=== PATIENT | male | born 1945 | race Caucasian/White ===

== ENCOUNTER → 2019-06-25 | Outpatient (CLI) | payer MEDICARE ==
[~2019-06-25] MED LIST: BARIUM for suspension 96% w/w (Vanilla Silq Medium Density) PO ONE; BARIUM for suspension 98% w/w (Vanilla Silq High Density) PO ONE; IRBE1TAB15 PO; PHEN-633 PO; ROSU10TA12 PO
--- NOTE | 2019-06-25 10:54 | Diagnostic Imaging Report ---
INDICATION: Dyspepsia. TECHNIQUE: Patient ingested effervescent crystals as well as thin and thick barium and imaging of the esophagus, stomach and proximal small bowel was performed. FINDINGS: The esophagus has a fairly smooth contour. No mass or stricture is identified. No gastroesophageal reflux or hiatal hernia was demonstrated. Stomach is normal in configuration. There is prompt emptying into the small bowel. Duodenal bulb is without deformity. IMPRESSION: Unremarkable upper gastrointestinal. Dictated by: Dictated on workstation # [id number]
== END ==
LOC: RAD 09:29
PROVIDERS: ATTEND Family Medicine
DX: R10.13 Epigastric pain (principal)
CPT/HCPCS: 74246

== ENCOUNTER → 2020-02-21 | Outpatient (CLI) | payer MEDICARE ==
[~2020-02-21] MED LIST changes: -BARIUM for suspension 96% w/w (Vanilla Silq Medium Density) PO ONE; -BARIUM for suspension 98% w/w (Vanilla Silq High Density) PO ONE
--- NOTE | 2020-02-21 10:20 | Diagnostic Imaging Report ---
INDICATION: Low back pain for one month. TIME OF EXAM: 9:01 AM 3 views lumbar spine were obtained. FINDINGS: Curvature and alignment is normal. Vertebral body heights are maintained. No acute compression fracture is identified. There is generalized degenerative disc disease with variable disc space narrowing and marginal spurring. Abdominal aorta is heavily calcified. IMPRESSION: Lumbar spondylosis. No acute bony abnormality is detected. Dictated by: Dictated on workstation # [id number]
== END ==
LOC: RAD 08:54
PROVIDERS: ATTEND Family Medicine
DX: M47.816 Spondylosis without myelopathy or radiculopathy, lumbar region (principal)
CPT/HCPCS: 72100

== ENCOUNTER 2020-08-06 05:44 | Outpatient (CLI) | payer MEDICARE ==
[~2020-08-06] VITALS: Ht 180.3 cm; Wt 83.1 kg
[2020-08-07] MEDS ORDERED: LOSA100T57 PO (11:09)
[2020-08-07] MEDS ORDERED: PHEN100C4 PO (11:09)
[2020-08-07] MEDS ORDERED: ASPI-999 PO (11:09)
[2020-08-07] MEDS ORDERED: AMLO-250 PO (11:09)
[2020-08-07] MEDS ORDERED: IBUP200C11 PO (11:09)
[2020-08-07] MEDS ORDERED: OMG1KC PO (11:09)
== END 2020-08-07 11:19 | disposition home or self-care (01) ==
LOC: PREOP 05:44 → EDSTATUS 11:00 → PREOP 08-07 11:19
PROVIDERS: ATTEND Radiology Radiation Oncology
DX: Z01.812 Encounter for preprocedural laboratory examination (principal); C61 Malignant neoplasm of prostate

== ENCOUNTER 2020-08-13 11:54 | Day surgery (SDC) | payer MEDICARE ==
[2020-08-13] VITALS (10 sets, daily range): BP systolic 124–194; BP diastolic 80–96
[~2020-08-13] VITALS: Ht 180.3 cm; Wt 83.1 kg
[~2020-08-13 11:54] MED LIST changes: +AMLO-250 PO; +ASPI-999 PO; +IBUP200C11 PO; +LOSA100T57 PO; +OMG1KC PO; +PHEN100C4 PO
[2020-08-13] MEDS ORDERED: LACTATED RINGERS 1,000 ML IV PRN (12:15)
--- NOTE | 2020-08-13 12:46 | Progress Note-Pre Operative ---
Pre-Operative Progress Note H&P Reviewed The H&P was reviewed, patient examined and no changes noted. Date Seen by Provider: Aug 13, 2020 Time Seen by Provider: 12:45 Date H&P Reviewed: Aug 13, 2020 Time H&P Reviewed: 12:45 Pre-Operative Diagnosis: Prostate cancer cT1c, PSA 8.4, [place] 7 (3+4) TRACY WALL MD Aug 13, 2020 12:46
--- NOTE | 2020-08-13 12:48 | Discharge Inst-Simple/Standard ---
Discharge Inst-Standard Reconcile Patient Problems Problems Reviewed?: Yes Discharge Medications New, Converted or Re-Newed RX: Other (Patient has medications) Patient Instructions/Follow Up Plan of Care/Instructions/FU: 1)Treatment planning ct simulation at [facility] cancer center 08/27/20 at 1:00 p.m. Activity as Tolerated: Yes Discharge Diet: No Restrictions TRACY WALL MD Aug 13, 2020 12:48
[2020-08-13] MEDS ORDERED: fentaNYL INJ 100 MCG/2 ML AMP ONE (14:01)
[2020-08-13] MEDS ORDERED: ONDANSETRON 4 MG/2 ML (SDV) Z0FRAN ONE (14:01)
[2020-08-13] MEDS ORDERED: LIDOCAINE PF 2% 5 ML (XYLOCAINE) VIAL ONE (14:01)
[2020-08-13] MEDS ORDERED: proPOfol 200 MG/20 ML (DIPRIVAN) VIAL IV ONE (14:01)
[2020-08-13] MEDS ORDERED: SEVOFLURANE (ULTANE) 15 ML INHAL SOLN ONE (14:18)
--- NOTE | 2020-08-13 15:07 | Progress Note-Post Operative ---
Post-Operative Progess Note Surgeon (s)/Military Equipment Specialist (s) Surgeon Karma GREENWOOD MD Military Equipment Specialist: TRACY WALL MD Pre-Operative Diagnosis Prostate cancer cT1c, PSA 8.4, [place] 7 (3+4) Post-Operative Diagnosis Same as preop Procedure & Operative Findings Date of Procedure 08/13/20 Procedure Performed/Findings (1) Placement of fiducial gold seed markers (2) Injection of biodegradable hydrogel prostate-rectal spacer utilizing [employer] Juliana Anesthesia Type General Estimated Blood Loss Estimated blood loss (mL): None Specimens/Packing Specimens Removed N/A Packing: N/A TRACY WALL MD Aug 13, 2020 15:07
--- NOTE | 2020-08-13 15:08 | Anesthesia-General Post-Op ---
General Patient Condition Mental Status/LOC: Same as Preop Cardiovascular: Satisfactory Nausea/Vomiting: Absent Respiratory: Satisfactory Pain: Controlled Complications: Absent Post Op Complications Complications None Follow Up Care/Instructions Patient Instructions None needed. Anesthesia/Patient Condition Patient Condition Patient is doing well, no complaints, stable vital signs, no apparent adverse anesthesia problems. No complications reported per nursing. D/C home per [place] Criteria: Yes JEFF MCNULTY CRNA Aug 13, 2020 15:08
[2020-08-13] MEDS ORDERED: ONDANSETRON 4 MG/2 ML (SDV) Z0FRAN IVP PRN (15:15)
[2020-08-13] MEDS ORDERED: HYDROmorphone 2 MG/ML VIAL (DILAUDID) IV ONE (15:15)
== END 2020-08-13 17:05 | disposition home or self-care (01) ==
LOC: SDC 11:54
PROVIDERS: ATTEND Radiology Radiation Oncology
DX: C61 Malignant neoplasm of prostate (principal); E78.00 Pure hypercholesterolemia, unspecified; I10 Essential (primary) hypertension; I73.9 Peripheral vascular disease, unspecified; G40.909 Epilepsy, unspecified, not intractable, without status epilepticus; J44.9 Chronic obstructive pulmonary disease, unspecified; F17.210 Nicotine dependence, cigarettes, uncomplicated; Z79.82 Long term (current) use of aspirin; Z79.899 Other long term (current) drug therapy; Z80.42 Family history of malignant neoplasm of prostate
CPT/HCPCS: 55874; 55876; 87081; C1889

== ENCOUNTER → 2020-09-15 | Outpatient (RCR) | payer MEDICARE | END | disposition home or self-care (01) | LOC: ONC 06-17 13:35 | PROVIDERS: ATTEND Radiology Radiation Oncology | DX: C61 Malignant neoplasm of prostate (principal); I10 Essential (primary) hypertension; F17.210 Nicotine dependence, cigarettes, uncomplicated; F10.99 Alcohol use, unspecified with unspecified alcohol-induced disorder | CPT/HCPCS: 77300; 77301; 77334; 77336; 77338; 77385; 99204 ==

== ENCOUNTER 2020-12-04 10:54 | Outpatient (RCR) | payer MEDICARE | END 2020-12-15 | disposition home or self-care (01) | LOC: ONC 10:54 | PROVIDERS: ATTEND Radiology Radiation Oncology | DX: Z51.0 Encounter for antineoplastic radiation therapy (principal); C61 Malignant neoplasm of prostate; I10 Essential (primary) hypertension; E78.00 Pure hypercholesterolemia, unspecified; F17.210 Nicotine dependence, cigarettes, uncomplicated; G40.909 Epilepsy, unspecified, not intractable, without status epilepticus; Z79.899 Other long term (current) drug therapy; Z79.82 Long term (current) use of aspirin | CPT/HCPCS: 77336; 77385; 99213 ==

== ENCOUNTER → 2022-06-22 | Outpatient (CLI) | payer MEDICARE ==
--- NOTE | 2022-06-22 13:34 | Diagnostic Imaging Report ---
INDICATION: Left hip pain. COMPARISON: 06/06/2015. TECHNIQUE: Two radiographs of the left hip dated 06/22/2022. FINDINGS: Moderate degenerative changes noted within the partially visualized lower lumbar spine. The left sacroiliac joint and pubic symphysis appear intact. Significant background vascular calcifications. Postsurgical changes noted near the pubic symphysis. This may relate to prior prostate surgery. Phleboliths within the lower pelvis. No acute fracture or dislocation. No destructive osseous process. Mild joint space narrowing of the left hip with mild osteophyte formation. The left femoral head maintains its normal shape and contour. IMPRESSION: No acute osseous abnormality with mild degenerative changes, greatest within the partially visualized lower lumbar spine. Moderate background vascular calcifications. Dictated by: Dictated on workstation # [id number]
== END ==
LOC: RAD 09:51
PROVIDERS: ATTEND Family Medicine
DX: M16.12 Unilateral primary osteoarthritis, left hip (principal); M47.896 Other spondylosis, lumbar region
CPT/HCPCS: 73502

== ENCOUNTER 2022-09-17 18:32 | Inpatient (IN) | payer MEDICARE ==
[~2022-09-17] VITALS: Ht 182 cm; Wt 66.1 kg
[2022-09-17] MEDS ORDERED: methylPREDNISolone 125 MG (Solu-MEDROL) VIAL IV STA (18:51)
[2022-09-17 18:59] LABS: BASOPHILS % (AUTO) 0 % (0-10); EOSINOPHILS % (AUTO) 0 % (0-10); HEMATOCRIT 35 % (40-54); HEMOGLOBIN 13.4 g/dL (13.3-17.7); LYMPHOCYTES # (AUTO) 1.6 10^3/uL (1.0-4.0); LYMPHOCYTES % (AUTO) 13 % (12-44); MEAN CORPUSCULAR HEMOGLOBIN 34 pg (25-34); MEAN CORPUSCULAR HGB CONC 38 g/dL (32-36); MEAN CORPUSCULAR VOLUME 90 fL (80-99); MEAN PLATELET VOLUME 9.6 fL (9.0-12.2); MONOCYTES # (AUTO) 1.7 10^3/uL (0.0-1.0); MONOCYTES % (AUTO) 13 % (0-12); NEUTROPHILS # (AUTO) 9.3 10^3/uL (1.8-7.8); NEUTROPHILS % (AUTO) 73 % (42-75); PLATELET COUNT 207 10^3/uL (130-400); WHITE BLOOD COUNT 12.8 10^3/uL (4.3-11.0)
[2022-09-17] MEDS ORDERED: RT-ALBUTEROL/IPRATROPIUM 3 ML (DUONEB) VIAL INH ONE (19:00)
--- NOTE | 2022-09-17 19:00 | ED Respiratory ---
General Chief Complaint: Respiratory Problems Stated Complaint: BACK/RIB PAIN SOA/WHEEZING Nursing Triage Note: PT AMB TO RM 6 PT CO OF SOA PT HAS L SIDED PAIN BELOW SHOULDER AFTER FALL ON TUESDAY IN [place]. PT WAS SEEN IN ED IN [place]. PT SAT UPON ARRIVAL ON RM AIR 76%. PT DOES NOT WEAR O2. PT IS A CURRENT EVERY DAY SMOKER. PT CYNOTIC UPON ARRIVAL. RR 28 Source: patient Exam Limitations: no limitations (DARLENE BALTAZAR APRN) History of Present Illness Date Seen by Provider: September 17, 2022 Time Seen by Provider: 18:35 Initial Comments 77-year-old male presents the ER with complaints of left upper back pain and shortness of air. He fell on Tuesday, he was seen in an ER in [place]. He states at that time he was having all over rib cage pain and back pain. He also hit his head during the fall, they obtained a CT of his head which was negative. He reports chronic shortness of air, states he may have COPD, states that s hortness of breath became worse yesterday. Patient was found to be at 76% on room air upon arrival. Patient does not wear oxygen at home. Patient does smoke cigarettes. He also drinks alcohol daily and uses [employer]umm[employer]. He states he last drank alcohol yesterday evening. Reports he has withdrawn from alcohol in the past. Denies any current withdrawal symptoms. He denies fevers, chest pain, nausea, vomiting. Does report some mild lower abdominal pain. States he feels like he needs an [place]. Past medical history includes epilepsy controlled by phenytoin, and hypertension. (DARLENE BALTAZAR APRN) Allergies and Home Medications Allergies Coded Allergies: No Known Allergies (Unverified Allergy, Unknown, 09/18/14) Patient Home Medication List Home Medication List Reviewed: Yes (DARLENE BALTAZAR APRN) Amlodipine Besylate (Amlodipine Besylate) 5 Mg Tablet, 5 MG PO DAILY, (Reported) Entered as Reported by: ADA COOPER on 08/07/20 110 Aspirin (Aspirin) 81 Mg Tab.chew, 81 MG PO DAILY, (Reported) Entered as Reported by: ADA COOPER on 08/07/20 110 Ibuprofen (Advil) 200 Mg Capsule, 200 MG PO TID PRN for PAIN-MILD (1-4), (Reported) Entered as Reported by: ADA COOPER on 08/07/20 110 Losartan Potassium (Losartan Potassium) 100 Mg Tablet, 100 MG PO DAILY, (Reported) Entered as Reported by: ADA COOPER on 08/07/20 110 [place] 3 Polyunsat Fatty Acids (Fish Oil 1,000 mg Capsule) 1,000 Mg Cap, 1,000 MG PO DAILY, (Reported) Entered as Reported by: ADA COOPER on 08/07/20 110 Phenytoin Sodium Extended (Dilantin) 100 Mg Capsule, 100 MG PO BID, (Reported) Entered as Reported by: ADA COOPER on 08/07/201108 Review of Systems Review of Systems Constitutional: see HPI (DARLENE BALTAZAR APRN) Past Nuxdwim-Fdxxkk-Dorujp Hx Patient Social History Tobacco Use?: Yes Tobacco type used: Cigarettes Smoking Status: Current Everyday Smoker Substance use?: Yes Substance type: Marijuana Alcohol Use?: Yes Alcohol type: Beer, Hard Liquor Alcohol Frequency: Daily Pt feels they are or have been: No (DARLENE BALTAZAR APRN) Immunizations Up To Date Influenza Vaccine Up-to-Date: No; Not Current First/Initial COVID19 Vaccinat: 07/24/20 Second COVID19 Vaccination [place]: 07/24/20 Third COVID19 Vaccination Date: 07/24/20 (DARLENE BALTAZAR APRN) Seasonal Allergies Seasonal Allergies: No (DARLENE BALTAZAR APRN) Past Medical History Surgery/Hospitalization HX: COPD, HTN, EPILEPSY, STENTS IN LEG. 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 GRACE) High Cholesterol, Hypertension, Peripheral Vascular Neurological: Yes (REPORTS NO SEIZURES FOR 30 YEARS) Seizure Disorder Genitourinary: No Gastrointestinal: No Musculoskeletal: No Endocrine: No HEENT: No (WEARS READING GLASSES) Cancer: Yes (PROSTATE CANCER (INITIAL DX 2010)) Prostate Psychosocial: No Integumentary: No Blood Disorders: No (DARLENE BALTAZAR APRN) Physical Exam Vital Signs - First Documented 09/17/22 18:35 Pulse 68 Resp 24 B/P (MAP) 208/123 (151) Pulse Ox 96 O2 Delivery Nasal Cannula O2 Flow Rate 5.00 (APRYL HERNÁNDEZ DO) Capillary Refill : Less Than 3 Seconds (DARLENE BALTAZAR APRN) Height: 6'0.00" Weight: 200lbs. oz. 90.645154am; 21.00 BMI Method: General Appearance: WD/WN, no apparent distress Neck: supple, normal inspection Respiratory: no respiratory distress, no accessory muscle use, decreased breath sounds (DEXTER), other (Coarse breath sounds throughout) Cardiovascular: irregularly irregular Extremities: normal range of motion, non-tender, normal inspection, no pedal edema, no calf tenderness Neurologic/Psychiatric: alert, normal mood/affect Skin: normal color, warm/dry (DARLENE BALTAZAR APRN) Progress/Results/Core Measures Suspected Sepsis SIRS Temperature: Pulse: 68 Respiratory Rate: 24 Laboratory Tests 09/17/22 18:46: White Blood Count 12.8H Blood Pressure 208 /123 Mean: 151 Laboratory Tests 09/17/22 18:46: Creatinine 0.61, Platelet Count 207, Total Bilirubin 0.9 (DARLENE BALTAZAR APRN) Results/Orders Lab Results Laboratory Tests Test 09/17/22 18:46 Range/Units White Blood Count 12.8 H 4.3-11.0 10^3/uL Red Blood Count 3.92 L 4.30-5.52 10^6/uL Hemoglobin 13.4 13.3-17.7 g/dL Hematocrit 35 L 40-54 % Mean Corpuscular Volume 90 80-99 fL Mean Corpuscular Hemoglobin 34 25-34 pg Mean Corpuscular Hemoglobin Concent 38 H 32-36 g/dL Red Cell Distribution Width 11.7 10.0-14.5 % Platelet Count 207 130-400 10^3/uL Mean Platelet Volume 9.6 9.0-12.2 fL Immature Granulocyte % (Auto) 1 % Neutrophils (%) (Auto) 73 42-75 % Lymphocytes (%) (Auto) 13 12-44 % Monocytes (%) (Auto) 13 H 0-12 % Eosinophils (%) (Auto) 0 0-10 % Basophils (%) (Auto) 0 0-10 % Neutrophils # (Auto) 9.3 H 1.8-7.8 10^3/uL Lymphocytes # (Auto) 1.6 1.0-4.0 10^3/uL Monocytes # (Auto) 1.7 H 0.0-1.0 10^3/uL Eosinophils # (Auto) 0.0 0.0-0.3 10^3/uL Basophils # (Auto) 0.0 0.0-0.1 10^3/uL Immature Granulocyte # (Auto) 0.1 0.0-0.1 10^3/uL Sodium Level 112 *L 135-145 MMOL/L Potassium Level 3.2 L 3.6-5.0 MMOL/L Chloride Level 75 L 98-107 MMOL/L Carbon Dioxide Level 22 21-32 MMOL/L Anion Gap 15 H 5-14 MMOL/L Blood Urea Nitrogen 10 7-18 MG/DL Creatinine 0.61 0.60-1.30 MG/DL Estimat Glomerular Filtration Rate 100 BUN/Creatinine Ratio 16 Glucose Level 106 H 70-105 MG/DL Calcium Level 9.0 8.5-10.1 MG/DL Corrected Calcium 8.8 8.5-10.1 MG/DL Total Bilirubin 0.9 0.1-1.0 MG/DL Aspartate Amino Transf (AST/SGOT) 43 H 5-34 U/L Alanine Aminotransferase (ALT/SGPT) 38 0-55 U/L Alkaline Phosphatase 86 40-136 U/L Total Protein 7.1 6.4-8.2 GM/DL Albumin 4.2 3.2-4.5 GM/DL Serum Alcohol < 10 <10 MG/DL (EDGAR,APRYL K DO) Vital Signs/I&O 09/17/22 18:35 Pulse 68 Resp 24 B/P (MAP) 208/123 (151) Pulse Ox 96 O2 Delivery Nasal Cannula O2 Flow Rate 5.00 (EDGAR,APRYL K DO) Vital Signs/I&O Capillary Refill : Less Than 3 Seconds (DARLENE BALTAZAR APRN) Blood Pressure Mean: 151 Progress Note : Progress Note Patient seen evaluated, resting comfortably in bed, no acute distress. Upon arrival patient was 76% on room air, oxygen saturation quickly improved after oxygen administration. desk monitor in room appears to show A-fib, patient denies history of atrial fibrillation. Work-up initiated including CBC, CMP, EKG, chest x-ray. DuoNeb and Solu-Medrol ordered. Considered D-dimer but deferred due to patient's Wells score for PE being a low risk at 1.5 due to previous DVT. 1929 Labs reviewed. CMP shows slightly elevated WBCs 12.8. CMP shows critically low sodium 112. Slightly low potassium 3.2. Decreased chloride 75. Slightly elevated anion gap 15. AST slightly elevated 43. Serum alcohol negative. The radiologist called to report that patient has a large left-sided pneumothorax as well as fourth through fifth rib fractures. This is likely due to the recent trauma patient sustained from a fall on Tuesday. I called and spoke with Dr. Dean, surgery, he recommends the hospitalist admit and he will place a chest tube in the morning. He recommends continuing to monitor pulse ox and provide oxygen. And to make sure patient is comfortable. 1934 I called and spoke with Dr. Fernandez, hospitalist, regarding admission. He agrees to admit patient to the ICU for pneumothorax and hyponatremia. He wants me to place bridge orders. He wants 1 mg of Dilaudid every 4 hours as needed for pain, Tylenol 1000 mg every 6 hours as needed for pain and fever, BMP in the morning. And normal saline with 20 mEq of potassium running at 150 ml an hour. Results were discussed with patient. Patient reports history of chronically low sodium level. He states that is has never been as low as 112 though. States his sodium level is usually around 125. (DARLENE BALTAZAR APRN) ECG Initial ECG Impression Date: September 17, 2022 Initial ECG Impression Time: 19:03 Initial ECG Rate: 58 Initial ECG Rhythm: A Fib/Flutter Initial ECG Intervals: ME Initial ECG Comparisson: No Previous ECG Available Comment Irregularly irregular rhythm. No significant Q waves, ST elevation, or T wave inversion. (DARLENE BALTAZAR APRN) Diagnostic Imaging Diagonstic Imaging: Xray Plain Films/CT/US/NM/MRI: chest Comments [facility], [place] NAME: NYA MALONE [facility] REC#: [id number] PT STATUS: REG ER : 1945 PHYSICIAN: DARLENE BALTAZAR APRN ADMIT DATE: 09/17/22/ER Signed Date of Exam:09/17/22 CHEST 1 VIEW, AP/PA ONLY INDICATION: Shortness of breath COMPARISON: 04/04/2013 TECHNIQUE: Single radiograph of the chest dated 09/17/2022. FINDINGS: The cardiac silhouette is at the upper limits of normal in size. No significant pulmonary vascular congestion. Large left-sided pneumothorax is present with partial collapse of the left lung. No significant mediastinal shift. The right lung is clear of focal pulmonary opacity. No significant pleural effusion. No right-sided pneumothorax. Age-indeterminate fracturing of the posterior left 4th, 5th, and 6th ribs, new since 2012. IMPRESSION: Large left-sided pneumothorax without definite tension phenomenon. Age-indeterminate posterior left 4th through 6th rib fractures, new since 2012. Findings discussed with Darlene Newman at 1928 on 09/17/2022. Dictated by: Dictated on workstation # [id number] Dict: 09/17/221925 Trans: 09/17/222015 QIANA [id number] Interpreted by: ABNER MINOR MD Electronically signed by: ABNER MINOR MD 09/17/222015 (DARLENE BALTAZAR APRN) Departure Impression Primary Impression: Pneumothorax Qualified Codes: S27.0XXA - Traumatic pneumothorax, initial encounter Additional Impressions: Hyponatremia Hypokalemia Disposition: ADMITTED INPATIENT Condition: Critical Admissions Decision to Admit Reason: Admit from ER (General) Decision to Admit/Date: September 17, 2022 Time/Decision to Admit Time: 19:29 (DARLENE BALTAZAR APRN) Departure-Patient Inst. Referrals: MARINE MALONEY MD (PCP) Primary Care Physician Karma GREENWOOD MD (Family) Primary Care Physician ATTENDING PHYSICIAN NOTE: I WAS PHYSICALLY PRESENT ER PHYSICIAN, BUT I WAS NOT INVOLVED IN ANY DECISION MAKING OR ANY CARE OF THIS PATIENT, AND I AM NOT COLLABORATING PHYSICIAN. (APRYL HERNÁNDEZ DO) DARLENE BALTAZAR APRN September 17, 2022 18:59 APRYL HERNÁNDEZ DO September 19, 2022 17:50
[2022-09-17 19:04] LABS: ALBUMIN 4.2 GM/DL (3.2-4.5); CHLORIDE 75 MMOL/L (98-107); POTASSIUM 3.2 MMOL/L (3.6-5.0)
[2022-09-17 19:07] LABS: GLUCOSE 106 MG/DL (70-105); TOTAL PROTEIN 7.1 GM/DL (6.4-8.2)
[2022-09-17 19:08] LABS: CARBON DIOXIDE 22 MMOL/L (21-32)
[2022-09-17 19:09] LABS: BILIRUBIN,TOTAL 0.9 MG/DL (0.1-1.0)
[2022-09-17 19:10] LABS: ALKALINE PHOSPHATASE 86 U/L (40-136); CREATININE SERUM 0.61 MG/DL (0.60-1.30); GFR ESTIMATED 100
[2022-09-17 19:12] LABS: BUN/CREATININE RATIO 16
[2022-09-17 19:13] LABS: ALANINE AMINOTRANSFERASE 38 U/L (0-55)
[2022-09-17 19:21] LABS: SODIUM 112 MMOL/L (135-145)
[2022-09-17] MEDS ORDERED: KCL 20 MEQ TAB (K-DUR) PO ONE (19:30)
[2022-09-17] MEDS ORDERED: NS IV 1000 ML 1,000 ML IV SCH (19:30)
--- NOTE | 2022-09-17 19:43 | Diagnostic Imaging Report ---
INDICATION: Shortness of breath COMPARISON: 04/04/2013 TECHNIQUE: Single radiograph of the chest dated 09/17/2022. FINDINGS: The cardiac silhouette is at the upper limits of normal in size. No significant pulmonary vascular congestion. Large left-sided pneumothorax is present with partial collapse of the left lung. No significant mediastinal shift. The right lung is clear of focal pulmonary opacity. No significant pleural effusion. No right-sided pneumothorax. Age-indeterminate fracturing of the posterior left 4th, 5th, and 6th ribs, new since 2012. IMPRESSION: Large left-sided pneumothorax without definite tension phenomenon. Age-indeterminate posterior left 4th through 6th rib fractures, new since 2012. Findings discussed with Darlene Newman at 1928 on 09/17/2022. Dictated by: Dictated on workstation # [id number]
--- NOTE | 2022-09-17 21:16 | Tele-ICU Progress Note ---
Subjective Date Seen by a Provider: September 17, 2022 Subjective/Events-last exam This virtual visit was conducted using real time audio/video. Thank you for asking us to see this patient for respiratory insufficiency due to probable AECOPD. L rib #s with L PTX. Also afib in ER. SH: smoking history: current. PE: No current distress. VSS. O2 sat 96% on 5 LPM HEENT: No obvious masses, adenopathy or JVD. Chest: coarse on auscultation. CV: Irreg. S1 S2 No murmur or added sounds. Abd: Non-tender. Bowel sounds Y. : Unremarkable. [place]/psychiatric: Grossly intact. No obvious focal findings. Extremities: No edema. Capillary refill < 3 seconds. Skin: unremarkable. Results: Elevated WCC 12.8, BG 106. Decreased NA 112, K 3.2. CXR: L rib #s, L PTX.. Available chart/ vitals / labs / images reviewed. Video assessment done using teleICU camera, rest of exam as per RN. A/P: Respiratory insufficiency: Continue present management with O2, duonebs, medrol. Surgeon on case for PTX. Monitor for increasing oxygenation needs and/or need for intubation. If intubated will need emergent chest tube. Critical Care: critically ill patient. Cont. IVF. Replace K. Discussed with RN Neha. Asked RN to reach out to eICU if any questions or concerns later. Time spent with patient/coordination of care with other health professionals (mins): 25 Sepsis Event Evaluation Height, Weight, BMI Height: 6'0.00" Weight: 200lbs. oz. 90.537676vv; 21.00 BMI Method: Exam Exam Patient acknowledged, consented, and participated in this virtual visit which was conducted using real time audio/video Vital Signs Date Time Temp Pulse Resp B/P (MAP) Pulse Ox O2 Delivery O2 Flow Rate FiO2 09/17/22 20:56 61 20 191/98 93 Nasal Cannula 5.00 09/17/22 18:35 68 24 208/123 (151) 96 Nasal Cannula 5.00 Height & Weight Height: 6'0.00" Weight: 200lbs. oz. 90.181291mw; 21.00 BMI Method: General Appearance: Obese Respiratory: Other Capillary Refill: Less Than 3 Seconds Peripheral Pulses: 1+ Dorsalis Pedis (R), 1+ Left Dors-Pedis (L) (See free text) Results Lab Laboratory Tests 09/17/22 18:46 Assessment/Plan Assessment/Plan See free text. Critical Care: Critically Ill Patient OXANA LUIS MD September 17, 2022 21:16
[2022-09-17] MEDS ORDERED: ACETAMINOPHEN 500 MG TAB (TYLENOL) PO PRN (21:30)
[2022-09-17] MEDS ORDERED: ONDANSETRON 4 MG/2 ML (SDV) Z0FRAN IV PRN (21:30)
[2022-09-17] MEDS: NS W/KCL 20 MEQ/L 1,000 ML IV SCH (22:34)
[2022-09-17] MEDS ORDERED: NS IV 500 ML 500 ML IV PRN (23:00)
--- NOTE | 2022-09-17 23:28 | CONSULTATION REPORT ---
DATE OF SERVICE: 09/17/2022 ATTENDING PRIMARY CARE PHYSICIAN: Bernard Dan MD ADMITTING PHYSICIAN: Rocael Fernandez MD HISTORY OF PRESENT ILLNESS: The patient is a 77-year-old female who presented to the emergency department with left upper back pain as well as shortness of breath. She states that approximately 3 days ago, she had fallen and at that time was in the [facility] and was seen in the emergency department and shortly released. She also does have a history of chronic obstructive pulmonary disease and upon arrival, her oxygen saturation was 76%; however, after administration of 5 liters oxygen nasal cannula, her oxygen saturations remained in the low 90s and she was not short of breath. A chest x-ray was performed, which did show a pneumothorax approximately 20% and she also does have age indeterminate fractures of the posterior aspects of ribs 4 through 6 with no displacement. There does not appear to be any fluid within the pleural space. PAST MEDICAL HISTORY: COPD, hypertension, seizure disorder, peripheral vascular disease, history of prostate cancer, hypercholesterolemia, hypertension. PAST SURGICAL HISTORY: Left aortofemoral bypass, left lower extremity angioplasty and stent placement. ALLERGIES: No known drug allergies. MEDICATIONS: Amlodipine 5 mg daily, aspirin 81 mg daily, losartan 100 mg daily, omega 3 fatty acids daily, phenytoin 100 mg b.i.d. SOCIAL HISTORY: Positive smoke 50 pack years. Marijuana use. Does drink daily alcohol. FAMILY HISTORY: Noncontributory. VITAL SIGNS: Temperature 36.4, blood pressure 150/88, pulse 73, respirations 21, pulse ox 92% on 5 liters nasal cannula. REVIEW OF SYSTEMS: The patient is currently in no acute distress, after administration of supplemental oxygen. No cough or sputum production. She does have pain in the left upper back. No chest pain, palpitations, diaphoresis. No nausea, vomiting. No diarrhea or constipation. No fever, chills, no recent inadvertent weight loss. All other review of systems negative. PHYSICAL EXAMINATION: Will be ascertained upon evaluation of the patient in the a.m. Patient's information was accrued through the emergency room staff as well as the patient's electronic medical records. LABORATORY DATA: WBC 12.8, hemoglobin 13.4, hematocrit 35, platelets 207. BUN 10, creatinine 0.61, sodium 112. ASSESSMENT AND PLAN: A 77-year-old male with fall several days ago with indeterminate fractures of the posterior aspect of the ribs 4 through 6 with approximately 20% pneumothorax. There does not appear to be any pleural effusion or hemothorax. We will proceed with placement of a pneumothorax catheter and attached to waterseal to check for any air leak and monitoring and once the lung was fully inflated and there is no leak detectable, we will then remove the chest tube. Job ID: [id number] DocumentID: [id number] Dictated Date: 09/17/2022 23:05:33 Production Proofreader Date: 09/17/2022 23:27:00 Dictated By: OSBALDO ALEX MD [facility]
[2022-09-18] MEDS: RT-ALBUTEROL/IPRATROPIUM 3 ML (DUONEB) VIAL INH SCH ×5 (02:28→22:25)
[2022-09-18] MEDS: NS W/KCL 20 MEQ/L 1,000 ML IV SCH (04:31)
[2022-09-18 05:32] LABS: ALBUMIN 3.4 GM/DL (3.2-4.5); BILIRUBIN,TOTAL 0.6 MG/DL (0.1-1.0); CALCIUM 8.4 MG/DL (8.5-10.1); CREATININE SERUM 0.51 MG/DL (0.60-1.30); MAGNESIUM 1.6 MG/DL (1.6-2.4); PHOSPHORUS 2.7 MG/DL (2.3-4.7); POTASSIUM 3.4 MMOL/L (3.6-5.0); TOTAL PROTEIN 5.8 GM/DL (6.4-8.2)
[2022-09-18] MEDS: POTASSIUM CL 10MEQ/50ML IVPB 50 ML IV SCH ×5 (05:43→12:13)
[2022-09-18] MEDS: MAGNESIUM 1 GM/100 ML IVPB 100 ML IV SCH ×5 (05:44→10:32)
[2022-09-18] MEDS: KCL 20 MEQ TAB (K-DUR) PO SCH (05:44)
[2022-09-18 06:07] LABS: WHITE BLOOD COUNT 11.3 10^3/uL (4.3-11.0)
[2022-09-18 06:08] LABS: BASOPHILS % (AUTO) 0 % (0-10); EOSINOPHILS % (AUTO) 0 % (0-10); HEMATOCRIT 33 % (40-54); HEMOGLOBIN 12.3 g/dL (13.3-17.7); LYMPHOCYTES # (AUTO) 1.2 X 10^3 (1.0-4.0); LYMPHOCYTES % (AUTO) 10 % (12-44); MEAN CORPUSCULAR HEMOGLOBIN 34 pg (25-34); MEAN CORPUSCULAR HGB CONC 37 g/dL (32-36); MEAN CORPUSCULAR VOLUME 92 fL (80-99); MEAN PLATELET VOLUME 10.2 fL (9.0-12.2); MONOCYTES # (AUTO) 1.5 X 10^3 (0.0-1.0); MONOCYTES % (AUTO) 13 % (0-12); NEUTROPHILS # (AUTO) 8.6 X 10^3 (1.8-7.8); NEUTROPHILS % (AUTO) 76 % (42-75); PLATELET COUNT 177 10^3/uL (130-400)
[2022-09-18 07:00] LABS: SMEAR SCAN COMMENT N
[2022-09-18] MEDS ORDERED: SENNA W/DOCUSATE (SENOKOT S) TABLET PO PRN (08:00)
[2022-09-18] MEDS ORDERED: ONDANSETRON 4 MG (ZOFRAN) ORAL DISSOLVE TAB SL PRN (08:00)
[2022-09-18] MEDS ORDERED: LORazepam INJ 2 MG/ML (ATIVAN) VIAL IM/IV PRN (08:00)
[2022-09-18] MEDS ORDERED: LORazepam 1 MG (ATIVAN) TAB PO PRN (08:00)
[2022-09-18] MEDS ORDERED: LORazepam INJ 2 MG/ML (ATIVAN) VIAL IV PRN (08:00)
[2022-09-18] MEDS ORDERED: D5 1/2 NS 1000 ML IV SOLUTION 1,000 ML IV PRN (08:00)
[2022-09-18] MEDS ORDERED: ONDANSETRON 4 MG/2 ML (SDV) Z0FRAN IV PRN (08:00)
[2022-09-18] MEDS ORDERED: 1/2 NS IV SOLUTION 1,000 ML IV PRN (08:00)
[2022-09-18] MEDS: HYDROmorphone 2 MG/ML VIAL (DILAUDID) IV PRN ×4 (08:28→23:49)
--- NOTE | 2022-09-18 09:05 | Tele-ICU Progress Note ---
Subjective Date Seen by a Provider: September 18, 2022 Time Seen by a Provider: 09:04 Subjective/Events-last exam (Tele-ICU Physician , Progress Note ) Service provided via interactive audio and video telecommunications E-CARE system to a patient admitted to ICU bed in [facility]. Patient is seen today due to persistent need of ICU care Available chart/ vitals / labs / Images reviewed Video assessment done using teleICU camera, rest of exam as per RN Discussed with RN Events overnight : Afebrile hemodynamically stable Respiratory - I/O = Drips: Pressors- no Hospital course: (09/17) 77yr M admitted for traumatic large left pneumothorax, hyponatremia (Na+112), hypokalemia (K+3.2). Patient fell on his left side in [place] 4 days ago. 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 sx , NA ? ETON ? LEFT PTX 20 % due to above - chest tube placenement by Sx planned Hypoxia - due to above and COPD - nebs , O2 , IS , follow HypoNatremia -112 on admission 7 pm -09/17 - recevided 150 /h NS ( total 1.5 l total ) with 121 now - stp IVF , repeat BMP - as per patient - baseline 120s -check TSH A fib in ER - presumed new - now in sinus - no AC - follow - check TSH h/o Sxz - denies sz for years - lelel diulantin pending pending COPD - received SM 125 on 09/17 - off steroids s - cont home and PRN prostate CA 2020 PAD - stenting LEFT 2015 , bipas 2001 Lines : , (Central Line Necessity Reviewed) Quevedo: void OG: Nutrition: Analgesia: Anxiety/ delirium VTE Prophylaxis: scd Stress Ulcer Prophylaxis: na Plans in collaboration with bedside consultants and IM MDs. Discussed with RN to reach out if any questions or concerns Case and care daily discussed on multidisciplinary rounds ( RN, PharmD, Trial Manager , Respiratory Therapy, supervisor park workers ) A total of31 minutes of critical care time was devoted to this patient today, required to treat and/or prevent further deterioration of critical care condition ( as above ) . I am remotely monitoring this patient from another state. I am unable to do the bedside exam, and history/physical and pertinent information is taken from other notes in the computer and bedside staff. Sepsis Event Evaluation Height, Weight, BMI Height: 6'0.00" Weight: 200lbs. oz. 90.338750sk; 21.73 BMI Method: Exam Exam Patient acknowledged, consented, and participated in this virtual visit which was conducted using real time audio/video Vital Signs Date Time Temp Pulse Resp B/P (MAP) Pulse Ox O2 Delivery O2 Flow Rate FiO2 09/18/22 08:00 71 57 175/98 (130) 90 Nasal Cannula 5.00 09/18/22 08:00 37.5 09/18/22 07:00 77 09/18/22 07:00 79 14 189/89 (121) 86 Nasal Cannula 5.00 09/18/22 06:00 92 23 196/99 (131) 91 Nasal Cannula 5.00 09/18/22 05:00 80 11 166/85 (112) 91 Nasal Cannula 5.00 09/18/22 04:00 94 Nasal Cannula 5.00 09/18/22 04:00 74 14 153/80 (104) 94 Nasal Cannula 5.00 09/18/22 03:00 76 13 167/93 (117) 89 Nasal Cannula 5.00 09/18/22 02:30 92 Nasal Cannula 5.00 09/18/22 02:00 79 15 155/83 (107) 94 Nasal Cannula 5.00 09/18/22 01:00 73 27 154/93 (113) 96 Nasal Cannula 5.00 09/18/22 01:00 80 09/18/22 00:00 77 14 174/90 (118) 96 Nasal Cannula 5.00 09/17/22 23:59 95 Nasal Cannula 5.00 09/17/22 23:00 74 11 143/87 (105) 92 Nasal Cannula 5.00 09/17/22 22:30 73 21 150/88 (108) 92 Nasal Cannula 5.00 09/17/22 22:00 93 Nasal Cannula 5.00 09/17/22 22:00 80 33 175/102 (126) 87 Nasal Cannula 5.00 09/17/22 21:56 84 09/17/22 21:45 85 25 199/124 (149) 90 Nasal Cannula 5.00 09/17/22 21:30 81 14 182/99 (126) 92 Nasal Cannula 5.00 09/17/22 21:24 93 09/17/22 21:23 93 Nasal Cannula 5.00 09/17/22 21:15 36.4 77 22 204/107 (139) 90 Nasal Cannula 5.00 09/17/22 20:56 61 20 191/98 93 Nasal Cannula 5.00 09/17/22 18:35 68 24 208/123 (151) 96 Nasal Cannula 5.00 I & O 09/18/22 07:00 Intake Total 2050 ml Output Total 1900 ml Balance 150 ml Height & Weight Height: 6'0.00" Weight: 200lbs. oz. 90.547779tf; 21.73 BMI Method: General Appearance: Obese Respiratory: Other Capillary Refill: Less Than 3 Seconds Peripheral Pulses: 1+ Dorsalis Pedis (R), 1+ Left Dors-Pedis (L) (See free text) Results Lab Laboratory Tests 09/17/22 18:46 09/18/22 04:45 Assessment/Plan Assessment/Plan 1 DOMO TERRY MD September 18, 2022 09:05
[2022-09-18] MEDS: amLODIPine 5 MG (NORVASC) TAB PO SCH (09:24)
[2022-09-18] MEDS: LOSARTAN 100 MG (COZAAR) TABLET PO SCH (09:24)
[2022-09-18] MEDS: THIAMINE 100 MG (VITAMIN B-1) TAB PO SCH (09:24)
[2022-09-18] MEDS: FOLIC ACID 1 MG TAB PO SCH (09:24)
[2022-09-18 09:28] LABS: POTASSIUM 3.3 MMOL/L (3.6-5.0)
[2022-09-18 09:29] LABS: CALCIUM 8.2 MG/DL (8.5-10.1)
[2022-09-18 09:33] LABS: CREATININE SERUM 0.5 MG/DL (0.60-1.30)
--- NOTE | 2022-09-18 09:57 | History & Physical-Hospitalist ---
History of Present Illness HPI/Chief Complaint 77-year-old male presents the ER with complaints of left upper back pain and shortness of air. He fell on Tuesday, he was seen in an ER in [place]. He states at that time he was having all over rib cage pain and back pain. He also hit his head during the fall, they obtained a CT of his head which was negative. He reports chronic shortness of air, states he may have COPD, states that shortness of breath became worse yesterday. Patient was found to be at 76% on room air upon arrival. Patient does not wear oxygen at home. Patient does smoke cigarettes. He also drinks alcohol daily and uses Gummies. He states he last drank alcohol yesterday evening. Reports he has withdrawn from alcohol in the past. Denies any current withdrawal symptoms. He denies fevers, chest pain, nausea, vomiting. Does report some mild lower abdominal pain. States he feels like he needs an [place]. Past medical history includes epilepsy controlled by phenytoin, and hypertension. Upon my arrival patient appeared to be in no acute distress he reports minimal discomfort on inspiration over the chest predominantly left side. Denies shortness of breath at rest. He denied feeling anxious or feeling like he was withdrawing from alcohol. He is a regular smoker but reports he is surprised that he is not having any craving for nicotine currently. Date Seen 09/18/22 Time Seen by a Provider: 07:00 Attending Physician Bernard Dan MD PCP Admitting Physician: Eddie Busch MD Attending Physician: Eddie Busch MD Referring Physician Date of Admission September 17, 2022 at 20:49 Home Medications & Allergies Home Medications Reviewed patient Home Medication Reconciliation performed by pharmacy medication reconciliations electronic sales and service technician and/or nursing. Patients Allergies have been reviewed. Allergies Allergies Coded Allergies No Known Allergies (Unverified Allergy, Unknown, 09/18/14) Past Ularpuo-Wlyktb-Djqoax Hx Patient Social History Tobacco Use?: Yes Tobacco type used: Cigarettes Smoking Status: Current Everyday Smoker Substance use?: Yes Substance type: Marijuana Additional substance use comme: EDIBLES Alcohol Use?: Yes Alcohol type: Beer, Hard Liquor Additional alcohol type: 4 BEERS AND 3 MIXED DRINKS (BOURBON) DAILY Alcohol Frequency: Daily Pt feels they are or have been: No Immunizations Up To Date First/Initial COVID19 Vaccinat: 07/24/20 Second COVID19 Vaccination Lino: 07/24/20 Seasonal Allergies Seasonal Allergies: No Current Status Advance Directives: No Communicates: Verbally Primary Language: [place]ican Preferred Spoken Language: [place]ican Is interpretation needed?: No Implanted or Applied Medical D: Stents Past Medical History Surgeries: Vascular Surgery COPD, Emphysema High Cholesterol, Hypertension, Peripheral Vascular Seizure Disorder Prostate Blood Disorders: No Review of Systems Constitutional: see HPI Physical Exam Physical Exam Vital Signs Vital Signs - First Documented 09/17/22 09/17/22 18:35 21:15 Temp 36.4 Pulse 68 Resp 24 B/P (MAP) 208/123 (151) Pulse Ox 96 O2 Delivery Nasal Cannula O2 Flow Rate 5.00 Capillary Refill : Less Than 3 Seconds Height, Weight, BMI Height: 6'0.00" Weight: 200lbs. oz. 90.274907fd; 21.73 BMI Method: General Appearance: No Apparent Distress Respiratory: Other (Coarse breath sounds bilaterally but reduced on the left side compared to the right some scattered rhonchi without wheezing.) Cardiovascular: Regular Rate, Rhythm, No Edema, No Gallop, No JVD, No Murmur, Normal Peripheral Pulses Gastrointestinal: Normal Bowel Sounds, No Organomegaly, No Pulsatile Mass, Non Tender, Soft Extremity: Normal Capillary Refill, Normal Inspection, Normal Range of Motion, Non Tender, No Calf Tenderness, No Pedal Edema Results Results/Procedures Labs Laboratory Tests 09/17/22 18:46 09/18/22 04:45 09/18/22 09:07 Patient resulted labs reviewed. Assessment/Plan Admission Diagnosis 1. Traumatic left rib fracture with left pneumothorax chest tube or pleural event per Dr. Dean no evidence for tension pneumothorax at this time. 2. Presumed COPD continue to monitor oxygen as needed. 3. Probable alcohol use disorder continue to monitor for any evidence for withdrawal on withdrawal protocol. 4. Ongoing tobaccoism patient strongly advised to quit. Admission Status: Inpatient Order (span 2 midnights) Reason for Inpatient Admission: See admission diagnosis EDDIE BUSCH MD September 18, 2022 09:57
[2022-09-18] MEDS ORDERED: LIDOCAINE 1% INJ 20 ML VIAL ONE ×2 (10:51→12:39)
--- NOTE | 2022-09-18 12:25 | Progress Note ---
Standard Progress Note Progress Notes/Assess & Plan Date Seen by a Provider: September 18, 2022 Time Seen by a Provider: 11:00 Progress/Assessment & Plan PE: chest-decreased breath sounds left. distant breath sounds and wheezes bilat. heart-regular, no murmurs, extr-no LE edema, neg homans abd-soft NT/ND skin-warm/dry. OSBALDO ALEX MD September 18, 2022 12:25
--- NOTE | 2022-09-18 12:25 | Diagnostic Imaging Report ---
INDICATION: Pneumothorax. Comparison is made with prior exam of is made with prior exam of 09/17/2022 FINDINGS: There is now almost complete collapse of the left lung. Left chest tube is in place. There is diffuse interstitial infiltrate in the right lung. There is cardiomegaly. IMPRESSION: Large left pneumothorax despite the presence of a left thoracostomy tube. This should likely be readjusted. Cardiomegaly and diffuse interstitial infiltrate in right lung. Report was called to [facility] ICU-4 Lisa, nurse by lazaro at 12:25P.M. Dictated by: Dictated on workstation # [id number]
[2022-09-18] MEDS ORDERED: HYDROmorphone 2 MG/ML VIAL (DILAUDID) IV NR (12:30)
[2022-09-18] MEDS ORDERED: KCL 20 MEQ TAB (K-DUR) PO ONE (15:30)
--- NOTE | 2022-09-18 17:02 | Diagnostic Imaging Report ---
HISTORY: Follow up chest tube placement. COMPARISON: 09/18/2022. TECHNIQUE: Frontal view of the chest. FINDINGS: There is a large bore chest tube along the lateral upper left chest. The left pneumothorax is markedly improved, with small residual at the apex measuring about 1.3 cm. There are extensive airspace opacities throughout the left lung. There are interstitial and airspace opacities throughout the right lung. There may be a small left pleural effusion. The cardiac silhouette is stable in size. IMPRESSION: 1. Marked improvement of the left pneumothorax with small residual at the apex, following left chest tube placement. 2. Bilateral pulmonary opacities, may be due to edema or infection. Dictated by: Dictated on workstation # [id number]
[2022-09-18] MEDS ORDERED: RT-ALBUTEROL/IPRATROPIUM 3 ML (DUONEB) VIAL INH PRN (19:15)
[2022-09-18] MEDS ORDERED: RT-ALBUTEROL/IPRATROPIUM 3 ML (DUONEB) VIAL ONE (19:20)
--- NOTE | 2022-09-18 19:29 | Tele-ICU Progress Note ---
Subjective Date Seen by a Provider: September 18, 2022 Time Seen by a Provider: 19:25 Subjective/Events-last exam called for hypoxemia, Pt with traumatic rib Fx 4,5,6 on left, had large PMNTX, now mostly resolved by chest tube but there is still an occasional leak.CXR shows incrasing bilateral infiltrates. Pt is full code. SpO2 on 40 lpm Vapotherm and FiO2 100% was 83% but has improved to 90%, Pt is not working hard to breathe, Is requiring Dilaudid for rib pain As long as SpO2 stays above 88% would not intubate unless WOB becomes much worse. Will leave on current Vapotherm settings. Spoke with Neha MORALES Sepsis Event Evaluation Height, Weight, BMI Height: 6'0.00" Weight: 200lbs. oz. 90.573766un; 21.73 BMI Method: Exam Exam Patient acknowledged, consented, and participated in this virtual visit which was conducted using real time audio/video Vital Signs Date Time Temp Pulse Resp B/P (MAP) Pulse Ox O2 Delivery O2 Flow Rate FiO2 09/18/22 19:09 Vapotherm 40.00 100.00 09/18/22 18:49 82 Vapotherm 20.00 80 09/18/22 18:00 70 11 163/78 (109) 95 Vapotherm 25.00 85.00 09/18/22 17:00 73 12 170/80 (117) 96 Vapotherm 25.00 85.00 09/18/22 16:32 95 Vapotherm 25.00 85 09/18/22 16:03 96 Vapotherm 25.00 85.00 09/18/22 16:00 71 10 146/71 (102) 97 Vapotherm 25.00 100.00 09/18/22 16:00 36.3 09/18/22 15:31 96 Vapotherm 25.00 100.00 09/18/22 15:00 77 20 161/84 (106) 95 Vapotherm 20.00 85.00 09/18/22 14:39 93 Vapotherm 20.00 85 09/18/22 14:00 74 29 141/75 (111) 92 Vapotherm 20.00 85.00 09/18/22 13:00 71 40 147/69 (96) 94 Vapotherm 20.00 85.00 09/18/22 12:52 94 Vapotherm 20.00 85 09/18/22 12:40 77 09/18/22 12:23 95 Vapotherm 20.00 85 09/18/22 12:16 95 Vapotherm 20.00 85.00 09/18/22 12:12 High Flow N/C 10.00 09/18/22 12:00 36.5 09/18/22 12:00 78 174/97 (122) 90 Nasal Cannula 5.00 09/18/22 11:00 76 18 165/88 (138) 92 Nasal Cannula 5.00 09/18/22 10:26 91 Nasal Cannula 5.00 09/18/22 10:00 77 21 159/102 (106) 90 Nasal Cannula 5.00 09/18/22 09:00 76 8 180/91 (123) 91 Nasal Cannula 5.00 09/18/22 08:00 71 175/98 (130) 90 Nasal Cannula 5.00 09/18/22 08:00 90 Nasal Cannula 5.00 09/18/22 08:00 37.5 09/18/22 07:00 77 09/18/22 07:00 79 14 189/89 (121) 86 Nasal Cannula 5.00 09/18/22 06:00 92 23 196/99 (131) 91 Nasal Cannula 5.00 09/18/22 05:00 80 11 166/85 (112) 91 Nasal Cannula 5.00 09/18/22 04:00 94 Nasal Cannula 5.00 09/18/22 04:00 74 14 153/80 (104) 94 Nasal Cannula 5.00 09/18/22 03:00 76 13 167/93 (117) 89 Nasal Cannula 5.00 09/18/22 02:30 92 Nasal Cannula 5.00 09/18/22 02:00 79 15 155/83 (107) 94 Nasal Cannula 5.00 09/18/22 01:00 73 27 154/93 (113) 96 Nasal Cannula 5.00 09/18/22 01:00 80 09/18/22 00:00 77 14 174/90 (118) 96 Nasal Cannula 5.00 09/17/22 23:59 95 Nasal Cannula 5.00 09/17/22 23:00 74 11 143/87 (105) 92 Nasal Cannula 5.00 09/17/22 22:30 73 21 150/88 (108) 92 Nasal Cannula 5.00 09/17/22 22:00 93 Nasal Cannula 5.00 09/17/22 22:00 80 33 175/102 (126) 87 Nasal Cannula 5.00 09/17/22 21:56 84 09/17/22 21:45 85 25 199/124 (149) 90 Nasal Cannula 5.00 09/17/22 21:30 81 14 182/99 (126) 92 Nasal Cannula 5.00 09/17/22 21:24 93 09/17/22 21:23 93 Nasal Cannula 5.00 09/17/22 21:15 36.4 77 22 204/107 (139) 90 Nasal Cannula 5.00 09/17/22 20:56 61 20 191/98 93 Nasal Cannula 5.00 I & O 09/18/22 07:00 Intake Total 2050 ml Output Total 1900 ml Balance 150 ml Height & Weight Height: 6'0.00" Weight: 200lbs. oz. 90.378594fm; 21.73 BMI Method: General Appearance: No Apparent Distress Respiratory: Other (Coarse breath sounds bilaterally but reduced on the left si de compared to the right some scattered rhonchi without wheezing.) Cardiovascular: Regular Rate, Rhythm, No Edema, No Gallop, No JVD, No Murmur, Normal Peripheral Pulses Capillary Refill: Less Than 3 Seconds Peripheral Pulses: 1+ Dorsalis Pedis (R), 1+ Left Dors-Pedis (L) (See free text) Extremity: Normal Capillary Refill, Normal Inspection, Normal Range of Motion, Non Tender, No Calf Tenderness, No Pedal Edema Results Lab Laboratory Tests 09/17/22 18:46 09/18/22 04:45 09/18/22 09:07 Assessment/Plan Assessment/Plan Traumatic left PMNTX, continue with vapotherm as long as SpO2 > 88% Critical Care: Critically Ill Patient Time spent with patient (mins): 15 JOSE VELAZQUEZ MD September 18, 2022 19:29
--- NOTE | 2022-09-18 20:41 | OPERATIVE REPORT ---
DATE OF SERVICE: 09/18/2022 ATTENDING PRIMARY CARE PHYSICIAN: Dr. Bernard Dan. ADMITTING PHYSICIAN: Dr. Rocael Fernandez. PREOPERATIVE DIAGNOSIS: Left pneumothorax. POSTOPERATIVE DIAGNOSIS: Left pneumothorax. PROCEDURE: Placement of initial small pigtail catheter at approximately the seventh intercostal space, left laterally; however, this occluded and became ineffective. This was replaced by a 28 Upper Sorbian formal chest tube in place to atrium waterseal on suction. SURGEON: Osbaldo Alex MD ANESTHESIA: Local. ESTIMATED BLOOD LOSS: Minimal. FINDINGS: Significant amount of fluid, small air leak. DISPOSITION: The patient tolerated the procedure well. INDICATIONS: The patient is a 77-year-old male who presented to the emergency department with left upper back pain as well as shortness of breath. He states that 3 days ago, he was on a whiskey tour in [place] and had fallen; however, did not have any back pain at that time. He was seen at an emergency room and was shortly released. Upon further questioning, he does report that he has fallen before in the past and he does remember a significant one in 12/2021 where he did have persistent left upper back pain. An x-ray was performed, which did show approximately 20% pneumothorax; however, there was also fractures of the posterior aspect of left ribs 4 through 6 that likely occurred during 12/2021. DESCRIPTION OF PROCEDURE: The patient's chest was prepped and draped in standard surgical fashion. 1% lidocaine was then used to anesthetize the overlying skin at approximately the seventh intercostal space laterally. A small skin incision was made using 11 blade and a dilator and catheter were then introduced withdrawing of air. The catheter was then introduced over the trocar. The catheter was then connected to tubing and Vacutainer and initially there was some air leak as well as bloody drainage; however, this stopped after a short period of time. Followup chest x-ray did show worsening of the pneumothorax, likely indicating that the small holes with a small pigtail catheter had likely occluded. At this time, it was decided to place a larger formal chest tube and a 28 Upper Sorbian trocar chest tube was placed at approximately the seventh intercostal space after local anesthesia. This was connected to the atrium where there was initial air leak and upon positive pressure exploration, there was a small air leak. The chest tube was then sutured to the skin using 2-0 Prolene interrupted sutures. Vaseline gauze was then placed on the entry site followed by 4 x 4 gauze followed by Op-Site. The patient tolerated the procedure well. We will continue with daily chest x-rays as well as continue to monitor for air leaks. Once his lung is fully inflated and he does not have any air leak, we will then discontinue the chest tube. Job ID: [id number] DocumentID: [id number] Dictated Date: 09/18/2022 15:11:52 Railroad Firer Date: 09/18/2022 20:39:00 Dictated By: OSBALDO ALEX MD
--- NOTE | 2022-09-18 21:31 | Progress Note ---
Standard Progress Note Progress Notes/Assess & Plan Date Seen by a Provider: September 18, 2022 Time Seen by a Provider: 21:30 Progress/Assessment & Plan wants nicotine patch, smokes 3/4 PPD, will give the 14 mg strength JOSE VELAZQUEZ MD September 18, 2022 21:31
[2022-09-18] MEDS ORDERED: NICOTINE 14 MG (NICODERM) PATCH TD ONE (21:38)
[2022-09-18] MEDS: NICOTINE 14 MG (NICODERM) PATCH TD SCH (21:39)
[2022-09-19] MEDS: RT-ALBUTEROL/IPRATROPIUM 3 ML (DUONEB) VIAL INH SCH ×4 (02:26→20:05)
[2022-09-19] MEDS: HYDROmorphone 2 MG/ML VIAL (DILAUDID) IV PRN ×3 (04:15→19:59)
[2022-09-19 04:47] LABS: BASOPHILS % (AUTO) 0 % (0-10); EOSINOPHILS % (AUTO) 0 % (0-10); HEMATOCRIT 35 % (40-54); HEMOGLOBIN 12.8 g/dL (13.3-17.7); LYMPHOCYTES # (AUTO) 0.5 10^3/uL (1.0-4.0); LYMPHOCYTES % (AUTO) 4 % (12-44); MEAN CORPUSCULAR HEMOGLOBIN 34 pg (25-34); MEAN CORPUSCULAR HGB CONC 37 g/dL (32-36); MEAN CORPUSCULAR VOLUME 92 fL (80-99); MONOCYTES # (AUTO) 0.8 10^3/uL (0.0-1.0); MONOCYTES % (AUTO) 7 % (0-12); NEUTROPHILS # (AUTO) 10.7 10^3/uL (1.8-7.8); NEUTROPHILS % (AUTO) 88 % (42-75); PLATELET COUNT 160 10^3/uL (130-400); WHITE BLOOD COUNT 12.1 10^3/uL (4.3-11.0)
[2022-09-19 05:04] LABS: ALBUMIN 3.2 GM/DL (3.2-4.5); POTASSIUM 4.1 MMOL/L (3.6-5.0)
[2022-09-19 05:05] LABS: CALCIUM 8.3 MG/DL (8.5-10.1)
[2022-09-19 05:07] LABS: TOTAL PROTEIN 5.6 GM/DL (6.4-8.2)
[2022-09-19 05:08] LABS: BILIRUBIN,TOTAL 0.7 MG/DL (0.1-1.0)
[2022-09-19 05:10] LABS: CREATININE SERUM 0.5 MG/DL (0.60-1.30); PHOSPHORUS 2.3 MG/DL (2.3-4.7)
[2022-09-19 05:13] LABS: MAGNESIUM 1.8 MG/DL (1.6-2.4)
[2022-09-19 05:19] LABS: EOSINOPHILS % (MANUAL) 1 %; LYMPHOCYTES % (MANUAL) 9 %; MONOCYTES % (MANUAL) 4 %; NEUTROPHILS % (MANUAL) 86 %; RBC MORPH NORMAL
[2022-09-19] MEDS: POTASSIUM CL 10MEQ/50ML IVPB 50 ML IV SCH (05:20)
[2022-09-19] MEDS: KCL 20 MEQ TAB (K-DUR) PO SCH (05:21)
--- NOTE | 2022-09-19 05:43 | Progress Note ---
Standard Progress Note Progress Notes/Assess & Plan Date Seen by a Provider: September 19, 2022 Time Seen by a Provider: 05:42 Progress/Assessment & Plan Na low at 117, will start on NS @ 42 ml/h JOSE VELAZQUEZ MD September 19, 2022 05:43
[2022-09-19] MEDS: MAGNESIUM 1 GM/100 ML IVPB 100 ML IV SCH ×3 (06:04→06:41)
[2022-09-19] MEDS: THIAMINE 100 MG (VITAMIN B-1) TAB PO SCH (06:04)
[2022-09-19] MEDS: NS IV 1000 ML 1,000 ML IV SCH ×2 (06:05→17:43)
[2022-09-19] MEDS: ANTACID SUSP 30 ML UDC (MYLANTA) PO PRN (06:41)
--- NOTE | 2022-09-19 07:37 | Diagnostic Imaging Report ---
CHEST 1 VIEW, AP/PA ONLY Indication: Pneumonia Comparison: 09/18/2022 Findings: Worsening of right basilar consolidations. Left mid and lower lung zone consolidations are unchanged. Left-sided chest tube has been repositioned and now has tip terminating in the mid left hemithorax. No appreciable pneumothorax. Stable cardiomegaly. Impression: 1. Repositioned left chest tube without pneumothorax. 2. Worsening of right basilar pneumonia. 3. Left-sided consolidations are unchanged. Dictated by: Dictated on workstation # [id number]
[2022-09-19] MEDS: NICOTINE 14 MG (NICODERM) PATCH TD SCH (08:25)
[2022-09-19] MEDS: FOLIC ACID 1 MG TAB PO SCH (08:25)
[2022-09-19] MEDS: amLODIPine 5 MG (NORVASC) TAB PO SCH (08:25)
[2022-09-19] MEDS: LOSARTAN 100 MG (COZAAR) TABLET PO SCH (08:25)
--- NOTE | 2022-09-19 08:42 | Tele-ICU Progress Note ---
Progress Note video rounds completed 77 y/o maled admitte dwith traumatic pneumothorax Chest tube placed with resolution of pnemothorax. Todays chest xray shows worseniing PNA on right. Will start antibiotics Overall looks comfortable VSS IMP; Traumatic Pneomothorax with contralateral PNA PLAN: ceftriaxone I am remotely monitoring this patient from another state. I am unable to do the bedside exam, and history/physical and pertinent information is taken from other notes in the computer and bedside staff. Time spent in eval, reviewing cxr, orders: 25 minutes Focused Exam Height, Weight, BMI Height: 6'0.00" Weight: 200lbs. oz. 90.210043pf; 21.73 BMI Method: Labs Laboratory Tests 09/18/22 09:07 09/19/22 04:20 Results Results/Procedures Labs Laboratory Tests 09/17/22 18:46 09/18/22 04:45 09/18/22 09:07 09/19/22 04:20 Patient resulted labs reviewed. Results Labs Labs Laboratory Tests 09/18/22 09:07: Sodium Level 120*L, Potassium Level 3.3L, Chloride Level 88L, Carbon Dioxide Level 18L, Anion Gap 14, Blood Urea Nitrogen 7, Creatinine 0.50L, Estimat Glomerular Filtration Rate 106, BUN/Creatinine Ratio 14, Glucose Level 115H, Calcium Level 8.2L, Thyroid Stimulating Hormone (TSH) 1.06 09/19/22 04:20: Sodium Level 117*L, Potassium Level 4.1, Chloride Level 87L, Carbon Dioxide Level 18L, Anion Gap 12, Blood Urea Nitrogen 6L, Creatinine 0.50L, Estimat Glomerular Filtration Rate 106, BUN/Creatinine Ratio 12, Glucose Level 104, Calcium Level 8.3L, White Blood Count 12.1H, Red Blood Count 3.76L, Hemoglobin 12.8L, Hematocrit 35L, Mean Corpuscular Volume 92, Mean Corpuscular Hemoglobin 34, Mean Corpuscular Hemoglobin Concent 37H, Red Cell Distribution Width 11.9, Platelet Count 160, Mean Platelet Volume 10.0, Immature Granulocyte % (Auto) 0, Neutrophils (%) (Auto) 88H, Lymphocytes (%) (Auto) 4L, Monocytes (%) (Auto) 7, Eosinophils (%) (Auto) 0, Basophils (%) (Auto) 0, Neutrophils # (Auto) 10.7H, Lymphocytes # (Auto) 0.5L, Monocytes # (Auto) 0.8, Eosinophils # (Auto) 0.0, Basophils # (Auto) 0.0, Immature Granulocyte # (Auto) 0.0, Neutrophils % (M anual) 86, Lymphocytes % (Manual) 9, Monocytes % (Manual) 4, Eosinophils % (Manual) 1, Blood Morphology Comment NORMAL, Corrected Calcium 8.9, Phosphorus Level 2.3, Magnesium Level 1.8, Total Bilirubin 0.7, Aspartate Amino Transf (AST/SGOT) 28, Alanine Aminotransferase (ALT/SGPT) 29, Alkaline Phosphatase 81, Total Protein 5.6L, Albumin 3.2 Microbiology 09/17/22 MRSA Screen - Final, Complete MRSA not isolated JOSE GAN MD September 19, 2022 08:42
[2022-09-19] MEDS ORDERED: PHENYTOIN 100 MG (DILANTIN) CAP PO NR ×2 (09:00)
[2022-09-19] MEDS ORDERED: PHENYTOIN 100 MG (DILANTIN) CAP PO SCH (09:00)
[2022-09-19] MEDS ORDERED: PIPERACILLIN SODIUM/TAZOBACTAM 4.5 GM in NS (IVPB) 100 ML IV ONE (09:00)
[2022-09-19] MEDS: ENOXAPARIN 40 MG/0.4 ML (LOVENOX) SYR SC SCH (09:04)
--- NOTE | 2022-09-19 09:44 | Progress Note - Hospitalist ---
Subjective HPI/CC On Admission Date Seen by Provider: September 19, 2022 Time Seen by Provider: 07:45 77-year-old male presents the ER with complaints of left upper back pain and shortness of air. He fell on Tuesday, he was seen in an ER in [place]. He states at that time he was having all over rib cage pain and back pain. He also hit his head during the fall, they obtained a CT of his head which was negative. He reports chronic shortness of air, states he may have COPD, states that shortness of breath became worse yesterday. Patient was found to be at 76% on room air upon arrival. Patient does not wear oxygen at home. Patient does smoke cigarettes. He also drinks alcohol daily and uses Gummies. He states he last drank alcohol yesterday evening. Reports he has withdrawn from alcohol in the past. Denies any current withdrawal symptoms. He denies fevers, chest pain, nausea, vomiting. Does report some mild lower abdominal pain. States he feels like he needs an [place]. Past medical history includes epilepsy controlled by phenytoin, and hypertension. Upon my arrival patient appeared to be in no acute distress he reports minimal discomfort on inspiration over the chest predominantly left side. Denies sh ortness of breath at rest. He denied feeling anxious or feeling like he was withdrawing from alcohol. He is a regular smoker but reports he is surprised that he is not having any craving for nicotine currently. Subjective/Events-last exam Patient denies chest pain or shortness of breath. He reports baseline sputum production he is not coughed anything up he reports that he just swallows it. He denies chills or fever but has become more hypoxic requiring Vapotherm to keep saturations greater than 90. He did not appear to be in respiratory distress nor was there any evidence for confusion. Objective Exam Vital Signs Vital Signs Date Time Temp Pulse Resp B/P (MAP) Pulse Ox O2 Delivery O2 Flow Rate FiO2 09/19/22 09:21 Vapotherm 20.00 40.00 09/19/22 09:19 96 40 09/19/22 09:00 80 23 159/84 (90) 09/19/22 08:00 36.7 Capillary Refill : Less Than 3 Seconds General Appearance: No Apparent Distress, Chronically ill Respiratory: Other (Coarse breath sounds throughout there is a left-sided rub with improved breath sounds compared to yesterday bibasilar rales are noted a little worse on the right side) Cardiovascular: Regular Rate, Rhythm, No Edema, No Gallop, No JVD, No Murmur, Normal Peripheral Pulses Gastrointestinal: Normal Bowel Sounds, No Organomegaly, No Pulsatile Mass, Non Tender, Soft Extremity: Normal Inspection, Normal Range of Motion, Non Tender, No Calf Tenderness, No Pedal Edema Results/Procedures Lab Laboratory Tests 09/19/22 04:20 Patient resulted labs reviewed. Assessment/Plan Assessment and Plan Assess & Plan/Chief Complaint 1. Traumatic left rib fracture with left pneumothorax chest tube Placed yesterday with reexpansion of the lung no evidence for pulmonary leak this morning. Patient has become more hypoxic with increasing infiltrates in both bases. White count is slightly higher little over 13,000 suggesting pneumonia will initiate Zosyn. Considering that the patient had been on a long car trip will order CT pulmonary angio to rule out pulmonary embolism and will also obtain a BNP level to make sure that heart failure is not contributing especially in light of the fact that the patient has significant hyponatremia and sodium level is come back down a little today to 117 from 121 after admission level of 112. The fact that he tolerated such a low level suggest that this is been more chronic and also raises the suspicion for paraneoplastic process in someone with a heavy smoking history. Continue ICU monitoring and review CT results when available. 2. Presumed COPD continue to monitor oxygen as needed. 3. Probable alcohol use disorder continue to monitor for any evidence for withdrawal on withdrawal protocol. No evidence of withdrawal thus far. 4. Ongoing tobaccoism patient strongly advised to quit Critical Care Critically Ill Patient EDDIE BUSCH MD September 19, 2022 09:44
--- NOTE | 2022-09-19 09:56 | Progress Note ---
Subjective Date Seen by a Provider: September 19, 2022 Time Seen by a Provider: 09:40 Subjective/Events-last exam Patient seen with Dr. Dean. Patient lying in bed resting. Denies any SOA or difficulty breathing. Chest x-ray this AM showed no PTX. Tolerating diet. Objective Exam Vital Signs Date Time Temp Pulse Resp B/P (MAP) Pulse Ox O2 Delivery O2 Flow Rate FiO2 09/19/22 09:21 Vapotherm 20.00 40.00 09/19/22 09:19 96 Vapotherm 20.00 40 09/19/22 09:14 100 Vapotherm 25.00 45 09/19/22 09:00 80 23 159/84 (90) 100 Vapotherm 25.00 45.00 09/19/22 08:00 36.7 09/19/22 08:00 89 161/102 (119) 97 Vapotherm 25.00 45.00 09/19/22 07:00 81 146/73 (108) 99 Vapotherm 25.00 45.00 09/19/22 07:00 84 09/19/22 06:24 100 Vapotherm 25.00 45.00 09/19/22 06:00 77 150/79 (102) 100 Vapotherm 25.00 55.00 09/19/22 05:00 74 12 140/68 (92) 99 Vapotherm 25.00 55.00 09/19/22 04:57 Vapotherm 25.00 55.00 09/19/22 04:19 Vapotherm 30.00 60.00 09/19/22 04:00 100 Vapotherm 30.00 60 09/19/22 04:00 88 12 147/70 (95) 100 Vapotherm 30.00 70.00 09/19/22 03:00 82 13 155/71 (99) 100 Vapotherm 30.00 70.00 09/19/22 02:28 Vapotherm 30.00 70.00 09/19/22 02:26 100 Vapotherm 30.00 90 09/19/22 02:00 79 13 166/79 (108) 99 Vapotherm 30.00 80.00 09/19/22 01:39 Vapotherm 30.00 80.00 09/19/22 01:14 89 09/19/22 01:00 82 12 158/127 (137) 99 Vapotherm 30.00 90.00 09/19/22 00:00 36.6 09/19/22 00:00 80 19 149/77 (101) 98 Vapotherm 30.00 90.00 09/18/22 23:59 98 Vapotherm 40.00 100 09/18/22 23:00 73 10 204/95 (131) 100 Vapotherm 30.00 90.00 09/18/22 22:28 Vapotherm 30.00 90.00 09/18/22 22:25 100 Vapotherm 40.00 100 09/18/22 22:00 74 20 144/75 (98) 97 Vapotherm 40.00 100.00 09/18/22 21:00 80 20 154/70 (98) 97 Vapotherm 40.00 100.00 09/18/22 20:04 36.5 09/18/22 20:00 91 Vapotherm 40.00 100 09/18/22 20:00 75 14 151/75 (100) 98 Vapotherm 40.00 100.00 09/18/22 19:29 91 Vapotherm 40.00 100 09/18/22 19:09 Vapotherm 40.00 100.00 09/18/22 19:00 74 22 153/73 (99) 87 Vapotherm 40.00 100.00 09/18/22 19:00 74 09/18/22 18:49 82 Vapotherm 20.00 80 09/18/22 18:00 70 11 163/78 (109) 95 Vapotherm 25.00 85.00 09/18/22 17:00 73 12 170/80 (117) 96 Vapotherm 25.00 85.00 09/18/22 16:32 95 Vapotherm 25.00 85 09/18/22 16:03 96 Vapotherm 25.00 85.00 09/18/22 16:00 71 10 146/71 (102) 97 Vapotherm 25.00 100.00 09/18/22 16:00 36.3 09/18/22 15:31 96 Vapotherm 25.00 100.00 09/18/22 15:00 77 20 161/84 (106) 95 Vapotherm 20.00 85.00 09/18/22 14:39 93 Vapotherm 20.00 85 09/18/22 14:00 74 29 141/75 (111) 92 Vapotherm 20.00 85.00 09/18/22 13:00 71 40 147/69 (96) 94 Vapotherm 20.00 85.00 09/18/22 12:52 94 Vapotherm 20.00 85 09/18/22 12:40 77 09/18/22 12:23 95 Vapotherm 20.00 85 09/18/22 12:16 95 Vapotherm 20.00 85.00 09/18/22 12:12 High Flow N/C 10.00 09/18/22 12:00 36.5 09/18/22 12:00 78 174/97 (122) 90 Nasal Cannula 5.00 09/18/22 11:00 76 18 165/88 (138) 92 Nasal Cannula 5.00 09/18/22 10:26 91 Nasal Cannula 5.00 09/18/22 10:00 77 21 159/102 (106) 90 Nasal Cannula 5.00 I & O 09/19/22 07:00 Intake Total 2950 ml Output Total 2600 ml Balance 350 ml Capillary Refill : Less Than 3 Seconds General Appearance: No Apparent Distress, WD/WN Neck: Normal Inspection, Supple Respiratory: No Accessory Muscle Use, No Respiratory Distress Gastrointestinal: normal bowel sounds, non tender, soft Extremity: Normal Inspection, Normal Range of Motion Neurologic/Psychiatric: Alert, Oriented x3 Skin: Normal Color, Warm/Dry Results Lab Laboratory Tests 09/19/22 04:20: White Blood Count 12.1H, Red Blood Count 3.76L, Hemoglobin 12.8L, Hematocrit 35L , Mean Corpuscular Volume 92, Mean Corpuscular Hemoglobin 34, Mean Corpuscular Hemoglobin Concent 37H, Red Cell Distribution Width 11.9, Platelet Count 160, Mean Platelet Volume 10.0, Immature Granulocyte % (Auto) 0, Neutrophils (%) (Auto) 88H, Lymphocytes (%) (Auto) 4L, Monocytes (%) (Auto) 7, Eosinophils (%) (Auto) 0, Basophils (%) (Auto) 0, Neutrophils # (Auto) 10.7H, Lymphocytes # (Auto) 0.5L, Monocytes # (Auto) 0.8, Eosinophils # (Auto) 0.0, Basophils # (Auto) 0.0, Immature Granulocyte # (Auto) 0.0, Neutrophils % (Manual) 86, Lymphocytes % (Manual) 9, Monocytes % (Manual) 4, Eosinophils % (Manual) 1, Blood Morphology Comment NORMAL, Sodium Level 117*L, Potassium Level 4.1, Chloride Level 87L, Carbon Dioxide Level 18L, Anion Gap 12, Blood Urea Nitrogen 6L, Creatinine 0.50L, Estimat Glomerular Filtration Rate 106, BUN/Creatinine Ratio 12, Glucose Level 104, Calcium Level 8.3L, Corrected Calcium 8.9, Phosphorus Level 2.3, Magnesium Level 1.8, Total Bilirubin 0.7, Aspartate Amino Transf (AST/SGOT) 28, Alanine Aminotransferase (ALT/SGPT) 29, Alkaline Phosphatase 81, Total Protein 5.6L, Albumin 3.2 Microbiology 09/17/22 MRSA Screen - Final, Complete MRSA not isolated Assessment/Plan Assessment/Plan Assess & Plan/Chief Complaint A 77-year-old male with fall several days ago with indeterminate fractures of the posterior aspect of the ribs 4 through 6, left pneumothorax WBC 12.1 Chest x-ray this AM showed resolved PTX Continue with medical management for pneumonia ALEXX SLADE ENAMEL FINISHER September 19, 2022 09:56
[2022-09-19] MEDS ORDERED: NS 100 ML (IVPB) BAG IV ONE (10:00)
[2022-09-19] MEDS ORDERED: IOHEXOL 350 MG/ML 100 ML (OMNIPAQUE 350) VIAL IV ONE (10:00)
[2022-09-19] MEDS ORDERED: PATIENT MAY USE OWN MED,SINGLE MED PO SCH (10:45)
--- NOTE | 2022-09-19 10:49 | Diagnostic Imaging Report ---
PROCEDURE: CT angiography Chest TECHNIQUE: After intravenous administration of contrast, thin section axial CT angiography of the chest was performed. 3D MIP reconstructions were made. All CT scans use one or more of the following dose optimizing techniques: automated exposure control, MA and/or KvP adjustment based on a patient size and exam type, or iterative reconstruction. INDICATION: Hypoxia COMPARISON: Chest radiograph from same day FINDINGS: Vasculature: No pulmonary emboli. No CT evidence of pulmonary hypertension or right ventricular strain. Thoracic aorta is normal in caliber. No aortic dissection or pseudoaneurysm. Heart and mediastinum: Visualized thyroid is normal. No supraclavicular, axillary, or intra-thoracic lymphadenopathy. Mild cardiomegaly. No pericardial effusion. Pleura: No pleural effusion. Left-sided chest tube courses in the major fissure with tip terminating in the upper left hemithorax. Trace left apical pneumothorax is noted. Lungs and airway: No endoluminal lesion in the trachea or central bronchi. Near-complete consolidation in the left lower lobe. Severe centrilobular emphysema is present. Mixed groundglass and consolidations involve the bilateral upper lobes and right middle lobe. Upper abdomen: There are a few hypodense cysts within the liver. Low-attenuation nodule in the left adrenal gland was present on CT abdomen and pelvis of 06/06/2015 and is benign. Musculoskeletal: No concerning osseous lesion. IMPRESSION: 1. No pulmonary emboli or acute aortic syndrome. 2. Extensive consolidation in the left lower lobe with multifocal groundglass and consolidations in the remainder of both lungs. This may be due to pneumonia and/or edema. Advise follow-up imaging in 4-6 weeks after appropriate therapy to ensure resolution. 3. Left chest tube courses to the major fissure. There is a small apical pneumothorax on the left. Dictated by: Dictated on workstation # [id number]
[2022-09-19] MEDS ORDERED: FUROSEMIDE 40 MG/4 ML INJ (LASIX) IVP NR (13:00)
[2022-09-19] MEDS: PIPERACILLIN SODIUM/TAZOBACTAM 4.5 GM in NS (IVPB) 100 ML IV SCH ×2 (14:44→23:08)
[2022-09-19] MEDS: PHENYTOIN 100 MG (DILANTIN) CAP PO SCH (20:00)
[2022-09-19] MEDS: ADVAIR IH SCH (20:05)
[2022-09-20] MEDS: NS IV 1000 ML 1,000 ML IV SCH ×2 (00:10→06:52)
[2022-09-20] MEDS: RT-ALBUTEROL/IPRATROPIUM 3 ML (DUONEB) VIAL INH SCH ×4 (03:16→21:39)
[2022-09-20 04:37] LABS: BASOPHILS % (AUTO) 0 % (0-10); EOSINOPHILS # (AUTO) 0.1 10^3/uL (0.0-0.3); EOSINOPHILS % (AUTO) 1 % (0-10); HEMATOCRIT 31 % (40-54); HEMOGLOBIN 11.5 g/dL (13.3-17.7); LYMPHOCYTES # (AUTO) 0.6 10^3/uL (1.0-4.0); LYMPHOCYTES % (AUTO) 6 % (12-44); MEAN CORPUSCULAR HEMOGLOBIN 34 pg (25-34); MEAN CORPUSCULAR HGB CONC 37 g/dL (32-36); MEAN CORPUSCULAR VOLUME 92 fL (80-99); MEAN PLATELET VOLUME 9.8 fL (9.0-12.2); MONOCYTES # (AUTO) 1.1 10^3/uL (0.0-1.0); MONOCYTES % (AUTO) 10 % (0-12); NEUTROPHILS # (AUTO) 9.1 10^3/uL (1.8-7.8); NEUTROPHILS % (AUTO) 83 % (42-75); PLATELET COUNT 172 10^3/uL (130-400)
[2022-09-20 04:53] LABS: ALBUMIN 2.9 GM/DL (3.2-4.5); POTASSIUM 3.1 MMOL/L (3.6-5.0)
[2022-09-20 04:55] LABS: CALCIUM 8.2 MG/DL (8.5-10.1)
[2022-09-20 04:56] LABS: TOTAL PROTEIN 5.2 GM/DL (6.4-8.2)
[2022-09-20 04:58] LABS: BILIRUBIN,TOTAL 0.5 MG/DL (0.1-1.0)
[2022-09-20 04:59] LABS: PHOSPHORUS 2.2 MG/DL (2.3-4.7)
[2022-09-20 05:00] LABS: CREATININE SERUM 0.45 MG/DL (0.60-1.30)
[2022-09-20] MEDS: POTASSIUM CL 10MEQ/50ML IVPB 50 ML IV SCH (05:17)
[2022-09-20] MEDS: MAGNESIUM 1 GM/100 ML IVPB 100 ML IV SCH (05:17)
[2022-09-20] MEDS: KCL 20 MEQ TAB (K-DUR) PO SCH (05:17)
[2022-09-20] MEDS: PIPERACILLIN SODIUM/TAZOBACTAM 4.5 GM in NS (IVPB) 100 ML IV SCH ×3 (06:09→22:23)
[2022-09-20] MEDS: THIAMINE 100 MG (VITAMIN B-1) TAB PO SCH (06:10)
[2022-09-20] MEDS: ANTACID SUSP 30 ML UDC (MYLANTA) PO PRN (06:21)
[2022-09-20] MEDS ORDERED: KCL 20 MEQ TAB (K-DUR) PO ONE ×4 (07:00→11:45)
[2022-09-20] MEDS: ADVAIR IH SCH ×2 (07:36→21:44)
--- NOTE | 2022-09-20 07:36 | Progress Note ---
Subjective Date Seen by a Provider: September 20, 2022 Time Seen by a Provider: 06:40 Subjective/Events-last exam patient is slowly feeling better. he has no significant dyspnea. He is currently in ICU with chest tube in place. Objective Exam Vital Signs Date Time Temp Pulse Resp B/P (MAP) Pulse Ox O2 Delivery O2 Flow Rate FiO2 09/20/22 07:21 85 09/20/22 06:00 83 178/88 (122) 96 High Flow N/C 5.00 09/20/22 06:00 High Flow N/C 5.00 09/20/22 05:00 91 140/98 (117) 96 OxyMask 5.00 09/20/22 04:00 87 136/78 (115) 98 OxyMask 5.00 09/20/22 04:00 100 OxyMask 5.00 09/20/22 03:16 95 OxyMask 5.00 09/20/22 03:05 89 97 OxyMask 5.00 09/20/22 03:00 86 17 176/95 (112) 100 High Flow N/C 5.00 09/20/22 02:45 High Flow N/C 5.00 09/20/22 02:00 86 183/87 (110) 91 High Flow N/C 4.00 09/20/22 01:00 79 9 158/78 (122) 96 High Flow N/C 4.00 09/20/22 01:00 79 09/20/22 00:00 80 10 144/82 (93) 98 High Flow N/C 4.00 09/20/22 00:00 36.2 09/19/22 23:59 100 High Flow N/C 4.00 09/19/22 23:00 67 10 146/74 (100) 97 High Flow N/C 4.00 09/19/22 22:00 71 13 127/75 (96) 99 High Flow N/C 4.00 09/19/22 21:00 77 16 142/74 (81) 100 High Flow N/C 4.00 09/19/22 20:05 100 High Flow N/C 3.00 09/19/22 20:00 100 High Flow N/C 4.00 09/19/22 20:00 36.6 High Flow N/C 4.00 09/19/22 20:00 80 12 155/85 (100) 100 High Flow N/C 4.00 09/19/22 19:00 79 09/19/22 19:00 79 10 147/73 (103) 92 High Flow N/C 4.00 09/19/22 18:00 84 71 160/89 (121) 95 High Flow N/C 4.00 09/19/22 17:00 74 12 141/72 (101) 100 High Flow N/C 4.00 09/19/22 16:20 36.5 09/19/22 16:00 74 13 136/84 (115) 100 High Flow N/C 4.00 09/19/22 15:58 High Flow N/C 4.00 09/19/22 15:58 100 High Flow N/C 4.00 09/19/22 15:18 High Flow N/C 5.00 09/19/22 15:13 100 High Flow N/C 7.00 09/19/22 15:00 77 16 159/82 (103) 100 High Flow N/C 7.00 09/19/22 14:43 High Flow N/C 7.00 09/19/22 14:37 High Flow N/C 10.00 09/19/22 14:30 High Flow N/C 10.00 09/19/22 14:00 81 14 152/82 (111) 95 Vapotherm 10.00 25.00 09/19/22 13:48 Vapotherm 10.00 25.00 09/19/22 13:00 67 14 143/71 (96) 99 Vapotherm 15.00 35.00 09/19/22 12:45 89 09/19/22 12:05 36.5 09/19/22 12:00 98 Vapotherm 15.00 35 09/19/22 12:00 81 9 146/79 (100) 96 Vapotherm 15.00 35.00 09/19/22 11:50 Vapotherm 15.00 35.00 09/19/22 11:50 Vapotherm 15.00 35.00 09/19/22 11:00 80 10 118/69 (87) 99 Vapotherm 20.00 40.00 09/19/22 09:21 Vapotherm 20.00 40.00 09/19/22 09:19 96 Vapotherm 20.00 40 09/19/22 09:14 100 Vapotherm 25.00 45 09/19/22 09:00 80 23 159/84 (90) 100 Vapotherm 25.00 45.00 09/19/22 08:00 36.7 09/19/22 08:00 89 161/102 (119) 97 Vapotherm 25.00 45.00 09/19/22 08:00 100 Vapotherm 25.00 40 I & O 09/20/22 06:59 Intake Total 3670 ml Output Total 5300 ml Balance -1630 ml Capillary Refill : Less Than 3 Seconds General Appearance: No Apparent Distress Neck: Supple Respiratory: Lungs Clear Cardiovascular: Regular Rate, Rhythm Results Lab Laboratory Tests 09/20/22 04:13: White Blood Count 11.0, Red Blood Count 3.40L, Hemoglobin 11.5L, Hematocrit 31L, Mean Corpuscular Volume 92, Mean Corpuscular Hemoglobin 34, Mean Corpuscular Hemoglobin Concent 37H, Red Cell Distribution Width 11.8, Platelet Count 172, Mean Platelet Volume 9.8, Immature Granulocyte % (Auto) 1, Neutrophils (%) (Auto) 83H, Lymphocytes (%) (Auto) 6L, Monocytes (%) (Auto) 10, Eosinophils (%) (Auto) 1, Basophils (%) (Auto) 0, Neutrophils # (Auto) 9.1H, Lymphocytes # (Auto) 0.6L, Monocytes # (Auto) 1.1H, Eosinophils # (Auto) 0.1, Basophils # (Auto) 0.0, Immature Granulocyte # (Auto) 0.1, Sodium Level 123*L, Potassium Level 3.1L, Chloride Level 92L, Carbon Dioxide Level 20L, Anion Gap 11, Blood Urea Nitrogen 4L, Creatinine 0.45L, Estimat Glomerular Filtration Rate 110, BUN/Creatinine Ratio 9, Glucose Level 95, Calcium Level 8.2L, Corrected Calcium 9.1, Phosphorus Level 2.2L, Magnesium Level 2.0, Total Bilirubin 0.5, Aspartate Amino Transf (AST/SGOT) 28, Alanine Aminotransferase (ALT/SGPT) 27, Alkaline Phosphatase 64, Total Protein 5.2L, Albumin 2.9L Microbiology 09/17/22 MRSA Screen - Final, Complete MRSA not isolated Assessment/Plan Assessment/Plan Assess & Plan/Chief Complaint 1. Traumatic left rib fracture with left pneumothorax chest tube -currently on Zosyn to cover in case of pneumonia as evident by CT -White count is noted to be 11,000 today -Appreciate Dr. Dean's help as he is managing the chest tube 2. COPD 3. Probable alcohol use disorder continue to monitor for any evidence for withdrawal on withdrawal protocol. No evidence of withdrawal thus far. 4. Ongoing tobaccoism MARINE MALONEY MD September 20, 2022 07:36
[2022-09-20] MEDS ORDERED: PHENYTOIN 100 MG (DILANTIN) CAP PO SCH ×2 (09:00)
--- NOTE | 2022-09-20 10:06 | Tele-ICU Progress Note ---
Subjective Date Seen by a Provider: September 20, 2022 Time Seen by a Provider: 10:06 Subjective/Events-last exam (Tele-ICU Physician , Progress Note ) Service provided via interactive audio and video telecommunications E-CARE system to a patient admitted to ICU bed in [facility]. Patient is seen today due to persistent need of ICU care Available chart/ vitals / labs / Images reviewed Video assessment done using teleICU camera, rest of exam as per RN Discussed with RN Events overnight : Afebrile hemodynamically stable Respiratory - 4l I/O = neg Drips: NS 150 Pressors- no Hospital course: (09/17) 77yr M admitted for traumatic large left pneumothorax, hyponatremia (Na+112), hypokalemia (K+3.2). Patient fell on his left side in [place] 4 days ago. 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 sx , NA ? ETON ? LEFT PTX 20 % due to above - chest tube09/18- on sucction , no leak - 09/19- CT A- no PE , LLL infiltrate , chest tube LEFT in fissure , small PTX LLL PNA - zosyn 09/19 Hypoxia - due to above and COPD PNA - nebs , O2 , IS , follow HypoNatremia -112 on admission - stp IVF ,stat Na Po pills - as per patient - baseline 120s -TSH wnl A fib in ER - presumed new - now in sinus - no AC - follow h/o Sxz - denies sz for years - diulantin resumed COPD - received SM 125 on 09/17 - off steroids s - cont home and PRN prostate CA 2020 PAD - stenting LEFT 2015 , bipas 2001 Lines : , (Central Line Necessity Reviewed) [place]: void OG: Nutrition: po Analgesia: Anxiety/ delirium VTE Prophylaxis: [place] 40 Stress Ulcer Prophylaxis: na Plans in collaboration with bedside consultants and IM MDs. Discussed with RN to reach out if any questions or concerns Case and care daily discussed on multidisciplinary rounds ( RN, PharmD, Nut Feeder , Respiratory Therapy, dock worker ) A total of 25 minutes of critical care time was devoted to this patient today, required to treat and/or prevent further deterioration of critical care condition ( as above ) . I am remotely monitoring this patient from another state. I am unable to do the bedside exam, and history/physical and pertinent information is taken from other notes in the computer and bedside staff. Sepsis Event Evaluation Height, Weight, BMI Height: 6'0.00" Weight: 200lbs. oz. [id number]; 21.73 BMI Method: Exam Exam Patient acknowledged, consented, and participated in this virtual visit which was conducted using real time audio/video Vital Signs Date Time Temp Pulse Resp B/P (MAP) Pulse Ox O2 Delivery O2 Flow Rate FiO2 09/20/22 09:00 83 11 155/83 (107) 97 High Flow N/C 4.00 09/20/22 08:10 36.9 Nasal Cannula 4.00 09/20/22 08:00 93 156/76 (102) 94 High Flow N/C 5.00 09/20/22 07:37 100 High Flow N/C 5.00 09/20/22 07:21 85 09/20/22 07:00 83 157/84 (108) 92 High Flow N/C 5.00 09/20/22 06:00 83 178/88 (122) 96 High Flow N/C 5.00 09/20/22 06:00 High Flow N/C 5.00 09/20/22 05:00 91 140/98 (117) 96 OxyMask 5.00 09/20/22 04:00 87 136/78 (115) 98 OxyMask 5.00 09/20/22 04:00 100 OxyMask 5.00 09/20/22 03:16 95 OxyMask 5.00 09/20/22 03:05 89 97 OxyMask 5.00 09/20/22 03:00 86 17 176/95 (112) 100 High Flow N/C 5.00 09/20/22 02:45 High Flow N/C 5.00 09/20/22 02:00 86 183/87 (110) 91 High Flow N/C 4.00 09/20/22 01:00 79 9 158/78 (122) 96 High Flow N/C 4.00 09/20/22 01:00 79 09/20/22 00:00 80 10 144/82 (93) 98 High Flow N/C 4.00 09/20/22 00:00 36.2 09/19/22 23:59 100 High Flow N/C 4.00 09/19/22 23:00 67 10 146/74 (100) 97 High Flow N/C 4.00 09/19/22 22:00 71 13 127/75 (96) 99 High Flow N/C 4.00 09/19/22 21:00 77 16 142/74 (81) 100 High Flow N/C 4.00 09/19/22 20:05 100 High Flow N/C 3.00 09/19/22 20:00 100 High Flow N/C 4.00 09/19/22 20:00 36.6 High Flow N/C 4.00 09/19/22 20:00 80 12 155/85 (100) 100 High Flow N/C 4.00 09/19/22 19:00 79 09/19/22 19:00 79 10 147/73 (103) 92 High Flow N/C 4.00 09/19/22 18:00 84 71 160/89 (121) 95 High Flow N/C 4.00 09/19/22 17:00 74 12 141/72 (101) 100 High Flow N/C 4.00 09/19/22 16:20 36.5 09/19/22 16:00 74 13 136/84 (115) 100 High Flow N/C 4.00 09/19/22 15:58 High Flow N/C 4.00 09/19/22 15:58 100 High Flow N/C 4.00 09/19/22 15:18 High Flow N/C 5.00 09/19/22 15:13 100 High Flow N/C 7.00 09/19/22 15:00 77 16 159/82 (103) 100 High Flow N/C 7.00 09/19/22 14:43 High Flow N/C 7.00 09/19/22 14:37 High Flow N/C 10.00 09/19/22 14:30 High Flow N/C 10.00 09/19/22 14:00 81 14 152/82 (111) 95 Vapotherm 10.00 25.00 09/19/22 13:48 Vapotherm 10.00 25.00 09/19/22 13:00 67 14 143/71 (96) 99 Vapotherm 15.00 35.00 09/19/22 12:45 89 09/19/22 12:05 36.5 09/19/22 12:00 98 Vapotherm 15.00 35 09/19/22 12:00 81 9 146/79 (100) 96 Vapotherm 15.00 35.00 09/19/22 11:50 Vapotherm 15.00 35.00 09/19/22 11:50 Vapotherm 15.00 35.00 09/19/22 11:00 80 10 118/69 (87) 99 Vapotherm 20.00 40.00 I & O 09/20/22 07:00 Intake Total 3670 ml Output Total 5300 ml Balance -1630 ml Height & Weight Height: 6'0.00" Weight: 200lbs. oz. [id number]; 21.73 BMI Method: General Appearance: No Apparent Distress Neck: Supple Respiratory: Lungs Clear Cardiovascular: Regular Rate, Rhythm Capillary Refill: Less Than 3 Seconds Peripheral Pulses: 1+ Dorsalis Pedis (R), 1+ Left Dors-Pedis (L) (See free text) Gastrointestinal: normal bowel sounds, non tender, soft Extremity: Normal Inspection, Normal Range of Motion Neurologic/Psychiatric: Alert, Oriented x3 Skin: Normal Color, Warm/Dry Results Lab Laboratory Tests 09/19/22 04:20 09/20/22 04:13 Assessment/Plan Assessment/Plan 1 DOMO TERRY MD September 20, 2022 10:06
[2022-09-20] MEDS: LOSARTAN 100 MG (COZAAR) TABLET PO SCH (10:18)
[2022-09-20] MEDS: FOLIC ACID 1 MG TAB PO SCH (10:18)
[2022-09-20] MEDS: amLODIPine 5 MG (NORVASC) TAB PO SCH (10:19)
[2022-09-20] MEDS: ENOXAPARIN 40 MG/0.4 ML (LOVENOX) SYR SC SCH (10:19)
[2022-09-20] MEDS: NICOTINE 14 MG (NICODERM) PATCH TD SCH (10:19)
[2022-09-20] MEDS ORDERED: FLUT1DIS26 INH (10:20)
[2022-09-20] MEDS ORDERED: ALBU18HF2 INH (10:20)
[2022-09-20] MEDS ORDERED: AMLO-251 PO (10:20)
[2022-09-20] MEDS ORDERED: PHEN100C11 PO ×2 (10:20)
[2022-09-20] MEDS ORDERED: OMEG12002 PO (10:20)
[2022-09-20] MEDS: SODIUM CHLORIDE 1 GM TABLET PO SCH ×2 (10:26→21:10)
[2022-09-20] MEDS: HYDROmorphone 2 MG/ML VIAL (DILAUDID) IV PRN ×2 (10:28→19:02)
--- NOTE | 2022-09-20 12:26 | Consultation-Cardiology ---
HPI-Cardiology Cardiology Consultation Date of Consultation 09/20/22 Date of Admission Time Seen by Provider: 10:06 Indication: afib HPI Patient is a 77 yo male with history of HTN, HLP, ETOH use, tobaccoism. Admitted for traumatic pneumothorax after sustaining a fall while on a [employer] tour in [place]. EKG and telemetry showing questionable atrial fibrillation vs SR with frequent APCs. Denies any chest pian or increased dyspnea. Home Medications & Allergies Allergies: Coded Allergies: No Known Allergies (Unverified Allergy, Unknown, 09/18/14) Home Medication List Reviewed: Yes PFH-[id number]-Utwzmn Hx Patient Social History Smoking Status: Current Everyday Smoker Type Used: Cigarettes 2nd Hand Smoke Exposure: No Recent Hopitalizations: No Have you traveled recently?: No Alcohol Use?: Yes Substance type: Marijuana Review of Systems-General Review of Systems Constitutional: see HPI EENTM: see HPI, no symptoms reported Respiratory: see HPI, cough, short of breath Cardiovascular: see HPI; No chest pain, No Hx of Intervention, No palpitations Reviewed Test Results Reviewed Test Results Lab Laboratory Tests 09/20/22 04:13: White Blood Count 11.0, Red Blood Count 3.40L, Hemoglobin 11.5L, Hematocrit 31L, Mean Corpuscular Volume 92, Mean Corpuscular Hemoglobin 34, Mean Corpuscular Hemoglobin Concent 37H, Red Cell Distribution Width 11.8, Platelet Count 172, Mean Platelet Volume 9.8, Immature Granulocyte % (Auto) 1, Neutrophils (%) (Auto) 83H, Lymphocytes (%) (Auto) 6L, Monocytes (%) (Auto) 10, Eosinophils (%) (Auto) 1, Basophils (%) (Auto) 0, Neutrophils # (Auto) 9.1H, Lymphocytes # (Auto) 0.6L, Monocytes # (Auto) 1.1H, Eosinophils # (Auto) 0.1, Basophils # (Auto) 0.0, Immature Granulocyte # (Auto) 0.1, Sodium Level 123*L, Potassium Level 3.1L, Chloride Level 92L, Carbon Dioxide Level 20L, Anion Gap 11, Blood Urea Nitrogen 4L, Creatinine 0.45L, Estimat Glomerular Filtration Rate 110, BUN/Creatinine Ratio 9, Glucose Level 95, Calcium Level 8.2L, Corrected Calcium 9.1, Phosphorus Level 2.2L, Magnesium Level 2.0, Total Bilirubin 0.5, Aspartate Amino Transf (AST/SGOT) 28, Alanine Aminotransferase (ALT/SGPT) 27, Alkaline Phosphatase 64, Total Protein 5.2L, Albumin 2.9L Microbiology 09/17/22 MRSA Screen - Final, Complete MRSA not isolated Physical Exam Physical Exam Vital Signs Vital Signs - First Documented 09/17/22 09/17/22 09/18/22 18:35 21:15 12:23 Temp 36.4 Pulse 68 Resp 24 B/P (MAP) 208/123 (151) Pulse Ox 96 O2 Delivery Nasal Cannula O2 Flow Rate 5.00 FiO2 85 Capillary Refill : Less Than 3 Seconds Height, Weight, BMI Height: 6'0.00" Weight: 200lbs. oz. 90.341907yg; 21.73 BMI Method: General Appearance: No Apparent Distress Neck: Supple Respiratory: Rhonci Cardiovascular: Regular Rate, Rhythm Gastrointestinal: Normal Bowel Sounds, No Organomegaly, No Pulsatile Mass, Non Tender, Soft Extremity: Normal Inspection, Normal Range of Motion Neurologic/Psychiatric: Alert, Oriented x3 Skin: Normal Color, Warm/Dry A/P-Cardiology Admission Diagnosis Atrial fibrillation Traumatic pneumothorax HTN HLP Assessment/Plan Atrial tachycardia, multiple atrial premature contractions EKG and telemetry showed sinus rhythm with frequent PVCs. Patient does not recall any history of atrial fibrillation We will start low-dose beta-andrade with Lopressor 25 mg twice daily and monitor telemetry Evaluate 2D echo Peripheral arterial disease, had history of stenting on the right lower extremity and bypass to the left leg done by Dr. GRACE Has been following with him. Currently asymptomatic. Traumatic left rib fracture with left pneumothorax, s/p chest tube, management per Dr. Dean Questionable pneumonia, currently on Zosyn to cover in case of pneumonia as evident by CT COPD ETOH use continue to monitor for any evidence for withdrawal on withdrawal protocol. No evidence of withdrawal thus far. Ongoing tobaccoism Thank you for allowing us to participate in the management of Mr. Varghese. This is Olga Alejo PA-C, as a scribe for Dr. Miller. Patient was seen and evaluated with Olga, I interviewed and examined the patient He is sitting in a chair, comfortable. 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 I feel that I am not contributing much to his care. I will sign off at this point. OLGA SALGUERO September 20, 2022 12:25 MARINA MILLER MD September 20, 2022 14:18
[2022-09-20] MEDS: meTOprolol TARTRATE 25 MG (LOPRESSOR) TABLET PO SCH ×2 (13:29→21:09)
[2022-09-20] MEDS: POT PHOS/NA PHOS (K-PHOS NEUTRAL) PO SCH (21:09)
[2022-09-20] MEDS: PHENYTOIN 100 MG (DILANTIN) CAP PO SCH (21:09)
[2022-09-20] MEDS: ENOXAPARIN 80 MG/0.8 ML (LOVENOX) SYR SC SCH (21:10)
--- NOTE | 2022-09-20 21:33 | Progress Note ---
Subjective Date Seen by a Provider: September 20, 2022 Time Seen by a Provider: 21:30 Subjective/Events-last exam doing well. no SOB. no air leak. tolerating diet. Objective Exam Vital Signs Date Time Temp Pulse Resp B/P (MAP) Pulse Ox O2 Delivery O2 Flow Rate FiO2 09/20/22 20:10 36.4 09/20/22 20:00 High Flow N/C 5.00 09/20/22 18:30 High Flow N/C 5.00 09/20/22 18:00 81 20 167/95 (119) 91 High Flow N/C 6.00 09/20/22 17:00 85 14 174/116 (135) 93 High Flow N/C 6.00 09/20/22 16:17 36.3 09/20/22 16:00 High Flow N/C 6.00 09/20/22 16:00 79 15 155/90 (111) 98 High Flow N/C 6.00 09/20/22 15:35 97 High Flow N/C 5.00 09/20/22 15:00 79 15 131/70 (90) 92 High Flow N/C 6.00 09/20/22 14:00 80 19 154/72 (99) 90 High Flow N/C 6.00 09/20/22 13:00 87 17 171/81 (111) 90 High Flow N/C 6.00 09/20/22 12:18 82 09/20/22 12:00 87 17 143/77 (99) 91 High Flow N/C 6.00 09/20/22 12:00 37.2 09/20/22 12:00 High Flow N/C 6.00 09/20/22 11:00 81 20 165/106 (125) 93 High Flow N/C 6.00 09/20/22 10:39 88 High Flow N/C 6.00 09/20/22 10:00 92 17 171/96 (121) 97 High Flow N/C 4.00 09/20/22 09:00 83 11 155/83 (107) 97 High Flow N/C 4.00 09/20/22 08:10 36.9 Nasal Cannula 4.00 09/20/22 08:00 93 156/76 (102) 94 High Flow N/C 5.00 09/20/22 08:00 100 High Flow N/C 5.00 09/20/22 07:37 100 High Flow N/C 5.00 09/20/22 07:21 85 09/20/22 07:00 83 157/84 (108) 92 High Flow N/C 5.00 09/20/22 06:00 83 178/88 (122) 96 High Flow N/C 5.00 09/20/22 06:00 High Flow N/C 5.00 09/20/22 05:00 91 140/98 (117) 96 OxyMask 5.00 09/20/22 04:00 87 136/78 (115) 98 OxyMask 5.00 09/20/22 04:00 100 OxyMask 5.00 09/20/22 03:16 95 OxyMask 5.00 09/20/22 03:05 89 97 OxyMask 5.00 09/20/22 03:00 86 17 176/95 (112) 100 High Flow N/C 5.00 09/20/22 02:45 High Flow N/C 5.00 09/20/22 02:00 86 183/87 (110) 91 High Flow N/C 4.00 09/20/22 01:00 79 9 158/78 (122) 96 High Flow N/C 4.00 09/20/22 01:00 79 09/20/22 00:00 80 10 144/82 (93) 98 High Flow N/C 4.00 09/20/22 00:00 36.2 09/19/22 23:59 100 High Flow N/C 4.00 09/19/22 23:00 67 10 146/74 (100) 97 High Flow N/C 4.00 09/19/22 22:00 71 13 127/75 (96) 99 High Flow N/C 4.00 I & O 09/20/22 07:00 Intake Total 3670 ml Output Total 5300 ml Balance -1630 ml Capillary Refill : Less Than 3 Seconds General Appearance: No Apparent Distress HEENT: PERRL/EOMI Neck: Full Range of Motion Respiratory: Chest Non Tender, Rhonci, Wheezing Cardiovascular: Regular Rate, Rhythm Gastrointestinal: normal bowel sounds, non tender, soft Extremity: Normal Capillary Refill Neurologic/Psychiatric: Alert, Oriented x3 Skin: Normal Color Lymphatic: No Adenopathy Results Lab Laboratory Tests 09/20/22 04:13: White Blood Count 11.0, Red Blood Count 3.40L, Hemoglobin 11.5L, Hematocrit 31L, Mean Corpuscular Volume 92, Mean Corpuscular Hemoglobin 34, Mean Corpuscular Hemoglobin Concent 37H, Red Cell Distribution Width 11.8, Platelet Count 172, Mean Platelet Volume 9.8, Immature Granulocyte % (Auto) 1, Neutrophils (%) (Auto) 83H, Lymphocytes (%) (Auto) 6L, Monocytes (%) (Auto) 10, Eosinophils (%) (Auto) 1, Basophils (%) (Auto) 0, Neutrophils # (Auto) 9.1H, Lymphocytes # (Auto) 0.6L, Monocytes # (Auto) 1.1H, Eosinophils # (Auto) 0.1, Basophils # (Auto) 0.0, Immature Granulocyte # (Auto) 0.1, Sodium Level 123*L, Potassium Level 3.1L, Chloride Level 92L, Carbon Dioxide Level 20L, Anion Gap 11, Blood U radha Nitrogen 4L, Creatinine 0.45L, Estimat Glomerular Filtration Rate 110, BUN/Creatinine Ratio 9, Glucose Level 95, Calcium Level 8.2L, Corrected Calcium 9.1, Phosphorus Level 2.2L, Magnesium Level 2.0, Total Bilirubin 0.5, Aspartate Amino Transf (AST/SGOT) 28, Alanine Aminotransferase (ALT/SGPT) 27, Alkaline Phosphatase 64, Total Protein 5.2L, Albumin 2.9L Microbiology 09/17/22 MRSA Screen - Final, Complete MRSA not isolated Assessment/Plan Assessment/Plan Assess & Plan/Chief Complaint left ptx s/p CT placement. repeat p-cxr tomorrow and if clinically doing well, lung inflated, no ptx and no air leak then will remove CT. OSBALDO ALEX MD September 20, 2022 21:33
[2022-09-21] MEDS: RT-ALBUTEROL/IPRATROPIUM 3 ML (DUONEB) VIAL INH SCH ×3 (03:23→14:24)
[2022-09-21 03:27] LABS: BASOPHILS % (AUTO) 0 % (0-10); EOSINOPHILS # (AUTO) 0.2 10^3/uL (0.0-0.3); EOSINOPHILS % (AUTO) 2 % (0-10); HEMATOCRIT 30 % (40-54); HEMOGLOBIN 10.9 g/dL (13.3-17.7); LYMPHOCYTES # (AUTO) 0.8 10^3/uL (1.0-4.0); LYMPHOCYTES % (AUTO) 8 % (12-44); MEAN CORPUSCULAR HEMOGLOBIN 34 pg (25-34); MEAN CORPUSCULAR HGB CONC 37 g/dL (32-36); MEAN CORPUSCULAR VOLUME 92 fL (80-99); MEAN PLATELET VOLUME 9.3 fL (9.0-12.2); MONOCYTES # (AUTO) 1.2 10^3/uL (0.0-1.0); MONOCYTES % (AUTO) 11 % (0-12); NEUTROPHILS # (AUTO) 8.4 10^3/uL (1.8-7.8); NEUTROPHILS % (AUTO) 78 % (42-75); PLATELET COUNT 193 10^3/uL (130-400); WHITE BLOOD COUNT 10.7 10^3/uL (4.3-11.0)
[2022-09-21 03:56] LABS: ALBUMIN 2.9 GM/DL (3.2-4.5); BILIRUBIN,TOTAL 0.5 MG/DL (0.1-1.0); CALCIUM 8.3 MG/DL (8.5-10.1); CREATININE SERUM 0.49 MG/DL (0.60-1.30); MAGNESIUM 1.7 MG/DL (1.6-2.4); PHOSPHORUS 2.3 MG/DL (2.3-4.7); POTASSIUM 3.6 MMOL/L (3.6-5.0); TOTAL PROTEIN 5.4 GM/DL (6.4-8.2)
[2022-09-21] MEDS: POTASSIUM CL 10MEQ/50ML IVPB 50 ML IV SCH (05:33)
[2022-09-21] MEDS: MAGNESIUM 1 GM/100 ML IVPB 100 ML IV SCH ×3 (05:33→08:20)
[2022-09-21] MEDS: KCL 20 MEQ TAB (K-DUR) PO SCH (05:34)
[2022-09-21] MEDS ORDERED: MAGNESIUM 1 GM/100 ML IVPB 200 ML IV ONE (05:39)
[2022-09-21] MEDS: THIAMINE 100 MG (VITAMIN B-1) TAB PO SCH (06:26)
[2022-09-21] MEDS: PIPERACILLIN SODIUM/TAZOBACTAM 4.5 GM in NS (IVPB) 100 ML IV SCH ×3 (06:26→22:49)
--- NOTE | 2022-09-21 07:42 | Progress Note ---
Subjective Date Seen by a Provider: September 21, 2022 Time Seen by a Provider: 06:55 Subjective/Events-last exam patient remains in ICU as chest tube is in place. He does not voice any new concerns today. X-ray of the chest is pending. Possible chest tube removal pending results from the x-ray. Objective Exam Vital Signs Date Time Temp Pulse Resp B/P (MAP) Pulse Ox O2 Delivery O2 Flow Rate FiO2 09/21/22 07:33 96 High Flow N/C 11.00 09/21/22 07:21 84 09/21/22 06:00 77 15 149/81 (116) 94 High Flow N/C 10.00 09/21/22 05:00 71 15 161/78 (122) 89 High Flow N/C 10.00 09/21/22 04:00 37.0 09/21/22 04:00 High Flow N/C 10.00 09/21/22 04:00 73 14 146/86 (111) 96 High Flow N/C 10.00 09/21/22 03:23 95 High Flow N/C 6.00 09/21/22 03:00 70 13 161/73 (96) 98 High Flow N/C 10.00 09/21/22 02:00 77 164/82 (114) 91 High Flow N/C 10.00 09/21/22 01:13 72 34 161/80 (124) 91 High Flow N/C 10.00 09/21/22 01:00 78 09/21/22 00:00 86 174/81 (121) 88 High Flow N/C 10.00 09/20/22 23:59 High Flow N/C 10.00 09/20/22 23:00 High Flow N/C 10.00 09/20/22 23:00 73 9 147/75 (99) 91 High Flow N/C 10.00 09/20/22 22:30 High Flow N/C 15.00 09/20/22 22:00 74 15 141/80 (116) 94 High Flow N/C 5.00 09/20/22 21:39 95 High Flow N/C 6.00 09/20/22 21:00 90 17 145/68 (93) 92 High Flow N/C 5.00 09/20/22 20:10 36.4 09/20/22 20:00 High Flow N/C 5.00 09/20/22 20:00 77 17 179/90 (123) 89 High Flow N/C 5.00 09/20/22 19:00 60 09/20/22 19:00 60 18 138/89 (94) 91 High Flow N/C 5.00 09/20/22 18:30 High Flow N/C 5.00 09/20/22 18:00 81 20 167/95 (119) 91 High Flow N/C 6.00 09/20/22 17:00 85 14 174/116 (135) 93 High Flow N/C 6.00 09/20/22 16:17 36.3 09/20/22 16:00 High Flow N/C 6.00 09/20/22 16:00 79 15 155/90 (111) 98 High Flow N/C 6.00 09/20/22 15:35 97 High Flow N/C 5.00 09/20/22 15:00 79 15 131/70 (90) 92 High Flow N/C 6.00 09/20/22 14:00 80 19 154/72 (99) 90 High Flow N/C 6.00 09/20/22 13:00 87 17 171/81 (111) 90 High Flow N/C 6.00 09/20/22 12:18 82 09/20/22 12:00 87 17 143/77 (99) 91 High Flow N/C 6.00 09/20/22 12:00 37.2 09/20/22 12:00 High Flow N/C 6.00 09/20/22 11:00 81 20 165/106 (125) 93 High Flow N/C 6.00 09/20/22 10:39 88 High Flow N/C 6.00 09/20/22 10:00 92 17 171/96 (121) 97 High Flow N/C 4.00 09/20/22 09:00 83 11 155/83 (107) 97 High Flow N/C 4.00 09/20/22 08:10 36.9 Nasal Cannula 4.00 09/20/22 08:00 93 156/76 (102) 94 High Flow N/C 5.00 09/20/22 08:00 100 High Flow N/C 5.00 I & O 09/21/22 07:00 Intake Total 3345 ml Output Total 2725 ml Balance 620 ml Capillary Refill : Less Than 3 Seconds General Appearance: No Apparent Distress Respiratory: Lungs Clear Cardiovascular: Other (Rate controlled, A. fib by monitor) Gastrointestinal: soft Results Lab Laboratory Tests 09/21/22 03:19: White Blood Count 10.7, Red Blood Count 3.24L, Hemoglobin 10.9L, Hematocrit 30L, Mean Corpuscular Volume 92, Mean Corpuscular Hemoglobin 34, Mean Corpuscular Hemoglobin Concent 37H, Red Cell Distribution Width 11.9, Platelet Count 193, Mean Platelet Volume 9.3, Immature Granulocyte % (Auto) 1, Neutrophils (%) (Auto) 78H, Lymphocytes (%) (Auto) 8L, Monocytes (%) (Auto) 11, Eosinophils (%) (Auto) 2, Basophils (%) (Auto) 0, Neutrophils # (Auto) 8.4H, Lymphocytes # (Auto) 0.8L, Monocytes # (Auto) 1.2H, Eosinophils # (Auto) 0.2, Basophils # (Auto) 0.0, Immature Granulocyte # (Auto) 0.1, Sodium Level 125*L, Potassium Level 3.6, Chloride Level 96L, Carbon Dioxide Level 21, Anion Gap 8, Blood Urea Nitrogen 5L, Creatinine 0.49L, Estimat Glomerular Filtration Rate 107, BUN/Creatinine Ratio 10, Glucose Level 104, Calcium Level 8.3L, Corrected Calcium 9.2, Phosphorus Level 2.3, Magnesium Level 1.7, Total Bilirubin 0.5, Aspartate Amino Transf (AST/SGOT) 90H, Alanine Aminotransferase (ALT/SGPT) 69H, Alkaline Phosphatase 64, Total Protein 5.4L, Albumin 2.9L Microbiology 09/17/22 MRSA Screen - Final, Complete MRSA not isolated Assessment/Plan Assessment/Plan Assess & Plan/Chief Complaint 1. Traumatic left rib fracture with left pneumothorax chest tube -currently on Zosyn to cover in case of pneumonia as evident by CT -White count is noted to be 11,000 today -Appreciate Dr. Dean's help as he is managing the chest tube 09/21 -awaiting x-ray results 2. COPD -patient currently on nasal cannula oxygen. At home he is not on oxygen. Will evaluate once chest tube is out 3. Probable alcohol use disorder continue to monitor for any evidence for withdrawal on withdrawal protocol. No evidence of withdrawal thus far. 09/21 -continuing to monitor for any withdrawal 4. Ongoing tobaccoism 5. Atrial fibrillation with rate controlled -Metoprolol 25 mg twice daily added on yesterday by cardiology 6. Hyponatremiapersistent -He was noted to have hyponatremia prior to hospitalization. I suspect this is related to problem #3 or alcohol usage MARINE MALONEY MD September 21, 2022 07:41
[2022-09-21] MEDS: ADVAIR IH SCH ×2 (07:44→20:31)
[2022-09-21] MEDS: NICOTINE 14 MG (NICODERM) PATCH TD SCH (08:20)
[2022-09-21] MEDS: POT PHOS/NA PHOS (K-PHOS NEUTRAL) PO SCH ×2 (08:20→19:51)
[2022-09-21] MEDS: meTOprolol TARTRATE 25 MG (LOPRESSOR) TABLET PO SCH ×2 (08:20→19:51)
[2022-09-21] MEDS: LOSARTAN 100 MG (COZAAR) TABLET PO SCH (08:21)
[2022-09-21] MEDS: amLODIPine 5 MG (NORVASC) TAB PO SCH (08:21)
[2022-09-21] MEDS: FOLIC ACID 1 MG TAB PO SCH (08:21)
[2022-09-21] MEDS: SODIUM CHLORIDE 1 GM TABLET PO SCH ×2 (08:22→19:52)
[2022-09-21] MEDS: PHENYTOIN 100 MG (DILANTIN) CAP PO SCH ×2 (08:58→19:51)
[2022-09-21] MEDS: ENOXAPARIN 80 MG/0.8 ML (LOVENOX) SYR SC SCH ×2 (08:58→22:49)
[2022-09-21] MEDS ORDERED: KCL 20 MEQ TAB (K-DUR) PO ONE (09:00)
[2022-09-21] MEDS ORDERED: PHENYTOIN 100 MG (DILANTIN) CAP PO SCH ×2 (09:00)
--- NOTE | 2022-09-21 09:11 | Diagnostic Imaging Report ---
INDICATION: Respiratory distress. Frontal chest obtained at 07:48 a.m. compared with 09/19/2022. FINDINGS: There is mild cardiomegaly. There are extensive bilateral infiltrates which are similar to the prior study with mixed alveolar and interstitial pattern. There is no pneumothorax with left chest tube in place. There is no significant pleural fluid. Left-sided 4th and 5th rib fractures of indeterminate age are noted. IMPRESSION: Stable diffuse bilateral infiltrates with no pneumothorax or pleural fluid. Unchanged left-sided chest tube. Dictated by: Dictated on workstation # [id number]
--- NOTE | 2022-09-21 09:43 | Tele-ICU Progress Note ---
Subjective Date Seen by a Provider: September 21, 2022 Time Seen by a Provider: 09:38 Subjective/Events-last exam (Tele-ICU Physician , Progress Note ) Service provided via interactive audio and video telecommunications E-CARE system to a patient admitted to ICU bed in [facility]. Patient is seen today due to persistent need of ICU care Available chart/ vitals / labs / Images reviewed Video assessment done using teleICU camera, rest of exam as per RN Discussed with RN Events overnight : Afebrile hemodynamically stable Respiratory - 4l I/O = neg Drips: NS 150 Pressors- no Hospital course: (09/17) 77yr M admitted for traumatic large left pneumothorax, hyponatremia (Na+112), hypokalemia (K+3.2). Patient fell on his left side in [place] 4 days ago. 09/19- CT A- no PE , LLL infiltrate , chest tube LEFT in fissure , small PTX 09/21. today he is feeling fair. cxr reviewed. chest tube unchanged. no ptx seen. A/P Fractures of the posterior aspect of the ribs 4 through 6 - pain control fair S/p fall 4 d [employer] ( as per report [facility] 4 d ago - no bleed - ? sx , NA ? ETON ? LEFT PTX 20 % due to above - chest tube09/18- on sucction , no leak - 09/19- CT A- no PE , LLL infiltrate , chest tube LEFT in fissure , small PTX - 09/21. CXR no PTX. silverio. infiltrates present. ? removal of chest tube today. LLL PNA - zosyn 09/19 Hypoxia - due to above and COPD PNA and Atelectasis - nebs , O2 , IS , follow HypoNatremia -112 on admission ,today 125 - stp IVF ,stat Na Po pills - as per patient - baseline 120s -TSH wnl A fib in ER - presumed new - now in sinus - no AC - follow, per cardiology. h/o Sxz - denies sz for years - diulantin resumed COPD - received SM 125 on 09/17 - off steroids s - cont home and PRN prostate CA 2020 PAD - stenting LEFT 2015 , bipas 2001 Lines : , (Central Line Necessity Reviewed) Quevedo: void OG: Nutrition: po Analgesia: Anxiety/ delirium VTE Prophylaxis: florence 70 mg s/q bid Stress Ulcer Prophylaxis: na Plans in collaboration with bedside consultants and IM MDs. Discussed with RN to reach out if any questions or concerns Case and care daily discussed on multidisciplinary rounds ( RN, PharmD, Nutr itionist , Respiratory Therapy, hydroponics worker ) A total of 25 minutes of critical care time was devoted to this patient today, required to treat and/or prevent further deterioration of critical care condition ( as above ) . Sepsis Event Evaluation Height, Weight, BMI Height: 6'0.00" Weight: 200lbs. oz. 90.526532qm; 21.73 BMI Method: Exam Exam Patient acknowledged, consented, and participated in this virtual visit which was conducted using real time audio/video Vital Signs Date Time Temp Pulse Resp B/P (MAP) Pulse Ox O2 Delivery O2 Flow Rate FiO2 09/21/22 08:00 92 16 181/85 (117) 90 High Flow N/C 10.00 09/21/22 08:00 High Flow N/C 6.00 09/21/22 07:33 96 High Flow N/C 11.00 09/21/22 07:21 84 09/21/22 07:00 78 16 165/80 (108) 95 High Flow N/C 10.00 09/21/22 06:00 77 15 149/81 (116) 94 High Flow N/C 10.00 09/21/22 05:00 71 15 161/78 (122) 89 High Flow N/C 10.00 09/21/22 04:00 37.0 09/21/22 04:00 High Flow N/C 10.00 09/21/22 04:00 73 14 146/86 (111) 96 High Flow N/C 10.00 09/21/22 03:23 95 High Flow N/C 6.00 09/21/22 03:00 70 13 161/73 (96) 98 High Flow N/C 10.00 09/21/22 02:00 77 164/82 (114) 91 High Flow N/C 10.00 09/21/22 01:13 72 34 161/80 (124) 91 High Flow N/C 10.00 09/21/22 01:00 78 09/21/22 00:00 86 174/81 (121) 88 High Flow N/C 10.00 09/20/22 23:59 High Flow N/C 10.00 09/20/22 23:00 High Flow N/C 10.00 09/20/22 23:00 73 9 147/75 (99) 91 High Flow N/C 10.00 09/20/22 22:30 High Flow N/C 15.00 09/20/22 22:00 74 15 141/80 (116) 94 High Flow N/C 5.00 09/20/22 21:39 95 High Flow N/C 6.00 09/20/22 21:00 90 17 145/68 (93) 92 High Flow N/C 5.00 09/20/22 20:10 36.4 09/20/22 20:00 High Flow N/C 5.00 09/20/22 20:00 77 17 179/90 (123) 89 High Flow N/C 5.00 09/20/22 19:00 60 09/20/22 19:00 60 18 138/89 (94) 91 High Flow N/C 5.00 09/20/22 18:30 High Flow N/C 5.00 09/20/22 18:00 81 20 167/95 (119) 91 High Flow N/C 6.00 09/20/22 17:00 85 14 174/116 (135) 93 High Flow N/C 6.00 09/20/22 16:17 36.3 09/20/22 16:00 High Flow N/C 6.00 09/20/22 16:00 79 15 155/90 (111) 98 High Flow N/C 6.00 09/20/22 15:35 97 High Flow N/C 5.00 09/20/22 15:00 79 15 131/70 (90) 92 High Flow N/C 6.00 09/20/22 14:00 80 19 154/72 (99) 90 High Flow N/C 6.00 09/20/22 13:00 87 17 171/81 (111) 90 High Flow N/C 6.00 09/20/22 12:18 82 09/20/22 12:00 87 17 143/77 (99) 91 High Flow N/C 6.00 09/20/22 12:00 37.2 09/20/22 12:00 High Flow N/C 6.00 09/20/22 11:00 81 20 165/106 (125) 93 High Flow N/C 6.00 09/20/22 10:39 88 High Flow N/C 6.00 09/20/22 10:00 92 17 171/96 (121) 97 High Flow N/C 4.00 I & O 09/21/22 07:00 Intake Total 3345 ml Output Total 2725 ml Balance 620 ml Height & Weight Height: 6'0.00" Weight: 200lbs. oz. 90.797153bg; 21.73 BMI Method: General Appearance: No Apparent Distress HEENT: PERRL/EOMI Neck: Supple Respiratory: Lungs Clear Cardiovascular: Other (Rate controlled, A. fib by monitor) Capillary Refill: Less Than 3 Seconds Peripheral Pulses: 1+ Dorsalis Pedis (R), 1+ Left Dors-Pedis (L) (See free text) Gastrointestinal: soft Extremity: Normal Capillary Refill Neurologic/Psychiatric: Alert, Oriented x3 Skin: Normal Color Lymphatic: No Adenopathy Results Lab Laboratory Tests 09/20/22 04:13 09/21/22 03:19 Assessment/Plan Assessment/Plan as above Critical Care: Critically Ill Patient Time spent with patient (mins): 25 MICH DYER MD September 21, 2022 09:43
--- NOTE | 2022-09-21 15:07 | Diagnostic Imaging Report ---
INDICATION: Chest tube removal. TIME OF EXAM: 02:41 p.m. COMPARISON: Comparison is made with prior chest earlier the same day. FINDINGS: Heart size is normal. Left-sided chest tube has been removed. No residual pneumothorax is seen. The mixed interstitial and airspace pulmonary infiltrates persist. There is no effusion. IMPRESSION: Left chest tube removal. No residual pneumothorax is detected. Dictated by: Dictated on workstation # [id number]
[2022-09-21 15:46] VITALS: BP 171/90
--- NOTE | 2022-09-21 17:18 | Progress Note ---
Subjective Date Seen by a Provider: September 21, 2022 Time Seen by a Provider: 12:00 Subjective/Events-last exam doing better. still has exertional SOB upon standing and taking steps. no PTX nor air leak on CT. Objective Exam Vital Signs Date Time Temp Pulse Resp B/P (MAP) Pulse Ox O2 Delivery O2 Flow Rate FiO2 09/21/22 15:47 90 High Flow N/C 6.00 09/21/22 15:46 36.6 73 18 171/90 (117) 90 High Flow N/C 6.00 09/21/22 15:00 75 22 150/87 (108) 95 High Flow N/C 10.00 09/21/22 14:24 92 High Flow N/C 8.00 09/21/22 14:00 76 24 157/88 (111) 94 High Flow N/C 10.00 09/21/22 13:18 93 09/21/22 13:00 94 15 152/70 (97) 94 High Flow N/C 10.00 09/21/22 12:00 80 21 173/95 (121) 94 High Flow N/C 10.00 09/21/22 11:44 High Flow N/C 6.00 09/21/22 11:00 74 16 167/82 (110) 95 High Flow N/C 10.00 09/21/22 10:00 73 16 153/75 (101) 96 High Flow N/C 10.00 09/21/22 09:00 74 28 174/88 (116) 96 High Flow N/C 10.00 09/21/22 08:00 92 16 181/85 (117) 90 High Flow N/C 10.00 09/21/22 08:00 High Flow N/C 6.00 09/21/22 07:33 96 High Flow N/C 11.00 09/21/22 07:21 84 09/21/22 07:00 78 16 165/80 (108) 95 High Flow N/C 10.00 09/21/22 06:00 77 15 149/81 (116) 94 High Flow N/C 10.00 09/21/22 05:00 71 15 161/78 (122) 89 High Flow N/C 10.00 09/21/22 04:00 37.0 09/21/22 04:00 High Flow N/C 10.00 09/21/22 04:00 73 14 146/86 (111) 96 High Flow N/C 10.00 09/21/22 03:23 95 High Flow N/C 6.00 09/21/22 03:00 70 13 161/73 (96) 98 High Flow N/C 10.00 09/21/22 02:00 77 164/82 (114) 91 High Flow N/C 10.00 09/21/22 01:13 72 34 161/80 (124) 91 High Flow N/C 10.00 09/21/22 01:00 78 09/21/22 00:00 86 174/81 (121) 88 High Flow N/C 10.00 09/20/22 23:59 High Flow N/C 10.00 09/20/22 23:00 High Flow N/C 10.00 09/20/22 23:00 73 9 147/75 (99) 91 High Flow N/C 10.00 09/20/22 22:30 High Flow N/C 15.00 09/20/22 22:00 74 15 141/80 (116) 94 High Flow N/C 5.00 09/20/22 21:39 95 High Flow N/C 6.00 09/20/22 21:00 90 17 145/68 (93) 92 High Flow N/C 5.00 09/20/22 20:10 36.4 09/20/22 20:00 High Flow N/C 5.00 09/20/22 20:00 77 17 179/90 (123) 89 High Flow N/C 5.00 09/20/22 19:00 60 09/20/22 19:00 60 18 138/89 (94) 91 High Flow N/C 5.00 09/20/22 18:30 High Flow N/C 5.00 09/20/22 18:00 81 20 167/95 (119) 91 High Flow N/C 6.00 I & O 09/21/22 07:00 Intake Total 3345 ml Output Total 2725 ml Balance 620 ml Capillary Refill : Less Than 3 Seconds General Appearance: No Apparent Distress Neck: Full Range of Motion Respiratory: Chest Non Tender, Decreased Breath Sounds, Rhonci, Wheezing Cardiovascular: Regular Rate, Rhythm Gastrointestinal: normal bowel sounds, non tender, soft Extremity: Normal Capillary Refill Neurologic/Psychiatric: Alert, Oriented x3 Skin: Normal Color Lymphatic: No Adenopathy Results Lab Laboratory Tests 09/21/22 03:19: White Blood Count 10.7, Red Blood Count 3.24L, Hemoglobin 10.9L, Hematocrit 30L, Mean Corpuscular Volume 92, Mean Corpuscular Hemoglobin 34, Mean Corpuscular Hemoglobin Concent 37H, Red Cell Distribution Width 11.9, Platelet Count 193, Mean Platelet Volume 9.3, Immature Granulocyte % (Auto) 1, Neutrophils (%) (Auto) 78H, Lymphocytes (%) (Auto) 8L, Monocytes (%) (Auto) 11, Eosinophils (%) (Auto) 2, Basophils (%) (Auto) 0, Neutrophils # (Auto) 8.4H, Lymphocytes # (Auto) 0.8L, Monocytes # (Auto) 1.2H, Eosinophils # (Auto) 0.2, Basophils # (Auto) 0.0, Immature Granulocyte # (Auto) 0.1, Sodium Level 125*L, Potassium Level 3.6, Chloride Level 96L, Carbon Dioxide Level 21, Anion Gap 8, Blood Urea Nitrogen 5L, Creatinine 0.49L, Estimat Glomerular Filtration Rate 107, BUN/Creatinine Ratio 10, Glucose Level 104, Calcium Level 8.3L, Corrected Calcium 9.2, Phosphorus Level 2.3, Magnesium Level 1.7, Total Bilirubin 0.5, Aspartate Amino Transf (AST/SGOT) 90H, Alanine Aminotransferase (ALT/SGPT) 69H, Alkaline Phosphatase 64, Total Protein 5.4L, Albumin 2.9L Microbiology 09/17/22 MRSA Screen - Final, Complete MRSA not isolated Assessment/Plan Assessment/Plan Assess & Plan/Chief Complaint left ptx s/p CT placement. repeat p-cxr today looks good with fully inflated lung and no air leak. will remove CT today. will likely need OP oxygen as well as possible OP pulmonary rehab however he may not agree to such things. ok for transfer to regular floor and home when ok with PMD. OSBALDO ALEX MD September 21, 2022 17:18
[2022-09-21 19:37] VITALS: BP 182/85
[2022-09-21] MEDS: ANTACID SUSP 30 ML UDC (MYLANTA) PO PRN (20:45)
[2022-09-21 23:01] VITALS: BP 134/80
[2022-09-22 03:00] VITALS: BP 158/82
[2022-09-22 05:28] LABS: BASOPHILS % (AUTO) 0 % (0-10); EOSINOPHILS # (AUTO) 0.2 10^3/uL (0.0-0.3); EOSINOPHILS % (AUTO) 2 % (0-10); HEMATOCRIT 32 % (40-54); HEMOGLOBIN 11.6 g/dL (13.3-17.7); LYMPHOCYTES # (AUTO) 1.4 10^3/uL (1.0-4.0); LYMPHOCYTES % (AUTO) 15 % (12-44); MEAN CORPUSCULAR HEMOGLOBIN 34 pg (25-34); MEAN CORPUSCULAR HGB CONC 37 g/dL (32-36); MEAN CORPUSCULAR VOLUME 92 fL (80-99); MEAN PLATELET VOLUME 9.6 fL (9.0-12.2); MONOCYTES # (AUTO) 1.2 10^3/uL (0.0-1.0); MONOCYTES % (AUTO) 13 % (0-12); NEUTROPHILS # (AUTO) 6.5 10^3/uL (1.8-7.8); NEUTROPHILS % (AUTO) 69 % (42-75); PLATELET COUNT 230 10^3/uL (130-400); WHITE BLOOD COUNT 9.4 10^3/uL (4.3-11.0)
[2022-09-22 05:49] LABS: ALBUMIN 2.9 GM/DL (3.2-4.5)
[2022-09-22 05:50] LABS: POTASSIUM 3.4 MMOL/L (3.6-5.0)
[2022-09-22 05:51] LABS: CALCIUM 8.3 MG/DL (8.5-10.1)
[2022-09-22 05:52] LABS: TOTAL PROTEIN 5.5 GM/DL (6.4-8.2)
[2022-09-22 05:54] LABS: BILIRUBIN,TOTAL 0.5 MG/DL (0.1-1.0)
[2022-09-22 05:56] LABS: CREATININE SERUM 0.49 MG/DL (0.60-1.30)
[2022-09-22] MEDS: THIAMINE 100 MG (VITAMIN B-1) TAB PO SCH (06:16)
[2022-09-22] MEDS: PIPERACILLIN SODIUM/TAZOBACTAM 4.5 GM in NS (IVPB) 100 ML IV SCH ×3 (06:17→22:13)
[2022-09-22] MEDS: ADVAIR IH SCH ×2 (07:29→19:35)
--- NOTE | 2022-09-22 07:59 | Progress Note ---
Subjective Date Seen by a Provider: September 22, 2022 Time Seen by a Provider: 07:00 Subjective/Events-last exam today I spoke with patient and his daughter who was at bedside today. Leonard is now on fourth medical having his chest tube removed yesterday. The Quevedo catheter is out as well. He has been up to the bathroom but no exercise and he appears to be weak. Also he is on 8 L high flow nasal cannula oxygen. Objective Exam Vital Signs Date Time Temp Pulse Resp B/P (MAP) Pulse Ox O2 Delivery O2 Flow Rate FiO2 09/22/22 07:29 96 High Flow N/C 8.00 09/22/22 03:00 36.6 64 20 158/82 (107) 91 High Flow N/C 8.00 09/21/22 23:01 36.8 74 20 134/80 (98) 94 High Flow N/C 8.00 09/21/22 20:35 90 High Flow N/C 8.00 09/21/22 20:18 83 High Flow N/C 8.00 09/21/22 19:37 36.9 83 20 182/85 (117) 93 High Flow N/C 8.00 09/21/22 15:47 90 High Flow N/C 6.00 09/21/22 15:46 36.6 73 18 171/90 (117) 90 High Flow N/C 6.00 09/21/22 15:00 75 22 150/87 (108) 95 High Flow N/C 10.00 09/21/22 14:24 92 High Flow N/C 8.00 09/21/22 14:00 76 24 157/88 (111) 94 High Flow N/C 10.00 09/21/22 13:18 93 09/21/22 13:00 94 15 152/70 (97) 94 High Flow N/C 10.00 09/21/22 12:00 80 21 173/95 (121) 94 High Flow N/C 10.00 09/21/22 11:44 High Flow N/C 6.00 09/21/22 11:00 74 16 167/82 (110) 95 High Flow N/C 10.00 09/21/22 10:00 73 16 153/75 (101) 96 High Flow N/C 10.00 09/21/22 09:00 74 28 174/88 (116) 96 High Flow N/C 10.00 09/21/22 08:00 92 16 181/85 (117) 90 High Flow N/C 10.00 09/21/22 08:00 High Flow N/C 6.00 I & O 09/22/22 07:00 Intake Total 1600 ml Output Total 2825 ml Balance -1225 ml Capillary Refill : Less Than 3 Seconds General Appearance: Anxious (Mildly) Respiratory: Crackles Cardiovascular: Other (Slightly irregular but rate controlled) Gastrointestinal: soft Extremity: Normal Capillary Refill Neurologic/Psychiatric: Alert, Oriented x3 Results Lab Laboratory Tests 09/22/22 05:16: White Blood Count 9.4, Red Blood Count 3.42L, Hemoglobin 11.6L, Hematocrit 32L, Mean Corpuscular Volume 92, Mean Corpuscular Hemoglobin 34, Mean Corpuscular Hemoglobin Concent 37H, Red Cell Distribution Width 11.9, Platelet Count 230, Mean Platelet Volume 9.6, Immature Granulocyte % (Auto) 1, Neutrophils (%) (Auto) 69, Lymphocytes (%) (Auto) 15, Monocytes (%) (Auto) 13H, Eosinophils (%) (Auto) 2, Basophils (%) (Auto) 0, Neutrophils # (Auto) 6.5, Lymphocytes # (Auto) 1.4, Monocytes # (Auto) 1.2H, Eosinophils # (Auto) 0.2, Basophils # (Auto) 0.0, Immature Granulocyte # (Auto) 0.1, Sodium Level 126L, Potassium Level 3.4L, Chloride Level 94L, Carbon Dioxide Level 22, Anion Gap 10, Blood Urea Nitrogen 5L, Creatinine 0.49L, Estimat Glomerular Filtration Rate 107, BUN/Creatinine R atio 10, Glucose Level 101, Calcium Level 8.3L, Corrected Calcium 9.2, Total Bilirubin 0.5, Aspartate Amino Transf (AST/SGOT) 169H, Alanine Aminotransferase (ALT/SGPT) 155H, Alkaline Phosphatase 81, Total Protein 5.5L, Albumin 2.9L Microbiology 09/17/22 MRSA Screen - Final, Complete MRSA not isolated Assessment/Plan Assessment/Plan Assess & Plan/Chief Complaint 1. Traumatic left rib fracture with left pneumothorax chest tube -currently on Zosyn to cover in case of pneumonia as evident by CT -White count is noted to be 11,000 today -Appreciate Dr. Kido's help as he is managing the chest tube 09/21 -awaiting x-ray results 09/22 -chest tube now out. -Working on incentive spirometry 2. COPD -patient currently on nasal cannula oxygen. At home he is not on oxygen. Will evaluate once chest tube is out 09/22 -utilizing Advair -Most likely he will need oxygen at home and will have RT test him for this probably within the next 1-2 days 3. Probable alcohol use disorder continue to monitor for any evidence for withdrawal on withdrawal protocol. No evidence of withdrawal thus far. 09/21 -continuing to monitor for any withdrawal 4. Ongoing tobaccoism 09/22 -I stressed to him the importance of staying off of cigarettes. We discussed continued nicotine patches at home 5. Atrial fibrillation with rate controlled -Metoprolol 25 mg twice daily added on yesterday by cardiology 6. Hyponatremiapersistent -He was noted to have hyponatremia prior to hospitalization. I suspect this is related to problem #3 or alcohol usage MARINE MALONEY MD September 22, 2022 07:59
[2022-09-22 08:09] VITALS: BP 138/88
[2022-09-22] MEDS: meTOprolol TARTRATE 25 MG (LOPRESSOR) TABLET PO SCH ×2 (08:44→20:08)
[2022-09-22] MEDS: LOSARTAN 100 MG (COZAAR) TABLET PO SCH (08:44)
[2022-09-22] MEDS: NICOTINE 14 MG (NICODERM) PATCH TD SCH (08:44)
[2022-09-22] MEDS: FOLIC ACID 1 MG TAB PO SCH (08:44)
[2022-09-22] MEDS: SODIUM CHLORIDE 1 GM TABLET PO SCH ×2 (08:44→20:09)
[2022-09-22] MEDS: amLODIPine 5 MG (NORVASC) TAB PO SCH (08:44)
[2022-09-22] MEDS: PHENYTOIN 100 MG (DILANTIN) CAP PO SCH ×2 (08:51→20:09)
[2022-09-22] MEDS: ENOXAPARIN 80 MG/0.8 ML (LOVENOX) SYR SC SCH ×2 (08:56→20:09)
[2022-09-22 11:33] VITALS: BP 149/82
--- NOTE | 2022-09-22 14:16 | Physical Therapy Evaluation ---
PT Evaluation-General Medical Diagnosis Admission Date September 17, 2022 at 20:49 Medical Diagnosis: Upper back pain s/p fall, shortness of breath Onset Date: September 16, 2022 Therapy Diagnosis Therapy Diagnosis: Gait deficit, strength deficit Height/Weight Height (Feet): 6 Height (Inches): 0.00 Weight (Pounds): 200 Precautions Precautions/Isolations: Fall Prevention, Standard Precautions Weight Bear Status Right Lower Extremity: Right Full Weight Bearing Left Lower Extremity: Left Full Weight Bearing Referral Physician: Dr. Craft Reason for Referral: Evaluation/Treatment Medical History Reviewed History: Yes Social History Home: Single Level Current Living Status: Alone Entry Into Home: Level Entry PT Steps Into Home: 3 Prior Prior Level of Function SCALE: Activities may be completed with or without assistive devices. 0-Gocbsvrcda-pvwajip completes the activity by him/herself with no assistance from a helper. 5-Set-up or Clean-up Assistance-helper sets up or cleans up; patient completes activity. [place] assists only prior to or following the activity. 4-Supervision or Touching Assistance-helper provides verbal cues and/or touching/steadying and/or contact guard assistance as patient completes activity. Assistance may be provided throughout the activity or intermittently. 3-Partial/Moderate Assistance-helper does LESS THAN HALF the effort. [place] lifts, holds or supports trunk or limbs, but provides less than half the effort. 2-Substantial/Maximal Assistance-helper does MORE THAN HALF the effort. [place] lifts or holds trunk or limbs and provides more than half the effort. 6-Trwdyjtiz-hevruc does ALL the effort. Patient does none of the effort to complete the activity. Or, the assistance of 2 or more helpers is required for the patient to complete the activity. If activity was not attempted, code reason: 7-Patient Refused. 9-Not Applicable-not attempted and the patient did not perform the activity before the current illness, exacerbation or injury. 10-Not Attempted due to Environmental Limitations-(lack of equipment, weather restraints, etc.). 88-Not Attempted due to Medical Conditions or Safety Concerns. Bed Mobility: 6 Transfers (B,C,W/C): 6 Gait: 6 Stairs: 6 Indoor Mobility (Ambulation): Independent Stairs: Independent Uses a cane prn PT Evaluation-Current Subjective Patient lying supine in bed upon PT arrival, agreeable to treatment. rates pain at 0/10 currently. Objective Patient Orientation: Person, Place, Time, Situation Attachments: Oxygen, IV ROM/Strength ROM Lower Extremities WFLs BLEs all planes Strength Lower Extremities 4/5 BLEs all planes Sensory Vision: Functional Hearing: Functional Sensation Right Lower Extremit: Intact Sensation Left Lower Extremity: Intact Transfers Roll Left to Right (QC): 4 Sit to Lying (QC): 4 Lying to Sitting/Side of Bed(Q: 4 Sit to Stand (QC): 4 Chair/Kvd-sp-Vrfpc Xfer(QC): 4 Gait Does the Patient Walk?: Yes Mode of Locomotion: Walk Anticipated Mode of Locomotion: Walk Walk 10 feet (QC): 4 Walk 50 ft with 2 Turns(QC): 4 Distance: 100' Gait Assistive Device: FWW Balance Sitting Static: Good Sitting Dynamic: Good Standing Static: Fair Standing Dynamic: Fair Assessment/Needs Patient tolerated evaluation well. He performs all bed mobility and transfers with SBA. He ambulates 100 feet with FWW, with SBA and verbal cues for safety, progression, posture and conservation of energy. Patient in chair post treatment with all needs met, nursing notified, call light in hand, and daughter in the room. 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 PT Residential Goals Time Frame: Oct 09, 2022 Roll Left & Right (QC): 6 Sit to Lying (QC): 6 Lying-Sitting on Side/Bed(QC): 6 Sit to Stand (QC): 6 Chair/Gnz-tk-Tcyke Xfer(QC): 6 Toilet Transfer (QC): 6 Car Transfer (QC): 6 Does the Patient Walk: Yes Walk 10 feet (QC): 6 Walk 50ft with 2 Turns (QC): 6 Walk 150 ft (QC): 6 1 Step (curb) (QC): 4 4 Steps (QC): 4 PT Plan Problem List Problem List: Activity Tolerance, Functional Strength, Safety, Balance, Gait, Transfer, Bed Mobility, ROM Treatment/Plan Treatment Plan: Continue Plan of Care Treatment Plan: Bed Mobility, Education, Functional Activity [place], Functional Strength, Group Therapy, Gait, Safety, Therapeutic Exercise, Transfers Treatment Duration: Oct 29, 2022 Frequency: 6 times per week Estimated Hrs Per Day: .25 hour per day Patient and/or Family Agrees t: Yes Safety Risks/Education Patient Education: Gait Training, Transfer Techniques Teaching Recipient: Patient Teaching Methods: Demonstration, Discussion Response to Teaching: Verbalize Understanding, Return Demonstration Time Time In: 1126 Time Out: 1140 DATE: September 22, 2022 Total Billed Treatment Time: 14 Total Billed Treatment Visit, CA COTE PT September 22, 2022 14:15
[2022-09-22 15:39] VITALS: BP 168/80
--- NOTE | 2022-09-22 16:40 | Progress Note ---
Subjective Date Seen by a Provider: September 22, 2022 Time Seen by a Provider: 16:00 Subjective/Events-last exam doing much better. no SOB nor new cough. tolerating diet. on oxygen NC at 8 liters and pt is progressing with pulmonary rehab to goal O2 at 3L. Objective Exam Vital Signs Date Time Temp Pulse Resp B/P (MAP) Pulse Ox O2 Delivery O2 Flow Rate FiO2 09/22/22 15:39 36.9 63 18 168/80 (109) 95 High Flow N/C 8.00 8.00 09/22/22 11:33 36.9 63 20 149/82 (104) 95 High Flow N/C 8.00 09/22/22 08:09 36.4 67 20 138/88 (105) 97 High Flow N/C 8.00 09/22/22 08:00 High Flow N/C 8.00 09/22/22 07:29 96 High Flow N/C 8.00 09/22/22 03:00 36.6 64 20 158/82 (107) 91 High Flow N/C 8.00 09/21/22 23:01 36.8 74 20 134/80 (98) 94 High Flow N/C 8.00 09/21/22 20:35 90 High Flow N/C 8.00 09/21/22 20:18 83 High Flow N/C 8.00 09/21/22 19:37 36.9 83 20 182/85 (117) 93 High Flow N/C 8.00 I & O 09/22/22 07:00 Intake Total 1600 ml Output Total 2825 ml Balance -1225 ml Capillary Refill : Less Than 3 Seconds General Appearance: No Apparent Distress HEENT: PERRL/EOMI Neck: Full Range of Motion Respiratory: Chest Non Tender, Decreased Breath Sounds, Rhonci, Wheezing Cardiovascular: Regular Rate, Rhythm Gastrointestinal: normal bowel sounds, non tender, soft Extremity: Normal Capillary Refill Neurologic/Psychiatric: Alert, Oriented x3 Skin: Normal Color Lymphatic: No Adenopathy Results Lab Laboratory Tests 09/22/22 05:16: White Blood Count 9.4, Red Blood Count 3.42L, Hemoglobin 11.6L, Hematocrit 32L, Mean Corpuscular Volume 92, Mean Corpuscular Hemoglobin 34, Mean Corpuscular Hemoglobin Concent 37H, Red Cell Distribution Width 11.9, Platelet Count 230, Mean Platelet Volume 9.6, Immature Granulocyte % (Auto) 1, Neutrophils (%) (Auto) 69, Lymphocytes (%) (Auto) 15, Monocytes (%) (Auto) 13H, Eosinophils (%) (Auto) 2, Basophils (%) (Auto) 0, Neutrophils # (Auto) 6.5, Lymphocytes # (Auto) 1.4, Monocytes # (Auto) 1.2H, Eosinophils # (Auto) 0.2, Basophils # (Auto) 0.0, Immature Granulocyte # (Auto) 0.1, Sodium Level 126L, Potassium Level 3.4L, Chloride Level 94L, Carbon Dioxide Level 22, Anion Gap 10, Blood Urea Nitrogen 5L, Creatinine 0.49L, Estimat Glomerular Filtration Rate 107, BUN/Creatinine Ratio 10, Glucose Level 101, Calcium Level 8.3L, Corrected Calcium 9.2, Total Bilirubin 0.5, Aspartate Amino Transf (AST/SGOT) 169H, Alanine Aminotransferase (ALT/SGPT) 155H, Alkaline Phosphatase 81, Total Protein 5.5L, Albumin 2.9L Microbiology 09/17/22 MRSA Screen - Final, Complete MRSA not isolated Assessment/Plan Assessment/Plan Assess & Plan/Chief Complaint left ptx s/p CT placement. repeat p-cxr today looks good with fully inflated lung and no air leak. will remove CT today. will likely need OP oxygen as well as possible OP pulmonary rehab however he may not agree to such things. ok for transfer to regular floor and home when ok with PMD. pulmonary therapy to ween O2 to goal of 3 L/min then d/c home with supplemental O2 at home. OSBALDO ALEX MD September 22, 2022 16:40
--- NOTE | 2022-09-22 18:24 | Physician Query Clarification ---
Physician Query-General Query to Physician: The medical record reflects the following clinical evidence: Clinical Indicators: RR 24 on admission has been as high as 40, O2 sat 76 percent on room air in ER, and on day of admission has been in the low 90s on 5L also dipped down to 87% on oxygen 5 L (P/F=133), Remains on 02 for >4 days and will likely need to discharge with 02 Risk Factor(s): Traumatic rib fracture with pneumothorax, Smoker, COPD, No home 02 Treatment: Supplemental 02 up to 11L, Breathing RX, Close respiratory monitoring Acute respiratory failure, with hypoxia, present on admission Other explanation of clinical findings Unable to determine (no explanation for clinical findings) Please clarify and document your clinical opinion in the progress notes and discharge summary including the definitive and/or presumptive diagnosis, (suspected or probable), related to the above clinical findings. Please include clinical findings supporting your diagnosis. Karissa Chiang, MSN, RN Clinical Vector Control Assistant [phone] [email or web address] PHYSICIAN RESPONSE: Based on the clinical findings in the record, please respond to the query above on this document as an addendum. Physician Response: If you have questions please contact: Machine Hose Cutter: Ext: Thank you for your time and cooperation. Clinical Vector Control Assistant/Machine Hose Cutter This is a permanent part of the medical record KARISSA CHIANG September 22, 2022 18:24
[2022-09-22 19:24] VITALS: BP 162/88
[2022-09-22] MEDS: ANTACID SUSP 30 ML UDC (MYLANTA) PO PRN (20:09)
[2022-09-23 06:57] LABS: BASOPHILS % (AUTO) 0 % (0-10); EOSINOPHILS # (AUTO) 0.2 10^3/uL (0.0-0.3); EOSINOPHILS % (AUTO) 2 % (0-10); HEMATOCRIT 33 % (40-54); LYMPHOCYTES # (AUTO) 1.4 10^3/uL (1.0-4.0); LYMPHOCYTES % (AUTO) 15 % (12-44); MEAN CORPUSCULAR HEMOGLOBIN 34 pg (25-34); MEAN CORPUSCULAR HGB CONC 37 g/dL (32-36); MEAN CORPUSCULAR VOLUME 93 fL (80-99); MEAN PLATELET VOLUME 9.7 fL (9.0-12.2); MONOCYTES # (AUTO) 1.4 10^3/uL (0.0-1.0); MONOCYTES % (AUTO) 15 % (0-12); NEUTROPHILS # (AUTO) 5.9 10^3/uL (1.8-7.8); NEUTROPHILS % (AUTO) 66 % (42-75); PLATELET COUNT 258 10^3/uL (130-400); WHITE BLOOD COUNT 8.9 10^3/uL (4.3-11.0)
[2022-09-23] MEDS: PIPERACILLIN SODIUM/TAZOBACTAM 4.5 GM in NS (IVPB) 100 ML IV SCH (07:00)
[2022-09-23] MEDS: THIAMINE 100 MG (VITAMIN B-1) TAB PO SCH (07:00)
[2022-09-23 07:12] LABS: BILIRUBIN,TOTAL 0.5 MG/DL (0.1-1.0); CALCIUM 8.3 MG/DL (8.5-10.1); CREATININE SERUM 0.51 MG/DL (0.60-1.30); POTASSIUM 3.4 MMOL/L (3.6-5.0); TOTAL PROTEIN 5.7 GM/DL (6.4-8.2)
[2022-09-23] MEDS: ADVAIR IH SCH (07:26)
[2022-09-23 08:13] VITALS: BP 150/78
[2022-09-23] MEDS: SODIUM CHLORIDE 1 GM TABLET PO SCH (09:35)
[2022-09-23] MEDS: ENOXAPARIN 80 MG/0.8 ML (LOVENOX) SYR SC SCH (09:36)
[2022-09-23] MEDS: FOLIC ACID 1 MG TAB PO SCH (09:36)
[2022-09-23] MEDS: LOSARTAN 100 MG (COZAAR) TABLET PO SCH (09:36)
[2022-09-23] MEDS: meTOprolol TARTRATE 25 MG (LOPRESSOR) TABLET PO SCH (09:36)
[2022-09-23] MEDS: amLODIPine 5 MG (NORVASC) TAB PO SCH (09:36)
[2022-09-23] MEDS: NICOTINE 14 MG (NICODERM) PATCH TD SCH (09:36)
[2022-09-23] MEDS: PHENYTOIN 100 MG (DILANTIN) CAP PO SCH (09:37)
--- NOTE | 2022-09-23 10:17 | Physical Therapy Daily Note ---
PT Daily Note-Current Subjective Patient agrees to PT. Family present Pain Numeric Pain Scale: 0-No Pain Section J - Health Conditions 1. Rarely or not at all 2. Occasionally 3. Frequently 4. Almost constantly 8. Unable to answer Pain Effect on Sleep: 1 Pain Interference with Therapy: 1 Pain Interference w/Day-to-Day: 1 Mental Status Patient Orientation: Normal For Age Attachments: Oxygen, IV Transfers SCALE: Activities may be completed with or without assistive devices. 6-Yojflkgqzs-axqzvhz completes the activity by him/herself with no assistance from a helper. 5-Set-up or Clean-up Assistance-helper sets up or cleans up; patient completes activity. [place] assists only prior to or following the activity. 4-Supervision or Touching Assistance-helper provides verbal cues and/or touching/steadying and/or contact guard assistance as patient completes activity. Assistance may be provided throughout the activity or intermittently. 3-Partial/Moderate Assistance-helper does LESS THAN HALF the effort. [place] lifts, holds or supports trunk or limbs, but provides less than half the effort. 2-Substantial/Maximal Assistance-helper does MORE THAN HALF the effort. [place] lifts or holds trunk or limbs and provides more than half the effort. 5-Zgfpotecf-fwxdpe does ALL the effort. Patient does none of the effort to complete the activity. Or, the assistance of 2 or more helpers is required for the patient to complete the activity. If activity was not attempted, code reason: 7-Patient Refused. 9-Not Applicable-not attempted and the patient did not perform the activity before the current illness, exacerbation or injury. 10-Not Attempted due to Environmental Limitations-(lack of equipment, weather restraints, etc.). 88-Not Attempted due to Medical Conditions or Safety Concerns. Lying to Sitting/Side of Bed(Q: 6 Sit to Stand (QC): 4 Chair/Rfh-oa-Fjajv Xfer(QC): 4 Weight Bearing Right Lower Extremity: Right Full Weight Bearing Left Lower Extremity: Left Full Weight Bearing Gait Training Distance: 400' Walk 10 feet (QC): 4 Walk 50 ft with 2 Turns(QC): 4 Walk 150 ft (QC): 4 Gait Assistive Device: FWW much improved with functional endurance on this date/safe and functional with no deviation Assessment Patient tolerated treatment well. SAO2 remains >90% with activity on 4L NC. PT to continue to increase activity as tolerated by patient. PT Residential Goals Branch Or Department Chief Librarian Goals PT Branch Or Department Chief Librarian Goals Time Frame: Oct 09, 2022 Roll Left & Right (QC): 6 Sit to Lying (QC): 6 Lying-Sitting on Side/Bed(QC): 6 Sit to Stand (QC): 6 Chair/Gnv-fh-Xukvc Xfer(QC): 6 Toilet Transfer (QC): 6 Car Transfer (QC): 6 Does the Patient Walk: Yes Walk 10 feet (QC): 6 Walk 50ft with 2 Turns (QC): 6 Walk 150 ft (QC): 6 1 Step (curb) (QC): 4 4 Steps (QC): 4 PT Plan Treatment/Plan Treatment Plan: Continue Plan of Care Treatment Plan: Bed Mobility, Education, Functional Activity [place], Functional Strength, Group Therapy, Gait, Safety, Therapeutic Exercise, Transfers Treatment Duration: Oct 29, 2022 Frequency: 6 times per week Estimated Hrs Per Day: .25 hour per day Patient and/or Family Agrees t: Yes Time Time In: 857 Time Out: 907 DATE: September 23, 2022 Total Billed Treatment Time: 10 Total Billed Treatment 1 visit FA 10 min KRISTEN RODRIGUEZ PT September 23, 2022 10:17
--- NOTE | 2022-09-23 10:54 | Diagnostic Imaging Report ---
INDICATION: History of left pneumothorax, followup. TECHNIQUE/COMPARISON: A frontal chest was obtained at 9:39 AM and compared to 09/21/2022. FINDINGS: There is cardiomegaly. There is central vascular congestion. There are patchy bilateral midlung and perihilar infiltrates. There is no pneumothorax. There is a small amount of pleural fluid on the left side. There are unchanged left-sided rib fractures. IMPRESSION: Cardiomegaly and diffuse infiltrates as above with a small left pleural effusion. No pneumothorax. Left-sided rib fractures are again noted. Dictated by: Dictated on workstation # [id number]
[2022-09-23 12:12] VITALS: BP 157/71
[2022-09-23] MEDS ORDERED: METO-333 PO (13:21)
[2022-09-23] MEDS ORDERED: RIVA20TA2 PO (13:21)
[2022-09-23] MEDS ORDERED: NICO1PAT38 TD (13:21)
--- NOTE | 2022-09-23 13:24 | Discharge Inst-Simple/Standard ---
Discharge Inst-Standard Reconcile Patient Problems Problems Reviewed?: Yes Discharge Medications New, Converted or Re-Newed RX: Transmitted to Pharmacy ([facility]) Patient Instructions/Follow Up Plan of Care/Instructions/FU: Dr. Maloney within 1 week Activity as Tolerated: Yes Discharge Diet: Cardiac Diet Return to The Hospital For: Worsening shortness of breath or significant fever MARINE MALONEY MD September 23, 2022 13:24
[2022-09-23] MEDS ORDERED: RIVAROXABAN 20 MG TABLET (XARELTO) PO SCH (17:00)
== END 2022-09-23 15:48 | disposition home or self-care (01) | DRG 199 ==
LOC: EDUNIT# 18:32 → ER 18:35 → ICU 20:49 → 4TH 09-21 15:14
PROVIDERS: ADMIT Internal Medicine; ATTEND Family Medicine
PROC: 0W9B30Z Drainage of Left Pleural Cavity with Drainage Device, Percutaneous Approach (ICD-10-PCS; principal; 2022-09-18)
PROC: 5A0945A Assistance with Respiratory Ventilation, 24-96 Consecutive Hours, High Flow/Velocity Cannula (ICD-10-PCS; 2022-09-19)
DX: S27.0XXA Traumatic pneumothorax, initial encounter (principal); J18.9 Pneumonia, unspecified organism; E87.1 Hypo-osmolality and hyponatremia; S22.42XA Multiple fractures of ribs, left side, initial encounter for closed fracture; Z79.82 Long term (current) use of aspirin; Z79.899 Other long term (current) drug therapy; F17.210 Nicotine dependence, cigarettes, uncomplicated; F12.90 Cannabis use, unspecified, uncomplicated; I10 Essential (primary) hypertension; G40.909 Epilepsy, unspecified, not intractable, without status epilepticus; J43.9 Emphysema, unspecified; E78.00 Pure hypercholesterolemia, unspecified; E87.6 Hypokalemia; I48.91 Unspecified atrial fibrillation; I73.9 Peripheral vascular disease, unspecified; C61 Malignant neoplasm of prostate; W18.30XA Fall on same level, unspecified, initial encounter; R09.02 Hypoxemia; Z95.820 Peripheral vascular angioplasty status with implants and grafts
CPT/HCPCS: 36415; 71045; 71275; 80048; 80053; 80185; 80320; 83735; 83880; 84100; 84443; 85007; 85025; 85027; 87081; 93005; 93041; 93306; 94640; 94664; 94760; 94761; 96374

== ENCOUNTER → 2022-11-12 | Outpatient (CLI) | payer MEDICARE ==
[~2022-11-12] MED LIST changes: +ALBU18HF2 INH; +AMLO-251 PO; +BACL10TA PO; +FLUT1DIS26 INH; +HYDR-3817 PO; +HYDR12.56 PO; -LOSA100T57 PO; +LOSA100T58 PO; +METO-333 PO; +NICO1PAT38 TD; +OMEG12002 PO; +PHEN100C11 PO; +RIVA20TA2 PO
== END ==
LOC: CARD 13:04
PROVIDERS: ATTEND Family Medicine
DX: R42 Dizziness and giddiness (principal); R00.1 Bradycardia, unspecified
CPT/HCPCS: 93225; 93226

== ENCOUNTER 2022-11-16 08:02 | Inpatient (IN) | payer MEDICARE ==
[~2022-11-16] VITALS: Ht 182.9 cm; Wt 71.5 kg
[~2022-11-16 08:02] MED LIST changes: -BACL10TA PO; -HYDR-3817 PO; -HYDR12.56 PO
[2022-11-16] MEDS ORDERED: NS IV 1000 ML 1,000 ML IV STA (08:31)
--- NOTE | 2022-11-16 08:36 | ED GI ---
General Chief Complaint: Abdominal/GI Problems Stated Complaint: CONSTIPATION Nursing Triage Note: PATIENT REPORTS TO ED POV FOR CONSTIPATION. PER PATIENT LAST BM WAS 11/09/22. PER PATIENT THIS IS CAUSING HIM TO HAVE A HARD TIME PEEING. PATIENT HAS URINATED ON HIMSELF WHILE WAITING. DAUGHTER AT BEDSIDE. History of Present Illness Date Seen by Provider: Nov 16, 2022 Time Seen by Provider: 08:33 Initial Comments 77-year-old male presents with some abdominal pain and some mild constipation. Patient reports that he has not had a bowel movement since about a week ago. Patient also reports that it is causing him to have some incontinence of urine. He denies any nausea or vomiting. He reports that about 2 weeks ago he was started on hydrocodone for back pain. Denies any numbness or tingling. He reports he tried couple Dulcolax the last day and a half with no relief. Allergies and Home Medications Allergies Coded Allergies: No Known Allergies (Unverified Allergy, Unknown, 09/18/14) metoprolol (Verified Allergy, Unknown, LOW HR , 11/16/22) ALL BETA BLOCKERS Patient Home Medication List Home Medication List Reviewed: Yes Albuterol Sulfate (Ventolin Hfa) 90 Mcg Hfa.aer.ad, 2 PUFF INH Q4H PRN for SHORTNESS OF BREATH, (Reported) Entered as Reported by: TILA VINSON on 09/20/22 1020 Amlodipine Besylate (Amlodipine Besylate) 10 Mg Tablet, 10 MG PO DAILY, (Reported) Entered as Reported by: TILA VINSON on 09/20/22 1020 Fluticasone/Salmeterol (Advair 250-50 Diskus) 250 Mcg-50 Mcg/Dose Blst.w.dev, 1 PUFF INH BID, (Reported) Entered as Reported by: TILA VINSON on 09/20/22 1020 Losartan Potassium (Losartan Potassium) 100 Mg Tablet, 100 MG PO DAILY, (Reported) Entered as Reported by: ADA COOPER on 08/07/20 1109 Metoprolol Tartrate (Metoprolol Tartrate) 25 Mg Tablet, 25 MG PO BID Prescribed by: MARINE MALONEY on 09/23/22 1321 Nicotine (Nicoderm Cq) 14 Mg/24 Hour Patch.td24, 14 MG TD DAILY@0900 Prescribed by: MARINE MALONEY on 09/23/22 1321 Varney-3/Dha/Epa/Fish Oil (Fish Oil 1,200 mg Softgel) 1,200 Mg (144 Mg-216 Mg) Capsule, 1,200 MG PO DAILY, (Reported) Entered as Reported by: TILA VINSON on 09/20/22 1020 Phenytoin Sodium Extended (Dilantin) 100 Mg Capsule, 300 MG PO MO,FR @AM, (Reported) Entered as Reported by: ADA COOPER on 08/07/20 1109 Phenytoin Sodium Extended (Phenytoin Sodium Extended) 100 Mg Capsule, 200 MG PO HS, (Reported) Entered as Reported by: TILA VINSON on 09/20/22 1020 Phenytoin Sodium Extended (Phenytoin Sodium Extended) 100 Mg Capsule, 200 MG PO BRIGGS,TU,WE,TH,SA @AM, (Reported) Entered as Reported by: TILA VINSON on 09/20/22 1020 Rivaroxaban (Xarelto Tablet) 20 Mg Tablet, 20 MG PO DAILY@1700 Prescribed by: MARINE MALONEY on 09/23/22 1321 Review of Systems Review of Systems Constitutional: No chills, No fever EENTM: No Symptoms Reported Cardiovascular: No Symptoms Reported Gastrointestinal: Abdominal Pain, Constipated; Denies Vomiting Genitourinary: Incontinence Musculoskeletal: see HPI Skin: no symptoms reported Psychiatric/Neurological: No Symptoms Reported Past Evubpuc-Wuslkp-Fvxxmj Hx Patient Social History Tobacco Use?: Yes Tobacco type used: Cigarettes Smoking Status: Current Everyday Smoker Use of E-Cig and/or Vaping dev: No Substance use?: Yes Substance type: Marijuana Additional substance use comme: MARIJUANA GUMMIE Substance frequency: Daily Alcohol Use?: Yes Alcohol type: Beer Alcohol Frequency: Daily Pt feels they are or have been: No Immunizations Up To Date First/Initial COVID19 Vaccinat: 07/24/20 Second COVID19 Vaccination Lino: 07/24/20 Third COVID19 Vaccination Date: 07/24/20 Seasonal Allergies Seasonal Allergies: No Past Medical History Surgery/Hospitalization HX: COPD, HTN, EPILEPSY, STENTS IN LEG. 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 GRACE) High Cholesterol, Hypertension, Peripheral Vascular Neurological: Yes (REPORTS NO SEIZURES FOR 30 YEARS) Seizure Disorder Genitourinary: No Gastrointestinal: No Musculoskeletal: No Endocrine: No HEENT: No (WEARS READING GLASSES) Cancer: Yes (PROSTATE CANCER (INITIAL DX 2010)) Prostate Psychosocial: No Integumentary: No Blood Disorders: No Physical Exam Vital Signs Vital Signs - First Documented 11/16/22 08:20 Temp 36.4 Pulse 43 Resp 16 B/P (MAP) 183/81 (115) Pulse Ox 97 O2 Delivery Nasal Cannula O2 Flow Rate 2.00 Capillary Refill : Less Than 3 Seconds Height/Weight/BMI Height: 6'0.00" Weight: 200lbs. oz. [id number]; 21.00 BMI Method: General Appearance: WD/WN, no apparent distress, other (Soiled clothing from recent urination) Respiratory: lungs clear, normal breath sounds Cardiovascular: normal peripheral pulses, regular rate, rhythm Gastrointestinal: soft, tenderness (Mild diffuse) Neurologic/Psychiatric: alert, normal mood/affect Skin: normal color, warm/dry Progress/Results/Core Measures Results/Orders Lab Results Laboratory Tests Test 11/16/22 08:35 11/16/22 11:50 Range/Units White Blood Count 9.6 4.3-11.0 10^3/uL Red Blood Count 3.81 L 4.30-5.52 10^6/uL Hemoglobin 13.2 L 13.3-17.7 g/dL Hematocrit 36 L 40-54 % Mean Corpuscular Volume 94 80-99 fL Mean Corpuscular Hemoglobin 35 H 25-34 pg Mean Corpuscular Hemoglobin Concent 37 H 32-36 g/dL Red Cell Distribution Width 12.3 10.0-14.5 % Platelet Count 211 130-400 10^3/uL Mean Platelet Volume 9.2 9.0-12.2 fL Immature Granulocyte % (Auto) 0 % Neutrophils (%) (Auto) 82 H 42-75 % Lymphocytes (%) (Auto) 8 L 12-44 % Monocytes (%) (Auto) 9 0-12 % Eosinophils (%) (Auto) 0 0-10 % Basophils (%) (Auto) 0 0-10 % Neutrophils # (Auto) 7.9 H 1.8-7.8 10^3/uL Lymphocytes # (Auto) 0.8 L 1.0-4.0 10^3/uL Monocytes # (Auto) 0.8 0.0-1.0 10^3/uL Eosinophils # (Auto) 0.0 0.0-0.3 10^3/uL Basophils # (Auto) 0.0 0.0-0.1 10^3/uL Immature Granulocyte # (Auto) 0.0 0.0-0.1 10^3/uL Sodium Level 117 *L 135-145 MMOL/L Potassium Level 2.8 L 3.6-5.0 MMOL/L Chloride Level 80 L 98-107 MMOL/L Carbon Dioxide Level 24 21-32 MMOL/L Anion Gap 13 5-14 MMOL/L Blood Urea Nitrogen 4 L 7-18 MG/DL Creatinine 0.55 L 0.60-1.30 MG/DL Estimat Glomerular Filtration Rate 103 BUN/Creatinine Ratio 7 Glucose Level 115 H 70-105 MG/DL Calcium Level 8.8 8.5-10.1 MG/DL Corrected Calcium 8.8 8.5-10.1 MG/DL Magnesium Level 1.8 1.6-2.4 MG/DL Total Bilirubin 0.7 0.1-1.0 MG/DL Aspartate Amino Transf (AST/SGOT) 23 5-34 U/L Alanine Aminotransferase (ALT/SGPT) 33 0-55 U/L Alkaline Phosphatase 106 40-136 U/L Total Protein 6.4 6.4-8.2 GM/DL Albumin 4.0 3.2-4.5 GM/DL Urine Color YELLOW Urine Clarity CLEAR Urine pH 7.0 5-9 Urine Specific [place] 1.010 L 1.016-1.022 Urine Protein NEGATIVE NEGATIVE Urine Glucose (UA) NEGATIVE NEGATIVE Urine Ketones 2+ H NEGATIVE Urine Nitrite NEGATIVE NEGATIVE Urine Bilirubin 1+ H NEGATIVE Urine Urobilinogen 2.0 < = 1.0 MG/DL Urine Leukocyte Esterase NEGATIVE NEGATIVE Urine RBC (Auto) NEGATIVE NEGATIVE Urine RBC RARE /HPF Urine WBC RARE /HPF Urine Squamous Epithelial Cells RARE /HPF Urine Crystals NONE /LPF Urine Bacteria TRACE /HPF Urine Casts NONE /LPF Urine Mucus NEGATIVE /LPF Urine Culture Indicated NO My Orders Orders - GARCIA,YAMILETH L DO Abdomen, Flat & Upright/Decub (11/16/22 08:31) Cbc With Automated Diff (11/16/22 08:31) Comprehensive Metabolic Panel (11/16/22 08:31) Magnesium (11/16/22 08:31) Ua Culture If Indicated (11/16/22 08:31) Ns Iv 1000 Ml (Sodium Chloride 0.9%) (11/16/22 08:31) Potassium Cl 10meq/50ml Ivpb (Kcl 10 Meq (11/16/22 09:15) Quevedo Cath (11/16/22 09:53) Nicotine Patch (Nicoderm Patch) (11/16/22 10:45) Ed Admission (Communication) (11/16/22 11:45) Medications Given in ED Current Medications Medications Dose Ordered Sig/Jose Route Start Time Stop Time Status Last Admin Dose Admin Nicotine 14 mg ONCE ONCE TD 11/16/22 10:45 11/16/22 10:46 DC 11/16/22 11:04 14 MG Vital Signs/I&O 11/16/22 08:20 Temp 36.4 Pulse 43 Resp 16 B/P (MAP) 183/81 (115) Pulse Ox 97 O2 Delivery Nasal Cannula O2 Flow Rate 2.00 Blood Pressure Mean: 115 Progress Progress Note : Progress Note Patient's diagnostic studies were ordered reviewed and interpreted by me. Patient sodium is 117 with low potassium. Likely due to some dehydration and poor p.o. intake. Patient's x-ray shows moderate to severe constipation. Patient had a Quevedo placed due to urinary retention and had over 2000 and out. Patient is being provided gentle rehydration and potassium supplement. I did discuss patient with Dr. Dixon. We will admit him for gentle IV fluids rehydration and they may treat about for constipation on the floor. Patient may need further work-up including MRI if after his electrolytes are corrected he still continues to have constipation and urinary retention problems due to him having recent low back pain and that he was started on narcotics. Patient was stable throughout his stay in the ER. He is admitted to the floor in stable condition. He is at increased risk for morbidity and mortality based on his social determinants of health. Departure Impression Primary Impression: Hypokalemia Additional Impressions: Hyponatremia Constipation Qualified Codes: K59.00 - Constipation, unspecified Disposition: ADMITTED INPATIENT Condition: Stable Admissions Decision to Admit/Date: Nov 16, 2022 Time/Decision to Admit Time: 11:45 Departure-Patient Inst. Referrals: MARINE MALONEY MD (PCP/Family) Primary Care Physician YAMILETH GARCIA DO Nov 16, 2022 08:36
[2022-11-16 08:42] LABS: BASOPHILS % (AUTO) 0 % (0-10); EOSINOPHILS % (AUTO) 0 % (0-10); HEMATOCRIT 36 % (40-54); HEMOGLOBIN 13.2 g/dL (13.3-17.7); LYMPHOCYTES # (AUTO) 0.8 10^3/uL (1.0-4.0); LYMPHOCYTES % (AUTO) 8 % (12-44); MEAN CORPUSCULAR HEMOGLOBIN 35 pg (25-34); MEAN CORPUSCULAR HGB CONC 37 g/dL (32-36); MEAN CORPUSCULAR VOLUME 94 fL (80-99); MEAN PLATELET VOLUME 9.2 fL (9.0-12.2); MONOCYTES # (AUTO) 0.8 10^3/uL (0.0-1.0); MONOCYTES % (AUTO) 9 % (0-12); NEUTROPHILS # (AUTO) 7.9 10^3/uL (1.8-7.8); NEUTROPHILS % (AUTO) 82 % (42-75); PLATELET COUNT 211 10^3/uL (130-400); WHITE BLOOD COUNT 9.6 10^3/uL (4.3-11.0)
[2022-11-16 08:54] LABS: POTASSIUM 2.8 MMOL/L (3.6-5.0)
[2022-11-16 08:55] LABS: CALCIUM 8.8 MG/DL (8.5-10.1)
[2022-11-16 08:57] LABS: TOTAL PROTEIN 6.4 GM/DL (6.4-8.2)
[2022-11-16 08:58] LABS: BILIRUBIN,TOTAL 0.7 MG/DL (0.1-1.0)
[2022-11-16 09:00] LABS: CREATININE SERUM 0.55 MG/DL (0.60-1.30)
[2022-11-16 09:03] LABS: MAGNESIUM 1.8 MG/DL (1.6-2.4)
[2022-11-16] MEDS: POTASSIUM CL 10MEQ/50ML IVPB 50 ML IV SCH ×2 (09:20→11:47)
--- NOTE | 2022-11-16 09:29 | Diagnostic Imaging Report ---
HISTORY: Abdominal pain. COMPARISON: None. TECHNIQUE: Upright and supine frontal views of the abdomen. FINDINGS: No distended loops of bowel are seen. There is no large collection of free air. There is moderate to marked stool in the descending colon and rectum. There are degenerative changes in the spine. There are calcifications about the kidneys which appear to be vascular. There are phleboliths in the pelvis. IMPRESSION: Moderate to marked stool in the distal colon and rectum, consistent with the history of constipation. Dictated by: Dictated on workstation # [id number]
[2022-11-16] MEDS ORDERED: NICOTINE 14 MG (NICODERM) PATCH TD ONE (10:45)
[2022-11-16 11:55] LABS: CLARITY,URINE CLEAR; COLOR,URINE YELLOW; GLUCOSE, URINE (UA) NEGATIVE (NEGATIVE); KETONES,URINE 2+ (NEGATIVE); LEUKOCYTE ESTERASE ,URINE NEGATIVE (NEGATIVE); NITRITE,URINE NEGATIVE (NEGATIVE); PROTEIN,URINE NEGATIVE (NEGATIVE)
[2022-11-16 12:07] LABS: BACTERIA,URINE TRACE /HPF; BILIRUBIN,URINE 1+ (NEGATIVE); RBC,URINE RARE /HPF; SQUAMOUS EPITHELIAL CELL,UR RARE /HPF; WBC,URINE RARE /HPF
[2022-11-16] MEDS ORDERED: NS IV 1000 ML 1,000 ML IV SCH (12:45)
[2022-11-16] MEDS ORDERED: CATHETER FLUSH 10 ML SYR IVP PRN (12:45)
[2022-11-16 12:52] VITALS: BP 150/68
[2022-11-16] MEDS ORDERED: HYDR-3817 PO (15:40)
[2022-11-16] MEDS ORDERED: BACL10TA PO (15:40)
[2022-11-16] MEDS ORDERED: HYDR12.56 PO (15:40)
[2022-11-16] MEDS ORDERED: RIVA20TA2 PO (15:40)
[2022-11-16 16:08] VITALS: BP 187/85
[2022-11-16] MEDS ORDERED: LOSARTAN 100 MG (COZAAR) TABLET PO NR (18:00)
[2022-11-16] MEDS ORDERED: amLODIPine 10 MG (NORVASC) TAB PO NR (18:00)
[2022-11-16] MEDS ORDERED: KCL 20 MEQ TAB (K-DUR) PO NR (18:00)
[2022-11-16] MEDS ORDERED: RT-ALBUTEROL SULF 2.5 MG/3 ML PRE-MIX VIAL INH PRN (18:00)
[2022-11-16] MEDS ORDERED: HYDROcodone/APAP 7.5 MG/325 MG (LORTAB, LORCET PLUS) TABLET PO PRN (18:00)
[2022-11-16 18:20] LABS: POTASSIUM 2.8 MMOL/L (3.6-5.0)
[2022-11-16 18:21] LABS: CALCIUM 8.9 MG/DL (8.5-10.1)
[2022-11-16 18:26] LABS: CREATININE SERUM 0.54 MG/DL (0.60-1.30)
--- NOTE | 2022-11-16 18:55 | History & Physical ---
HPI History of Present Illness: Came to ER due to constipation starting Tuesday got to the point of not being able to urinate. Took 2 dulcolax didn't help, next day took 3 and that didn't help. Denies nausea, vomiting. Denies history of blood in stools. Denies fever, chest pain, shortness of breath, cough. Has had chronic issue with mucous build up since he went on oxygen. Has been on continuous oxygen since August. Lives alone, states he usually ambulates without assistance. He states he has been eating pretty well until a couple of days ago. He commonly eats hamburger steak and sliced tomatoes. Drinks 4 beers per day, last drink was yesterday evening. Denies history of withdrawal in the past. Fell two weeks ago, has a lot of bruising and skin tears on arms. Reports he fell over backwards off a barstool September 14 and beat up the back of his head. He does admit a couple of falls since then. Most recent, he lost his balance and fell down on the living room floor and landed on his side and back instantly hurt, about 3 days before coming here. Back still hurts at times, primarily lower back now, was in the center. Notes lower back problems for years. Source: patient Date seen by provider: Nov 16, 2022 Time Seen by Provider: 18:48 Attending Physician Bernard Dan MD PCP Admitting Physician: Madeleine Dixon MD Attending Physician: Madeleine Dixon MD Consult Date of Admission Nov 16, 2022 at 12:22 Home Medications Home Medications Reviewed patient Home Medication Reconciliation performed by pharmacy medication reconciliations blending technician and/or nursing. Patients Allergies have been reviewed. Allergies Coded Allergies: No Known Allergies (Unverified Allergy, Unknown, 09/18/14) metoprolol (Verified Allergy, Unknown, LOW HR , 11/16/22) ALL BETA BLOCKERS HAM-Annpeh-Dclxez Hx Patient Social History Smoking Status: Former Smoker Former smoker/When Quit: September 16, 2022 2nd Hand Smoke Exposure: No Recent Hopitalizations: No Alcohol Use?: Yes (4 beers per day) Substance type: Marijuana Tobacco type used: Cigarettes Immunizations Up To Date Influenza Vaccine Up-to-Date: No; Not Current First/Initial COVID19 Vaccinat: 07/24/20 Second COVID19 Vaccination Lino: 07/24/20 Third COVID19 Vaccination Date: 07/24/20 Past Medical History PMHx: (pt reports he cannot recall all, they should be in his chart) Epilepsy COPD Atrial fibrillation Review of Systems ([facility]) Constitutional: No fever Respiratory: cough Cardiovascular: No chest pain Gastrointestinal: see HPI, constipation Genitourinary: decreased output Musculoskeletal: back pain Skin: no symptoms reported Reviewed Test Results Reviewed Test Results Lab Laboratory Tests Test 11/16/22 08:35 11/16/22 11:50 11/16/22 17:55 Range/Units White Blood Count 9.6 4.3-11.0 10^3/uL Red Blood Count 3.81 L 4.30-5.52 10^6/uL Hemoglobin 13.2 L 13.3-17.7 g/dL Hematocrit 36 L 40-54 % Mean Corpuscular Volume 94 80-99 fL Mean Corpuscular Hemoglobin 35 H 25-34 pg Mean Corpuscular Hemoglobin Concent 37 H 32-36 g/dL Red Cell Distribution Width 12.3 10.0-14.5 % Platelet Count 211 130-400 10^3/uL Mean Platelet Volume 9.2 9.0-12.2 fL Immature Granulocyte % (Auto) 0 % Neutrophils (%) (Auto) 82 H 42-75 % Lymphocytes (%) (Auto) 8 L 12-44 % Monocytes (%) (Auto) 9 0-12 % Eosinophils (%) (Auto) 0 0-10 % Basophils (%) (Auto) 0 0-10 % Neutrophils # (Auto) 7.9 H 1.8-7.8 10^3/uL Lymphocytes # (Auto) 0.8 L 1.0-4.0 10^3/uL Monocytes # (Auto) 0.8 0.0-1.0 10^3/uL Eosinophils # (Auto) 0.0 0.0-0.3 10^3/uL Basophils # (Auto) 0.0 0.0-0.1 10^3/uL Immature Granulocyte # (Auto) 0.0 0.0-0.1 10^3/uL Sodium Level 117 *L 119 *L 135-145 MMOL/L Potassium Level 2.8 L 2.8 L 3.6-5.0 MMOL/L Chloride Level 80 L 84 L 98-107 MMOL/L Carbon Dioxide Level 24 22 21-32 MMOL/L Anion Gap 13 13 5-14 MMOL/L Blood Urea Nitrogen 4 L 4 L 7-18 MG/DL Creatinine 0.55 L 0.54 L 0.60-1.30 MG/DL Estimat Glomerular Filtration Rate 103 104 BUN/Creatinine Ratio 7 7 Glucose Level 115 H 125 H 70-105 MG/DL Calcium Level 8.8 8.9 8.5-10.1 MG/DL Corrected Calcium 8.8 8.5-10.1 MG/DL Magnesium Level 1.8 1.6-2.4 MG/DL Total Bilirubin 0.7 0.1-1.0 MG/DL Aspartate Amino Transf (AST/SGOT) 23 5-34 U/L Alanine Aminotransferase (ALT/SGPT) 33 0-55 U/L Alkaline Phosphatase 106 40-136 U/L Total Protein 6.4 6.4-8.2 GM/DL Albumin 4.0 3.2-4.5 GM/DL Urine Color YELLOW Urine Clarity CLEAR Urine pH 7.0 5-9 Urine Specific [place] 1.010 L 1.016-1.022 Urine Protein NEGATIVE NEGATIVE Urine Glucose (UA) NEGATIVE NEGATIVE Urine Ketones 2+ H NEGATIVE Urine Nitrite NEGATIVE NEGATIVE Urine Bilirubin 1+ H NEGATIVE Urine Urobilinogen 2.0 < = 1.0 MG/DL Urine Leukocyte Esterase NEGATIVE NEGATIVE Urine RBC (Auto) NEGATIVE NEGATIVE Urine RBC RARE /HPF Urine WBC RARE /HPF Urine Squamous Epithelial Cells RARE /HPF Urine Crystals NONE /LPF Urine Bacteria TRACE /HPF Urine Casts NONE /LPF Urine Mucus NEGATIVE /LPF Urine Culture Indicated NO Radiology Abdominal Xray 11/16: IMPRESSION: Moderate to marked stool in the distal colon and rectum, consistent with the history of constipation. Physical Exam-(CHC) Physical Exam Vital Signs VS - Last 72 Hours, by Label 11/16/22 11/16/22 11/16/22 11/16/22 08:20 12:24 12:52 14:30 Temp 36.4 35.9 Pulse 43 46 64 Resp 16 14 18 B/P (MAP) 183/81 (115) 144/69 150/68 (95) Pulse Ox 97 96 99 O2 Delivery Nasal Cannula Nasal Cannula Nasal Cannula Nasal Cannula O2 Flow Rate 2.00 2.00 2.00 2.00 11/16/22 11/16/22 11/16/22 16:08 19:51 20:00 Temp 36.5 36.7 Pulse 55 58 Resp 18 20 B/P (MAP) 187/85 (119) 181/81 (114) Pulse Ox 98 98 O2 Delivery Nasal Cannula Nasal Cannula Nasal Cannula O2 Flow Rate 2.00 2.00 2.00 Capillary Refill : Less Than 3 Seconds General Appearance: no apparent distress HEENT: PERRL/EOMI Respiratory: lungs clear, normal breath sounds Cardiovascular: no murmur, bradycardia Gastrointestinal: normal bowel sounds, non tender, soft Neurologic/Psychiatric: 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 Possibly related to alcohol use versus hypovolemia secondary to poor intake from constipation vs SIADH. Check urine sodium and osmolality for further eval. Hypertonic saline and follow Na level closely. (2) Alcohol use Status: Chronic Assessment & Plan: Persistent regular alcohol use of 4 drinks at least per night. Monitor for signs of withdrawal. (3) COPD (chronic obstructive pulmonary disease) Status: Chronic Assessment & Plan: Continue home albuterol, ICS/LABA and supplemental oxygen. (4) Epilepsy Status: Chronic Assessment & Plan: Resume home meds. (5) Atrial fibrillation Status: Chronic Assessment & Plan: Resume home meds. (6) Frequent falls Status: Acute Assessment & Plan: PT (7) Constipation Status: Acute Assessment & Plan: Miralax Qualifiers: Qualified Codes: K59.00 - Constipation, unspecified (8) Hypokalemia Assessment & Plan: Replace and follow (9) Hypertension Status: Chronic Assessment & Plan: Resume home amlodipine and losartan, hold HCTZ due to hyponatremia. (10) DVT prophylaxis Status: Acute Assessment & Plan: Home anticoagulation MADELEINE DIXON MD Nov 16, 2022 18:55
[2022-11-16] MEDS ORDERED: SODIUM CHLORIDE 3% 500 ML IV SCH (19:15)
[2022-11-16 19:51] VITALS: BP 181/81
[2022-11-16] MEDS: PHENYTOIN 100 MG (DILANTIN) CAP PO SCH (20:02)
[2022-11-16] MEDS: polyethylene glycoL POWDER 17 GM (MIRALAX) PACK PO SCH (20:02)
[2022-11-16] MEDS: BACLOFEN 10 MG (LIORESAL) TAB PO SCH (20:02)
[2022-11-16] MEDS ORDERED: NON-FORMULARY MEDICATION 1 EA EA (Fluticasone/Salmeterol (Advair 250-50 Diskus) 1 PUFF) INH SCH (21:00)
[2022-11-16 23:24] VITALS: BP 154/89
[2022-11-17 03:18] VITALS: BP 166/79
[2022-11-17 05:48] LABS: HEMATOCRIT 35 % (40-54); HEMOGLOBIN 12.7 g/dL (13.3-17.7); MEAN CORPUSCULAR HEMOGLOBIN 34 pg (25-34); MEAN CORPUSCULAR HGB CONC 36 g/dL (32-36); MEAN CORPUSCULAR VOLUME 94 fL (80-99); MEAN PLATELET VOLUME 10.1 fL (9.0-12.2); PLATELET COUNT 209 10^3/uL (130-400); WHITE BLOOD COUNT 7.5 10^3/uL (4.3-11.0)
[2022-11-17 05:58] LABS: ALBUMIN 3.5 GM/DL (3.2-4.5); POTASSIUM 3.9 MMOL/L (3.6-5.0)
[2022-11-17 05:59] LABS: CALCIUM 8.5 MG/DL (8.5-10.1)
[2022-11-17 06:00] LABS: TOTAL PROTEIN 6.2 GM/DL (6.4-8.2)
[2022-11-17 06:02] LABS: BILIRUBIN,TOTAL 0.5 MG/DL (0.1-1.0)
[2022-11-17 06:04] LABS: CREATININE SERUM 0.54 MG/DL (0.60-1.30)
[2022-11-17 07:33] VITALS: BP 166/79
[2022-11-17] MEDS: FLUTICASONE/VILANTEROL 100 MCG 14'S (BREO) IH SCH (07:58)
[2022-11-17] MEDS: polyethylene glycoL POWDER 17 GM (MIRALAX) PACK PO SCH ×3 (08:58→19:44)
[2022-11-17] MEDS: PHENYTOIN 100 MG (DILANTIN) CAP PO SCH ×2 (08:59→19:44)
[2022-11-17] MEDS: BACLOFEN 10 MG (LIORESAL) TAB PO SCH ×2 (08:59→19:44)
[2022-11-17] MEDS: amLODIPine 10 MG (NORVASC) TAB PO SCH (08:59)
[2022-11-17] MEDS: RIVAROXABAN 20 MG TABLET (XARELTO) PO SCH (08:59)
[2022-11-17] MEDS: OMEGA 3 (FISH OIL) 1000 MG CAP PO SCH (08:59)
[2022-11-17] MEDS ORDERED: NON-FORMULARY MEDICATION 1 EA EA (Omega-3/Dha/Epa/Fish Oil (Fish Oil 1,200 mg Softgel) 1,2 PO SCH (09:00)
[2022-11-17] MEDS: LOSARTAN 100 MG (COZAAR) TABLET PO SCH (09:00)
--- NOTE | 2022-11-17 11:14 | Physical Therapy Evaluation ---
PT Evaluation-General Medical Diagnosis Admission Date Nov 16, 2022 at 12:22 Medical Diagnosis: Constipation Onset Date: Nov 14, 2022 Therapy Diagnosis Therapy Diagnosis: Gait deficit, strength deficit Height/Weight Height (Feet): 6 Height (Inches): 0.00 Weight (Pounds): 200 Precautions Precautions/Isolations: Seizure, Standard Precautions Weight Bear Status Right Lower Extremity: Right Full Weight Bearing Left Lower Extremity: Left Full Weight Bearing Referral Physician: Dr. Dixon Reason for Referral: Evaluation/Treatment Medical History Reviewed History: Yes Social History Home: Single Level Current Living Status: Alone Entry Into Home: Stairs With Railing PT Steps Into Home: 2 Prior Prior Level of Function SCALE: Activities may be completed with or without assistive devices. 7-Rgvuvlqykw-eitcbah completes the activity by him/herself with no assistance from a helper. 5-Set-up or Clean-up Assistance-helper sets up or cleans up; patient completes activity. Mcclellan assists only prior to or following the activity. 4-Supervision or Touching Assistance-helper provides verbal cues and/or touching/steadying and/or contact guard assistance as patient completes activity. Assistance may be provided throughout the activity or intermittently. 3-Partial/Moderate Assistance-helper does LESS THAN HALF the effort. Mcclellan lifts, holds or supports trunk or limbs, but provides less than half the effort. 2-Substantial/Maximal Assistance-helper does MORE THAN HALF the effort. Mcclellan lifts or holds trunk or limbs and provides more than half the effort. 6-Jocfejvbr-yvebyp does ALL the effort. Patient does none of the effort to compl ete the activity. Or, the assistance of 2 or more helpers is required for the patient to complete the activity. If activity was not attempted, code reason: 7-Patient Refused. 9-Not Applicable-not attempted and the patient did not perform the activity before the current illness, exacerbation or injury. 10-Not Attempted due to Environmental Limitations-(lack of equipment, weather restraints, etc.). 88-Not Attempted due to Medical Conditions or Safety Concerns. Bed Mobility: 6 Transfers (B,C,W/C): 6 Gait: 6 Stairs: 6 Indoor Mobility (Ambulation): Independent Stairs: Independent Prior Devices Use: None Has FWW and cane at home. PT Evaluation-Current Subjective Patient lying supine in bed upon PT arrival, agreeable to treatment. Patient rates pain at 0/10 currently Objective Patient Orientation: Person, Place, Time ROM/Strength ROM Lower Extremities WFLs BLEs all planes Strength Lower Extremities 4-/5 BLEs all planes Sensory Vision: Functional Hearing: Impaired Sensation Right Lower Extremit: Intact Sensation Left Lower Extremity: Intact Transfers Roll Left to Right (QC): 4 Sit to Lying (QC): 4 Lying to Sitting/Side of Bed(Q: 4 Sit to Stand (QC): 4 Chair/Xes-de-Btuhn Xfer(QC): 4 Gait Does the Patient Walk?: Yes Mode of Locomotion: Walk Anticipated Mode of Locomotion: Walk Walk 10 feet (QC): 4 Walk 50 ft with 2 Turns(QC): 4 Walk 150 ft (QC): 4 Distance: 220' Gait Assistive Device: FWW Balance Sitting Static: Fair Sitting Dynamic: Fair Standing Static: Fair Standing Dynamic: Fair Assessment/Needs Patient tolerated treatment well. Requires SBA/CGA for all observed bed mobility and transfers. Patient ambulates 220' with FWW, with CGA and verbal cues for safety, progression, posture and conservation of energy. Patient in chair post treatment with all needs met, nursing notified, call light in reach. Rehab Potential: Good PT Chcf Goals Aircraft Fueler Goals PT Aircraft Fueler Goals Time Frame: Dec 25, 2022 Roll Left & Right (QC): 6 Sit to Lying (QC): 6 Lying-Sitting on Side/Bed(QC): 6 Sit to Stand (QC): 6 Chair/Ujv-qq-Pnavw Xfer(QC): 6 Toilet Transfer (QC): 6 Does the Patient Walk: Yes Walk 10 feet (QC): 6 Walk 50ft with 2 Turns (QC): 6 Walk 150 ft (QC): 6 1 Step (curb) (QC): 4 4 Steps (QC): 4 PT Plan Problem List Problem List: Activity Tolerance, Functional Strength, Safety, Balance, Gait, Transfer, Bed Mobility, ROM Treatment/Plan Treatment Plan: Continue Plan of Care Treatment Plan: Bed Mobility, Education, Functional Activity Loraine, Functional Strength, Gait, Safety, Therapeutic Exercise, Transfers Treatment Duration: Dec 30, 2022 Frequency: 6 times per week Estimated Hrs Per Day: .25 hour per day Patient and/or Family Agrees t: Yes Safety Risks/Education Patient Education: Gait Training, Transfer Techniques Teaching Recipient: Patient Teaching Methods: Demonstration, Discussion Response to Teaching: Verbalize Understanding, Return Demonstration Time Time In: 947 Time Out: 1016 DATE: Nov 17, 2022 Total Billed Treatment Time: 29 Total Billed Treatment Visit, SEGUNDO SHIN JOHN A PT Nov 17, 2022 11:14
[2022-11-17 11:26] VITALS: BP 158/67
[2022-11-17 13:17] LABS: POTASSIUM 3.6 MMOL/L (3.6-5.0)
[2022-11-17 13:18] LABS: CALCIUM 8.8 MG/DL (8.5-10.1)
[2022-11-17 13:22] LABS: CREATININE SERUM 0.53 MG/DL (0.60-1.30)
[2022-11-17] MEDS ORDERED: NICOTINE 14 MG (NICODERM) PATCH TD ONE (14:00)
[2022-11-17] MEDS ORDERED: SODIUM CHLORIDE 3% 500 ML IV SCH (15:45)
[2022-11-17 16:04] VITALS: BP 177/84
--- NOTE | 2022-11-17 17:09 | Progress Note ---
Subjective Subjective/Events-last exam Patient states he is feeling pretty well, hopeful to go home soon. Objective Exam Last Set of Vital Signs Vital Signs Date Time Temp Pulse Resp B/P (MAP) Pulse Ox O2 Delivery O2 Flow Rate FiO2 11/17/22 16:04 36.2 51 18 177/84 (115) 98 Nasal Cannula 2.00 Capillary Refill : Less Than 3 Seconds I&O Intake and Output 11/17/22 00:00 Intake Total 1080 ml Output Total 2050 ml Balance -970 ml Intake Oral 1080 ml Output Urine Total 2050 ml # Bowel Movements 1 Daily Weight Change No General: Alert, No Acute Distress Lungs: Clear to Auscultation, Normal Air Movement Heart: Regular Rate, No Murmurs Abdomen: Normal Bowel Sounds, Soft Neuro: Normal Speech Psych/Mental Status: Mood NL Results/Procedures Lab Laboratory Tests 11/16/22 17:55: Sodium Level 119*L, Potassium Level 2.8L, Chloride Level 84L, Carbon Dioxide Level 22, Anion Gap 13, Blood Urea Nitrogen 4L, Creatinine 0.54L, Estimat Glomerular Filtration Rate 104, BUN/Creatinine Ratio 7, Glucose Level 125H, Calcium Level 8.9 11/16/22 22:50: Sodium Level 121*L 11/17/22 05:17: Sodium Level 124*L, Potassium Level 3.9, Chloride Level 92L, Carbon Dioxide Level 20L, Anion Gap 12, Blood Urea Nitrogen 3L, Creatinine 0.54L, Estimat Glomerular Filtration Rate 104, BUN/Creatinine Ratio 6, Glucose Level 88, Calcium Level 8.5, White Blood Count 7.5, Red Blood Count 3.72L, Hemoglobin 12.7L, Hematocrit 35L, Mean Corpuscular Volume 94, Mean Corpuscular Hemoglobin 34, Mean Corpuscular Hemoglobin Concent 36, Red Cell Distribution Width 12.2, Platelet Count 209, Mean Platelet Volume 10.1, Corrected Calcium 8.9, Total Bilirubin 0.5, Aspartate Amino Transf (AST/SGOT) 33, Alanine Aminotransferase (ALT/SGPT) 32, Alkaline Phosphatase 95, Total Protein 6.2L, Albumin 3.5 11/17/22 12:59: Sodium Level 123*L, Potassium Level 3.6, Chloride Level 91L, Carbon Dioxide Level 18L, Anion Gap 14, Blood Urea Nitrogen 3L, Creatinine 0.53L, Estimat Glomerular Filtration Rate 105, BUN/Creatinine Ratio 6, Glucose Level 107H, Calcium Level 8.8 Radiology Abdominal Xray 11/16: IMPRESSION: Moderate to marked stool in the distal colon and rectum, consistent with the history of constipation. Assessment/Plan Assessment/Plan (1) Hyponatremia Status: Chronic Assessment & Plan: Has had hyponatremia on previous admit, but is worse than prior. Possibly related to alcohol use versus hypovolemia secondary to poor intake from constipation vs SIADH. Check urine sodium and osmolality for further eval. Hypertonic saline and follow Na level closely. 11/16 corrected by 7 in 24 hours, held hypertonic saline this am, on recheck later today down to 123, will resume hypertonic saline now that past 24 hours. Urine labs pending. (2) Alcohol use Status: Chronic Assessment & Plan: Persistent regular alcohol use of 4 drinks at least per night. Monitor for signs of withdrawal. (3) COPD (chronic obstructive pulmonary disease) Status: Chronic Assessment & Plan: Continue home albuterol, ICS/LABA and supplemental oxygen. (4) Epilepsy Status: Chronic Assessment & Plan: Resume home meds. (5) Atrial fibrillation Status: Chronic Assessment & Plan: Resume home meds. (6) Frequent falls Status: Acute Assessment & Plan: PT (7) Constipation Status: Acute Assessment & Plan: Miralax Qualifiers: Qualified Codes: K59.00 - Constipation, unspecified (8) Hypokalemia Assessment & Plan: Replace and follow (9) Hypertension Status: Chronic Assessment & Plan: Resume home amlodipine and losartan, hold HCTZ due to hyponatremia. (10) DVT prophylaxis Status: Acute Assessment & Plan: Home anticoagulation MADELEINE ARMIJO MD Nov 17, 2022 17:09
[2022-11-17] MEDS ORDERED: diphenhydrAMINE 25 MG TAB (BENADRYL) PO PRN (18:15)
[2022-11-17 19:34] VITALS: BP 156/66
[2022-11-17 22:13] LABS: POTASSIUM 3.2 MMOL/L (3.6-5.0)
[2022-11-17 22:15] LABS: CALCIUM 8.6 MG/DL (8.5-10.1)
[2022-11-17 22:19] LABS: CREATININE SERUM 0.58 MG/DL (0.60-1.30)
[2022-11-18] VITALS: BP 181/49
[2022-11-18 04:00] VITALS: BP 149/64
[2022-11-18 05:11] LABS: HEMATOCRIT 34 % (40-54); HEMOGLOBIN 12.1 g/dL (13.3-17.7); MEAN CORPUSCULAR HEMOGLOBIN 34 pg (25-34); MEAN CORPUSCULAR HGB CONC 36 g/dL (32-36); MEAN CORPUSCULAR VOLUME 94 fL (80-99); MEAN PLATELET VOLUME 9.2 fL (9.0-12.2); PLATELET COUNT 211 10^3/uL (130-400); WHITE BLOOD COUNT 6.4 10^3/uL (4.3-11.0)
[2022-11-18 05:18] LABS: POTASSIUM 3.1 MMOL/L (3.6-5.0)
[2022-11-18 05:19] LABS: CALCIUM 8.6 MG/DL (8.5-10.1)
[2022-11-18 05:23] LABS: CREATININE SERUM 0.5 MG/DL (0.60-1.30)
[2022-11-18] MEDS: FLUTICASONE/VILANTEROL 100 MCG 14'S (BREO) IH SCH (06:48)
[2022-11-18] MEDS ORDERED: KCL 20 MEQ TAB (K-DUR) PO NR (07:30)
[2022-11-18 08:23] VITALS: BP 183/89
[2022-11-18] MEDS: amLODIPine 10 MG (NORVASC) TAB PO SCH (08:37)
[2022-11-18] MEDS: polyethylene glycoL POWDER 17 GM (MIRALAX) PACK PO SCH ×3 (08:37→08:46)
[2022-11-18] MEDS: RIVAROXABAN 20 MG TABLET (XARELTO) PO SCH (08:37)
[2022-11-18] MEDS: LOSARTAN 100 MG (COZAAR) TABLET PO SCH (08:37)
[2022-11-18] MEDS: OMEGA 3 (FISH OIL) 1000 MG CAP PO SCH (08:37)
[2022-11-18] MEDS: BACLOFEN 10 MG (LIORESAL) TAB PO SCH (08:37)
[2022-11-18] MEDS: PHENYTOIN 100 MG (DILANTIN) CAP PO SCH (08:42)
[2022-11-18] MEDS ORDERED: NICOTINE PATCH REMOVAL TP SCH (08:59)
[2022-11-18] MEDS ORDERED: NICOTINE 14 MG (NICODERM) PATCH TD SCH (09:00)
--- NOTE | 2022-11-18 09:44 | Discharge Summary ---
Discharge Summary Hospital Course Problems/Diagnosis: (1) Hyponatremia Status: Chronic Assessment & Plan: Has had hyponatremia on previous admit, but is worse than p rior. Possibly related to alcohol use versus hypovolemia secondary to poor intake from constipation vs SIADH. Check urine sodium and osmolality for further eval. Hypertonic saline and follow Na level closely. 11/16 corrected by 7 in 24 hours, held hypertonic saline this am, on recheck later today down to 123, will resume hypertonic saline now that past 24 hours. Urine labs pending. 11/18 Na up to 128, patient requesting discharge. Recommend fluid restriction. (2) Alcohol use Status: Chronic Assessment & Plan: Persistent regular alcohol use of 4 drinks at least per night. Monitor for signs of withdrawal. (3) COPD (chronic obstructive pulmonary disease) Status: Chronic Assessment & Plan: Continue home albuterol, ICS/LABA and supplemental oxygen. (4) Epilepsy Status: Chronic Assessment & Plan: Resume home meds. (5) Atrial fibrillation Status: Chronic Assessment & Plan: Resume home meds. (6) Frequent falls Status: Acute Assessment & Plan: PT (7) Constipation Status: Acute Assessment & Plan: Miralax Qualifiers: Qualified Codes: K59.00 - Constipation, unspecified (8) Hypokalemia Assessment & Plan: Replace and follow (9) Hypertension Status: Chronic Assessment & Plan: Resume home amlodipine and losartan, hold HCTZ due to hyponatremia. Hospital Course Date of Admission: Nov 16, 2022 at 12:22 Admission Diagnosis : Family Physician/Provider: Bernard Dan MD Date of Discharge: 11/18/22 Discharge Diagnosis: See problem list Hospital Course: See problem list Labs and Pending Lab Test: Laboratory Tests 11/17/22 12:59: Sodium Level 123*L, Potassium Level 3.6, Chloride Level 91L, Carbon Dioxide L evel 18L, Anion Gap 14, Blood Urea Nitrogen 3L, Creatinine 0.53L, Estimat Gl omerular Filtration Rate 105, BUN/Creatinine Ratio 6, Glucose Level 107H, Calcium Level 8.8 11/17/22 18:36: Sodium Level 124*L 11/17/22 22:00: Sodium Level 124*L, Potassium Level 3.2L, Chloride Level 92L, Carbon Dioxide Level 21, Anion Gap 11, Blood Urea Nitrogen 6L, Creatinine 0.58L, Estimat Glomerular Filtration Rate 102, BUN/Creatinine Ratio 10, Glucose Level 99, Calcium Level 8.6 11/18/22 04:50: Sodium Level 128L, Potassium Level 3.1L, Chloride Level 96L, Carbon Dioxide Level 21, Anion Gap 11, Blood Urea Nitrogen 5L, Creatinine 0.50L, Estimat Glomerular Filtration Rate 106, BUN/Creatinine Ratio 10, Glucose Level 84, Calcium Level 8.6, White Blood Count 6.4, Red Blood Count 3.57L, Hemoglobin 12.1L, Hematocrit 34L, Mean Corpuscular Volume 94, Mean Corpuscular Hemoglobin 34, Mean Corpuscular Hemoglobin Concent 36, Red Cell Distribution Width 12.5, Platelet Count 211, Mean Platelet Volume 9.2 11/18/22 09:35: Urine Osmolality [Pending], Urine Random Sodium [Pending] Home Meds Active Reported Hydrochlorothiazide 12.5 Mg Tablet 12.5 Mg PO DAILY Xarelto Tablet (Rivaroxaban) 20 Mg Tablet 20 Mg PO DAILY Hydrocodone-Acetamin 7.5-325 (Hydrocodone/Acetaminophen) 7.5 Mg-325 Mg Tablet 1 Ea PO BID PRN Baclofen 10 Mg Tablet 10 Mg PO BID Fish Oil 1,200 mg Softgel ([place]-3/Dha/Epa/Fish Oil) 1,200 Mg (144 Mg-216 Mg) Capsule 1,200 Mg PO DAILY Ventolin Hfa (Albuterol Sulfate) 90 Mcg Hfa.aer.ad 2 Puff INH Q4H PRN Amlodipine Besylate 10 Mg Tablet 10 Mg PO DAILY Advair 250-50 Diskus (Fluticasone/Salmeterol) 250 Mcg-50 Mcg/Dose Blst.w.dev 1 Puff INH BID Phenytoin Sodium Extended 100 Mg Capsule 200 Mg PO BRIGGS,TU,WE,TH,SA @AM TAKES 2 (100MG) CAPS Phenytoin Sodium Extended 100 Mg Capsule 200 Mg PO HS TAKES 2 (100MG) CAPS Losartan Potassium 100 Mg Tablet 100 Mg PO DAILY Dilantin (Phenytoin Sodium Extended) 100 Mg Capsule 300 Mg PO MO,FR @AM TAKES 3 (100MG) CAPS Assessment/Pt DC Instructions Follow up with Dr. Dan within a week or discharge. Discharge Diet: Other Diet (liberal salt, restrict fluid to 2 liters) Activity as Tolerated: Yes Discharge Physical Examination Allergies: Coded Allergies: No Known Allergies (Unverified Allergy, Unknown, 09/18/14) metoprolol (Verified Allergy, Unknown, LOW HR , 11/16/22) ALL BETA BLOCKERS General Appearance: No Apparent Distress Respiratory: Lungs Clear, Normal Breath Sounds Cardiovascular: Regular Rate, Rhythm Extremity: No Pedal Edema Skin: Warm/Dry Neurologic/Psychiatric: Alert MADELEINE ARMIJO MD Nov 18, 2022 09:44
[2022-11-18 10:46] LABS: CALCIUM 8.8 MG/DL (8.5-10.1); CREATININE SERUM 0.53 MG/DL (0.60-1.30); POTASSIUM 3.4 MMOL/L (3.6-5.0)
--- NOTE | 2022-11-18 16:18 | D/C HH Face to Face Order ---
D/C Face to Face Orders Instructions for Patient Via [facility], Patient Instructions/FollowUp: Follow up with Dr. Dan within a week of discharge. Physician to follow Patient: Ni Discharge Diet for Home: other diet (liberal salt, try to limit fluid to 2000 ml daily) Patient Data-Allergies,Ht & Wt Patient Allergies: Coded Allergies: No Known Allergies (Unverified Allergy, Unknown, 09/18/14) metoprolol (Verified Allergy, Unknown, LOW HR , 11/16/22) ALL BETA BLOCKERS Height (Feet): 6 Height (Inches): 0.00 Weight (Pounds): 200 Home Health Need/Face to Face Date of Face to Face: Nov 18, 2022 Clinical Findings: Generalized weakness and fatigue I have seen Pt [id number]: Yes Discharged To: Home Diagnosis/Conditions: Hyponatremia Weakness Patient is Homebound due to: [place] fall risk due to instabilty Homebound Status Due to the above stated illness, injury or surgical procedure (medical condition or diagnosis) and associated clinical findings, the patient is homebo und because of his/her inability to leave home except with aid of a supportive device and/or person AND leaving the home requires a considerable and taxing effort or is medically contraindicated. Pt req the following assistanc: Aid of another person Home Health Nursing Orders Home Health Services Order: Nursing Services, Physical Therapy-Evaluate & Treat Certify Stmt I certify that this patient is under my care and that I, a nurse practitioner or a physician; a branch assistant working with me, had a face to face encounter that - meets the physician face to face encounter requirements with this patient as dated. MADELEINE ARMIJO MD Nov 18, 2022 16:18
[2022-11-19] MEDS ORDERED: PHENYTOIN 100 MG (DILANTIN) CAP PO SCH (09:00)
== END 2022-11-18 10:40 | disposition home health service (06) | DRG 641 ==
LOC: EDUNIT# 08:02 → ER 08:03 → 4TH 12:22
PROVIDERS: ADMIT Family Medicine; ATTEND Family Medicine
DX: E87.1 Hypo-osmolality and hyponatremia (principal); I48.20 Chronic atrial fibrillation, unspecified; E86.0 Dehydration; E87.6 Hypokalemia; K59.00 Constipation, unspecified; R32 Unspecified urinary incontinence; R33.9 Retention of urine, unspecified; J43.9 Emphysema, unspecified; I10 Essential (primary) hypertension; G40.909 Epilepsy, unspecified, not intractable, without status epilepticus; E78.00 Pure hypercholesterolemia, unspecified; F10.90 Alcohol use, unspecified, uncomplicated; Z91.81 History of falling; Z85.46 Personal history of malignant neoplasm of prostate; Z95.820 Peripheral vascular angioplasty status with implants and grafts; Z87.891 Personal history of nicotine dependence
CPT/HCPCS: 36415; 51702; 74019; 80048; 80053; 81000; 83735; 83935; 84295; 84300; 85025; 85027; 94640; 94760

== ENCOUNTER 2022-12-09 13:20 | Emergency (ER) | payer MEDICARE ==
[~2022-12-09] VITALS: Ht 180 cm; Wt 71.5 kg
[~2022-12-09 13:20] MED LIST changes: +BACL10TA PO; +HYDR-3817 PO; +HYDR12.56 PO
--- NOTE | 2022-12-09 13:41 | ED Fall/Injury ---
General Chief Complaint: Trauma-Non Activation Stated Complaint: FALL | RIB PAIN Nursing Triage Note: FALL ON TUESDAY AND INJURED HIS LEFT BACK JUST UNDER HIS SHOULDER BLADE AND LEFT ANTERIOR RIBS. Source: patient Exam Limitations: no limitations History of Present Illness Date Seen by Provider: Dec 09, 2022 Time Seen by Provider: 13:30 Initial Comments 77-year-old male presents to the ER with complaint of left sided rib and left mid back pain. He states that he had a mechanical fall on 12/07/22, and landed on concrete. States that he actually landed on his right side, but he is complaining of pain on his left side. Denies hitting his head. Denies any dizziness prior to the fall, denies loss of consciousness. Denies any shortness of air or abdominal pain. He does take Xarelto daily. Allergies and Home Medications Allergies Coded Allergies: metoprolol (Verified Allergy, Unknown, LOW HR , 11/16/22) ALL BETA BLOCKERS Patient Home Medication List Home Medication List Reviewed: Yes Albuterol Sulfate (Ventolin Hfa) 90 Mcg Hfa.aer.ad, 2 PUFF INH Q4H PRN for SHORTNESS OF BREATH, (Reported) Entered as Reported by: TILA VINSON on 09/20/22 1020 Amlodipine Besylate (Amlodipine Besylate) 10 Mg Tablet, 10 MG PO DAILY, (Reported) Entered as Reported by: TILA VINSON on 09/20/22 1020 Baclofen (Baclofen) 10 Mg Tablet, 10 MG PO BID, (Reported) Entered as Reported by: TILA VINSON on 11/16/22 1540 Fluticasone/Salmeterol (Advair 250-50 Diskus) 250 Mcg-50 Mcg/Dose Blst.w.dev, 1 PUFF INH BID, (Reported) Entered as Reported by: TILA VINSON on 09/20/22 1020 Hydrocodone/Acetaminophen (Hydrocodone-Acetamin 7.5-325) 7.5 Mg-325 Mg Tablet, 1 EA PO BID PRN for PAIN-MODERATE (5-7), (Reported) Entered as Reported by: TILA VINSON on 11/16/22 1540 Hydrocodone/Acetaminophen (Hydrocodone-Acetamin 7.5-325) 7.5 Mg-325 Mg Tablet, 1 EACH PO Q4H PRN for PAIN-BREAKTHROUGH Prescribed by: Darlene Brandt on 12/09/22 1459 Losartan Potassium (Losartan Potassium) 100 Mg Tablet, 100 MG PO DAILY, (Reported) Entered as Reported by: ADA COOPER on 08/07/20 1109 [place]-3/Dha/Epa/Fish Oil (Fish Oil 1,200 mg Softgel) 1,200 Mg (144 Mg-216 Mg) Capsule, 1,200 MG PO DAILY, (Reported) Entered as Reported by: TILA VINSON on 09/20/22 1020 Phenytoin Sodium Extended (Dilantin) 100 Mg Capsule, 300 MG PO MO,FR @AM, (Reported) Entered as Reported by: ADA COOPER on 08/07/20 1109 Phenytoin Sodium Extended (Phenytoin Sodium Extended) 100 Mg Capsule, 200 MG PO HS, (Reported) Entered as Reported by: TILA VINSON on 09/20/22 1020 Phenytoin Sodium Extended (Phenytoin Sodium Extended) 100 Mg Capsule, 200 MG PO BRIGGS,TU,WE,TH,SA @AM, (Reported) Entered as Reported by: TILA VINSON on 09/20/22 1020 Rivaroxaban (Xarelto Tablet) 20 Mg Tablet, 20 MG PO DAILY, (Reported) Entered as Reported by: TILA VINSON on 11/16/22 1540 Review of Systems Review of Systems Constitutional: see HPI Past Feidooo-Lfhhbj-Lrexrs Hx Patient Social History Tobacco Use?: No Use of E-Cig and/or Vaping dev: No Substance use?: No Alcohol Use?: No Pt feels they are or have been: No Immunizations Up To Date First/Initial COVID19 Vaccinat: 07/24/20 Second COVID19 Vaccination Lino: 07/24/20 Third COVID19 Vaccination Date: 07/24/20 Seasonal Allergies Seasonal Allergies: No Past Medical History Surgery/Hospitalization HX: COPD, HTN, EPILEPSY, STENTS IN LEG. 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 GRACE) High Cholesterol, Hypertension, Peripheral Vascular Neurological: Yes (REPORTS NO SEIZURES FOR 30 YEARS) Seizure Disorder Genitourinary: No Gastrointestinal: No Musculoskeletal: No Endocrine: No HEENT: No (WEARS READING GLASSES) Cancer: Yes (PROSTATE CANCER (INITIAL DX 2011)) Prostate Psychosocial: No Integumentary: No Blood Disorders: No Physical Exam Vital Signs Vital Signs - First Documented Capillary Refill : Less Than 3 Seconds Height, Weight, BMI Height: 6'0.00" Weight: 200lbs. oz. [id number]; 22.00 BMI Method: General Appearance: WD/WN, no apparent distress Neck: supple, normal inspection Cardiovascular: regular rate, rhythm Respiratory: lungs clear, normal breath sounds, no respiratory distress, no accessory muscle use, other (Left lower ribs tender to palpation) Gastrointestinal: non tender, soft Back: normal inspection, other (Tenderness over left ribs near mid back) Extremities: normal range of motion, normal inspection Neurologic/Psychiatric: alert, normal mood/affect Skin: normal color, warm/dry Progress/Results/Core Measures Results/Orders My Orders Orders - DARLENE KRISHNA APRN Ribs/Bilat With Chest (12/09/22 13:36) Vital Signs/I&O 12/09/22 12/09/22 12/09/22 12/09/22 13:30 13:30 14:39 15:10 Temp 36.2 36.2 36.2 Pulse 63 63 50 Resp 18 18 18 B/P (MAP) 164/77 (106) 164/77 (106) 152/89 Pulse Ox 96 96 97 O2 Delivery Nasal Cannula Nasal Cannula Nasal Cannula Room Air O2 Flow Rate 2.00 2.00 2.00 2.00 Blood Pressure Mean: 106 Progress Progress Note : Progress Note Patient seen and evaluated, resting comfortably in bed, no acute distress. Based on exam and symptoms, x-ray of the lower ribs and chest ordered. 1452 images reviewed. X-ray shows displaced rib fractures on the lef of third, fourth, fifth, and sixth rib. Eighth, ninth, and 10th ribs are fractured but nondisplaced. Results discussed with patient. I informed patient that I would like him to stay in the hospital for pain management and pneumonia prevention. Patient refused to stay in the hospital. He will sign out AMA. I will prescribe pain medication and supply him with an incentive spirometer. Strict return precautions provided. Diagnostic Imaging Diagonstic Imaging: Xray Plain Films/CT/US/NM/MRI: chest Comments [facility], [place] NAME: NYA MALONE [facility] REC#: [id number] PT STATUS: DEP ER : 1945 PHYSICIAN: DARLENE KRISHNA APRN ADMIT DATE: 12/09/22/ER Signed Date of Exam:12/09/22 RIBS/BILAT WITH CHEST RIBS/BILAT WITH CHEST INDICATION: Bilateral rib pain. COMPARISON: None available. TECHNIQUE: PA chest with two views of the bilateral ribs. FINDINGS: No pleural effusion or pneumothorax on either side. Chronic reticular and linear opacities are present in the lung bases. Heart is normal in size. There are multiple acute displaced fractures of the left ribs. This includes displaced fractures of the posterior aspect of the left 3rd, 4th, 5th and 6th ribs. The 8th through 10th lower left ribs also have nondisplaced fractures. No right-sided rib fracture. IMPRESSION: 1. Multiple left-sided rib fractures involve the left 3rd through 10th ribs. Some of the fractures are moderately displaced, although there is no appreciable pneumothorax. Dictated by: Dictated on workstation # [id number] Dict: 12/09/22 1402 Trans: 12/09/221700 AS6 [id number] Interpreted by: PERFECTO FUNG MD Electronically signed by: PERFECTO FUNG MD 12/09/221700 Departure Impression Primary Impression: Ribs, multiple fractures Disposition: 07 AGAINST MEDICAL ADVICE Condition: Stable Departure-Patient Inst. Decision time for Depature: 14:52 Referrals: MARINE MALONEY MD (PCP/Family) Primary Care Physician Patient Instructions: Rib fractures in adults Add. Discharge Instructions: I have offered admission for pain management and pneumonia prevention, you have declined. You are at risk of developing pneumonia, and another risk is . Take [place] as needed for pain. Obtain Colace iick-try-uovaewt and take twice a day while taking [place]. Use the incentive spirometer several times a day. Follow-up with your primary care provider. Return for shortness of breath, severe pain, or any other new, concerning, or worsening symptoms. All discharge instructions reviewed with patient and/or family. Voiced understanding. Scripts Hydrocodone/Acetaminophen (Hydrocodone-Acetamin 7.5-325) 7.5 Mg-325 Mg Tablet 1 EACH PO Q4H PRN for PAIN-BREAKTHROUGH, #20 TAB 0 Refills Prov: DARLENE KRISHNA APRN 12/09/22 DARLENE KRISHNA APRN Dec 09, 2022 13:41
--- NOTE | 2022-12-09 14:11 | Diagnostic Imaging Report ---
RIBS/BILAT WITH CHEST INDICATION: Bilateral rib pain. COMPARISON: None available. TECHNIQUE: PA chest with two views of the bilateral ribs. FINDINGS: No pleural effusion or pneumothorax on either side. Chronic reticular and linear opacities are present in the lung bases. Heart is normal in size. There are multiple acute displaced fractures of the left ribs. This includes displaced fractures of the posterior aspect of the left 3rd, 4th, 5th and 6th ribs. The 8th through 10th lower left ribs also have nondisplaced fractures. No right-sided rib fracture. IMPRESSION: 1. Multiple left-sided rib fractures involve the left 3rd through 10th ribs. Some of the fractures are moderately displaced, although there is no appreciable pneumothorax. Dictated by: Dictated on workstation # [id number]
[2022-12-09] MEDS ORDERED: HYDR-3817 PO (14:58)
[2022-12-09 15:10] VITALS: BP 152/89
== END 2022-12-09 15:10 | disposition left against medical advice (07) ==
LOC: EDUNIT# 13:20 → ER 13:22
DX: S22.42XA Multiple fractures of ribs, left side, initial encounter for closed fracture (principal); Z79.01 Long term (current) use of anticoagulants; W18.30XA Fall on same level, unspecified, initial encounter
CPT/HCPCS: 71111; 94640

== ENCOUNTER 2022-12-15 20:30 | Inpatient (IN) | payer MEDICARE ==
[~2022-12-15] VITALS: Ht 182.9 cm; Wt 66.3 kg
[2022-12-15] MEDS ORDERED: IOHEXOL 350 MG/ML 100 ML (OMNIPAQUE 350) VIAL IV ONE (21:00)
[2022-12-15] MEDS ORDERED: NS 100 ML (IVPB) BAG IV ONE (21:00)
[2022-12-15] MEDS ORDERED: LIDOCAINE 1% INJ 20 ML VIAL IJ ONE (21:00)
[2022-12-15] MEDS ORDERED: HOLD METFORMIN - RECEIVED CONTRAST 20 ML VIAL IV SCH (21:00)
[2022-12-15] MEDS ORDERED: Tetanus/Diphtheria/Pertussis (Acell) ADULT Vaccine 0.5 ML IM ONE (21:00)
--- NOTE | 2022-12-15 21:12 | ED Fall/Injury ---
General Chief Complaint: Trauma-Non Activation Stated Complaint: FALL Source: patient (VERY HARD OF HEARING ), old records History of Present Illness Date Seen by Provider: Dec 15, 2022 Time Seen by Provider: 20:43 Initial Comments PT ARRIVES VIA EMS FROM HOME, CERVICAL COLLAR IN PLACE PT HAD JUST GOTTEN HOME--HAD BEEN TO GET DINNER AND BRING IT HOME-- AND WAS GETTING OUT OF HIS TRUCK AND FELL HE WAS GETTING OUT HE STATES HE LANDED ON [place] IN HIS GARAGE. HE HAS LACERATION TO THE BACK OF HIS HEAD DENIES LOSS OF CONSCIOUSNESS DENIES NECK OR BACK PAIN HE HAS MULTIPLE SKIN TEARS ON BOTH ELBOWS, RIGHT HAND, LEFT FOREARM HE HAS ABRASIONS TO BOTH KNEES THIS WAS NOT WITNESSED PT PUSHED HIS LIFE ALERT [place] AND EMS RESPONDED PT IS ON XARELTO PT WAS ADMITTED HERE 12/09/22 AFTER FALLING ON 12/07/22 AND BREAKING MULTIPLE RIBS ( 7 RIB FRACTURES) ON THE LEFT--HE REFUSED ADMIT AND SIGNED OUT AMA HE DENIES ANY CHEST PAIN OR SHORTNESS OF BREATH ADDITIONALLY, HE ALSO FELL IN AUGUST OF THIS YEAR AND BROKE LEFT RIB AND SUSTAINED PNEUMOTHORAX AND REQUIRED A CHEST TUBE. DENIES HEADACHE DENIES DIZZINESS DENIES VISION CHANGES DENIES PARESTHESIAS OR MOTOR DEFICITS NO NAUSEA/VOMITING DENIES PAIN IN ARMS OR LEGS. LAST TETANUS IS UNKNOWN PT DOES SMOKE AND ALSO USES ALCOHOL ON DAILY BASIS-DRINKS AT LEAST A 6 PACK/DAY PT LIVES ALONE,BUT DAUGHTER LIVES IN THE AREA. PCP: [facility]ER Allergies and Home Medications Allergies Coded Allergies: metoprolol (Verified Allergy, Unknown, LOW HR , 11/16/22) ALL BETA BLOCKERS Patient Home Medication List Home Medication List Reviewed: Yes Albuterol Sulfate (Ventolin Hfa) 90 Mcg Hfa.aer.ad, 2 PUFF INH Q4H PRN for SHORTNESS OF BREATH, (Reported) Entered as Reported by: TILA VINSON on 09/20/22 1020 Amlodipine Besylate (Amlodipine Besylate) 10 Mg Tablet, 10 MG PO DAILY, (Reported) Entered as Reported by: TILA VINSON on 09/20/22 1020 Baclofen (Baclofen) 10 Mg Tablet, 10 MG PO BID, (Reported) Entered as Reported by: TILA VINSON on 11/16/22 1540 Last Action: Last Taken Edited Fluticasone/Salmeterol (Advair 250-50 Diskus) 250 Mcg-50 Mcg/Dose Blst.w.dev, 1 PUFF INH BID, (Reported) Entered as Reported by: TILA VINSON on 09/20/22 1020 Hydrocodone/Acetaminophen (Hydrocodone-Acetamin 7.5-325) 7.5 Mg-325 Mg Tablet, 1 EA PO BID PRN for PAIN-MODERATE (5-7), (Reported) Entered as Reported by: TILA VINSON on 11/16/22 1540 Last Action: Last Taken Edited Hydrocodone/Acetaminophen (Hydrocodone-Acetamin 7.5-325) 7.5 Mg-325 Mg Tablet, 1 EACH PO Q4H PRN for PAIN-BREAKTHROUGH Prescribed by: Darlene Brandt on 12/09/22 1459 Last Action: Last Taken Edited Losartan Potassium (Losartan Potassium) 100 Mg Tablet, 100 MG PO DAILY, (Reported) Entered as Reported by: ADA COOPER on 08/07/20 1109 Kennedy-3/Dha/Epa/Fish Oil (Fish Oil 1,200 mg Softgel) 1,200 Mg (144 Mg-216 Mg) Capsule, 1,200 MG PO DAILY, (Reported) Entered as Reported by: TILA VINSON on 09/20/22 1020 Phenytoin Sodium Extended (Dilantin) 100 Mg Capsule, 300 MG PO MO,FR @AM, (Reported) Entered as Reported by: ADA COOPER on 08/07/20 1109 Phenytoin Sodium Extended (Phenytoin Sodium Extended) 100 Mg Capsule, 200 MG PO HS, (Reported) Entered as Reported by: TILA VINSON on 09/20/22 1020 Phenytoin Sodium Extended (Phenytoin Sodium Extended) 100 Mg Capsule, 200 MG PO BRIGGS,TU,WE,TH,SA @AM, (Reported) Entered as Reported by: TILA VINSON on 09/20/22 1020 Rivaroxaban (Xarelto Tablet) 20 Mg Tablet, 20 MG PO DAILY, (Reported) Entered as Reported by: TILA VINSON on 11/16/22 1540 Review of Systems Review of Systems Constitutional: no symptoms reported Eyes: No Symptoms Reported Ears, Nose, Mouth, Throat: no symptoms reported Respiratory: no symptoms reported Cardiovascular: no symptoms reported Gastrointestinal: no symptoms reported Genitourinary: no symptoms reported Musculoskeletal: see HPI Skin: see HPI Psychiatric/Neurological: No Symptoms Reported Past Iokgubc-Nrqvhb-Qjxinj Hx Patient Social History Tobacco Use?: Yes Tobacco type used: Cigarettes Smoking Status: Current Everyday Smoker Substance use?: No Alcohol Use?: Yes Alcohol type: Beer Alcohol Frequency: Daily Immunizations Up To Date First/Initial COVID19 Vaccinat: 07/24/20 Second COVID19 Vaccination Lino: 07/24/20 Third COVID19 Vaccination Date: 07/24/20 Seasonal Allergies Seasonal Allergies: No Past Medical History Surgery/Hospitalization HX: COPD, HTN, EPILEPSY, STENTS IN LEG. 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 GRACE) High Cholesterol, Hypertension, Peripheral Vascular Neurological: Yes (REPORTS NO SEIZURES FOR 30 YEARS) Seizure Disorder Genitourinary: No Gastrointestinal: No Musculoskeletal: No Endocrine: No (CHRONIC HYPONATREMIA) HEENT: No (WEARS READING GLASSES) Cancer: Yes (PROSTATE CANCER (INITIAL DX 2010)) Prostate Psychosocial: No Integumentary: No Blood Disorders: No Family Medical History SOCIAL HISTORY: -SMOKES 1 PPD -ETOH--DRINKS AT LEAST A 6 PACK/DAY -DRUGS--DENIES Physical Exam Vital Signs Vital Signs - First Documented Capillary Refill : Height, Weight, BMI Height: 6'0.00" Weight: 200lbs. oz. 90.818058cq; 22.00 BMI Method: General Appearance: WD/WN, no apparent distress, other (PT IS COVERED IN DIRT AND GRASS AND DEBRIS, BOTH FRONT AND BACK OF CLOTHING. NOSE IS HEAVILY COATED WITH DIRT. + ODOR OF ETOH AND CIGARETTES ) HEENT: PERRL/EOMI, TMs normal, pharynx normal, other (PT WITH 7-8 CM LACERATION TO LEFT POSTERIOR SCALP WITH PROFUSE BLEEDING AND VERY LARGE HEMATOMA. NO FACIAL TENDERNESS. ) Neck: other (PT IN CERVICAL COLLAR ON ARRIVAL) Cardiovascular: regular rate, rhythm Respiratory: chest non-tender, normal breath sounds, no respiratory distress, no accessory muscle use Gastrointestinal: normal bowel sounds, non tender, soft Back: normal inspection, no CVA tenderness, no vertebral tenderness Extremities: normal range of motion, non-tender, no pedal edema, no calf tenderness, normal capillary refill, other (BOTH ARMS AND BOTH HANDS WITH EXTENSIVE BRUISING OF VARIOUS AGES. THERE ARE SKIN TEARS TO BOTH ELBOWS, DORSUM OF RIGHT HAND AND LEFT FOREARM. NO ACTIVE BLEEDING FROM THESE AREAS. THERE ARE ABRASIONS AND EARLY BRUISING TO BOTH KNEES) Procedures/Interventions Wound Location: Scalp Other Wound Location RIGHT POSTERIOR SCALP Wound's Depth, Shape: linear, sub Q Wound Explored: clean Betadine Prep?: No (BETASEPT) Anesthesia: 1% Lidocaine Staple Repair: Stapler 35W (# 14 RAVIN) Sterile Dressing Applied?: Yes Progress STERILE DRESSING, ABD BANDAGE AND COBAN APPLIED ICE PACK ALSO APPLIED TO THE AREA Progress/Results/Core Measures Results/Orders Lab Results Laboratory Tests Test 12/15/22 20:45 12/15/22 22:40 12/15/22 23:25 Range/Units White Blood Count 8.3 4.3-11.0 10^3/uL Red Blood Count 3.90 L 4.30-5.52 10^6/uL Hemoglobin 12.9 L 13.3-17.7 g/dL Hematocrit 34 L 40-54 % Mean Corpuscular Volume 88 80-99 fL Mean Corpuscular Hemoglobin 33 25-34 pg Mean Corpuscular Hemoglobin Concent 38 H 32-36 g/dL Red Cell Distribution Width 11.6 10.0-14.5 % Platelet Count 184 130-400 10^3/uL Mean Platelet Volume 9.9 9.0-12.2 fL Immature Granulocyte % (Auto) 1 % Neutrophils (%) (Auto) 77 H 42-75 % Lymphocytes (%) (Auto) 13 12-44 % Monocytes (%) (Auto) 8 0-12 % Eosinophils (%) (Auto) 0 0-10 % Basophils (%) (Auto) 0 0-10 % Neutrophils # (Auto) 6.4 1.8-7.8 10^3/uL Lymphocytes # (Auto) 1.1 1.0-4.0 10^3/uL Monocytes # (Auto) 0.7 0.0-1.0 10^3/uL Eosinophils # (Auto) 0.0 0.0-0.3 10^3/uL Basophils # (Auto) 0.0 0.0-0.1 10^3/uL Immature Granulocyte # (Auto) 0.1 0.0-0.1 10^3/uL Sodium Level 105 *L 135-145 MMOL/L Potassium Level 2.9 L 3.6-5.0 MMOL/L Chloride Level 72 L 98-107 MMOL/L Carbon Dioxide Level 18 L 21-32 MMOL/L Anion Gap 15 H 5-14 MMOL/L Blood Urea Nitrogen 5 L 7-18 MG/DL Creatinine 0.55 L 0.60-1.30 MG/DL Estimat Glomerular Filtration Rate 103 BUN/Creatinine Ratio 9 Glucose Level 96 70-105 MG/DL Calcium Level 8.6 8.5-10.1 MG/DL Corrected Calcium 8.5 8.5-10.1 MG/DL Magnesium Level 1.7 1.6-2.4 MG/DL Total Bilirubin 0.7 0.1-1.0 MG/DL Aspartate Amino Transf (AST/SGOT) 38 H 5-34 U/L Alanine Aminotransferase (ALT/SGPT) 43 0-55 U/L Alkaline Phosphatase 112 40-136 U/L Total Protein 6.4 6.4-8.2 GM/DL Albumin 4.1 3.2-4.5 GM/DL Serum Alcohol 46 H <10 MG/DL Prothrombin Time 15.3 H 12.2-14.7 SEC INR Comment 1.2 0.8-1.4 Activated Partial Thromboplast Time 29 24-35 SEC Urine Color YELLOW Urine Clarity CLEAR Urine pH 7.5 5-9 Urine Specific Bicknell 1.015 L 1.016-1.022 Urine Protein NEGATIVE NEGATIVE Urine Glucose (UA) NEGATIVE NEGATIVE Urine Ketones NEGATIVE NEGATIVE Urine Nitrite NEGATIVE NEGATIVE Urine Bilirubin NEGATIVE NEGATIVE Urine Urobilinogen 0.2 < = 1.0 MG/DL Urine Leukocyte Esterase NEGATIVE NEGATIVE Urine RBC (Auto) 1+ H NEGATIVE Urine RBC RARE /HPF Urine WBC NONE /HPF Urine Squamous Epithelial Cells RARE /HPF Urine Crystals NONE /LPF Urine Bacteria NEGATIVE /HPF Urine Casts NONE /LPF Urine Mucus NEGATIVE /LPF Urine Culture Indicated NO My Orders Orders - APRYL HERNÁNDEZ DO Ed Iv/Invasive Line Start (12/15/22 20:48) Monitor-Rhythm Ecg Trace Only (12/15/22 20:48) Ct Head/Face/Cervical Wo (12/15/22 20:48) Ct Thoracic/Lumbar Spine Wo (12/15/22 20:48) Chest 1 View, Ap/Pa Only (12/15/22 20:48) Pelvis 1 To 2 Views (12/15/22 20:48) Hand, 3 Views, Bilateral (12/15/22 20:48) Forearm, 2 Views, Bilateral (12/15/22 20:48) Humerus,Bilateral 2 Views Or > (12/15/22 20:48) Alcohol (12/15/22 20:48) Cbc With Automated Diff (12/15/22 20:48) Comprehensive Metabolic Panel (12/15/22 20:48) Magnesium (12/15/22 20:48) Protime With Inr (12/15/22 20:48) Partial Thromboplastin Time (12/15/22 20:48) Ua Culture If Indicated (12/15/22 20:48) Dipht/Pertuss(Acell)/Tet Adult (Dipht/Pe (12/15/22 21:00) Ct Chest/Abdomen/Pelvis W (12/15/22 20:48) Lidocaine 1% Inj 20 Ml (Xylocaine 1% Inj (12/15/22 21:00) Iohexol Injection (Omnipaque 350 Mg/Ml 1 (12/15/22 21:00) Received Contrast (Hold Metformin- Contr (12/15/22 21:00) Ns (Ivpb) 100 Ml (Sodium Chloride 0.9% 1 (12/15/22 21:00) Ed Iv/Invasive Line Start (12/15/22 21:37) Ns Iv 1000 Ml (Sodium Chloride 0.9%) (12/15/22 21:45) Knee, 2 Views, Bilateral (12/15/22 20:51) Medications Given in ED Current Medications Medications Dose Ordered Sig/Jose Route Start Time Stop Time Status Last Admin Dose Admin Diphtheria/ Tetanus/Acell Pertussis 0.5 ml ONCE ONCE IM 12/15/22 21:00 12/15/22 21:01 DC 12/15/22 20:59 0.5 ML Iohexol 100 ml ONCE ONCE IV 12/15/22 21:00 12/15/22 21:01 DC 12/15/22 21:53 80 ML Lidocaine HCl 20 ml ONCE ONCE IJ 12/15/22 21:00 12/15/22 21:01 DC 12/15/22 22:47 20 ML Sodium Chloride 100 ml ONCE ONCE IV 12/15/22 21:00 12/15/22 21:01 DC 12/15/22 21:53 80 ML Vital Signs/I&O 12/15/22 12/15/22 12/15/22 12/15/22 20:32 20:32 20:32 20:40 Temp 36.7 36.4 36.4 Pulse 50 50 50 Resp 14 14 14 B/P (MAP) 151/82 (105) 174/79 174/79 (110) Pulse Ox 96 96 98 O2 Delivery Nasal Cannula Nasal Cannula Nasal Cannula Nasal Cannula O2 Flow Rate 2.00 2.00 2.00 12/16/22 00:00 Intake Total 1000 ml Output Total 650 ml Balance 350 ml Progress Progress Note : Progress Note VITALS ON ARRIVAL: TEMP 36.7, HR 50, RR 14, BP 151/82, O2 SAT 96% ON ROOM AIR GIVEN: -IV FLUIDS -DPT VACCINE LABS: -CBC UNREMARKABLE WITH STABLE HGB OF 12.9 -CMP WITH NA 105, K 2.9, CO2 18, ANION GAP 15, BUN 5, CR 0.5, GLU 129. OTHER CHEMISTRIES UNREMARKABLE -PT/PTT/INR 15.3/29/1.2 -UA UNREMARKABLE -ETOH 46 CT SCANS DO NOT SHOW ANY ACUTE INTERNAL ORGAN OR BONY TRAUMATIC INJURY PT VOICED NO COMPLAINTS OF PAIN DURING ER STAY VITALS STABLE DISCUSSED TEST RESULTS, NEED FOR ADMIT AND PT IS AGREEABLE TO PLAN PT STATES HIS SODIUM IS ALWAYS LOW--RUNS AROUND 127 NORMALLY. DISCUSSED THE POSSIBILITY THAT PT MAY NOT BE ABLE TO LIVE ALONE AT THIS POINT, DUE TO HIS FREQUENT FALLS, AND HIS ALCOHOL ABUSE INCLUDING DRIVING WHILE HE IS DRINKING NO DETERIORATION IN PT'S CONDITION DURING ER STAY REVIEWED PRIOR RECORDS INCLUDING ER VISITS, ADMITS/H&P'S/CONSULTS/DISCHARGE SUMM KAMRYN, TESTS/PROCEDURES Diagnostic Imaging Comments CT SCANS--ALL PER RADIOLOGIST REPORTS AT 2247 CT HEAD/MAXILLOFACIALS/CERVICAL SPINE-- COMPARISON: None. FINDINGS: CT HEAD: Advanced generalized parenchymal volume loss. No intracranial hemorrhage, mass effect, hydrocephalus or extra-axial fluid collection. No CT evidence of territorial infarction. Scalp contusion overlying the left parietal convexity. Calvarium is intact. Right mastoid effusion. Skull base is intact. CT MAXILLOFACIAL: No maxillofacial fracture. The mandible is intact. Normal alignment of the temporomandibular joints. Paranasal sinuses are clear. The orbits are unremarkable. CT CERVICAL SPINE: Normal alignment. Vertebral body heights preserved. No fracture. Moderate to advanced spondylotic changes, greatest at C5-C7. No CT evidence of high-grade spinal canal stenosis. Advanced atherosclerotic calcifications in the carotid bifurcations. Emphysematous changes in the lung apices. IMPRESSION: 1. Scalp contusion overlying the left parietal convexity. No fracture. 2. No acute intracranial or cervical spine CT finding. 3. No maxillofacial fracture. 4. Nonspecific right mastoid effusion. CT THORACIC/LUMBAR SPINE--COMPARISON: CTA chest 09/19/2022. FINDINGS: Normal alignment of the thoracic and lumbar spine. Subtle height loss of T4 and T6 of approximately 10% is chronic and similar to the comparison. Compression fracture of T11 resulting in approximately 20% height loss is new since 09/19/2022. Vertebral body heights in the lumbar spine are preserved. Mild scattered degenerative endplate change has become more severe at L4-S1. No CT evidence of high-grade spinal canal stenosis. Subacute to chronic posterior left 3rd through 6th rib fractures and left transverse process fractures at T4 and T5 are similar to 09/19/2022. The visualized pelvis is intact. Partially visualized airspace opacity in the deep dependent right lower lobe. Paraseptal emphysematous changes in the lungs. IMPRESSION: 1. Superior endplate compression fracture of T11 resulting in approximately 20% height loss is age indeterminate but new since 09/19/2022. This could be further investigated with MRI. 2. Spondylotic changes are greatest at L4-S1 where they are severe. No CT finding of high-grade spinal canal stenosis. 3. Subacute to chronic posterior left 3rd through 6th rib fractures and left transverse process fractures at T4 and T5 are similar to 09/19/2022. 4. Dependent atelectasis in the visualized lungs. COMPARISON: CT thoracic and lumbar spine also performed today. CTA aorta 06/06/2015. CTA chest 09/19/2022. FINDINGS: CT CHEST: Dependent atelectasis in the lungs, bilaterally. Paraseptal emphysema. No pleural effusion or pneumothorax. Cardiomegaly. Advanced atherosclerotic calcifications including the coronary arteries. No pericardial effusion. No lymphadenopathy. Subacute to chronic posterior left 3rd through 6th rib fractures and transverse process fractures of T4 and T5. No acute appearing osseous finding. CT ABDOMEN/PELVIS: Simple appearing cysts in the liver. The gallbladder, pancreas, spleen, right adrenal gland, kidneys and collecting systems demonstrate no acute finding. Markedly distended urinary bladder. Indeterminate mass in the left adrenal gland measuring up to 2.8 x 2.2 cm. This is stable compared to 06/06/2015. Surgical clips or seeds in the prostate. No lymphadenopathy. No free intraperitoneal air or fluid. No evidence of bowel obstruction. Age-indeterminate compression fracture of T11 with approximately 20% height loss. It is new since 09/19/2022. IMPRESSION: 1. Cardiomegaly. 2. Paraseptal emphysema and dependent consolidation in the lungs. 3. Subacute to chronic posterior left 3rd through 6th rib fractures and left transverse process fractures at T4 and T5 are similar to 09/19/2022. 4. Indeterminate mass in the left adrenal gland measuring up to 2.8 cm has not grown since a 2016 comparison and should be benign. 5. Age-indeterminate compression fracture of T11 with approximately 20% height loss is new since 09/19/2022. This could be further evaluated with MRI. CT CHEST/ABDOMEN/PELVIS-- XRAYS--ALL PENDING RADIOLOGIST REVIEW CXR--NO ACUTE PROCESS PELVIS--NO ACUTE PROCESS BILATERAL HUMERUS--NO ACUTE PROCESS BILATERAL FOREARMS--NO ACUTE PROCESS BILATERAL KNEES--NO ACUTE PROCESS Reviewed: Reviewed by Md Departure Communication (Admissions) 2309--SPOKE WITH DR. MALONEY, ACCEPTS PT FOR ADMIT 2323--SPOKE WITH DR. ALEX FOR TRAUMA SURGICAL CONSULT 2328--REPORT TO E-ICU PHYSICIAN. RECOMMENDATIONS NOTED Impression Primary Impression: Unwitnessed fall Additional Impressions: FALL FROM TRUCK Closed head injury without loss of consciousness ANTICOAGULATION Alcoholism SEVERE HYPONATREMIA Occipital scalp laceration MULTIPLE CONTUSIONS AND ABRASIONS AND SKIN TEARS Ngjkudecyf-drphsgwhy-abpuhhp (DPT) vaccination administered at current visit Disposition: ADMITTED INPATIENT Condition: Stable Admissions Decision to Admit Reason: Admit from ER (Trauma) Decision to Admit/Date: Dec 15, 2022 Time/Decision to Admit Time: 23:10 Departure-Patient Inst. Referrals: MARINE MALONEY MD (PCP/Family) Primary Care Physician APRYL HERNÁNDEZ DO Dec 15, 2022 21:12
[2022-12-15 21:27] LABS: ALBUMIN 4.1 GM/DL (3.2-4.5); BILIRUBIN,TOTAL 0.7 MG/DL (0.1-1.0); CALCIUM 8.6 MG/DL (8.5-10.1); CREATININE SERUM 0.55 MG/DL (0.60-1.30); MAGNESIUM 1.7 MG/DL (1.6-2.4); POTASSIUM 2.9 MMOL/L (3.6-5.0); TOTAL PROTEIN 6.4 GM/DL (6.4-8.2)
[2022-12-15 21:38] LABS: BASOPHILS % (AUTO) 0 % (0-10); EOSINOPHILS % (AUTO) 0 % (0-10); HEMATOCRIT 34 % (40-54); HEMOGLOBIN 12.9 g/dL (13.3-17.7); LYMPHOCYTES # (AUTO) 1.1 10^3/uL (1.0-4.0); LYMPHOCYTES % (AUTO) 13 % (12-44); MEAN CORPUSCULAR HEMOGLOBIN 33 pg (25-34); MEAN CORPUSCULAR HGB CONC 38 g/dL (32-36); MEAN CORPUSCULAR VOLUME 88 fL (80-99); MEAN PLATELET VOLUME 9.9 fL (9.0-12.2); MONOCYTES # (AUTO) 0.7 10^3/uL (0.0-1.0); MONOCYTES % (AUTO) 8 % (0-12); NEUTROPHILS # (AUTO) 6.4 10^3/uL (1.8-7.8); NEUTROPHILS % (AUTO) 77 % (42-75); PLATELET COUNT 184 10^3/uL (130-400); WHITE BLOOD COUNT 8.3 10^3/uL (4.3-11.0)
[2022-12-15] MEDS ORDERED: NS IV 1000 ML 1,000 ML IV SCH (21:45)
--- NOTE | 2022-12-15 22:13 | Diagnostic Imaging Report ---
PROCEDURE: CT head, face, and cervical spine without contrast. TECHNIQUE: Multiple contiguous axial images were obtained through the head, neck, and facial bones without the use of intravenous contrast. Sagittal and coronal reformations through the cervical spine and facial bones were also performed. Auto Exposure Controls were utilized during the CT exam to meet ALARA standards for radiation dose reduction. INDICATION: Trauma. Head injury. Fall. COMPARISON: None. FINDINGS: CT HEAD: Advanced generalized parenchymal volume loss. No intracranial hemorrhage, mass effect, hydrocephalus or extra-axial fluid collection. No CT evidence of territorial infarction. Scalp contusion overlying the left parietal convexity. Calvarium is intact. Right mastoid effusion. Skull base is intact. CT MAXILLOFACIAL: No maxillofacial fracture. The mandible is intact. Normal alignment of the temporomandibular joints. Paranasal sinuses are clear. The orbits are unremarkable. CT CERVICAL SPINE: Normal alignment. Vertebral body heights preserved. No fracture. Moderate to advanced spondylotic changes, greatest at C5-C7. No CT evidence of high-grade spinal canal stenosis. Advanced atherosclerotic calcifications in the carotid bifurcations. Emphysematous changes in the lung apices. IMPRESSION: 1. Scalp contusion overlying the left parietal convexity. No fracture. 2. No acute intracranial or cervical spine CT finding. 3. No maxillofacial fracture. 4. Nonspecific right mastoid effusion. Dictated by: Dictated on workstation # [id number]
--- NOTE | 2022-12-15 22:18 | Diagnostic Imaging Report ---
PROCEDURE: CT thoracic and lumbar spine without contrast. TECHNIQUE: Multiple contiguous axial images were obtained through the thoracic and lumbar spine without the use of intravenous contrast. Sagittal and coronal reformations were then performed. All CT scans use one or more of the following dose optimizing techniques: automated exposure control, MA and/or KvP adjustment based on patient size and exam type or iterative reconstruction. INDICATION: Trauma. Back pain. COMPARISON: CTA chest 09/19/2022. FINDINGS: Normal alignment of the thoracic and lumbar spine. Subtle height loss of T4 and T6 of approximately 10% is chronic and similar to the comparison. Compression fracture of T11 resulting in approximately 20% height loss is new since 09/19/2022. Vertebral body heights in the lumbar spine are preserved. Mild scattered degenerative endplate change has become more severe at L4-S1. No CT evidence of high-grade spinal canal stenosis. Subacute to chronic posterior left 3rd through 6th rib fractures and left transverse process fractures at T4 and T5 are similar to 09/19/2022. The visualized pelvis is intact. Partially visualized airspace opacity in the deep dependent right lower lobe. Paraseptal emphysematous changes in the lungs. IMPRESSION: 1. Superior endplate compression fracture of T11 resulting in approximately 20% height loss is age indeterminate but new since 09/19/2022. This could be further investigated with MRI. 2. Spondylotic changes are greatest at L4-S1 where they are severe. No CT finding of high-grade spinal canal stenosis. 3. Subacute to chronic posterior left 3rd through 6th rib fractures and left transverse process fractures at T4 and T5 are similar to 09/19/2022. 4. Dependent atelectasis in the visualized lungs. Dictated by: Dictated on workstation # [id number]
--- NOTE | 2022-12-15 22:37 | Diagnostic Imaging Report ---
PROCEDURE: CT chest, abdomen, and pelvis with contrast. TECHNIQUE: Multiple contiguous axial images were obtained through the chest, abdomen, and pelvis after the administration of intravenous contrast. Auto Exposure Controls were utilized during the CT exam to meet ALARA standards for radiation dose reduction. INDICATION: Trauma. COMPARISON: CT thoracic and lumbar spine also performed today. CTA aorta 06/06/2015. CTA chest 09/19/2022. FINDINGS: CT CHEST: Dependent atelectasis in the lungs, bilaterally. Paraseptal emphysema. No pleural effusion or pneumothorax. Cardiomegaly. Advanced atherosclerotic calcifications including the coronary arteries. No pericardial effusion. No lymphadenopathy. Subacute to chronic posterior left 3rd through 6th rib fractures and transverse process fractures of T4 and T5. No acute appearing osseous finding. CT ABDOMEN/PELVIS: Simple appearing cysts in the liver. The gallbladder, pancreas, spleen, right adrenal gland, kidneys and collecting systems demonstrate no acute finding. Markedly distended urinary bladder. Indeterminate mass in the left adrenal gland measuring up to 2.8 x 2.2 cm. This is stable compared to 06/06/2015. Surgical clips or seeds in the prostate. No lymphadenopathy. No free intraperitoneal air or fluid. No evidence of bowel obstruction. Age-indeterminate compression fracture of T11 with approximately 20% height loss. It is new since 09/19/2022. IMPRESSION: 1. Cardiomegaly. 2. Paraseptal emphysema and dependent consolidation in the lungs. 3. Subacute to chronic posterior left 3rd through 6th rib fractures and left transverse process fractures at T4 and T5 are similar to 09/19/2022. 4. Indeterminate mass in the left adrenal gland measuring up to 2.8 cm has not grown since a 2016 comparison and should be benign. 5. Age-indeterminate compression fracture of T11 with approximately 20% height loss is new since 09/19/2022. This could be further evaluated with MRI. Dictated by: Dictated on workstation # [id number]
[2022-12-15 22:59] LABS: INR 1.2 (0.8-1.4); PROTHROMBIN TIME PATIENT 15.3 SEC (12.2-14.7)
[2022-12-15 23:44] LABS: CLARITY,URINE CLEAR; COLOR,URINE YELLOW; PH,URINE 7.5 (5-9); PROTEIN,URINE NEGATIVE (NEGATIVE)
[2022-12-15 23:45] LABS: BACTERIA,URINE NEGATIVE /HPF; BILIRUBIN,URINE NEGATIVE (NEGATIVE); GLUCOSE, URINE (UA) NEGATIVE (NEGATIVE); KETONES,URINE NEGATIVE (NEGATIVE); LEUKOCYTE ESTERASE ,URINE NEGATIVE (NEGATIVE); NITRITE,URINE NEGATIVE (NEGATIVE); RBC,URINE RARE /HPF; SQUAMOUS EPITHELIAL CELL,UR RARE /HPF
[2022-12-16] MEDS ORDERED: LORazepam 1 MG TABLET PO PRN (00:15)
[2022-12-16] MEDS ORDERED: D5 1/2 NS 1,000 ML IV 1,000 ML IV PRN (00:15)
[2022-12-16] MEDS ORDERED: 1/2 NS IV SOLUTION 1000 ML 1,000 ML IV PRN (00:15)
[2022-12-16] MEDS ORDERED: ANTACID SUSPENSION 30 ML UDC PO PRN (00:15)
[2022-12-16] MEDS ORDERED: fentaNYL INJECTION 100 MCG/2 ML VIAL IV PRN (00:15)
[2022-12-16] MEDS ORDERED: ACETAMINOPHEN 500 MG TABLET PO PRN (00:15)
[2022-12-16] MEDS ORDERED: ONDANSETRON INJECTION 4 MG/2 ML (SDV) IV PRN ×2 (00:15)
[2022-12-16] MEDS ORDERED: SENNA W/DOCUSATE TABLET PO PRN (00:15)
[2022-12-16] MEDS ORDERED: ONDANSETRON 4 MG ORAL DISSOLVE TABLET SL PRN (00:15)
[2022-12-16] MEDS ORDERED: hydrALAZINE INJECTION 20 MG/ML VIAL IV PRN (00:30)
--- NOTE | 2022-12-16 00:41 | Tele-ICU Progress Note ---
Progress Note 77M with EtOH dependence, multiple recent falls including traumatic hemothorax presents after falling while getting out of his truck. He has a large posterior scalp hematoma and scalp lac which was staple and bandaged in ED. Patient denies LOC, neck or back pain. The fall was not witnessed. CT head negative for bleed. However had incidental finding of Na 105 prompting admit to ICU. On arrival to ICU, SBP 170s with HR 50 - hyponatremia: NS ongoing at 75 cc/hr. Will check Na q3 hours and adjust. Goal correction 6-8 meq/dL over the first 24 hours, or 111-113 12/16 at 20:45. Repeat Na pending, will adjust NS accordingly. - EtOH: CIWA, thiamine, folic acid - HTN: with underlying bradycardia. PRN hydralazine ordered. Patient assessed via real time audiovisual communication system. CCT12 min Focused Exam Height, Weight, BMI Height: 6'0.00" Weight: 200lbs. oz. 90.855239tx; 26.00 BMI Method: LEXI MEYER MD Dec 16, 2022 00:41
[2022-12-16] MEDS: NS IV 1000 ML 1,000 ML IV SCH ×2 (00:52→13:35)
[2022-12-16 01:32] LABS: HEMOGLOBIN 11.7 g/dL (13.3-17.7)
[2022-12-16 01:42] LABS: POTASSIUM 2.7 MMOL/L (3.6-5.0)
[2022-12-16 01:43] LABS: CALCIUM 8.1 MG/DL (8.5-10.1)
[2022-12-16 01:47] LABS: CREATININE SERUM 0.44 MG/DL (0.60-1.30)
[2022-12-16] MEDS: POTASSIUM CL 10MEQ/50ML IVPB 50 ML IV SCH ×6 (02:21→08:42)
[2022-12-16 04:21] LABS: BASOPHILS % (AUTO) 0 % (0-10); EOSINOPHILS % (AUTO) 0 % (0-10); HEMATOCRIT 30 % (40-54); HEMOGLOBIN 11.6 g/dL (13.3-17.7); LYMPHOCYTES # (AUTO) 1.1 10^3/uL (1.0-4.0); LYMPHOCYTES % (AUTO) 10 % (12-44); MEAN CORPUSCULAR HEMOGLOBIN 34 pg (25-34); MEAN CORPUSCULAR HGB CONC 39 g/dL (32-36); MEAN CORPUSCULAR VOLUME 87 fL (80-99); MEAN PLATELET VOLUME 9.6 fL (9.0-12.2); MONOCYTES # (AUTO) 1.2 10^3/uL (0.0-1.0); MONOCYTES % (AUTO) 11 % (0-12); NEUTROPHILS # (AUTO) 8.1 10^3/uL (1.8-7.8); NEUTROPHILS % (AUTO) 78 % (42-75); PLATELET COUNT 173 10^3/uL (130-400); WHITE BLOOD COUNT 10.4 10^3/uL (4.3-11.0)
[2022-12-16 04:42] LABS: ALBUMIN 3.4 GM/DL (3.2-4.5); BILIRUBIN,TOTAL 0.7 MG/DL (0.1-1.0); CALCIUM 7.8 MG/DL (8.5-10.1); CREATININE SERUM 0.46 MG/DL (0.60-1.30); MAGNESIUM 1.5 MG/DL (1.6-2.4); PHOSPHORUS 2.3 MG/DL (2.3-4.7); POTASSIUM 2.7 MMOL/L (3.6-5.0); TOTAL PROTEIN 5.1 GM/DL (6.4-8.2)
[2022-12-16] MEDS ORDERED: NS IV 500 ML 500 ML IV PRN (05:00)
[2022-12-16] MEDS: MAGNESIUM 1 GM/100 ML IVPB 100 ML IV SCH ×6 (05:13→08:43)
[2022-12-16] MEDS: POTASSIUM CHLORIDE 20 MEQ TABLET PO SCH (05:51)
[2022-12-16 06:17] LABS: HEMOGLOBIN 11.7 g/dL (13.3-17.7)
[2022-12-16 06:21] LABS: POTASSIUM 3.4 MMOL/L (3.6-5.0)
[2022-12-16 06:26] LABS: CREATININE SERUM 0.45 MG/DL (0.60-1.30)
--- NOTE | 2022-12-16 07:46 | History & Physicial ---
History of Present Illness History of Present Illness Reason for visit/HPI 77-year-old male was brought to emergency department during the evening of August 15, 2022 after sustaining a fall. Apparently patient had just stepped out of his truck and he reports to me losing his feet and falling. He was able to press life alert and have EMS arrived. He was brought to the emergency department. He sustained a laceration on the back of his head. He denies that there was any loss of consciousness. He is currently on anticoagulation for atrial fibrillation which has rate under control. He also has multiple skin tears and bruising of extremities. He was noted to have alcohol level of 46 in the emergency department Date of Admission Dec 16, 2022 at 00:06 Date Seen by a Provider: Dec 16, 2022 Time Seen by a Provider: 07:00 I consulted on this patient on 12/16/22 07:40 Attending Physician Bernard Maloney MD Admitting Physician Admitting Physician: Bernard Maloney MD Attending Physician: Bernard Maloney MD Consult Allergies and Home Medications Allergies Coded Allergies: metoprolol (Verified Allergy, Unknown, LOW HR , 11/16/22) ALL BETA BLOCKERS Patient Home Medication List Home Medication List Reviewed: Yes Albuterol Sulfate (Ventolin Hfa) 90 Mcg Hfa.aer.ad, 2 PUFF INH Q4H PRN for SHORTNESS OF BREATH, (Reported) Entered as Reported by: TILA VINSON on 09/20/22 1020 Amlodipine Besylate (Amlodipine Besylate) 10 Mg Tablet, 10 MG PO DAILY, (Reported) Entered as Reported by: TILA VINSON on 09/20/22 1020 Baclofen (Baclofen) 10 Mg Tablet, 10 MG PO BID, (Reported) Entered as Reported by: TILA VINSON on 11/16/22 1540 Last Action: Last Taken Edited Fluticasone/Salmeterol (Advair 250-50 Diskus) 250 Mcg-50 Mcg/Dose Blst.w.dev, 1 PUFF INH BID, (Reported) Entered as Reported by: TILA VINSON on 09/20/22 1020 Hydrocodone/Acetaminophen (Hydrocodone-Acetamin 7.5-325) 7.5 Mg-325 Mg Tablet, 1 EA PO BID PRN for PAIN-MODERATE (5-7), (Reported) Entered as Reported by: TILA VINSON on 11/16/22 1540 Last Action: Last Taken Edited Hydrocodone/Acetaminophen (Hydrocodone-Acetamin 7.5-325) 7.5 Mg-325 Mg Tablet, 1 EACH PO Q4H PRN for PAIN-BREAKTHROUGH Prescribed by: Darlene Brandt on 12/09/22 1459 Last Action: Last Taken Edited Losartan Potassium (Losartan Potassium) 100 Mg Tablet, 100 MG PO DAILY, (Reported) Entered as Reported by: ADA COOPER on 08/07/20 1109 [place]-3/Dha/Epa/Fish Oil (Fish Oil 1,200 mg Softgel) 1,200 Mg (144 Mg-216 Mg) Capsule, 1,200 MG PO DAILY, (Reported) Entered as Reported by: TILA VINSON on 09/20/22 1020 Phenytoin Sodium Extended (Dilantin) 100 Mg Capsule, 300 MG PO MO,FR @AM, (Reported) Entered as Reported by: ADA COOPER on 08/07/20 1109 Phenytoin Sodium Extended (Phenytoin Sodium Extended) 100 Mg Capsule, 200 MG PO HS, (Reported) Entered as Reported by: TILA VINSON on 09/20/22 1020 Phenytoin Sodium Extended (Phenytoin Sodium Extended) 100 Mg Capsule, 200 MG PO BRIGGS,,,TH,SA @AM, (Reported) Entered as Reported by: TILA VINSON on 09/20/22 1020 Rivaroxaban (Xarelto Tablet) 20 Mg Tablet, 20 MG PO DAILY, (Reported) Entered as Reported by: TILA VINSON on 11/16/22 1540 Past Yvhlfqe-Mdnmtw-Iqbiqc Hx Patient Social History Marrital Status: Smoking Status: Current Everyday Smoker 2nd Hand Smoke Exposure: No Recent Hopitalizations: No Alcohol Use?: Yes Substance type: Nicotine Pt feels they are or have been: No Tobacco type used: Cigarettes Seasonal Allergies Seasonal Allergies: No Surgeries Yes Vascular Surgery Respiratory Yes Cardiovascular Yes (LEFT AORTOFEMORAL BYPASS 2001, STENTING RIGHT LEG 07/15 DR. GRACE) High Cholesterol, Hypertension, Peripheral Vascular Neurological Yes (REPORTS NO SEIZURES FOR 30 YEARS) Seizure Disorder Genitourinary No Gastrointestinal No Musculoskeletal No Endocrine History of Endocrine Disorders: No (CHRONIC HYPONATREMIA) HEENT History of HEENT Disorders: No (WEARS READING GLASSES) Cancer Yes (PROSTATE CANCER (INITIAL DX 2011)) Prostate Psychosocial History of Psychiatric Problem: No Integumentary History of Skin or Integumenta: No Blood Transfusions History of Blood Disorders: No Family Medical History Other Significan Family Hx: SOCIAL HISTORY: -SMOKES 1 PPD -ETOH--DRINKS AT LEAST A 6 PACK/DAY -DRUGS--DENIES Review of Systems Constitutional: see HPI Physical Exam Vital Signs Vital Signs - First Documented Capillary Refill : Less Than 3 Seconds Height, Weight, BMI Height: 6'0.00" Weight: 200lbs. oz. 90.453582ja; 20.44 BMI Method: General Appearance: No Apparent Distress (In the morning at 07 100 on December 16), Anxious Eyes: Bilateral Eye Normal Inspection HEENT: Moist Mucous Membranes, Other (He is currently with a complete wrap around his scalp) Neck: Supple Respiratory: Lungs Clear Cardiovascular: Bradycardia (With a rate of 54), Irregularly Irregular Gastrointestinal: Soft Rectal: Deferred Extremity: Normal Capillary Refill, Other (Multiple areas of bruising of upper extremity) Neurologic/Psychiatric: Alert, Oriented x3 Skin: Ecchymosis Comments [facility], [place] NAME: NYA MALONE [facility] REC#: [id number] PT STATUS: REG ER : 1945 PHYSICIAN: APRYL HERNÁNDEZ DO ADMIT DATE: 12/15/22/ER Signed Date of Exam:12/15/22 CT HEAD/FACE/CERVICAL WO PROCEDURE: CT head, face, and cervical spine without contrast. TECHNIQUE: Multiple contiguous axial images were obtained through the head, neck, and facial bones without the use of intravenous contrast. Sagittal and coronal reformations through the cervical spine and facial bones were also performed. Auto Exposure Controls were utilized during the CT exam to meet ALARA standards for radiation dose reduction. INDICATION: Trauma. Head injury. Fall. COMPARISON: None. FINDINGS: CT HEAD: Advanced generalized parenchymal volume loss. No intracranial hemorrhage, mass effect, hydrocephalus or extra-axial fluid collection. No CT evidence of territorial infarction. Scalp contusion overlying the left parietal convexity. Calvarium is intact. Right mastoid effusion. Skull base is intact. CT MAXILLOFACIAL: No maxillofacial fracture. The mandible is intact. Normal alignment of the temporomandibular joints. Paranasal sinuses are clear. The orbits are unremarkable. CT CERVICAL SPINE: Normal alignment. Vertebral body heights preserved. No fracture. Moderate to advanced spondylotic changes, greatest at C5-C7. No CT evidence of high-grade spinal canal stenosis. Advanced atherosclerotic calcifications in the carotid bifurcations. Emphysematous changes in the lung apices. IMPRESSION: 1. Scalp contusion overlying the left parietal convexity. No fracture. 2. No acute intracranial or cervical spine CT finding. 3. No maxillofacial fracture. 4. Nonspecific right mastoid effusion. Dictated by: Dictated on workstation # [id number] Dict: 12/15/222205 Trans: 12/15/222239 [facility] [id number] Interpreted by: GERHARD SMALL MD Electronically signed by: GERHARD SMALL MD 12/15/222239 Assessment/Plan Assessment and Plan 1. Head trauma without loss of consciousness -he is in ICU with frequent neuro checks 2. Hyponatremia severe. This is chronic in nature -Normal saline replacement started in the emergency room on admission -He is monitored closely with multiple chemistries 3. Scalp lacerationcurrently with devika -Surgery has been consulted due to the trauma 4. Atrial fibrillation history of with rate control and on anticoagulation -He will stay on anticoagulation due to the atrial fibrillation and bradycardia 5. Electrolyte disturbance with low potassium and low magnesium on admission -Frequent monitoring of electrolytes and replacement 6. Alcoholism -family services specialist consultation Admission Diagnosis 1. Head trauma without loss of consciousness 2. Hyponatremia severe. This is chronic in nature 3. Scalp lacerationcurrently with devika 4. Atrial fibrillation history of with rate control and on anticoagulation 5. Electrolyte disturbance with low potassium and low magnesium on admission 6. Alcoholism Admission Status: Inpatient Order (span 2 midnights) Reason for Inpatient Admission: Neuro monitoring after head trauma. He is also having replacement of electrolytes and monitoring of electrolytes. BERNARD MALONEY MD Dec 16, 2022 07:46
--- NOTE | 2022-12-16 08:09 | Diagnostic Imaging Report ---
HAND, 3 VIEWS, BILATERAL INDICATION: Bilateral hand pain COMPARISON: None available. TECHNIQUE: 3 views of each hand FINDINGS: No fracture or malalignment either side. No radiopaque foreign body. Scattered degenerative changes within the MCP and IP joints. IMPRESSION: No acute osseous abnormality in either hand. Dictated by: Dictated on workstation # [id number]
--- NOTE | 2022-12-16 08:10 | Diagnostic Imaging Report ---
HUMERUS,BILATERAL 2 VIEWS OR > INDICATION: Bilateral upper arm pain COMPARISON: None available. TECHNIQUE: 2 views of each humerus for total of 4 views FINDINGS: No fracture within the humerus on either side. No unintended radiopaque foreign body. No soft tissue gas. IMPRESSION: No fracture within either humerus. Dictated by: Dictated on workstation # [id number]
--- NOTE | 2022-12-16 08:11 | Diagnostic Imaging Report ---
KNEE, 2 VIEWS, BILATERAL INDICATION: Bilateral knee pain COMPARISON: None available. TECHNIQUE: 2 views of each knee for total 4 views FINDINGS: No knee joint effusion either side. There is no acute fracture. Atherosclerotic calcifications are noted. Additionally, there is a stent graft within the right superficial femoral artery. IMPRESSION: No acute fracture about either knee. Dictated by: Dictated on workstation # [id number]
--- NOTE | 2022-12-16 08:13 | Diagnostic Imaging Report ---
EXAMINATION: Pelvis 1 or 2 views HISTORY: pelvic pain COMPARISON: None available. FINDINGS: There is a stent in the right thigh. There is mild right hip osteoarthritis. No fracture seen. Alignment is normal. IMPRESSION: 1. No fracture in the pelvis. Dictated by: Dictated on workstation # [id number]
--- NOTE | 2022-12-16 08:15 | Diagnostic Imaging Report ---
EXAMINATION: Bilateral forearm 2 views. HISTORY: Arm injury. COMPARISON: None available. FINDINGS: There are vascular calcifications in both forearms. No fracture is seen. Alignment is normal. There is intravenous catheter in the right antecubital fossa. IMPRESSION: 1. No fracture in either forearm. Dictated by: Dictated on workstation # [id number]
--- NOTE | 2022-12-16 08:17 | Diagnostic Imaging Report ---
CHEST 1 VIEW, AP/PA ONLY Indication: Trauma Comparison: CT chest from earlier same day Findings: No pleural effusion or pneumothorax. Old healed fractures in the posterior aspect of the left 3rd through 5th ribs. There are are likely acute fractures in the lateral aspect of the 4th, 5th and 6th ribs. Heart is enlarged. No displaced fracture of the clavicles. Impression: 1. There are likely acute fractures of the lateral aspect the left 4th through 6th ribs. Lateral aspect of the 9th rib is also likely fractured. 2. No pneumothorax. Dictated by: Dictated on workstation # [id number]
[2022-12-16] MEDS ORDERED: THIAMINE INJECTION 100 MG, FOLIC ACID INJECTION 1 MG, MAGNESIUM SULFATE 2 GM, MULTIVITA... IV SCH ×5 (09:00)
[2022-12-16 10:36] LABS: POTASSIUM 3.7 MMOL/L (3.6-5.0)
[2022-12-16 10:41] LABS: CREATININE SERUM 0.49 MG/DL (0.60-1.30)
--- NOTE | 2022-12-16 11:18 | Tele-ICU Progress Note ---
Subjective Date Seen by a Provider: Dec 16, 2022 Time Seen by a Provider: 11:17 Subjective/Events-last exam (Tele-ICU Physician , consultation as per request of PCP Service provided via interactive audio and video telecommunications E-CARE system to a patient admitted to ICU bed in [facility]. SEEN BY DR MEYER LAST NIGHT - 12 min Available chart/ vitals / labs / Images reviewed H&P is from ER notes Patient's information available about PMH, Shx, Fhx allergy reviewed inEMR. ROS as per chart and RN report Now in ICU, hemodynamically stable Video assessment done using teleICU camera, rest of exam as per RN Discussed with RN. Hospital course: 12/16- 77M with EtOH dependence, multiple recent falls including traumatic hemothorax presents after falling while getting out of his truck. He has a large posterior scalp hematoma and scalp lac which was staple and bandaged in ED. Patient denies LOC, neck or back pain. The fall was not witnessed. CT head negative for bleed. However had incidental finding of Na 105 prompting admit to ICU. A/P hyponatremia on admission 105 ( CHRONIC - NA in august-september 2022 in 117-124 range ) - NS ongoing at 75 cc/hr, rising NA - check Na q3 hours and adjust. Goal correction 6-8 meq/dL over the first 24 hours, or 111-113 12/16 at 20:45 S/p fall 12/15 with Head trauma without loss of consciousness ( on AC - xarelto - CTH - no bleed, no abnorm - cont neurochecks -Scalp lacerationcurrently with devika -CTspine - no acute abn PAF- ( dx A fib 2022 - rate controlled , leelee - on xarelto [employer] - on hold now , to resume soon EtOH -CIWA, thiamine, folic acid HTN: - PRN hydralazine ordered. COPD - cont home and PRN nebs an - home O2 2 L h/o Sxz - denies sz for years - dilantin to be resumed ? as per PCP compression fracture of T11 prostate CA 2020 PAD - stenting LEFT 2015 , bipass - Recent LEFT PTX -with rib FR 3-->6th, chest tube09/18- also Tx for PNA h/o L eft transverse process fractures at T4 and T5 08/2022 Left adrenal gland mass - stable 2.8 cm since a 2016 Lines : PICC 12/16 , (Central Line Necessity Reviewed) Quevedo: external cath OG: Nutrition: Analgesia: Anxiety/ delirium VTE Prophylaxis: xarelto to resume latter Stress Ulcer Prophylaxis: na Plans in collaboration with bedside consultants and IM MDs. Discussed with RN to reach out if any questions or concerns A total of 31 minutes of critical care time was devoted to this patient today, required to treat and/or prevent further deterioration of critical care condition ( as above ) - including DR MEYER's TIME I am remotely monitoring this patient from another state. I am unable to do the bedside exam, and history/physical and pertinent information is taken from other notes in the computer and bedside staff. . Sepsis Event Evaluation Height, Weight, BMI Height: 6'0.00" Weight: 200lbs. oz. 90.963723my; 20.44 BMI Method: Exam Exam Patient acknowledged, consented, and participated in this virtual visit which was conducted using real time audio/video Vital Signs Date Time Temp Pulse Resp B/P (MAP) Pulse Ox O2 Delivery O2 Flow Rate FiO2 12/16/22 10:00 47 17 174/76 (108) 100 Room Air 12/16/22 09:00 45 18 163/90 (114) 97 Room Air 12/16/22 08:21 36.1 12/16/22 08:00 49 15 155/84 (107) 93 Room Air 12/16/22 08:00 95 Nasal Cannula 2.00 12/16/22 07:14 52 12/16/22 07:00 54 15 155/72 (99) 95 Room Air 12/16/22 06:00 56 14 144/68 (93) 96 Room Air 12/16/22 05:00 49 11 172/86 (114) 97 Room Air 12/16/22 04:15 46 12 148/70 (96) 94 Room Air 12/16/22 04:00 94 Nasal Cannula 2.00 12/16/22 03:00 45 11 140/74 (96) 96 Room Air 12/16/22 02:00 50 11 128/66 (86) 97 Room Air 12/16/22 01:45 57 24 185/80 (113) 96 Room Air 12/16/22 01:30 49 14 143/67 (98) 90 Room Air 12/16/22 01:15 45 15 158/74 (93) 95 Room Air 12/16/22 01:00 35.7 44 10 95 Room Air 12/16/22 01:00 44 12/16/22 00:43 45 23 139/66 (89) 91 Room Air 12/16/22 00:25 Nasal Cannula 2.00 12/16/22 00:14 51 19 171/82 (114) 95 Room Air 12/15/22 20:40 Nasal Cannula 2.00 12/15/22 20:32 36.4 50 14 174/79 (110) 98 Nasal Cannula 12/15/22 20:32 36.4 50 14 174/79 96 Nasal Cannula 2.00 12/15/22 20:32 36.7 50 14 151/82 (105) 96 Nasal Cannula 2.00 I & O 12/16/22 07:00 Intake Total 1620 ml Output Total 1500 ml Balance 120 ml Height & Weight Height: 6'0.00" Weight: 200lbs. oz. 90.632823mk; 20.44 BMI Method: General Appearance: No Apparent Distress (In the morning at 07 100 on December 16), Anxious HEENT: Moist Mucous Membranes, Other (He is currently with a complete wrap around his scalp) Neck: Supple Respiratory: Lungs Clear Cardiovascular: Bradycardia (With a rate of 54), Irregularly Irregular Capillary Refill: Less Than 3 Seconds Gastrointestinal: normal bowel sounds, non tender, soft Extremity: Normal Capillary Refill, Other (Multiple areas of bruising of upper extremity) Neurologic/Psychiatric: Alert, Oriented x3 Skin: Ecchymosis Results Lab Laboratory Tests 12/15/22 20:45 12/16/22 01:24 12/16/22 03:49 12/16/22 06:01 12/16/22 10:18 Assessment/Plan Assessment/Plan 1 DOMO TERRY MD Dec 16, 2022 11:17
--- NOTE | 2022-12-16 11:30 | Diagnostic Imaging Report ---
CHEST 1 VIEW, AP/PA ONLY Indication: PICC placement Comparison: 12/15/2022 Findings: Left PICC has tip terminating in the mid SVC. No pleural effusion or pneumothorax. No pulmonary consolidations. Left-sided rib fractures are similar. Impression: 1. Well-positioned left PICC. 2. No change in left-sided rib fractures. No pneumothorax. Dictated by: Dictated on workstation # [id number]
[2022-12-16] MEDS ORDERED: HYDR12.56 PO (11:57)
[2022-12-16] MEDS ORDERED: TRM50T PO (11:57)
[2022-12-16] MEDS ORDERED: POTA10CA84 PO (12:19)
[2022-12-16] MEDS ORDERED: IBUP-2473 PO (12:19)
[2022-12-16] MEDS ORDERED: PHENYTOIN EXT RELEASE 100 MG CAPSULE PO SCH ×2 (12:30→21:00)
[2022-12-16] MEDS ORDERED: LIDOCAINE UROJET 2% GEL 10 ML PKG ONE (14:03)
--- NOTE | 2022-12-16 16:19 | CONSULTATION REPORT ---
DATE OF SERVICE: 12/16/2022 ATTENDING PRIMARY CARE PHYSICIAN: Rocael Fernandez M.D. HISTORY OF PRESENT ILLNESS: Patient seen at 12:00. The patient is a 77-year-old male known to us. We had seen him before in the past for a spontaneous pneumothorax. At that time, he was in [place] and stated that he had fallen. Later, he developed worsening shortness of breath and was found to have a pneumothorax. This did not improve with conservative management and underwent placement of a chest tube. The patient also does have a significant history of COPD and smoking history. This time the patient states that he just returned from the store to get food and while he was getting out of his truck, lost his balance and fell backwards on to the floor of his garage. There was a laceration to the right posterior aspect of the head as well as the development of a hematoma. He does not report any loss of consciousness or any neck pain. He was able to ambulate after the fall, which was not witnessed. The patient has had a history of multiple falls in the recent year and was recently seen on 12/09/2022 and was found to have 7 left sided rib fractures; however, refused admission and left against medical advice. The patient did have x-rays as well as extensive CT scanning, which did not show any intracerebral bleed or any significant displacement or any fractures, and the only finding was the right posterior subcutaneous scalp hematoma. Glascow Scale is 15. PAST MEDICAL HISTORY: Hypertension, COPD, hypercholesterolemia, seizure disorder, peripheral vascular disease, history of prostate cancer. PAST SURGICAL HISTORY: Left aortofemoral bypass, left lower extremity angioplasty and stent placement. Left chest tube placement. ALLERGIES: No known drug allergies. MEDICATIONS: Amlodipine 5 mg daily, losartan 100 mg daily, aspirin 81 mg daily, phenytoin 100 mg b.i.d., baclofen 10 mg b.i.d., Xarelto 20 mg daily. SOCIAL HISTORY: Positive smoke 50 pack years. Recreational THC use, does drink approximately 6 drinks daily. FAMILY HISTORY: Noncontributory. VITAL SIGNS: Temperature 35.9, blood pressure 153/84, pulse 47, respirations 18, pulse ox 96% on room air. REVIEW OF SYSTEMS: Well-nourished male, currently in no acute distress. He is not experiencing any shortness of breath or difficulty breathing. He does have a chronic cough with known hemoptysis. No nausea, vomiting, no diarrhea or constipation. He has had multiple falls in the past year; however, also does drink alcohol on a daily basis. No fever, chills, no recent inadvertent weight loss. All other review of systems negative. PHYSICAL EXAMINATION: CHEST: Scattered rales and wheezes bilaterally. HEART: Regular. No murmurs. EXTREMITIES: No lower extremity edema. Negative Homans sign. HEENT: No scleral icterus. No cervical lymphadenopathy. ABDOMEN: Soft, nontender, nondistended. SKIN: There is a hematoma along the posterior right of midline scalp with an opening with devika. Skin devika were placed and mild oozing of old blood. LABORATORY DATA: WBC 10.4, hemoglobin 11.7, hematocrit 30, platelets 173, BUN 4, creatinine 0.49, sodium 109. ASSESSMENT AND PLAN: A 77-year-old male with a same-level fall with right posterior scalp contusion, hematoma and laceration. At this time, he does not appear to have any structural injuries with no fractures or any subluxations. The patient also has normal mentation, does not appear to have any neurologic deficits. We will advance his diet as tolerated and continue with neurologic checks per shift and increased ambulation as well as possible physical and occupational therapy consultation as well as possible placement strategies due to his high risk of further falls and potential injuries.The patient is also at high risk for atelectasis and pneumonia due to splinting and significant COPD history and we will recommend aggressive IS, ambulation, and breathing treatments. Job ID: [id number] DocumentID: [id number] Dictated Date: 12/16/2022 15:33:59 Detail Assembler Date: 12/16/2022 16:15:00 Dictated By: OSBALDO ALEX MD [facility] SYSTEM[facility]iana
[2022-12-16 16:27] LABS: POTASSIUM 3.5 MMOL/L (3.6-5.0)
[2022-12-16 16:28] LABS: CALCIUM 7.7 MG/DL (8.5-10.1)
[2022-12-16 16:32] LABS: CREATININE SERUM 0.46 MG/DL (0.60-1.30)
[2022-12-16] MEDS ORDERED: HYPOCHLOROUS ACID/NaCl WOUND SOLN 250 ML IR PRN (18:15)
[2022-12-16] MEDS ORDERED: CALCIUM CARBONATE 500 MG CHEW TABLET ONE (20:40)
[2022-12-16] MEDS: CALCIUM CARBONATE 500 MG CHEW TABLET PO PRN (20:43)
[2022-12-16] MEDS: SODIUM CHLORIDE 1 GM TABLET PO SCH (20:43)
[2022-12-16] MEDS: PHENYTOIN EXT RELEASE 100 MG CAPSULE PO SCH (20:43)
[2022-12-17 01:19] LABS: HEMOGLOBIN 10.4 g/dL (13.3-17.7)
[2022-12-17 03:12] LABS: ALBUMIN 3.3 GM/DL (3.2-4.5); POTASSIUM 3.2 MMOL/L (3.6-5.0)
[2022-12-17 03:13] LABS: CALCIUM 7.8 MG/DL (8.5-10.1)
[2022-12-17 03:14] LABS: TOTAL PROTEIN 5.7 GM/DL (6.4-8.2)
[2022-12-17 03:15] LABS: BASOPHILS % (AUTO) 0 % (0-10); EOSINOPHILS % (AUTO) 0 % (0-10); HEMATOCRIT 28 % (40-54); HEMOGLOBIN 10.7 g/dL (13.3-17.7); LYMPHOCYTES # (AUTO) 1.1 10^3/uL (1.0-4.0); LYMPHOCYTES % (AUTO) 13 % (12-44); MEAN CORPUSCULAR HEMOGLOBIN 33 pg (25-34); MEAN CORPUSCULAR HGB CONC 38 g/dL (32-36); MEAN CORPUSCULAR VOLUME 87 fL (80-99); MEAN PLATELET VOLUME 9.6 fL (9.0-12.2); MONOCYTES # (AUTO) 0.9 10^3/uL (0.0-1.0); MONOCYTES % (AUTO) 11 % (0-12); NEUTROPHILS % (AUTO) 74 % (42-75); PLATELET COUNT 173 10^3/uL (130-400)
[2022-12-17 03:16] LABS: BILIRUBIN,TOTAL 0.8 MG/DL (0.1-1.0)
[2022-12-17 03:17] LABS: PHOSPHORUS 2.1 MG/DL (2.3-4.7)
[2022-12-17 03:18] LABS: CREATININE SERUM 0.47 MG/DL (0.60-1.30)
[2022-12-17 03:20] LABS: MAGNESIUM 1.9 MG/DL (1.6-2.4)
[2022-12-17 04:05] LABS: SMEAR SCAN COMMENT YES
[2022-12-17] MEDS: POTASSIUM CHLORIDE 20 MEQ TABLET PO SCH (04:19)
[2022-12-17] MEDS: POTASSIUM CL 10MEQ/50ML IVPB 50 ML IV SCH ×4 (04:19→06:20)
[2022-12-17] MEDS: MAGNESIUM 1 GM/100 ML IVPB 100 ML IV SCH ×3 (04:19→04:44)
[2022-12-17] MEDS ORDERED: CALCIUM GLUCONATE 1GM IVPB 100 ML IV ONE (04:30)
[2022-12-17] MEDS: THIAMINE 100 MG (VITAMIN B-1) TAB PO SCH (06:22)
--- NOTE | 2022-12-17 07:51 | Progress Note ---
Subjective Date Seen by a Provider: Dec 17, 2022 Time Seen by a Provider: 07:10 Subjective/Events-last exam Patient communicating with me well this morning at least his baseline. He does not appear to be confused. He is not walked since arrival here. Quevedo catheter is in place. Objective Exam Vital Signs Date Time Temp Pulse Resp B/P (MAP) Pulse Ox O2 Delivery O2 Flow Rate FiO2 12/17/22 07:00 47 12/17/22 06:00 44 13 117/64 (81) 100 Nasal Cannula 2.00 12/17/22 05:00 46 18 122/66 (84) 100 Nasal Cannula 2.00 12/17/22 04:01 36.0 12/17/22 04:00 46 15 109/65 (80) 100 Nasal Cannula 2.00 12/17/22 04:00 94 Nasal Cannula 2.00 12/17/22 03:00 49 15 146/74 (98) 100 Nasal Cannula 2.00 12/17/22 02:00 54 23 147/78 (101) 98 Nasal Cannula 2.00 12/17/22 01:00 55 16 140/77 (98) 99 Nasal Cannula 2.00 12/17/22 01:00 65 12/17/22 00:00 94 Nasal Cannula 2.00 12/17/22 00:00 63 15 129/57 (81) 97 Nasal Cannula 2.00 12/16/22 23:41 36.2 12/16/22 23:00 59 22 135/70 (91) 99 Nasal Cannula 2.00 12/16/22 22:00 52 24 144/69 (94) 96 Nasal Cannula 2.00 12/16/22 21:00 61 24 145/70 (95) 97 Nasal Cannula 2.00 12/16/22 20:00 45 14 164/75 (104) 95 Nasal Cannula 2.00 12/16/22 20:00 47 24 164/75 (104) 96 Nasal Cannula 2.00 12/16/22 20:00 95 Nasal Cannula 2.00 12/16/22 19:49 36.1 Nasal Cannula 2.00 12/16/22 19:12 Nasal Cannula 2.00 12/16/22 19:00 57 12/16/22 19:00 48 17 192/94 (126) 98 Room Air 12/16/22 18:00 47 19 163/71 (101) 97 Room Air 8/17/23 17:00 46 17 171/78 (109) 100 Room Air 12/16/22 16:00 95 Nasal Cannula 2.00 12/16/22 16:00 49 15 162/86 (111) 98 Room Air 12/16/22 15:46 36.2 12/16/22 15:00 46 17 148/75 (99) 99 Room Air 12/16/22 14:00 47 18 153/84 (107) 96 Room Air 12/16/22 13:00 49 18 141/71 (94) 97 Room Air 12/16/22 12:15 50 12/16/22 12:00 47 15 173/77 (109) 97 Room Air 12/16/22 12:00 95 Nasal Cannula 2.00 12/16/22 11:57 35.9 12/16/22 11:15 45 15 156/78 (104) 98 Room Air 12/16/22 10:00 47 17 174/76 (108) 100 Room Air 12/16/22 09:00 45 18 163/90 (114) 97 Room Air 12/16/22 08:21 36.1 12/16/22 08:00 49 15 155/84 (107) 93 Room Air 12/16/22 08:00 95 Nasal Cannula 2.00 I & O 12/17/22 07:00 Intake Total 4700 ml Output Total 2575 ml Balance 2125 ml Capillary Refill : Less Than 3 Seconds General Appearance: No Apparent Distress (And he is communicating normally), Chronically ill HEENT: Other (Wrapping of head today is off. His swelling appears to be going down the posterior scalp) Neck: Supple Respiratory: Lungs Clear Cardiovascular: Bradycardia Gastrointestinal: non tender, soft Neurologic/Psychiatric: Alert, Oriented x3 Results Lab Laboratory Tests 12/16/22 10:18: Sodium Level 109*L, Potassium Level 3.7, Chloride Level 78L, Carbon Dioxide Level 22, Anion Gap 9, Blood Urea Nitrogen 4L, Creatinine 0.49L, Estimat Glomerular Filtration Rate 107, BUN/Creatinine Ratio 8, Glucose Level 108H, Calcium Level 8.0L 12/16/22 15:45: Sodium Level 109*L, Potassium Level 3.5L, Chloride Level 79L, Carbon Dioxide Level 21, Anion Gap 9, Blood Urea Nitrogen 3L, Creatinine 0.46L, Estimat Glomerular Filtration Rate 109, BUN/Creatinine Ratio 7, Glucose Level 99, Calcium Level 7.7L 12/17/22 01:08: Hemoglobin 10.4L, Hematocrit 27L 12/17/22 02:46: Sodium Level 112*L, Potassium Level 3.2L, Chloride Level 82L, Carbon Dioxide Level 20L, Anion Gap 10, Blood Urea Nitrogen 3L, Creatinine 0.47L, Estimat Glomerular Filtration Rate 108, BUN/Creatinine Ratio 6, Glucose Level 90, Calcium Level 7.8L, Hemoglobin 10.7L, Hematocrit 28L, White Blood Count 8.0, Red Blood Count 3.24L, Mean Corpuscular Volume 87, Mean Corpuscular Hemoglobin 33, Mean Corpuscular Hemoglobin Concent 38H, Red Cell Distribution Width 11.5, Platelet Count 173, Mean Platelet Volume 9.6, Immature Granulocyte % (Auto) 1, Neutrophils (%) (Auto) 74, Lymphocytes (%) (Auto) 13, Monocytes (%) (Auto) 11, Eosinophils (%) (Auto) 0, Basophils (%) (Auto) 0, Neutrophils # (Auto) 6.0, Lym phocytes # (Auto) 1.1, Monocytes # (Auto) 0.9, Eosinophils # (Auto) 0.0, Basophils # (Auto) 0.0, Immature Granulocyte # (Auto) 0.0, Corrected Calcium 8.4L, Phosphorus Level 2.1L, Magnesium Level 1.9, Total Bilirubin 0.8, Aspartate Amino Transf (AST/SGOT) 35H, Alanine Aminotransferase (ALT/SGPT) 40, Alkaline Phosphatase 101, Total Protein 5.7L, Albumin 3.3, Smear Scan YES Microbiology 12/16/22 MRSA Screen - Final, Complete MRSA not isolated Assessment/Plan Assessment/Plan Assess & Plan/Chief Complaint 1. Head trauma without loss of consciousness -he is in ICU with frequent neuro checks 2. Hyponatremia severe. This is chronic in nature -Normal saline replacement started in the emergency room on admission -He is monitored closely with multiple chemistries 3. Scalp lacerationcurrently with devika -Surgery has been consulted due to the trauma 4. Atrial fibrillation history of with rate control and on anticoagulation -He will stay on anticoagulation due to the atrial fibrillation and bradycardia 5. Electrolyte disturbance with low potassium and low magnesium on admission -Frequent monitoring of electrolytes and replacement 6. Alcoholism -human services supervisor consultation 7. Fall risk -Physical therapy for strengthening 8. Bradycardia -We will consult with cardiology Clinical Quality Measures Admission Status Admission Dx 1. Head trauma without loss of consciousness 2. Hyponatremia severe. This is chronic in nature 3. Scalp lacerationcurrently with devika 4. Atrial fibrillation history of with rate control and on anticoagulation 5. Electrolyte disturbance with low potassium and low magnesium on admission 6. Alcoholism MARINE MALONEY MD Dec 17, 2022 07:51
[2022-12-17] MEDS: SODIUM CHLORIDE 1 GM TABLET PO SCH ×2 (08:29→21:21)
[2022-12-17] MEDS: FOLIC ACID 1 MG TAB PO SCH (08:29)
[2022-12-17] MEDS: PHENYTOIN EXT RELEASE 100 MG CAPSULE PO SCH ×2 (08:31→21:21)
[2022-12-17] MEDS ORDERED: PHENYTOIN EXT RELEASE 100 MG CAPSULE PO SCH (09:00)
[2022-12-17] MEDS ORDERED: HYPOCHLOROUS ACID/NaCl WOUND SOLN 250 ML IR SCH (09:30)
--- NOTE | 2022-12-17 09:33 | Wound Care Assessment ---
Wound Care Assessment Date Seen by Provider: Dec 17, 2022 Time Seen by Provider: 09:27 Chief Complaint Falls with multiple skin tears and laceration HPI This 77 year old gentleman was admitted to the hospital after a fall getting out of his vehicle with laceration to scalp. [place] in place and minimal oozing this a.m. Hematoma improved per nursing staff. He (and daughter) report numerous falls in the last year (some quite concerning). Hemothorax and spontaneous pneumothorax in past. He also has a h/o concerning for past seizures and severe hyponatremia. He is very high risk for future falls and seizure activity. He is also on Xarelto as an outpatient for dysrhythmia (further increasing his fall risk). Patient admits to 2 beers daily, but reported history of >6pack daily. On presentation he was noted to smell of alcohol and blood alcohol level was elevated. I did discuss all these concerns with the patient. He is appropriately on withdrawal protocol in addition to sodium replacement. Balance and stability issues are all but certain with his sodium and ETOH history. His skin is quite fragile and the skin tears to bilateral forearms are in a variety of healing stages. Plan is moist dressings to prevent further tearing and cleansing with Vashe to avoid infection. Strongly advised cessation to adie in prevention of further life threatening falls. Past Medical History: Admits Heart Disease, Admits Peripheral Artery Disease Recurrent falls, chronic hyponatremia, chronic anticoagulation, anemia (iron deficiency), ETOH abuse (intoxication on admit) Smoking Status: Current Everyday Smoker (quit in august) Recreational Drug Use: No Alcohol Use: Regular Use (>6 pack/d) Review of Systems HEENT: Other (hard of hearing) Exam Vital Signs Date Time Temp Pulse Resp B/P (MAP) Pulse Ox O2 Delivery O2 Flow Rate FiO2 12/17/22 09:00 44 22 149/90 (116) 100 Nasal Cannula 2.00 12/17/22 08:00 35.9 Capillary Refill : Less Than 3 Seconds General Appearance: WD/WN, no apparent distress HEENT: other (hard of hearing) Neck: full range of motion Cardiovascular: no edema Respiratory: no respiratory distress, no accessory muscle use Extremities: no pedal edema Neurologic/Psychiatric: alert, normal mood/affect, oriented x 3 Skin: normal color, warm/dry Skin Problem Location: scalp, upper extremities 1. Laceration to scalp: 6.5cm length with devika in place 2. Skin tears (bilateral forearms). No signs of obvious wound infection, variety of healing stages, Ecchymosis to forearms Results Laboratory Tests 12/16/22 10:18: Sodium Level 109*L, Potassium Level 3.7, Chloride Level 78L, Carbon Dioxide Level 22, Anion Gap 9, Blood Urea Nitrogen 4L, Creatinine 0.49L, Estimat Glomerular Filtration Rate 107, BUN/Creatinine Ratio 8, Glucose Level 108H, Calcium Level 8.0L 12/16/22 15:45: Sodium Level 109*L, Potassium Level 3.5L, Chloride Level 79L, Carbon Dioxide Level 21, Anion Gap 9, Blood Urea Nitrogen 3L, Creatinine 0.46L, Estimat Glomerular Filtration Rate 109, BUN/Creatinine Ratio 7, Glucose Level 99, Calcium Level 7.7L 12/17/22 01:08: Hemoglobin 10.4L, Hematocrit 27L 12/17/22 02:46: Sodium Level 112*L, Potassium Level 3.2L, Chloride Level 82L, Carbon Dioxide Level 20L, Anion Gap 10, Blood Urea Nitrogen 3L, Creatinine 0.47L, Estimat Glomerular Filtration Rate 108, BUN/Creatinine Ratio 6, Glucose Level 90, Calcium Level 7.8L, Hemoglobin 10.7L, Hematocrit 28L, White Blood Count 8.0, Red Blood Count 3.24L, Mean Corpuscular Volume 87, Mean Corpuscular Hemoglobin 33, Mean Corpuscular Hemoglobin Concent 38H, Red Cell Distribution Width 11.5, Platelet Count 173, Mean Platelet Volume 9.6, Immature Granulocyte % (Auto) 1, Neutrophils (%) (Auto) 74, Lymphocytes (%) (Auto) 13, Monocytes (%) (Auto) 11, Eosinophils (%) (Auto) 0, Basophils (%) (Auto) 0, Neutrophils # (Auto) 6.0, Lymp hocytes # (Auto) 1.1, Monocytes # (Auto) 0.9, Eosinophils # (Auto) 0.0, Basophils # (Auto) 0.0, Immature Granulocyte # (Auto) 0.0, Corrected Calcium 8.4L, Phosphorus Level 2.1L, Magnesium Level 1.9, Total Bilirubin 0.8, Aspartate Amino Transf (AST/SGOT) 35H, Alanine Aminotransferase (ALT/SGPT) 40, Alkaline Phosphatase 101, Total Protein 5.7L, Albumin 3.3, Smear Scan YES Microbiology 12/16/22 MRSA Screen - Final, Complete MRSA not isolated Microbiology 12/16/22 MRSA Screen - Final, Complete MRSA not isolated Assessment/Plan/Dx Assessment: 1. Skin tears b/l forearm 2. Laceration posterior scalp with associated hematoma (improving) 3. Chronic anticoagulation 4. Severe hyponatremia (chronic) 5. Recurrent falls 6. H/o seizure d/o 7. ETOH abuse and intoxication 8. Tobaccoism (recent past) with h/o spontaneous pneumothorax AND hemothorax 9. Microcytic anemia Plan: 1. Cleanse daily with Vashe, xeroform to wound bed and BFD daily 2. Same as above. Hematoma already improved. 3. Per primary. Increased risk for bleeding on falls 4. Per primary. Likely playing role in falls 5. Life alert. High risk for severe injury 6. No recent known seizure activity. High risk due to ETOH abuse and hyponatremia 7. Counseled at length on cessation. Agree with SS consult. Significant increased risk of seizure activity and falls (jesse. in light of electrolyte abnormalitis) 8. Recent cessation. Encouragement provided 9. Defer to primary PHOENIX SHAH MD Dec 17, 2022 09:32
--- NOTE | 2022-12-17 11:28 | Tele-ICU Progress Note ---
Subjective Date Seen by a Provider: Dec 17, 2022 Time Seen by a Provider: 11:27 Subjective/Events-last exam (Tele-ICU Physician , Progress Note ) Service provided via interactive audio and video telecommunications E-CARE system to a patient admitted to ICU bed in [facility]. Patient is seen today due to persistent need of ICU care Available chart/ vitals / labs / Images reviewed Video assessment done using teleICU camera, rest of exam as per RN Discussed with RN Events overnight : Afebrile hemodynamically stable Respiratory - I/O = Drips: Pressors- no Hospital course: 12/16- 77M with EtOH dependence, multiple recent falls including traumatic hemothorax presents after falling while getting out of his truck. He has a large posterior scalp hematoma and scalp lac which was staple and bandaged in ED. Patient denies LOC, neck or back pain. The fall was not witnessed. CT head n egative for bleed. However had incidental finding of Na 105 prompting admit to ICU. 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 COPD - cont home and PRN nebs an - home O2 2 L h/o Sxz - denies sz for years - dilantin to be resumed ? 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 rettion OG: Nutrition:po Analgesia: Anxiety/ delirium VTE Prophylaxis: xarelto to resume latter Stress Ulcer Prophylaxis: na Plans in collaboration with bedside consultants and IM MDs. Discussed with RN to reach out if any questions or concerns A total of 15 minutes of critical care time was devoted to this patient today, required to treat and/or prevent further deterioration of critical care condition ( as above I am remotely monitoring this patient from another state. I am unable to do the bedside exam, and history/physical and pertinent information is taken from other notes in the computer and bedside staff. . Sepsis Event Evaluation Height, Weight, BMI Height: 6'0.00" Weight: 200lbs. oz. [id number]; 21.04 BMI Method: Exam Exam Patient acknowledged, consented, and participated in this virtual visit which was conducted using real time audio/video Vital Signs Date Time Temp Pulse Resp B/P (MAP) Pulse Ox O2 Delivery O2 Flow Rate FiO2 12/17/22 11:00 42 8 165/73 (91) 99 Nasal Cannula 2.00 12/17/22 10:00 44 129/68 (90) 100 Nasal Cannula 2.00 12/17/22 09:00 44 22 149/90 (116) 100 Nasal Cannula 2.00 12/17/22 08:00 35.9 12/17/22 08:00 49 11 152/66 (110) 96 Nasal Cannula 2.00 12/17/22 08:00 96 Nasal Cannula 2.00 12/17/22 07:00 47 12/17/22 07:00 47 21 133/89 (92) Nasal Cannula 2.00 12/17/22 06:00 44 13 117/64 (81) 100 Nasal Cannula 2.00 12/17/22 05:00 46 18 122/66 (84) 100 Nasal Cannula 2.00 12/17/22 04:01 36.0 12/17/22 04:00 46 15 109/65 (80) 100 Nasal Cannula 2.00 12/17/22 04:00 94 Nasal Cannula 2.00 12/17/22 03:00 49 15 146/74 (98) 100 Nasal Cannula 2.00 12/17/22 02:00 54 23 147/78 (101) 98 Nasal Cannula 2.00 12/17/22 01:00 55 16 140/77 (98) 99 Nasal Cannula 2.00 12/17/22 01:00 65 12/17/22 00:00 94 Nasal Cannula 2.00 12/17/22 00:00 63 15 129/57 (81) 97 Nasal Cannula 2.00 12/16/22 23:41 36.2 12/16/22 23:00 59 22 135/70 (91) 99 Nasal Cannula 2.00 12/16/22 22:00 52 24 144/69 (94) 96 Nasal Cannula 2.00 12/16/22 21:00 61 24 145/70 (95) 97 Nasal Cannula 2.00 12/16/22 20:00 45 14 164/75 (104) 95 Nasal Cannula 2.00 12/16/22 20:00 47 24 164/75 (104) 96 Nasal Cannula 2.00 12/16/22 20:00 95 Nasal Cannula 2.00 12/16/22 19:49 36.1 Nasal Cannula 2.00 12/16/22 19:12 Nasal Cannula 2.00 12/16/22 19:00 57 12/16/22 19:00 48 17 192/94 (126) 98 Room Air 12/16/22 18:00 47 19 163/71 (101) 97 Room Air 12/16/22 17:00 46 17 171/78 (109) 100 Room Air 12/16/22 16:00 95 Nasal Cannula 2.00 12/16/22 16:00 49 15 162/86 (111) 98 Room Air 12/16/22 15:46 36.2 12/16/22 15:00 46 17 148/75 (99) 99 Room Air 12/16/22 14:00 47 18 153/84 (107) 96 Room Air 12/16/22 13:00 49 18 141/71 (94) 97 Room Air 12/16/22 12:15 50 12/16/22 12:00 47 15 173/77 (109) 97 Room Air 12/16/22 12:00 95 Nasal Cannula 2.00 12/16/22 11:57 35.9 I & O 12/17/22 06:59 Intake Total 4700 ml Output Total 2575 ml Balance 2125 ml Height & Weight Height: 6'0.00" Weight: 200lbs. oz. 90.665524kw; 21.04 BMI Method: General Appearance: No Apparent Distress (And he is communicating normally), Chronically ill HEENT: Other (Wrapping of head today is off. His swelling appears to be going down the posterior scalp) Neck: Supple Respiratory: Lungs Clear Cardiovascular: Bradycardia Capillary Refill: Less Than 3 Seconds Gastrointestinal: non tender, soft Extremity: Normal Capillary Refill, Other Neurologic/Psychiatric: Alert, Oriented x3 Skin: Ecchymosis Results Lab Laboratory Tests 12/15/22 20:45 12/16/22 01:24 12/16/22 03:49 12/16/22 06:01 12/16/22 10:18 12/16/22 15:45 12/17/22 01:08 12/17/22 02:46 Assessment/Plan Assessment/Plan 1 DOMO TERRY MD Dec 17, 2022 11:28
--- NOTE | 2022-12-17 12:04 | Progress Note ---
Subjective Date Seen by a Provider: Dec 17, 2022 Time Seen by a Provider: 11:30 Subjective/Events-last exam doing ok. does feel weak. no SOB/cough. pain controlled. normal cognition. Objective Exam Vital Signs Date Time Temp Pulse Resp B/P (MAP) Pulse Ox O2 Delivery O2 Flow Rate FiO2 12/17/22 11:54 36.2 12/17/22 11:00 42 8 165/73 (91) 99 Nasal Cannula 2.00 12/17/22 10:00 44 129/68 (90) 100 Nasal Cannula 2.00 12/17/22 09:00 44 22 149/90 (116) 100 Nasal Cannula 2.00 12/17/22 08:00 35.9 12/17/22 08:00 49 11 152/66 (110) 96 Nasal Cannula 2.00 12/17/22 08:00 96 Nasal Cannula 2.00 12/17/22 07:00 47 12/17/22 07:00 47 21 133/89 (92) Nasal Cannula 2.00 12/17/22 06:00 44 13 117/64 (81) 100 Nasal Cannula 2.00 12/17/22 05:00 46 18 122/66 (84) 100 Nasal Cannula 2.00 12/17/22 04:01 36.0 12/17/22 04:00 46 15 109/65 (80) 100 Nasal Cannula 2.00 12/17/22 04:00 94 Nasal Cannula 2.00 12/17/22 03:00 49 15 146/74 (98) 100 Nasal Cannula 2.00 12/17/22 02:00 54 23 147/78 (101) 98 Nasal Cannula 2.00 12/17/22 01:00 55 16 140/77 (98) 99 Nasal Cannula 2.00 12/17/22 01:00 65 12/17/22 00:00 94 Nasal Cannula 2.00 12/17/22 00:00 63 15 129/57 (81) 97 Nasal Cannula 2.00 12/16/22 23:41 36.2 12/16/22 23:00 59 22 135/70 (91) 99 Nasal Cannula 2.00 12/16/22 22:00 52 24 144/69 (94) 96 Nasal Cannula 2.00 12/16/22 21:00 61 24 145/70 (95) 97 Nasal Cannula 2.00 12/16/22 20:00 45 14 164/75 (104) 95 Nasal Cannula 2.00 12/16/22 20:00 47 24 164/75 (104) 96 Nasal Cannula 2.00 12/16/22 20:00 95 Nasal Cannula 2.00 12/16/22 19:49 36.1 Nasal Cannula 2.00 12/16/22 19:12 Nasal Cannula 2.00 12/16/22 19:00 57 12/16/22 19:00 48 17 192/94 (126) 98 Room Air 12/16/22 18:00 47 19 163/71 (101) 97 Room Air 12/16/22 17:00 46 17 171/78 (109) 100 Room Air 12/16/22 16:00 95 Nasal Cannula 2.00 12/16/22 16:00 49 15 162/86 (111) 98 Room Air 12/16/22 15:46 36.2 12/16/22 15:00 46 17 148/75 (99) 99 Room Air 12/16/22 14:00 47 18 153/84 (107) 96 Room Air 12/16/22 13:00 49 18 141/71 (94) 97 Room Air 12/16/22 12:15 50 I & O 12/17/22 07:00 Intake Total 4700 ml Output Total 2575 ml Balance 2125 ml Capillary Refill : Less Than 3 Seconds General Appearance: No Apparent Distress HEENT: PERRL/EOMI, Other (right post scalp swelling, no redness erythema) Neck: Full Range of Motion Respiratory: Decreased Breath Sounds, Rhonci, Wheezing Cardiovascular: Regular Rate, Rhythm Gastrointestinal: normal bowel sounds, non tender, soft Extremity: Normal Capillary Refill Neurologic/Psychiatric: Alert, Oriented x3 Skin: Normal Color Lymphatic: No Adenopathy Results Lab Laboratory Tests 12/16/22 15:45: Sodium Level 109*L, Potassium Level 3.5L, Chloride Level 79L, Carbon Dioxide Level 21, Anion Gap 9, Blood Urea Nitrogen 3L, Creatinine 0.46L, Estimat Glomerular Filtration Rate 109, BUN/Creatinine Ratio 7, Glucose Level 99, Calcium Level 7.7L 12/17/22 01:08: Hemoglobin 10.4L, Hematocrit 27L 12/17/22 02:46: Sodium Level 112*L, Potassium Level 3.2L, Chloride Level 82L, Carbon Dioxide Level 20L, Anion Gap 10, Blood Urea Nitrogen 3L, Creatinine 0.47L, Estimat Glomerular Filtration Rate 108, BUN/Creatinine Ratio 6, Glucose Level 90, Ca lcium Level 7.8L, Hemoglobin 10.7L, Hematocrit 28L, White Blood Count 8.0, Red Blood Count 3.24L, Mean Corpuscular Volume 87, Mean Corpuscular Hemoglobin 33, Mean Corpuscular Hemoglobin Concent 38H, Red Cell Distribution Width 11.5, Platelet Count 173, Mean Platelet Volume 9.6, Immature Granulocyte % (Auto) 1, Neutrophils (%) (Auto) 74, Lymphocytes (%) (Auto) 13, Monocytes (%) (Auto) 11, Eosinophils (%) (Auto) 0, Basophils (%) (Auto) 0, Neutrophils # (Auto) 6.0, Lymphocytes # (Auto) 1.1, Monocytes # (Auto) 0.9, Eosinophils # (Auto) 0.0, Bas ophils # (Auto) 0.0, Immature Granulocyte # (Auto) 0.0, Corrected Calcium 8.4L, Phosphorus Level 2.1L, Magnesium Level 1.9, Total Bilirubin 0.8, Aspartate Amino Transf (AST/SGOT) 35H, Alanine Aminotransferase (ALT/SGPT) 40, Alkaline Phosphatase 101, Total Protein 5.7L, Albumin 3.3, Smear Scan YES Microbiology 12/16/22 MRSA Screen - Final, Complete MRSA not isolated Assessment/Plan Assessment/Plan Assess & Plan/Chief Complaint same level fall with right posterior scalp hematoma/laceration and recent hx left rib fx. PT/OT. SS for placement. early ambulation, IS, and breathing tx. OSBALDO ALEX MD Dec 17, 2022 12:04
--- NOTE | 2022-12-17 13:54 | Physical Therapy Evaluation ---
PT Evaluation-General Medical Diagnosis Admission Date Dec 16, 2022 at 00:06 Medical Diagnosis: fall/head injury Onset Date: Dec 16, 2022 Therapy Diagnosis Therapy Diagnosis: debility/weakness Height/Weight Height (Feet): 6 Height (Inches): 0.00 Weight (Pounds): 200 Precautions Precautions/Isolations: Standard Precautions Referral Physician: Dianne Reason for Referral: Evaluation/Treatment Medical History Pertinent Medical History: Alcoholism, COPD, HTN, PVD, Smoking Current History ER secondary to falling after he got out of his truck. Multiple falls in history Reviewed History: Yes Social History Home: Single Level Current Living Status: Alone Prior Prior Level of Function SCALE: Activities may be completed with or without assistive devices. 7-Kjyjmkofjp-utmiclp completes the activity by him/herself with no assistance from a helper. 5-Set-up or Clean-up Assistance-helper sets up or cleans up; patient completes activity. [place] assists only prior to or following the activity. 4-Supervision or Touching Assistance-helper provides verbal cues and/or touching/steadying and/or contact guard assistance as patient completes activity. Assistance may be provided throughout the activity or intermittently. 3-Partial/Moderate Assistance-helper does LESS THAN HALF the effort. [place] lifts, holds or supports trunk or limbs, but provides less than half the effort. 2-Substantial/Maximal Assistance-helper does MORE THAN HALF the effort. [place] lifts or holds trunk or limbs and provides more than half the effort. 2-Umrzydurh-roheee does ALL the effort. Patient does none of the effort to complete the activity. Or, the assistance of 2 or more helpers is required for the patient to complete the activity. If activity was not attempted, code reason: 7-Patient Refused. 9-Not Applicable-not attempted and the patient did not perform the activity before the current illness, exacerbation or injury. 10-Not Attempted due to Environmental Limitations-(lack of equipment, weather restraints, etc.). 88-Not Attempted due to Medical Conditions or Safety Concerns. Bed Mobility: 6 Transfers (B,C,W/C): 6 Gait: 6 Stairs: 6 Indoor Mobility (Ambulation): Independent Stairs: Independent Prior Devices Use: Other-see list below (cane) PT Evaluation-Current Subjective Patient agrees to PT. Objective Patient Orientation: Normal For Age Attachments: Oxygen ROM/Strength ROM Lower Extremities bilateral LE WFL Strength Lower Extremities 4-/5 grossly bilateral LE all planes Integumentary/Posture Integumentary refer to nursing notes Bladder Incontinence: Quevedo Cath Posture slightly kyphotic Neuromuscular (Tone, Coordination, Reflexes) grossly intact Sensory Vision: Functional Hearing: Impaired Transfers Lying to Sitting/Side of Bed(Q: 4 Sit to Stand (QC): 4 Chair/Dnh-iy-Wuwxz Xfer(QC): 4 CGA for safety Gait Mode of Locomotion: Walk Anticipated Mode of Locomotion: Walk Walk 10 feet (QC): 4 Walk 50 ft with 2 Turns(QC): 4 Walk 150 ft (QC): 4 Distance: 150' Gait Assistive Device: FWW Comments/Gait Description VC's for body placement in FWW/functional gait sequence Balance Sitting Static: Normal Sitting Dynamic: Normal Standing Static: Fair Standing Dynamic: Fair Assessment/Needs Patient will benefit from skilled PT to address functional strength and mobility to improve current LOF to safely return to home at maximum LOF. Rehab Potential: Fair PT [facility] Goals [facility] Goals PT [facility] Goals Time Frame: Dec 25, 2022 Roll Left & Right (QC): 6 Sit to Lying (QC): 6 Lying-Sitting on Side/Bed(QC): 6 Sit to Stand (QC): 6 Chair/Ajx-fh-[place]xnaw Xfer(QC): 6 Toilet Transfer (QC): 6 Walk 10 feet (QC): 6 Walk 50ft with 2 Turns (QC): 6 Walk 150 ft (QC): 6 PT Plan Problem List Problem List: Activity Tolerance, Functional Strength, Safety, Balance, Gait, Transfer Treatment/Plan Treatment Plan: Continue Plan of Care Treatment Plan: Bed Mobility, Education, Functional Activity Loraine, Functional Strength, Gait, Safety, Therapeutic Exercise, Transfers Treatment Duration: Dec 25, 2022 Frequency: 6 times per week Estimated Hrs Per Day: .25 hour per day Patient and/or Family Agrees t: Yes Time Time In: 1330 Time Out: 1345 DATE: Dec 17, 2022 Total Billed Treatment Time: 15 Total Billed Treatment 1 visit EVMod 15 min KRISTEN RODRIGUEZ PT Dec 17, 2022 13:54
--- NOTE | 2022-12-17 15:34 | Occupational Therapy Eval ---
OT Evaluation-General/PLF Medical Diagnosis Admission Date Dec 16, 2022 at 00:06 Medical Diagnosis: fall/head injury Onset Date: Dec 16, 2022 Therapy Diagnosis Therapy Diagnosis: weakness, unsteady balance Height/Weight Height (Feet): 6 Height (Inches): 0.00 Weight (Pounds): 200 Precautions Precautions/Isolations: Fall Prevention, Standard Precautions Weight Bear Status Weight Bearing Restriction: Full Weight Bearing Referral Physician: Dianne Referral Reason: Self Care, Evaluation/Treatment, Strengthening/ROM Medical History Pertinent Medical History: Alcoholism, COPD, HTN, PVD, Smoking Additional Medical History Multiple falls, patient reports most falls are backwards. Current History Patient had exited his truck and fell backwards, striking his head and elbow, multiple abrasions and laceration Social History Home: Single Level Current Living Status: Alone Entry Into Home: Stairs With Railing Steps Into Home: 3 ADL-Prior Level of Function SCALE: Activities may be completed with or without assistive devices. 1-Tbjmanmqnf-xmpkvnc completes the activity by him/herself with no assistance from a helper. 5-Set-up or Clean-up Assistance-helper sets up or cleans up; patient completes activity. [place] assists only prior to or following the activity. 4-Supervision or Touching Assistance-helper provides verbal cues and/or touching/steadying and/or contact guard assistance as patient completes activity. Assistance may be provided throughout the activity or intermittently. 3-Partial/Moderate Assistance-helper does LESS THAN HALF the effort. [place] lifts, holds or supports trunk or limbs, but provides less than half the effort. 2-Substantial/Maximal Assistance-helper does MORE THAN HALF the effort. [place] lifts or holds trunk or limbs and provides more than half the effort. 6-Zjtthkxhx-ubzfdb does ALL the effort. Patient does none of the effort to complete the activity. Or, the assistance of 2 or more helpers is required for the patient to complete the activity. If activity was not attempted, code reason: 7-Patient Refused. 9-Not Applicable-not attempted and the patient did not perform the activity before the current illness, exacerbation or injury. 10-Not Attempted due to Environmental Limitations-(lack of equipment, weather restraints, etc.). 88-Not Attempted due to Medical Conditions or Safety Concerns. Self Care: Independent Functional Cognition: Independent DME/Equipment: Tub/Shower DME/Equipment Comments Uses a SPC, has a walker available but does not use it Drive Self: Yes OT Current Status Subjective Sitting in recliner working on social media on laptop Pain Numeric Pain Scale: 4 (elbow and back of head) Mental Status/Objective Patient Orientation: Person, Place, Situation Attachments: Quevedo Catheter, IV, Oxygen, Telemetry Current Glasses/Contacts: No Hearing Aids: No (hard of hearing) Hand Dominance: Right Upper Extremity ROM BUE WFLs Upper Extremity Coordination FAIR + Upper Extremity Sensation INTACT BUES Upper Extremity Strength -4/5 grossly ADL-Treatment Eating (QC): 6 Oral Hygiene (QC): 5 Shower/Bathe Self (QC): 7 Upper Body Dressing (QC): 4 Lower Body Dressing (QC): 4 On/Off Footwear (QC): 5 Toileting Hygiene (QC): 4 Patient has been using SPC, FWW may be beneficial for fall reduction and ADL Education OT Patient Education: Correct positioning, Modified ADL techniques, Progress toward Goal/Update tx plan, Purpose of tx/functional activities, Reviewed precautions, Rehab process, Safety issues, Transfer techniques, Use of adapted equipment Teaching Recipient: Patient, Family (daughter) Teaching Methods: Demonstration, Discussion Response to Teaching: Verbalize Understanding, Reinforcement Needed OT Prison Goals Prison Goals 1=Demonstrate adherence to instructed precautions during ADL tasks. 2=Patient will verbalize/demonstrate understanding of assistive devices/modifications for ADL. 3=Patient will improve strength/tolerance for activity to enable patient to perform ADL's. OT Education/Plan Problem List/Assessment Assessment: Decreased Activ Tolerance, Decreased Safety Aware, Decreased UE Strength, Impaired Self-Care Skills Discharge Recommendations Plan/Recommendations: Continue POC Therapy Discharge Recommendati: Post Acute OT Treatment Plan/Plan of Care Treatment,Training & Education: Yes Patient would benefit from OT for education, treatment and training to promote independence in ADL's, mobility, safety and/or upper extremity function for ADL's. Plan of Care: ADL Retraining, Functional Mobility, Group Exercise/Act as Ind, UE Funct Exercise/Act, UE Neuromus Re-Ed/Coord Comment Returned to bed on patient request, ALL needs met Treatment Duration: Dec 17, 2022 Frequency: 3 times per week (3-5 times per week) Estimated Hrs Per Day: .25 hour per day Agreement: Yes Rehab Potential: Fair Time Start Time: 15:10 Stop Time: 15:38 DATE: Dec 17, 2022 Total Time Billed (hr/min): 18 Billed Treatment Time EVM 18 min MARILEE PAGAN OT Dec 17, 2022 15:34
--- NOTE | 2022-12-17 18:31 | Consultation-Cardiology ---
HPI-Cardiology Cardiology Consultation: Date of Consultation 12/17/22 Date of Admission Attending Physician Bernard Dan MD Admitting Physician Admitting Physician: Bernard Dan MD Attending Physician: Bernard Dan MD Consulting Physician Aston JIANG MD HPI: Time Seen by a Provider: 15:00 Chief Complaint: Atrial fibrillation This is a 77-year-old gentleman who presents with frequent falls. Increased alcohol level. Significant head injury. Previous fall in August 2022 because traumatic pneumothorax. Patient is on chronic oral anticoagulation. Permanent atrial fibrillation. Review of Systems-Cardiology Review of Systems Constitutional: As described under HPI Eyes: no symptoms reported Ears/Nose/Throat: no symptoms reported Respiratory: no symptoms reported Cardiovascular: irregular heart rate Gastrointestinal: no symptoms reported Genitourinary: no symptoms reported Psychiatric/Neurological: no symptoms reported JJK-Fwpaot-Hjkejv Hx Patient Social History Marrital Status: Smoking Status: Current Everyday Smoker (quit in august) Former smoker/When Quit: September 16, 2022 2nd Hand Smoke Exposure: No Alcohol Use?: Yes Substance type: Nicotine Pt feels they are or have been: No Tobacco type used: Cigarettes Past Medical History PMH As described under Assessment. Allergies and Home Medications Allergies Coded Allergies: metoprolol (Verified Allergy, Unknown, LOW HR , 11/16/22) ALL BETA BLOCKERS Patient Home Medication List Home Medication List Reviewed: Yes Albuterol Sulfate (Ventolin Hfa) 90 Mcg Hfa.aer.ad, 2 PUFF INH Q4H PRN for SHORTNESS OF BREATH, (Reported) Entered as Reported by: TILA VINSON on 09/20/22 1020 Last Action: Reviewed Amlodipine Besylate (Amlodipine Besylate) 10 Mg Tablet, 10 MG PO DAILY, (Reported) Entered as Reported by: TILA VINSON on 09/20/22 1020 Last Action: Reviewed Fluticasone/Salmeterol (Advair 250-50 Diskus) 250 Mcg-50 Mcg/Dose Blst.w.dev, 1 PUFF INH BID, (Reported) Entered as Reported by: TILA VINSON on 09/20/22 1020 Last Action: Reviewed Hydrochlorothiazide (Hydrochlorothiazide) 12.5 Mg Tablet, 12.5 MG PO DAILY, (Reported) Entered as Reported by: Maureen Abarca on 12/16/22 1157 Last Action: Reviewed Ibuprofen (Ibuprofen) 200 Mg Tablet, 800 MG PO Q8H PRN for PAIN-MILD (1-4), (Reported) Entered as Reported by: TILA VINSON on 12/16/22 121 Last Action: Reviewed Losartan Potassium (Losartan Potassium) 100 Mg Tablet, 100 MG PO DAILY, (Reported) Entered as Reported by: ADA COOPER on 08/07/20 110 Last Action: Reviewed [place]-3/Dha/Epa/Fish Oil (Fish Oil 1,200 mg Softgel) 1,200 Mg (144 Mg-216 Mg) Capsule, 1,200 MG PO DAILY, (Reported) Entered as Reported by: TILA VINSON on 09/20/22 102 Last Action: Reviewed Phenytoin Sodium Extended (Dilantin) 100 Mg Capsule, 300 MG PO MO,FR @AM, (Reported) Entered as Reported by: ADA COOPER on 08/07/201108 Last Action: Continued Phenytoin Sodium Extended (Phenytoin Sodium Extended) 100 Mg Capsule, 200 MG PO HS, (Reported) Entered as Reported by: TILA VINSON on 09/20/22 102 Last Action: Continued Phenytoin Sodium Extended (Phenytoin Sodium Extended) 100 Mg Capsule, 200 MG PO BRIGGS,,,TH,SA @AM, (Reported) Entered as Reported by: TILA VINSON on 09/20/22 102 Last Action: Continued Potassium Chloride (Potassium Chloride) 10 Meq Capsule.er, 10 MEQ PO DAILY, (Reported) Entered as Reported by: TILA VINSON on 12/16/22 121 Last Action: Reviewed Rivaroxaban (Xarelto Tablet) 20 Mg Tablet, 20 MG PO DAILY, (Reported) Entered as Reported by: TILA VINSON on 11/16/22 154 Last Action: Reviewed Tramadol HCl (Tramadol HCl) 50 Mg Tablet, 50 MG PO Q6H PRN for PAIN-MODERATE (5- 7), (Reported) Entered as Reported by: Maureen Abarca on 12/16/22 115 Last Action: Reviewed Discontinued Medications Baclofen (Baclofen) 10 Mg Tablet, 10 MG PO BID, (Reported) Discontinued Reason: No Longer Taking Entered as Reported by: TILA VINSON on 11/16/22 1540 Last Action: Discontinued Hydrocodone/Acetaminophen (Hydrocodone-Acetamin 7.5-325) 7.5 Mg-325 Mg Tablet, 1 EA PO BID PRN for PAIN-MODERATE (5-7), (Reported) Discontinued Reason: No Longer Taking Entered as Reported by: TILA VINSON on 11/16/22 1540 Last Action: Discontinued Hydrocodone/Acetaminophen (Hydrocodone-Acetamin 7.5-325) 7.5 Mg-325 Mg Tablet, 1 EACH PO Q4H PRN for PAIN-BREAKTHROUGH Discontinued Reason: No Longer Taking Prescribed by: Darlene Brandt on 12/09/22 1459 Last Action: Discontinued Exam Vital Signs Vital Signs Date Time Temp Pulse Resp B/P (MAP) Pulse Ox O2 Delivery O2 Flow Rate FiO2 12/17/22 18:00 62 16 158/111 (128) 93 Nasal Cannula 2.00 12/17/22 16:00 36.1 Physical Exam Constitutional: No respiratory distress. Chest: Clear to auscultation bilaterally. CVS: Irregular heart rhythm. Laceration on the head noted. Labs Laboratory Tests Test 12/17/22 01:08 12/17/22 02:46 Range/Units Hemoglobin 10.4 L 10.7 L 13.3-17.7 g/dL Hematocrit 27 L 28 L 40-54 % White Blood Count 8.0 4.3-11.0 10^3/uL Red Blood Count 3.24 L 4.30-5.52 10^6/uL Mean Corpuscular Volume 87 80-99 fL Mean Corpuscular Hemoglobin 33 25-34 pg Mean Corpuscular Hemoglobin Concent 38 H 32-36 g/dL Red Cell Distribution Width 11.5 10.0-14.5 % Platelet Count 173 130-400 10^3/uL Mean Platelet Volume 9.6 9.0-12.2 fL Immature Granulocyte % (Auto) 1 % Neutrophils (%) (Auto) 74 42-75 % Lymphocytes (%) (Auto) 13 12-44 % Monocytes (%) (Auto) 11 0-12 % Eosinophils (%) (Auto) 0 0-10 % Basophils (%) (Auto) 0 0-10 % Neutrophils # (Auto) 6.0 1.8-7.8 10^3/uL Lymphocytes # (Auto) 1.1 1.0-4.0 10^3/uL Monocytes # (Auto) 0.9 0.0-1.0 10^3/uL Eosinophils # (Auto) 0.0 0.0-0.3 10^3/uL Basophils # (Auto) 0.0 0.0-0.1 10^3/uL Immature Granulocyte # (Auto) 0.0 0.0-0.1 10^3/uL Sodium Level 112 *L 135-145 MMOL/L Potassium Level 3.2 L 3.6-5.0 MMOL/L Chloride Level 82 L 98-107 MMOL/L Carbon Dioxide Level 20 L 21-32 MMOL/L Anion Gap 10 5-14 MMOL/L Blood Urea Nitrogen 3 L 7-18 MG/DL Creatinine 0.47 L 0.60-1.30 MG/DL Estimat Glomerular Filtration Rate 108 BUN/Creatinine Ratio 6 Glucose Level 90 70-105 MG/DL Calcium Level 7.8 L 8.5-10.1 MG/DL Corrected Calcium 8.4 L 8.5-10.1 MG/DL Phosphorus Level 2.1 L 2.3-4.7 MG/DL Magnesium Level 1.9 1.6-2.4 MG/DL Total Bilirubin 0.8 0.1-1.0 MG/DL Aspartate Amino Transf (AST/SGOT) 35 H 5-34 U/L Alanine Aminotransferase (ALT/SGPT) 40 0-55 U/L Alkaline Phosphatase 101 40-136 U/L Total Protein 5.7 L 6.4-8.2 GM/DL Albumin 3.3 3.2-4.5 GM/DL Smear Scan YES ECG Impression ECG Initial ECG Rhythm: A Fib/Flutter A/P-Cardiology Assessment/Admission Diagnosis Frequent fall, Permanent atrial fibrillation, Bradycardia, Chronic oral anticoagulation, Alcohol abuse Plan This is a 77-year-old gentleman with history of alcohol abuse. He has had numerous falls in the recent past. I spoke at length with the patient and daughter Libra who was at the bedside. A fall in August 2022 resulted in traumatic pneumothorax. Current fall has resulted in significant scalp laceration. According to the daughter he has had other falls in the last 2 weeks. Patient is on chronic oral anticoagulation. Permanent atrial fibrillation. I discussed at length with the patient and daughter and think that oral anticoagulation is a contraindication for him. There is a risk of stroke, however the risk is much higher of head injury with intracranial bleed if he is on chronic oral anticoagulation. Therefore we will discontinue oral anticoagulation. His primary care physician is trying to set up cardiology follow-up in [facility]. He may need an event monitor for 30 days for bradycardia. During this hospitalization his lowest heart rate during sleeping has been 43. He was between 47 and 53 beats a minute when I was in the room. He may be a candidate for a single-chamber pacemaker in the near future if required. Also he may be a candidate for left atrial appendage ligation or occlusion with Watchman device or surgical closure. Aston JIANG MD Dec 17, 2022 18:31
[2022-12-17] MEDS: PANTOPRAZOLE INJECTION 40 MG VIAL IV SCH (21:20)
[2022-12-18] MEDS: CALCIUM CARBONATE 500 MG CHEW TABLET PO PRN (01:04)
[2022-12-18 05:34] LABS: BASOPHILS % (AUTO) 0 % (0-10); EOSINOPHILS % (AUTO) 0 % (0-10); HEMATOCRIT 28 % (40-54); HEMOGLOBIN 10.4 g/dL (13.3-17.7); LYMPHOCYTES # (AUTO) 1.1 10^3/uL (1.0-4.0); LYMPHOCYTES % (AUTO) 14 % (12-44); MEAN CORPUSCULAR HEMOGLOBIN 33 pg (25-34); MEAN CORPUSCULAR HGB CONC 37 g/dL (32-36); MEAN CORPUSCULAR VOLUME 89 fL (80-99); MEAN PLATELET VOLUME 9.2 fL (9.0-12.2); MONOCYTES # (AUTO) 0.7 10^3/uL (0.0-1.0); MONOCYTES % (AUTO) 10 % (0-12); NEUTROPHILS # (AUTO) 5.5 10^3/uL (1.8-7.8); NEUTROPHILS % (AUTO) 75 % (42-75); PLATELET COUNT 184 10^3/uL (130-400); WHITE BLOOD COUNT 7.4 10^3/uL (4.3-11.0)
[2022-12-18 05:46] LABS: ALBUMIN 3.2 GM/DL (3.2-4.5); POTASSIUM 3.1 MMOL/L (3.6-5.0)
[2022-12-18 05:48] LABS: TOTAL PROTEIN 5.4 GM/DL (6.4-8.2)
[2022-12-18 05:50] LABS: BILIRUBIN,TOTAL 0.5 MG/DL (0.1-1.0)
[2022-12-18 05:52] LABS: CREATININE SERUM 0.51 MG/DL (0.60-1.30); PHOSPHORUS 2.3 MG/DL (2.3-4.7)
[2022-12-18 05:55] LABS: MAGNESIUM 1.8 MG/DL (1.6-2.4)
[2022-12-18] MEDS: POTASSIUM CHLORIDE 20 MEQ TABLET PO SCH (06:17)
[2022-12-18] MEDS: THIAMINE 100 MG (VITAMIN B-1) TAB PO SCH (06:17)
[2022-12-18] MEDS: MAGNESIUM 1 GM/100 ML IVPB 100 ML IV SCH (06:17)
[2022-12-18] MEDS: POTASSIUM CL 10MEQ/50ML IVPB 50 ML IV SCH (06:17)
[2022-12-18] MEDS: SODIUM CHLORIDE 1 GM TABLET PO SCH (07:40)
[2022-12-18] MEDS: PHENYTOIN EXT RELEASE 100 MG CAPSULE PO SCH ×2 (08:44→21:32)
[2022-12-18] MEDS: PANTOPRAZOLE INJECTION 40 MG VIAL IV SCH ×2 (08:45→21:32)
[2022-12-18] MEDS: FOLIC ACID 1 MG TAB PO SCH (08:45)
--- NOTE | 2022-12-18 10:05 | Physical Therapy Daily Note ---
PT Daily Note-Current Subjective States that he is doing good. Pain Section J - Health Conditions 1. Rarely or not at all 2. Occasionally 3. Frequently 4. Almost constantly 8. Unable to answer Pain Effect on Sleep: 1 Pain Interference with Therapy: 1 Pain Interference w/Day-to-Day: 1 Transfers SCALE: Activities may be completed with or without assistive devices. 5-Ojwubxolsy-fcjafca completes the activity by him/herself with no assistance from a helper. 5-Set-up or Clean-up Assistance-helper sets up or cleans up; patient completes activity. [place] assists only prior to or following the activity. 4-Supervision or Touching Assistance-helper provides verbal cues and/or touching/steadying and/or contact guard assistance as patient completes activity. Assistance may be provided throughout the activity or intermittently. 3-Partial/Moderate Assistance-helper does LESS THAN HALF the effort. [place] lifts, holds or supports trunk or limbs, but provides less than half the effort. 2-Substantial/Maximal Assistance-helper does MORE THAN HALF the effort. [place] lifts or holds trunk or limbs and provides more than half the effort. 9-Xyfiorxzr-yjkwjp does ALL the effort. Patient does none of the effort to complete the activity. Or, the assistance of 2 or more helpers is required for the patient to complete the activity. If activity was not attempted, code reason: 7-Patient Refused. 9-Not Applicable-not attempted and the patient did not perform the activity before the current illness, exacerbation or injury. 10-Not Attempted due to Environmental Limitations-(lack of equipment, weather restraints, etc.). 88-Not Attempted due to Medical Conditions or Safety Concerns. Roll Left & Right (QC): 5 Sit to Lying (QC): 5 Lying to Sitting/Side of Bed(Q: 5 Sit to Stand (QC): 5 Gait Training Does the Patient Walk?: Yes Distance: 120' Gait Persons Needed: 1 Gait Assistive Device: FWW Assessment Current Status: Good Progress Patient did well with gait and bed mobility today. PT [facility] Pul[employer] Operator Goals [facility] Operator Goals PT Nursing Home Goals Time Frame: Dec 25, 2022 Roll Left & Right (QC): 6 Sit to Lying (QC): 6 Lying-Sitting on Side/Bed(QC): 6 Sit to Stand (QC): 6 Chair/Wyh-tq-Yphze Xfer(QC): 6 Toilet Transfer (QC): 6 Walk 10 feet (QC): 6 Walk 50ft with 2 Turns (QC): 6 Walk 150 ft (QC): 6 PT Plan Treatment/Plan Treatment Plan: Continue Plan of Care Treatment Plan: Bed Mobility, Education, Functional Activity [place], Functional Strength, Gait, Safety, Therapeutic Exercise, Transfers Treatment Duration: Dec 25, 2022 Frequency: 6 times per week Estimated Hrs Per Day: .25 hour per day Patient and/or Family Agrees t: Yes Time Time In: 944 Time Out: 1000 DATE: Dec 18, 2022 Total Billed Treatment Time: 15 Total Billed Treatment 1, GT x 15' OLY WEISS PT Dec 18, 2022 10:05
[2022-12-18] MEDS ORDERED: PATIENT MAY USE OWN MEDS, ALL MC SCH (11:15)
--- NOTE | 2022-12-18 11:17 | Tele-ICU Progress Note ---
Subjective Date Seen by a Provider: Dec 18, 2022 Time Seen by a Provider: 11:17 Subjective/Events-last exam (Tele-ICU Physician , Progress Note ) Service provided via interactive audio and video telecommunications E-CARE system to a patient admitted to ICU bed in [facility]. Patient is seen today due to persistent need of ICU care Available chart/ vitals / labs / Images reviewed Video assessment done using teleICU camera, rest of exam as per RN He is a 77-year-old male with past medical history of from chronic alcohol abuse has apparently been falling on and off. This time apparently he just stepped out of the he is a truck following that he lost control and fell down and subsequently pressed his life alert. EMS brought him to the emergency room. He is noted to have a laceration of the back of the head. He denied any loss of consciousness. CT of the head is negative for any cerebral bleed. Apparently he is on anticoagulation for atrial fibrillation. Also his alcohol level was found to be 46 in the emergency room and a sodium of 105 hence he is admitted to the intensive care unit. His scalp laceration was sutured in the emergency room. He is cautiously hydrated to improve the sodium and today his sodium improved to 122. He is currently awake alert and oriented x3 in no acute distress. Impression 1. Recurrent falls secondary to alcohol abuse and possibly hyponatremia 2. Severe hyponatremia possibly secondary to alcohol abuse 3. Scalp laceration secondary to fall 4. Chronic atrial fibrillation and on anticoagulant therapy. Recommendation 1. Continue IV hydration cautiously and monitor serum sodium potassium as well as magnesium. 2. Anticoagulant therapy per cardiology 3. Physical therapy 4. Advised her to quit alcohol abuse Coordination of care with primary care physician and bedside consultants. I am remotely monitoring this patient from Tele icu station in [place]. I am unable to do the bedside exam, and history/physical and pertinent information is taken from other notes in the computer and bedside staff. Certain portions of this document may have been dictated utilizing voice recognition technology such as [employer]. Inherent to this technology, typographical and grammatical errors may exist. As much as I am diligent to identify and correct to these mistakes, some errors may remain in the document. Critical care time devoted to this patient today is approximately is-25 minutes.- Sepsis Event Evaluation Height, Weight, BMI Height: 6'0.00" Weight: 200lbs. oz. 90.719803kq; 21.07 BMI Method: Exam Exam Patient acknowledged, consented, and participated in this virtual visit which was conducted using real time audio/video Vital Signs Date Time Temp Pulse Resp B/P (MAP) Pulse Ox O2 Delivery O2 Flow Rate FiO2 12/18/22 11:00 43 150/76 (100) 99 Nasal Cannula 2.00 12/18/22 10:00 49 16 99 Nasal Cannula 2.00 12/18/22 09:00 49 171/94 (119) 95 Nasal Cannula 2.00 12/18/22 08:00 48 164/90 (114) 94 Nasal Cannula 2.00 12/18/22 07:00 48 12/18/22 07:00 51 169/77 (107) 97 Nasal Cannula 2.00 12/18/22 04:00 97 Nasal Cannula 2.00 12/18/22 01:00 50 12 158/75 (102) 92 Nasal Cannula 2.00 12/18/22 01:00 56 12/18/22 00:00 58 20 164/94 (117) 94 Nasal Cannula 2.00 12/17/22 23:59 98 Nasal Cannula 2.00 12/17/22 23:34 36.3 12/17/22 23:00 56 29 163/74 (102) 99 Nasal Cannula 2.00 12/17/22 22:00 53 18 149/84 (119) 98 Nasal Cannula 2.00 12/17/22 21:00 55 17 148/112 (136) 96 Nasal Cannula 2.00 12/17/22 20:00 35.9 12/17/22 20:00 54 16 147/82 (106) 98 Nasal Cannula 2.00 12/17/22 20:00 98 Nasal Cannula 2.00 12/17/22 19:00 60 10 130/77 (107) 96 Nasal Cannula 2.00 12/17/22 19:00 57 12/17/22 18:00 62 16 158/111 (128) 93 Nasal Cannula 2.00 12/17/22 17:00 51 11 169/75 (116) 92 Nasal Cannula 2.00 12/17/22 16:00 96 Nasal Cannula 2.00 12/17/22 16:00 44 12 154/70 (99) 95 Nasal Cannula 2.00 12/17/22 16:00 36.1 12/17/22 15:00 47 157/80 (119) 97 Nasal Cannula 2.00 12/17/22 14:00 47 161/82 (102) 100 Nasal Cannula 2.00 12/17/22 13:00 52 12 149/63 (95) 99 Nasal Cannula 2.00 12/17/22 12:22 54 12/17/22 12:00 96 Nasal Cannula 2.00 12/17/22 12:00 44 10 150/71 (106) 95 Nasal Cannula 2.00 12/17/22 11:54 36.2 I & O 12/18/22 07:00 Intake Total 3250 ml Output Total 4650 ml Balance -1400 ml Height & Weight Height: 6'0.00" Weight: 200lbs. oz. 90.531002oy; 21.07 BMI Method: General Appearance: No Apparent Distress HEENT: PERRL/EOMI, Other (right post scalp swelling, no redness erythema) Neck: Full Range of Motion Respiratory: Decreased Breath Sounds, Rhonci, Wheezing Cardiovascular: Regular Rate, Rhythm Capillary Refill: Less Than 3 Seconds Gastrointestinal: normal bowel sounds, non tender, soft Extremity: Normal Capillary Refill Neurologic/Psychiatric: Alert, Oriented x3 Skin: Normal Color Lymphatic: No Adenopathy Results Lab Laboratory Tests 12/16/22 15:45 12/17/22 01:08 12/17/22 02:46 12/17/22 20:00 12/18/22 02:35 12/18/22 05:15 12/18/22 08:50 Assessment/Plan Assessment/Plan as above Critical Care: Critically Ill Patient Time spent with patient (mins): 25 MICH DYER MD Dec 18, 2022 11:17
[2022-12-18] MEDS: RT-ALBUTEROL HFA 8.5 GM INHALER IH PRN ×3 (11:36→21:39)
--- NOTE | 2022-12-18 13:13 | Progress Note - Hospitalist ---
Subjective HPI/CC On Admission Date Seen by Provider: Dec 18, 2022 Time Seen by Provider: 10:30 Subjective/Events-last exam Patient reports feeling a bit better today denies pain just reports some generalized weakness. Denies chills or fever. Objective Exam Vital Signs Vital Signs Date Time Temp Pulse Resp B/P (MAP) Pulse Ox O2 Delivery O2 Flow Rate FiO2 12/18/22 12:44 48 12/18/22 12:00 9 147/83 (104) 99 Nasal Cannula 2.00 12/17/22 23:34 36.3 Capillary Refill : Less Than 3 Seconds General Appearance: No Apparent Distress, Chronically ill Respiratory: Other (Diminished breath sounds posteriorly no wheezes rales or rhonchi.) Cardiovascular: No Edema, No Gallop, No Murmur, Irregularly Irregular Gastrointestinal: Normal Bowel Sounds, No Organomegaly, No Pulsatile Mass, Non Tender, Soft Extremity: No Calf Tenderness, No Pedal Edema Neurologic/Psychiatric: Alert, Oriented x3 Results/Procedures Lab Laboratory Tests 12/17/22 20:00 12/18/22 02:35 12/18/22 05:15 12/18/22 08:50 Patient resulted labs reviewed. Assessment/Plan Assessment and Plan Assess & Plan/Chief Complaint 1. Severe hypokalemia likely aggravated by a combination of thiazide diuretic therapy with alcohol use disorder and poor nutrition no evidence for underlying malignancy with recent CT chest and abdomen. Sodium level significantly improved continue saline. 2. Persistent afibrillation with significant fall risk cardiology is holding anticoagulant therapy which I agree with. 3. 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 Critical Care Critically Ill Patient EDDIE BUSCH MD Dec 18, 2022 13:13
--- NOTE | 2022-12-18 16:29 | Cardiology Progress Note ---
Cardiology SOAP Progress Note Subjective: No significant cardiac complaints Objective: I&O/Vital Signs 12/18/22 12/18/22 12/18/22 12/18/22 07:00 07:00 08:00 08:00 Pulse 51 48 48 B/P (MAP) 169/77 (107) 164/90 (114) Pulse Ox 97 94 97 O2 Delivery Nasal Cannula Nasal Cannula Nasal Cannula O2 Flow Rate 2.00 2.00 2.00 12/18/22 12/18/22 12/18/22 12/18/22 09:00 10:00 11:00 11:37 Pulse 49 49 43 Resp 16 B/P (MAP) 171/94 (119) 150/76 (100) Pulse Ox 95 99 99 98 O2 Delivery Nasal Cannula Nasal Cannula Nasal Cannula Nasal Cannula O2 Flow Rate 2.00 2.00 2.00 2.00 12/18/22 12/18/22 12/18/22 12/18/22 12:00 12:00 12:44 13:00 Pulse 49 48 48 Resp 9 B/P (MAP) 147/83 (104) 158/80 (106) Pulse Ox 97 99 99 O2 Delivery Nasal Cannula Nasal Cannula Nasal Cannula O2 Flow Rate 2.00 2.00 2.00 12/18/22 12/18/22 12/18/22 12/18/22 14:00 15:00 16:00 16:00 Temp 36.1 Pulse 47 44 50 Resp 14 B/P (MAP) 155/80 (105) 178/80 (112) 178/76 (110) Pulse Ox 99 90 100 O2 Delivery Nasal Cannula Nasal Cannula Nasal Cannula O2 Flow Rate 2.00 2.00 2.00 12/18/22 00:00 Intake Total 2100 ml Output Total 2400 ml Balance -300 ml Weight (Pounds): 200 Weight (Calculated Kilograms): 90.898672 Constitutional: AAO x 3 Respiratory: lungs clear to auscultation Cardiovascular: irregularly irregular, bradycardia Extremities: No pedal edema Neurologic/Psychiatric: alert, normal mood/affect, oriented x 3 Skin: normal color Results/Procedures: Labs Laboratory Tests 12/17/22 20:00: Hemoglobin 10.7L 12/18/22 02:35: Hemoglobin 10.2L 12/18/22 05:15: Hemoglobin 10.4L, White Blood Count 7.4, Red Blood Count 3.14L, Hematocrit 28L, Mean Corpuscular Volume 89, Mean Corpuscular Hemoglobin 33, Mean Corpuscular Hemoglobin Concent 37H, Red Cell Distribution Width 11.7, Platelet Count 184, Mean Platelet Volume 9.2, Immature Granulocyte % (Auto) 0, Neutrophils (%) (Auto) 75, Lymphocytes (%) (Auto) 14, Monocytes (%) (Auto) 10, Eosinophils (%) (Auto) 0, Basophils (%) (Auto) 0, Neutrophils # (Auto) 5.5, Lymphocytes # (Auto) 1.1, Monocytes # (Auto) 0.7, Eosinophils # (Auto) 0.0, Basophils # (Auto) 0.0, Immature Granulocyte # (Auto) 0.0, Sodium Level 122#*L, Potassium Level 3.1L, Chloride Level 92L, Carbon Dioxide Level 19L, Anion Gap 11, Blood Urea Nitrogen 3L, Creatinine 0.51L, Estimat Glomerular Filtration Rate 106, BUN/Creatinine Ratio 6, Glucose Level 95, Calcium Level 8.0L, Corrected Calcium 8.6, Phosphorus Level 2.3, Magnesium Level 1.8, Total Bilirubin 0.5, Aspartate Amino Transf (AST/SGOT) 37H, Alanine Aminotransferase (ALT/SGPT) 46, Alkaline Phosphatase 104, Total Protein 5.4L, Albumin 3.2, Thyroid Stimulating Hormone (TSH) 1.44 12/18/22 08:50: Hemoglobin 10.3L 12/18/22 14:00: Microbiology 12/16/22 MRSA Screen - Final, Complete MRSA not isolated A/P: Assessment/Dx: Frequent fall, Permanent atrial fibrillation, Bradycardia, Chronic oral anticoagulation, Alcohol abuse Plan: Permanent atrial fibrillation with bradycardia. Baseline heart rate between 43 and 53. Frequent falls. Oral anticoagulation is contraindicated. Patient may be a candidate for watchman or left atrial appendage ligation in the near future. This was discussed at length with the patient and daughter Aaliyah who was in the room. Dr. Miller to take over care on Tuesday. Aston JIANG MD Dec 18, 2022 16:29
[2022-12-18] MEDS: FLUTICASONE IH SCH (18:54)
[2022-12-18] MEDS: SALMETEROL IH SCH (18:54)
[2022-12-18] MEDS ORDERED: NON-FORMULARY MEDICATION 1 EA EA (Fluticasone/Salmeterol (Advair 250-50 Diskus) 1 PUFF) INH SCH (21:00)
[2022-12-19 04:07] LABS: BASOPHILS % (AUTO) 0 % (0-10); EOSINOPHILS # (AUTO) 0.1 10^3/uL (0.0-0.3); EOSINOPHILS % (AUTO) 1 % (0-10); HEMATOCRIT 28 % (40-54); HEMOGLOBIN 10.2 g/dL (13.3-17.7); LYMPHOCYTES # (AUTO) 1.4 10^3/uL (1.0-4.0); LYMPHOCYTES % (AUTO) 20 % (12-44); MEAN CORPUSCULAR HEMOGLOBIN 33 pg (25-34); MEAN CORPUSCULAR HGB CONC 37 g/dL (32-36); MEAN CORPUSCULAR VOLUME 91 fL (80-99); MEAN PLATELET VOLUME 9.1 fL (9.0-12.2); MONOCYTES # (AUTO) 0.7 10^3/uL (0.0-1.0); MONOCYTES % (AUTO) 10 % (0-12); NEUTROPHILS # (AUTO) 4.6 10^3/uL (1.8-7.8); NEUTROPHILS % (AUTO) 69 % (42-75); PLATELET COUNT 174 10^3/uL (130-400); WHITE BLOOD COUNT 6.8 10^3/uL (4.3-11.0)
[2022-12-19 04:28] LABS: ALBUMIN 3.4 GM/DL (3.2-4.5); BILIRUBIN,TOTAL 0.5 MG/DL (0.1-1.0); CALCIUM 8.1 MG/DL (8.5-10.1); CREATININE SERUM 0.55 MG/DL (0.60-1.30); MAGNESIUM 1.8 MG/DL (1.6-2.4); PHOSPHORUS 2.8 MG/DL (2.3-4.7); TOTAL PROTEIN 5.7 GM/DL (6.4-8.2)
[2022-12-19] MEDS: MAGNESIUM 1 GM/100 ML IVPB 100 ML IV SCH ×2 (05:47→07:06)
[2022-12-19] MEDS: POTASSIUM CL 10MEQ/50ML IVPB 50 ML IV SCH ×4 (05:47→07:50)
[2022-12-19] MEDS ORDERED: POTASSIUM CHLORIDE 20 MEQ TABLET PO ONE (07:00)
[2022-12-19] MEDS: POTASSIUM CHLORIDE 20 MEQ TABLET PO SCH (07:45)
[2022-12-19] MEDS: PANTOPRAZOLE INJECTION 40 MG VIAL IV SCH ×2 (07:53→20:48)
[2022-12-19] MEDS: FOLIC ACID 1 MG TAB PO SCH (07:53)
[2022-12-19] MEDS: THIAMINE 100 MG (VITAMIN B-1) TAB PO SCH (07:53)
[2022-12-19] MEDS: PHENYTOIN EXT RELEASE 100 MG CAPSULE PO SCH ×2 (07:56→20:48)
[2022-12-19] MEDS: amLODIPine 5 MG TABLET PO SCH (08:11)
[2022-12-19] MEDS: SALMETEROL IH SCH ×2 (08:18→20:32)
[2022-12-19] MEDS: FLUTICASONE IH SCH ×2 (08:18→20:32)
--- NOTE | 2022-12-19 09:39 | Tele-ICU Progress Note ---
Subjective Date Seen by a Provider: Dec 19, 2022 Time Seen by a Provider: 09:38 Subjective/Events-last exam (Tele-ICU Physician , Progress Note ) Service provided via interactive audio and video telecommunications E-CARE system to a patient admitted to ICU bed in [facility]. Patient is seen today due to persistent need of ICU care Available chart/ vitals / labs / Images reviewed Video assessment done using teleICU camera, rest of exam as per RN He is a 77-year-old male with past medical history of from chronic alcohol abuse has apparently been falling on and off. This time apparently he just stepped out of the he is a truck following that he lost control and fell down and subsequently pressed his life alert. EMS brought him to the emergency room. He is noted to have a laceration of the back of the head. He denied any loss of consciousness. CT of the head is negative for any cerebral bleed. Apparently he is on anticoagulation for atrial fibrillation. Also his alcohol level was found to be 46 in the emergency room and a sodium of 105 hence he is admitted to the intensive care unit. His scalp laceration was sutured in the emergency room. He is cautiously hydrated to improve the sodium and today his sodium improved to 122. He is currently awake alert and oriented x3 in no acute distress. 12/19/22 . no new events over night. na is 121. no acute distress Impression 1. Recurrent falls secondary to alcohol abuse and possibly hyponatremia 2. Severe hyponatremia possibly secondary to alcohol abuse 3. Scalp laceration secondary to fall 4. Chronic atrial fibrillation and on anticoagulant therapy. Recommendation 1. Continue IV hydration cautiously and monitor serum sodium potassium as well as magnesium. 2. Anticoagulant therapy per cardiology 3. Physical therapy 4. Advised her to quit alcohol abuse Coordination of care with primary care physician and bedside consultants. I am remotely monitoring this patient from Tele icu station in [place]. I am unable to do the bedside exam, and history/physical and pertinent information is taken from other notes in the computer and bedside staff. Certain portions of this document may have been dictated utilizing voice recognition technology such as [employer]. Inherent to this technology, typographical and grammatical errors may exist. As much as I am diligent to identify and correct to these mistakes, some errors may remain in the document. Critical care time devoted to this patient today is approximately is-15 minutes.- Sepsis Event Evaluation Height, Weight, BMI Height: 6'0.00" Weight: 200lbs. oz. 90.534194xj; 21.10 BMI Method: Exam Exam Patient acknowledged, consented, and participated in this virtual visit which was conducted using real time audio/video Vital Signs Date Time Temp Pulse Resp B/P (MAP) Pulse Ox O2 Delivery O2 Flow Rate FiO2 12/19/22 09:00 48 15 157/69 (105) 100 Nasal Cannula 2.00 12/19/22 08:19 98 Nasal Cannula 4.00 12/19/22 08:00 49 13 174/89 (111) 97 Nasal Cannula 2.00 12/19/22 07:56 35.9 12/19/22 07:00 54 12/19/22 07:00 55 171/99 (128) 91 Nasal Cannula 2.00 12/19/22 06:00 51 25 116/69 (85) 93 Nasal Cannula 2.00 12/19/22 05:00 52 13 148/79 (102) 87 Nasal Cannula 2.00 12/19/22 04:00 OxyMask 6.00 12/19/22 04:00 97 Nasal Cannula 2.00 12/19/22 04:00 58 145/79 (101) 94 Nasal Cannula 2.00 12/19/22 03:00 57 138/75 (96) 94 Nasal Cannula 2.00 12/19/22 02:00 50 20 148/81 (103) 97 Nasal Cannula 2.00 12/19/22 01:00 57 23 162/88 (112) 97 Nasal Cannula 2.00 12/19/22 01:00 57 12/19/22 00:00 55 11 161/73 (102) 97 Nasal Cannula 2.00 12/18/22 23:59 97 Nasal Cannula 2.00 12/18/22 23:00 59 11 161/73 (102) 97 Nasal Cannula 2.00 12/18/22 22:00 52 5 116/70 (85) 96 Nasal Cannula 2.00 12/18/22 21:00 55 16 174/87 (116) 99 Nasal Cannula 2.00 12/18/22 20:00 49 15 163/85 (111) 99 Nasal Cannula 2.00 12/18/22 20:00 97 Nasal Cannula 2.00 12/18/22 19:00 48 16 177/84 (115) 99 Nasal Cannula 2.00 12/18/22 19:00 52 12/18/22 18:58 97 Nasal Cannula 2.00 12/18/22 18:00 59 21 137/68 (91) 95 Nasal Cannula 2.00 12/18/22 17:00 46 16 188/82 (117) 100 Nasal Cannula 2.00 12/18/22 16:47 97 Nasal Cannula 2.00 12/18/22 16:00 50 14 178/76 (110) 100 Nasal Cannula 2.00 12/18/22 16:00 36.1 12/18/22 15:00 44 178/80 (112) 90 Nasal Cannula 2.00 12/18/22 14:00 47 155/80 (105) 99 Nasal Cannula 2.00 12/18/22 13:00 48 158/80 (106) 99 Nasal Cannula 2.00 12/18/22 12:44 48 12/18/22 12:00 49 9 147/83 (104) 99 Nasal Cannula 2.00 12/18/22 12:00 97 Nasal Cannula 2.00 12/18/22 11:37 98 Nasal Cannula 2.00 12/18/22 11:00 43 150/76 (100) 99 Nasal Cannula 2.00 12/18/22 10:00 49 16 99 Nasal Cannula 2.00 I & O 12/19/22 07:00 Intake Total 2085 ml Output Total 4025 ml Balance -1940 ml Height & Weight Height: 6'0.00" Weight: 200lbs. oz. 90.510273rx; 21.10 BMI Method: General Appearance: No Apparent Distress, Chronically ill HEENT: PERRL/EOMI, Other (right post scalp swelling, no redness erythema) Neck: Full Range of Motion Respiratory: Other (Diminished breath sounds posteriorly no wheezes rales or rhonchi.) Cardiovascular: No Edema, No Gallop, No Murmur, Irregularly Irregular Capillary Refill: Less Than 3 Seconds Gastrointestinal: normal bowel sounds, non tender, soft Extremity: No Calf Tenderness, No Pedal Edema Neurologic/Psychiatric: Alert, Oriented x3 Skin: Normal Color Lymphatic: No Adenopathy Results Lab Laboratory Tests 12/17/22 20:00 12/18/22 02:35 12/18/22 05:15 12/18/22 08:50 12/19/22 03:45 Assessment/Plan Assessment/Plan as above Critical Care: Critically Ill Patient Time spent with patient (mins): 15 MICH DYER MD Dec 19, 2022 09:39
[2022-12-19 11:00] VITALS: BP 151/67
[2022-12-19 15:25] VITALS: BP 156/72
[2022-12-19 19:27] VITALS: BP 117/56
[2022-12-19 23:32] VITALS: BP 150/78
[2022-12-20 03:44] VITALS: BP 137/79
[2022-12-20 04:05] LABS: BASOPHILS % (AUTO) 0 % (0-10); EOSINOPHILS # (AUTO) 0.1 10^3/uL (0.0-0.3); EOSINOPHILS % (AUTO) 1 % (0-10); HEMATOCRIT 26 % (40-54); HEMOGLOBIN 9.4 g/dL (13.3-17.7); LYMPHOCYTES # (AUTO) 1.5 10^3/uL (1.0-4.0); LYMPHOCYTES % (AUTO) 23 % (12-44); MEAN CORPUSCULAR HEMOGLOBIN 33 pg (25-34); MEAN CORPUSCULAR HGB CONC 36 g/dL (32-36); MEAN CORPUSCULAR VOLUME 91 fL (80-99); MEAN PLATELET VOLUME 9.2 fL (9.0-12.2); MONOCYTES # (AUTO) 0.7 10^3/uL (0.0-1.0); MONOCYTES % (AUTO) 11 % (0-12); NEUTROPHILS % (AUTO) 64 % (42-75); PLATELET COUNT 158 10^3/uL (130-400); WHITE BLOOD COUNT 6.3 10^3/uL (4.3-11.0)
[2022-12-20] MEDS: THIAMINE 100 MG (VITAMIN B-1) TAB PO SCH (06:40)
[2022-12-20 07:20] LABS: CREATININE SERUM 0.55 MG/DL (0.60-1.30); POTASSIUM 3.6 MMOL/L (3.6-5.0)
--- NOTE | 2022-12-20 07:28 | Progress Note ---
Subjective Date Seen by a Provider: Dec 20, 2022 Time Seen by a Provider: 06:50 Subjective/Events-last exam over the weekend patient has been transferred to [facility]. He is resting comfortably in his bed. Quevedo catheter still in place. His daughter was present today and reports he seems to be getting better. He has not been doing much walking other than short visits with physical therapy. Objective Exam Vital Signs Date Time Temp Pulse Resp B/P (MAP) Pulse Ox O2 Delivery O2 Flow Rate FiO2 12/20/22 03:44 36.0 52 18 137/79 (98) 97 Nasal Cannula 2.00 2.00 12/19/22 23:32 36.0 52 18 150/78 (102) 100 Nasal Cannula 2.00 2.00 12/19/22 20:32 94 Nasal Cannula 2.00 12/19/22 20:00 94 Nasal Cannula 4.00 12/19/22 19:27 37.2 56 18 117/56 (76) 99 Nasal Cannula 2.00 12/19/22 15:25 36.6 52 18 156/72 (100) 100 Nasal Cannula 2.00 12/19/22 11:00 36.8 53 18 151/67 (95) 99 Nasal Cannula 2.00 12/19/22 09:00 48 15 157/69 (105) 100 Nasal Cannula 2.00 12/19/22 08:19 98 Nasal Cannula 4.00 12/19/22 08:00 98 Nasal Cannula 2.00 12/19/22 08:00 49 13 174/89 (111) 97 Nasal Cannula 2.00 12/19/22 07:56 35.9 I & O 12/20/22 07:00 Intake Total 1490 ml Output Total 1925 ml Balance -435 ml Capillary Refill : Less Than 3 Seconds General Appearance: No Apparent Distress HEENT: Other (Bandage over wound posterior scalp) Respiratory: Lungs Clear Cardiovascular: Irregularly Irregular (But rate is controlled at 52) Gastrointestinal: soft Neurologic/Psychiatric: Alert, Oriented x3 Results Lab Laboratory Tests 12/20/22 03:45: Potassium Level 3.6, Chloride Level 94L, Carbon Dioxide Level 24, Anion Gap 4L, Blood Urea Nitrogen 5L, Creatinine 0.55L, Estimat Glomerular Filtration Rate 103, BUN/Creatinine Ratio 9, Glucose Level 85, Calcium Level 8.0L 12/20/22 03:48: White Blood Count 6.3, Red Blood Count 2.84L, Hemoglobin 9.4L, Hematocrit 26L, Mean Corpuscular Volume 91, Mean Corpuscular Hemoglobin 33, Mean Corpuscular Hemoglobin Concent 36, Red Cell Distribution Width 11.9, Platelet Count 158, Mean Platelet Volume 9.2, Immature Granulocyte % (Auto) 1, Neutrophils (%) (Auto) 64, Lymphocytes (%) (Auto) 23, Monocytes (%) (Auto) 11, Eosinophils (%) (Auto) 1, Basophils (%) (Auto) 0, Neutrophils # (Auto) 4.0, Lymphocytes # (Auto) 1.5, Monocytes # (Auto) 0.7, Eosinophils # (Auto) 0.1, Basophils # (Auto) 0.0, Immature Granulocyte # (Auto) 0.0, B-Type Natriuretic Peptide 432.8H Microbiology 12/16/22 MRSA Screen - Final, Complete MRSA not isolated Assessment/Plan Assessment/Plan Assess & Plan/Chief Complaint 1. Head trauma without loss of consciousness -he is in ICU with frequent neuro checks 2. Hyponatremia severe. This is chronic in nature -Normal saline replacement started in the emergency room on admission -He is monitored closely with multiple chemistries 3. Scalp lacerationcurrently with devika -Surgery has been consulted due to the trauma 12/20 -wound care involvement 4. Atrial fibrillation history of with rate control and on anticoagulation -He will stay on anticoagulation due to the atrial fibrillation and bradycardia 12/20 -anticoagulations are now held -Noted standpipe tender recommendations 5. Electrolyte disturbance with low potassium and low magnesium on admission -Frequent monitoring of electrolytes and replacement 6. Alcoholism -school services officer consultation 7. Fall risk -Physical therapy for strengthening 12/20 - will have inpatient physical therapy evaluation 8. Bradycardia - will consult with cardiology Clinical Quality Measures Admission Status Admission Dx 1. Head trauma without loss of consciousness 2. Hyponatremia severe. This is chronic in nature 3. Scalp lacerationcurrently with devika 4. Atrial fibrillation history of with rate control and on anticoagulation 5. Electrolyte disturbance with low potassium and low magnesium on admission 6. Alcoholism MARINE MALONEY MD Dec 20, 2022 07:28
[2022-12-20 07:38] VITALS: BP 135/63
[2022-12-20 07:41] VITALS: BP 166/74
[2022-12-20] MEDS: POTASSIUM CHLORIDE 20 MEQ TABLET PO SCH (08:00)
--- NOTE | 2022-12-20 09:24 | Physical Therapy Daily Note ---
PT Daily Note-Current Subjective Patient agrees to PT. Pain Section J - Health Conditions 1. Rarely or not at all 2. Occasionally 3. Frequently 4. Almost constantly 8. Unable to answer Pain Effect on Sleep: 1 Pain Interference with Therapy: 1 Pain Interference w/Day-to-Day: 1 Mental Status Patient Orientation: Normal For Age Attachments: Oxygen, Quevedo Catheter Transfers SCALE: Activities may be completed with or without assistive devices. 7-Udeayzmqcj-rhznkmo completes the activity by him/herself with no assistance from a helper. 5-Set-up or Clean-up Assistance-helper sets up or cleans up; patient completes activity. [place] assists only prior to or following the activity. 4-Supervision or Touching Assistance-helper provides verbal cues and/or touching/steadying and/or contact guard assistance as patient completes activity. Assistance may be provided throughout the activity or intermittently. 3-Partial/Moderate Assistance-helper does LESS THAN HALF the effort. [place] lifts, holds or supports trunk or limbs, but provides less than half the effort. 2-Substantial/Maximal Assistance-helper does MORE THAN HALF the effort. [place] lifts or holds trunk or limbs and provides more than half the effort. 2-Hqedkdfif-xpebed does ALL the effort. Patient does none of the effort to complete the activity. Or, the assistance of 2 or more helpers is required for the patient to complete the activity. If activity was not attempted, code reason: 7-Patient Refused. 9-Not Applicable-not attempted and the patient did not perform the activity before the current illness, exacerbation or injury. 10-Not Attempted due to Environmental Limitations-(lack of equipment, weather restraints, etc.). 88-Not Attempted due to Medical Conditions or Safety Concerns. Lying to Sitting/Side of Bed(Q: 6 Sit to Stand (QC): 4 Chair/Lne-bo-Pivpy Xfer(QC): 4 Gait Training Distance: 500' Walk 10 feet (QC): 4 Walk 50 ft with 2 Turns(QC): 4 Walk 150 ft (QC): 4 Gait Assistive Device: FWW SBA for safety/slightly unsteady with self correct Exercises Supine Ex: Ankle pumps, Quad Set, Heel Slides, Straight leg raise Supine Reps: 12 Seated Therapy Exercises: Long arc quads Seated Reps: 12 Assessment Patient tolerated increase in activity on this date. Patient improved with mobility to SBA. PT to continue to increase activity as tolerated by patient. PT Staff Midwife Goals Alf Goals PT Staff Midwife Goals Time Frame: Dec 25, 2022 Roll Left & Right (QC): 6 Sit to Lying (QC): 6 Lying-Sitting on Side/Bed(QC): 6 Sit to Stand (QC): 6 Chair/Bus-is-Ltsbv Xfer(QC): 6 Toilet Transfer (QC): 6 Walk 10 feet (QC): 6 Walk 50ft with 2 Turns (QC): 6 Walk 150 ft (QC): 6 PT Plan Treatment/Plan Treatment Plan: Continue Plan of Care Treatment Plan: Bed Mobility, Education, Functional Activity [place], Functional Strength, Gait, Safety, Therapeutic Exercise, Transfers Treatment Duration: Dec 25, 2022 Frequency: 6 times per week Estimated Hrs Per Day: .25 hour per day Patient and/or Family Agrees t: Yes Time Time In: 840 Time Out: 903 DATE: Dec 20, 2022 Total Billed Treatment Time: 23 Total Billed Treatment 1 visit EX 9 min GT 14 min KRISTEN RODRIGUEZ PT Dec 20, 2022 09:24
[2022-12-20] MEDS: PANTOPRAZOLE INJECTION 40 MG VIAL IV SCH ×2 (09:41→20:08)
[2022-12-20] MEDS: FOLIC ACID 1 MG TAB PO SCH (09:41)
[2022-12-20] MEDS: amLODIPine 5 MG TABLET PO SCH (09:41)
[2022-12-20] MEDS: PHENYTOIN EXT RELEASE 100 MG CAPSULE PO SCH ×2 (09:43→20:08)
--- NOTE | 2022-12-20 10:29 | Occupational Ther Daily Note ---
OT Current Status-Daily Note Subjective Pt seen in room, up in recliner, agreeable to OT. Pt reported no pain prior to, during or after exercise. Appearance Alert, cooperative. Granddaughter present during tx. ADL-Treatment Therapy Code Descriptions/Definitions Functional [place] Measure: 0=Not Assessed/NA 4=Minimal Assistance 1=Total Assistance 5=Supervision or Setup 2=Maximal Assistance 6=Modified [place] 3=Moderate Assistance 7=Complete IndependenceSCALE: Activities may be completed with or without assistive devices. 4-Qtjtmfbenp-kattrgc completes the activity by him/herself with no assistance from a helper. 5-Set-up or Clean-up Assistance-helper sets up or cleans up; patient completes activity. [place] assists only prior to or following the activity. 4-Supervision or Touching Assistance-helper provides verbal cues and/or touch ing/steadying and/or contact guard assistance as patient completes activity. Assistance may be provided throughout the activity or intermittently. 3-Partial/Moderate Assistance-helper does LESS THAN HALF the effort. [place] lifts, holds or supports trunk or limbs, but provides less than half the effort. 2-Substantial/Maximal Assistance-helper does MORE THAN HALF the effort. [place] lifts or holds trunk or limbs and provides more than half the effort. 8-Ixavlutbi-llikcx does ALL the effort. Patient does none of the effort to complete the activity. Or, the assistance of 2 or more helpers is required for the patient to complete the activity. If activity was not attempted, code reason: 7-Patient Refused. 9-Not Applicable-not attempted and the patient did not perform the activity before the current illness, exacerbation or injury. 10-Not Attempted due to Environmental Limitations-(lack of equipment, weather restraints, etc.). 88-Not Attempted due to Medical Conditions or Safety Concerns. Other Treatment PT reported that he put his slipper socks on by himself. Pt did not need to toilet since he has a Quevedo but said that he's been up to the bathroom for bowel movements. Pt agreeable to UE exercise to strengthen arms to assist with tra nsfers and ADLs. Pt education two bilat UE exercises without additional resistance. He was able to complete them without assistance but did have some difficulty tracking repetitions. Pt education two different exercises with red theraband which he was able to do with some additional verbal and physical cues. Some difficulty switching arms with exercise. Pt return demonstrated the two UE ex without resistance and the theraband exercises, with verbal cues. Pt educ to do these a couple times a day, either up in recliner or in bed. Pt left up in recliner, all needs met, granddaughter present. Education OT Patient Education: Exercise program, Home exercise program, Purpose of tx/functional activities Teaching Recipient: Patient, Family Teaching Methods: Demonstration, Discussion Response to Teaching: Verbalize Understanding, Return Demonstration, Reinforcement Needed OT Usability Specialist Goals Assisted Goals 1=Demonstrate adherence to instructed precautions during ADL tasks. 2=Patient will verbalize/demonstrate understanding of assistive devices/modifications for ADL. 3=Patient will improve strength/tolerance for activity to enable patient to perform ADL's. OT Education/Plan Discharge Recommendations Plan/Recommendations: Continue POC Treatment Plan/Plan of Care Patient would benefit from OT for education, treatment and training to promote independence in ADL's, mobility, safety and/or upper extremity function for ADL's. Plan of Care: ADL Retraining, Functional Mobility, Group Exercise/Act as Ind, UE Funct Exercise/Act, UE Neuromus Re-Ed/Coord Treatment Duration: Dec 17, 2022 Frequency: 3 times per week (3-5 times per week) Estimated Hrs Per Day: .25 hour per day Agreement: Yes Rehab Potential: Fair Time Start Time: 09:28 Stop Time: 09:43 DATE: Dec 20, 2022 Total Time Billed (hr/min): 15 Billed Treatment Time visit, 15 minutes exercise JOE SALOMON OT Dec 20, 2022 10:29
[2022-12-20] MEDS: FLUTICASONE/VILANTEROL 100/25 MCG (7 DOSES) IH SCH ×2 (11:11→11:13)
[2022-12-20] MEDS: SALMETEROL IH SCH ×2 (11:13→21:47)
[2022-12-20] MEDS: FLUTICASONE IH SCH ×2 (11:13→21:47)
[2022-12-20 11:31] VITALS: BP 159/71
[2022-12-20 15:38] VITALS: BP 151/73
[2022-12-20 23:42] VITALS: BP 133/77
[2022-12-21 04:07] VITALS: BP 146/81
[2022-12-21] MEDS: THIAMINE 100 MG (VITAMIN B-1) TAB PO SCH (06:28)
[2022-12-21 06:35] LABS: BASOPHILS % (AUTO) 0 % (0-10); EOSINOPHILS # (AUTO) 0.1 10^3/uL (0.0-0.3); EOSINOPHILS % (AUTO) 2 % (0-10); HEMATOCRIT 27 % (40-54); HEMOGLOBIN 9.6 g/dL (13.3-17.7); LYMPHOCYTES # (AUTO) 1.3 10^3/uL (1.0-4.0); LYMPHOCYTES % (AUTO) 24 % (12-44); MEAN CORPUSCULAR HEMOGLOBIN 33 pg (25-34); MEAN CORPUSCULAR HGB CONC 36 g/dL (32-36); MEAN CORPUSCULAR VOLUME 92 fL (80-99); MONOCYTES # (AUTO) 0.6 10^3/uL (0.0-1.0); MONOCYTES % (AUTO) 11 % (0-12); NEUTROPHILS # (AUTO) 3.5 10^3/uL (1.8-7.8); NEUTROPHILS % (AUTO) 63 % (42-75); PLATELET COUNT 161 10^3/uL (130-400); WHITE BLOOD COUNT 5.6 10^3/uL (4.3-11.0)
[2022-12-21 06:51] LABS: POTASSIUM 3.8 MMOL/L (3.6-5.0)
[2022-12-21 06:52] LABS: CALCIUM 8.3 MG/DL (8.5-10.1)
[2022-12-21 06:56] LABS: CREATININE SERUM 0.54 MG/DL (0.60-1.30)
[2022-12-21] MEDS: POTASSIUM CHLORIDE 20 MEQ TABLET PO SCH (07:02)
[2022-12-21] MEDS: FLUTICASONE IH SCH ×2 (07:44→21:26)
[2022-12-21] MEDS: SALMETEROL IH SCH ×2 (07:44→21:26)
--- NOTE | 2022-12-21 07:54 | Progress Note ---
Subjective Date Seen by a Provider: Dec 21, 2022 Subjective/Events-last exam patient was resting comfortably in bed this morning. Upon awakening he does report that he is very weak and tired. Objective Exam Vital Signs Date Time Temp Pulse Resp B/P (MAP) Pulse Ox O2 Delivery O2 Flow Rate FiO2 12/21/22 07:44 96 Nasal Cannula 2.00 12/21/22 04:07 36.0 51 18 146/81 (102) 100 Nasal Cannula 1.50 12/20/22 23:42 36.2 52 16 133/77 (95) 100 Nasal Cannula 2.00 12/20/22 21:47 Nasal Cannula 2.00 12/20/22 21:00 98 Nasal Cannula 2.00 12/20/22 19:35 36.4 71 15 94 Nasal Cannula 2.00 12/20/22 15:38 36.3 50 15 151/73 (99) 100 Nasal Cannula 2.00 12/20/22 11:31 36.7 61 18 159/71 (100) 98 Nasal Cannula 2.00 12/20/22 11:14 98 Nasal Cannula 2.00 12/20/22 09:00 98 Nasal Cannula 2.00 I & O 12/21/22 07:00 Intake Total 2080 ml Output Total 3150 ml Balance -1070 ml Capillary Refill : Less Than 3 Seconds General Appearance: No Apparent Distress Respiratory: Lungs Clear Cardiovascular: Irregularly Irregular (But rate controlled at 54) Gastrointestinal: soft Neurologic/Psychiatric: Alert, Oriented x3 Results Lab Laboratory Tests 12/21/22 06:31: White Blood Count 5.6, Red Blood Count 2.90L, Hemoglobin 9.6L, Hematocrit 27L, Mean Corpuscular Volume 92, Mean Corpuscular Hemoglobin 33, Mean Corpuscular Hemoglobin Concent 36, Red Cell Distribution Width 11.9, Platelet Count 161, Mean Platelet Volume 9.0, Immature Granulocyte % (Auto) 1, Neutrophils (%) (Auto) 63, Lymphocytes (%) (Auto) 24, Monocytes (%) (Auto) 11, Eosinophils (%) (Auto) 2, Basophils (%) (Auto) 0, Neutrophils # (Auto) 3.5, Lymphocytes # (Auto) 1.3, Monocytes # (Auto) 0.6, Eosinophils # (Auto) 0.1, Basophils # (Auto) 0.0, Immature Granulocyte # (Auto) 0.0, Sodium Level 125*L, Potassium Level 3.8, Chloride Level 95L, Carbon Dioxide Level 22, Anion Gap 8, Blood Urea Nitrogen 4L , Creatinine 0.54L, Estimat Glomerular Filtration Rate 104, BUN/Creatinine Ratio 7, Glucose Level 89, Calcium Level 8.3L, B-Type Natriuretic Peptide 483.0H Microbiology 12/16/22 MRSA Screen - Final, Complete MRSA not isolated Assessment/Plan Assessment/Plan Assess & Plan/Chief Complaint 1. Head trauma without loss of consciousness -he is in ICU with frequent neuro checks 2. Hyponatremia severe. This is chronic in nature -Normal saline replacement started in the emergency room on admission -He is monitored closely with multiple chemistries 12/21 sodium at all time inpatient stay at 124 3. Scalp lacerationcurrently with devika -Surgery has been consulted due to the trauma 12/20 -wound care involvement 4. Atrial fibrillation history of with rate control and on anticoagulation -He will stay on anticoagulation due to the atrial fibrillation and bradycardia 12/20 -anticoagulations are now held -Noted cloth examiner recommendations 5. Electrolyte disturbance with low potassium and low magnesium on admission -Frequent monitoring of electrolytes and replacement 6. Alcoholism -nutrition services manager consultation 7. Fall risk -Physical therapy for strengthening 12/20 - will have inpatient physical therapy evaluation 12/21 -Will discontinue the Quevedo catheter -Encourage ambulation and hopefully with the help of physical therapy he can be safely discharged to home tomorrow morning. -he did not qualify for inpatient rehabilitation 8. Bradycardia - will consult with cardiology Clinical Quality Measures Admission Status Admission Dx 1. Head trauma without loss of consciousness 2. Hyponatremia severe. This is chronic in nature 3. Scalp lacerationcurrently with devika 4. Atrial fibrillation history of with rate control and on anticoagulation 5. Electrolyte disturbance with low potassium and low magnesium on admission 6. Alcoholism MARINE MALONEY MD Dec 21, 2022 07:54
[2022-12-21 08:02] VITALS: BP 147/70
[2022-12-21] MEDS: PANTOPRAZOLE INJECTION 40 MG VIAL IV SCH ×2 (08:16→19:45)
[2022-12-21] MEDS: FOLIC ACID 1 MG TAB PO SCH (08:16)
[2022-12-21] MEDS: amLODIPine 5 MG TABLET PO SCH (08:16)
[2022-12-21] MEDS: PHENYTOIN EXT RELEASE 100 MG CAPSULE PO SCH ×2 (08:17→19:45)
[2022-12-21] MEDS ORDERED: POTASSIUM CHLORIDE 20 MEQ TABLET PO NR (09:00)
--- NOTE | 2022-12-21 09:00 | Physical Therapy Daily Note ---
PT Daily Note-Current Subjective Patient agrees to PT. Pain Section J - Health Conditions 1. Rarely or not at all 2. Occasionally 3. Frequently 4. Almost constantly 8. Unable to answer Pain Effect on Sleep: 1 Pain Interference with Therapy: 1 Pain Interference w/Day-to-Day: 1 Mental Status Patient Orientation: Normal For Age Attachments: Oxygen Transfers SCALE: Activities may be completed with or without assistive devices. 7-Ojhwwahiub-rdemwhz completes the activity by him/herself with no assistance from a helper. 5-Set-up or Clean-up Assistance-helper sets up or cleans up; patient completes activity. [place] assists only prior to or following the activity. 4-Supervision or Touching Assistance-helper provides verbal cues and/or touching/steadying and/or contact guard assistance as patient completes activity. Assistance may be provided throughout the activity or intermittently. 3-Partial/Moderate Assistance-helper does LESS THAN HALF the effort. [place] lifts, holds or supports trunk or limbs, but provides less than half the effort. 2-Substantial/Maximal Assistance-helper does MORE THAN HALF the effort. [place] lifts or holds trunk or limbs and provides more than half the effort. 0-Zznhnvdsz-vxsfzr does ALL the effort. Patient does none of the effort to complete the activity. Or, the assistance of 2 or more helpers is required for the patient to complete the activity. If activity was not attempted, code reason: 7-Patient Refused. 9-Not Applicable-not attempted and the patient did not perform the activity before the current illness, exacerbation or injury. 10-Not Attempted due to Environmental Limitations-(lack of equipment, weather restraints, etc.). 88-Not Attempted due to Medical Conditions or Safety Concerns. Lying to Sitting/Side of Bed(Q: 6 Sit to Stand (QC): 4 Chair/Iwk-fx-Dfiez Xfer(QC): 4 Gait Training Distance: 500' Walk 10 feet (QC): 4 Walk 50 ft with 2 Turns(QC): 4 Walk 150 ft (QC): 4 Gait Assistive Device: Cane Single Point multiple unsteady episodes with self correct/PT CGA to SBA for safety. Stair Training Stair Training: Handrails/: 1 handrail #of Steps: 5 1 Step (curb) (QC): 4 4 Steps (QC): 4 Stairs: Pattern: Step to Assessment Patient gait pattern is the safe with FWW and cane. Patient would benefit from balance training in an outpatient setting. Family educated on this. PT to continue to address functional strength and mobility. PT Prison Goals Human Services Manager Goals PT Prison Goals Time Frame: Dec 25, 2022 Roll Left & Right (QC): 6 Sit to Lying (QC): 6 Lying-Sitting on Side/Bed(QC): 6 Sit to Stand (QC): 6 Chair/Qzl-iv-Pipuc Xfer(QC): 6 Toilet Transfer (QC): 6 Walk 10 feet (QC): 6 Walk 50ft with 2 Turns (QC): 6 Walk 150 ft (QC): 6 PT Plan Treatment/Plan Treatment Plan: Continue Plan of Care Treatment Plan: Bed Mobility, Education, Functional Activity [place], Functional Strength, Gait, Safety, Therapeutic Exercise, Transfers Treatment Duration: Dec 25, 2022 Frequency: 6 times per week Estimated Hrs Per Day: .25 hour per day Patient and/or Family Agrees t: Yes Time Time In: 812 Time Out: 835 DATE: Dec 21, 2022 Total Billed Treatment Time: 23 Total Billed Treatment 1 visit FA 10 min GT 13 min KRISTEN RODRIGUEZ PT Dec 21, 2022 09:00
--- NOTE | 2022-12-21 09:26 | Occupational Ther Daily Note ---
OT Current Status-Daily Note Subjective Pt seen in room, up in recliner, agreeable to OT. No pain mentioned. Appearance Alert, cooperative ADL-Treatment Therapy Code Descriptions/Definitions Functional [place] Measure: 0=Not Assessed/NA 4=Minimal Assistance 1=Total Assistance 5=Supervision or Setup 2=Maximal Assistance 6=Modified [place] 3=Moderate Assistance 7=Complete IndependenceSCALE: Activities may be completed with or without assistive devices. 2-Ajccpigivk-gwdhzgl completes the activity by him/herself with no assistance from a helper. 5-Set-up or Clean-up Assistance-helper sets up or cleans up; patient completes activity. [place] assists only prior to or following the activity. 4-Supervision or Touching Assistance-helper provides verbal cues and/or touching/steadying and/or contact guard assistance as patient completes acti vity. Assistance may be provided throughout the activity or intermittently. 3-Partial/Moderate Assistance-helper does LESS THAN HALF the effort. [place] lifts, holds or supports trunk or limbs, but provides less than half the effort. 2-Substantial/Maximal Assistance-helper does MORE THAN HALF the effort. [place] lifts or holds trunk or limbs and provides more than half the effort. 9-Xukxyxykl-hicylf does ALL the effort. Patient does none of the effort to complete the activity. Or, the assistance of 2 or more helpers is required for the patient to complete the activity. If activity was not attempted, code reason: 7-Patient Refused. 9-Not Applicable-not attempted and the patient did not perform the activity before the current illness, exacerbation or injury. 10-Not Attempted due to Environmental Limitations-(lack of equipment, weather restraints, etc.). 88-Not Attempted due to Medical Conditions or Safety Concerns. Other Treatment Pt declined ADLs, stating that he'd had a good shower last night and didn't think he had the energy to stand at the sink to shave and brush his teeth. Pt education on energy conservation techniques and pacing himself. Pt recalled two arm exercises from yesterday (without resistance) and demonstrated them with 10 reps each. He also demonstrated several different bilat UE exercises with fatimah therseth. he reported that his plan is to do 10 reps of exercises, then repeat for a second set. Pt left up in recliner, all needs met. Education OT Patient Education: Exercise program, Home exercise program, Purpose of tx/functional activities Teaching Recipient: Patient Teaching Methods: Demonstration, Discussion Response to Teaching: Verbalize Understanding, Return Demonstration OT Boot And Saddle Repair Person Goals Shelter Goals 1=Demonstrate adherence to instructed precautions during ADL tasks. 2=Patient will verbalize/demonstrate understanding of assistive devices/modifications for ADL. 3=Patient will improve strength/tolerance for activity to enable patient to perform ADL's. OT Education/Plan Discharge Recommendations Plan/Recommendations: Continue POC Treatment Plan/Plan of Care Patient would benefit from OT for education, treatment and training to promote i ndependence in ADL's, mobility, safety and/or upper extremity function for ADL's. Plan of Care: ADL Retraining, Functional Mobility, Group Exercise/Act as Ind, UE Funct Exercise/Act, UE Neuromus Re-Ed/Coord Treatment Duration: Dec 17, 2022 Frequency: 3 times per week (3-5 times per week) Estimated Hrs Per Day: .25 hour per day Agreement: Yes Rehab Potential: Fair Time Start Time: 09:06 Stop Time: 09:16 DATE: Dec 21, 2022 Total Time Billed (hr/min): 10 Billed Treatment Time visit, 8 minutes exercise, 2 minutes ADL JOE SALOMON OT Dec 21, 2022 09:26
[2022-12-21 11:53] VITALS: BP 151/78
[2022-12-21 16:19] VITALS: BP 175/79
[2022-12-21 19:40] VITALS: BP 118/73
[2022-12-21 23:23] VITALS: BP 119/64
[2022-12-22 03:16] VITALS: BP 156/84
[2022-12-22] MEDS: THIAMINE 100 MG (VITAMIN B-1) TAB PO SCH (06:02)
[2022-12-22 06:10] LABS: BASOPHILS % (AUTO) 0 % (0-10); EOSINOPHILS # (AUTO) 0.1 10^3/uL (0.0-0.3); EOSINOPHILS % (AUTO) 1 % (0-10); HEMATOCRIT 27 % (40-54); HEMOGLOBIN 9.8 g/dL (13.3-17.7); LYMPHOCYTES # (AUTO) 1.3 10^3/uL (1.0-4.0); LYMPHOCYTES % (AUTO) 20 % (12-44); MEAN CORPUSCULAR HEMOGLOBIN 33 pg (25-34); MEAN CORPUSCULAR HGB CONC 36 g/dL (32-36); MEAN CORPUSCULAR VOLUME 92 fL (80-99); MONOCYTES # (AUTO) 0.7 10^3/uL (0.0-1.0); MONOCYTES % (AUTO) 10 % (0-12); NEUTROPHILS # (AUTO) 4.4 10^3/uL (1.8-7.8); NEUTROPHILS % (AUTO) 68 % (42-75); PLATELET COUNT 170 10^3/uL (130-400); WHITE BLOOD COUNT 6.6 10^3/uL (4.3-11.0)
[2022-12-22 07:04] LABS: POTASSIUM 3.9 MMOL/L (3.6-5.0)
[2022-12-22 07:05] LABS: CALCIUM 8.3 MG/DL (8.5-10.1)
[2022-12-22 07:10] LABS: CREATININE SERUM 0.51 MG/DL (0.60-1.30)
[2022-12-22] MEDS: POTASSIUM CHLORIDE 20 MEQ TABLET PO SCH (07:10)
--- NOTE | 2022-12-22 07:24 | Progress Note ---
Subjective Date Seen by a Provider: Dec 22, 2022 Time Seen by a Provider: 07:00 Subjective/Events-last exam upon entering the room today patient does admit that over the early a.m. he was having chest pain as a band across the front part of his sternal region. He does not appear to be in any acute distress. His daughter is present in the room with him as well and she reported not being aware of this either. 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 He apparently is able to walk to bathroom but he is pretty unsteady. Objective Exam Vital Signs Date Time Temp Pulse Resp B/P (MAP) Pulse Ox O2 Delivery O2 Flow Rate FiO2 12/22/22 03:16 36.4 59 18 156/84 (108) 97 Nasal Cannula 2.00 2.00 12/21/22 23:23 36.4 55 18 119/64 (82) 97 Nasal Cannula 2.00 2.00 12/21/22 21:26 93 2.00 12/21/22 20:07 98 Nasal Cannula 2.00 12/21/22 19:40 36.9 57 18 118/73 (88) 98 Nasal Cannula 2.00 12/21/22 16:19 36.5 50 18 175/79 (111) 99 Nasal Cannula 2.00 12/21/22 11:53 36.0 52 14 151/78 (102) Nasal Cannula 2.00 12/21/22 09:00 Nasal Cannula 2.00 12/21/22 08:02 35.8 59 14 147/70 (95) Nasal Cannula 2.00 12/21/22 07:44 96 Nasal Cannula 2.00 I & O 12/22/22 07:00 Intake Total 3260 ml Output Total 3275 ml Balance -15 ml Capillary Refill : Less Than 3 Seconds General Appearance: No Apparent Distress Respiratory: Chest Non Tender, Other (Coarse breath sounds) Cardiovascular: Irregularly Irregular (But his rate is at 50) Gastrointestinal: soft Skin: Normal Color Results Lab Laboratory Tests 12/22/22 06:00: White Blood Count 6.6, Red Blood Count 2.94L, Hemoglobin 9.8L, Hematocrit 27L, Mean Corpuscular Volume 92, Mean Corpuscular Hemoglobin 33, Mean Corpuscular Hemoglobin Concent 36, Red Cell Distribution Width 12.0, Platelet Count 170, Mean Platelet Volume 9.0, Immature Granulocyte % (Auto) 1, Neutrophils (%) (Auto) 68, Lymphocytes (%) (Auto) 20, Monocytes (%) (Auto) 10, Eosinophils (%) (Auto) 1, Basophils (%) (Auto) 0, Neutrophils # (Auto) 4.4, Lymphocytes # (Auto) 1.3, Monocytes # (Auto) 0.7, Eosinophils # (Auto) 0.1, Basophils # (Auto) 0.0, Immature Granulocyte # (Auto) 0.1, Sodium Level 126L, Potassium Level 3.9, Chloride Level 96L, Carbon Dioxide Level 22, Anion Gap 8, Blood Urea Nitrogen 7, Creatinine 0.51L, Estimat Glomerular Filtration Rate 106, BUN/Creatinine Ratio 14, Glucose Level 96, Calcium Level 8.3L, B-Type Natriuretic Peptide 384.7H Microbiology 12/16/22 MRSA Screen - Final, Complete MRSA not isolated Assessment/Plan Assessment/Plan Assess & Plan/Chief Complaint 1. Head trauma without loss of consciousness -he is in ICU with frequent neuro checks 2. Hyponatremia severe. This is chronic in nature -Normal saline replacement started in the emergency room on admission -He is monitored closely with multiple chemistries 12/21 sodium at all time inpatient stay at 124 3. Scalp lacerationcurrently with devika -Surgery has been consulted due to the trauma 12/20 -wound care involvement 4. Atrial fibrillation history of with rate control and on anticoagulation -He will stay on anticoagulation due to the atrial fibrillation and bradycardia 12/20 -anticoagulations are now held -Noted manager inpatient recommendations 5. Electrolyte disturbance with low potassium and low magnesium on admission -Frequent monitoring of electrolytes and replacement 6. Alcoholism -financial services assistant consultation 7. Fall risk -Physical therapy for strengthening 12/20 - will have inpatient physical therapy evaluation 12/21 -Will discontinue the Quevedo catheter -Encourage ambulation and hopefully with the help of physical therapy he can be safely discharged to home tomorrow morning. -he did not qualify for inpatient rehabilitation 8. Bradycardia - will consult with cardiology 9. Chest pain -We will check with cardiology -Check EKG this morning along with troponin. -Check chest x-ray Clinical Quality Measures Admission Status Admission Dx 1. Head trauma without loss of consciousness 2. Hyponatremia severe. This is chronic in nature 3. Scalp lacerationcurrently with devika 4. Atrial fibrillation history of with rate control and on anticoagulation 5. Electrolyte disturbance with low potassium and low magnesium on admission 6. Alcoholism MARINE MALONEY MD Dec 22, 2022 07:24
[2022-12-22 07:27] VITALS: BP 145/78
[2022-12-22] MEDS ORDERED: POTASSIUM CHLORIDE 20 MEQ TABLET PO NR (07:30)
[2022-12-22] MEDS: FOLIC ACID 1 MG TAB PO SCH (08:33)
[2022-12-22] MEDS: PHENYTOIN EXT RELEASE 100 MG CAPSULE PO SCH ×2 (08:33→19:52)
[2022-12-22] MEDS: amLODIPine 5 MG TABLET PO SCH (08:33)
[2022-12-22] MEDS: PANTOPRAZOLE INJECTION 40 MG VIAL IV SCH ×2 (08:33→19:52)
--- NOTE | 2022-12-22 09:00 | Occ Therapy Progress Note ---
Therapy Progress Note Patient out of room to radiology. OT will attempt later today MARILEE PAGAN OT Dec 22, 2022 09:00
--- NOTE | 2022-12-22 10:11 | Diagnostic Imaging Report ---
INDICATION: Chest pain. TECHNIQUE: Two view chest 9:05 AM CORRELATION STUDY: 12/16/2022 FINDINGS: Left upper extremity central line tip over the SVC, stable. Heart size and mediastinum unchanged. Vasculature is mildly prominent. Also mildly prominent interstitial markings. No infiltrate. No effusion. Mild accentuated thoracic kyphosis with degenerative change. Minimal displaced left lower lateral rib fracture deformities, generally stable. IMPRESSION: 1. Mild edema. Dictated by: Dictated on workstation # [id number]
[2022-12-22] MEDS: FLUTICASONE/VILANTEROL 100/25 MCG (7 DOSES) IH SCH ×2 (10:13→10:15)
[2022-12-22 11:23] VITALS: BP 135/75
--- NOTE | 2022-12-22 11:59 | Physical Therapy Daily Note ---
PT Daily Note-Current Subjective Patient lying supine in bed upon PT arrival, agreeable to treatment. Patient rates pain at 0/10. Pain Section J - Health Conditions 1. Rarely or not at all 2. Occasionally 3. Frequently 4. Almost constantly 8. Unable to answer Pain Effect on Sleep: 1 Pain Interference with Therapy: 1 Pain Interference w/Day-to-Day: 1 Transfers SCALE: Activities may be completed with or without assistive devices. 2-Fguyjesqni-uavlock completes the activity by him/herself with no assistance from a helper. 5-Set-up or Clean-up Assistance-helper sets up or cleans up; patient completes activity. [place] assists only prior to or following the activity. 4-Supervision or Touching Assistance-helper provides verbal cues and/or touching/steadying and/or contact guard assistance as patient completes activity. Assistance may be provided throughout the activity or intermittently. 3-Partial/Moderate Assistance-helper does LESS THAN HALF the effort. [place] lifts, holds or supports trunk or limbs, but provides less than half the effort. 2-Substantial/Maximal Assistance-helper does MORE THAN HALF the effort. [place] lifts or holds trunk or limbs and provides more than half the effort. 4-Bvjubzpmi-iciprf does ALL the effort. Patient does none of the effort to complete the activity. Or, the assistance of 2 or more helpers is required for the patient to complete the activity. If activity was not attempted, code reason: 7-Patient Refused. 9-Not Applicable-not attempted and the patient did not perform the activity before the current illness, exacerbation or injury. 10-Not Attempted due to Environmental Limitations-(lack of equipment, weather restraints, etc.). 88-Not Attempted due to Medical Conditions or Safety Concerns. Roll Left & Right (QC): 4 Sit to Lying (QC): 4 Lying to Sitting/Side of Bed(Q: 4 Sit to Stand (QC): 4 Chair/Fli-ka-Zhsmq Xfer(QC): 4 Gait Training Does the Patient Walk?: Yes Distance: 420' Walk 10 feet (QC): 4 Walk 50 ft with 2 Turns(QC): 4 Walk 150 ft (QC): 4 Gait Assistive Device: FWW Assessment Current Status: Good Progress Patient ambulates 420' with FWW, with SBA and verbal cues for path. Patient performs all bed mobility and transfers with SBA. Patient in bed post treatment with all needs met, nursing notified, call light in hand and family in the room. PT Mcfp Goals Mcfp Goals PT Mcfp Goals Time Frame: Dec 25, 2022 Roll Left & Right (QC): 6 Sit to Lying (QC): 6 Lying-Sitting on Side/Bed(QC): 6 Sit to Stand (QC): 6 Chair/Wxp-hr-Hgscu Xfer(QC): 6 Toilet Transfer (QC): 6 Walk 10 feet (QC): 6 Walk 50ft with 2 Turns (QC): 6 Walk 150 ft (QC): 6 PT Plan Treatment/Plan Treatment Plan: Continue Plan of Care Treatment Plan: Bed Mobility, Education, Functional Activity [place], Functional Strength, Gait, Safety, Therapeutic Exercise, Transfers Treatment Duration: Dec 25, 2022 Frequency: 6 times per week Estimated Hrs Per Day: .25 hour per day Patient and/or Family Agrees t: Yes Safety Risks/Education Patient Education: Gait Training, Transfer Techniques Teaching Recipient: Patient Teaching Methods: Demonstration, Discussion Response to Teaching: Verbalize Understanding, Return Demonstration Time Time In: 1002 Time Out: 1012 DATE: Dec 22, 2022 Total Billed Treatment Time: 10 Total Billed Treatment Visit, GT CA HIDALGO PT Dec 22, 2022 11:59
--- NOTE | 2022-12-22 12:34 | Cardiology Progress Note ---
Subjective Date Seen by Provider: Dec 22, 2022 Time Seen by Provider: 12:29 Subjective/Events-last exam Patient is sitting up in bed, reports episode of substernal chest pain early this morning. Denies any further episode. Objective-Cardiology Exam Last Set of Vital Signs Vital Signs 12/22/22 11:23 Temp 36.2 Pulse 58 Resp 17 B/P (MAP) 135/75 (95) Pulse Ox 97 O2 Delivery Nasal Cannula O2 Flow Rate 2.00 I&O Intake and Output 12/22/22 00:00 Intake Total 2860 ml Output Total 3275 ml Balance -415 ml Intake Oral 2860 ml Output Urine Total 3275 ml General: Alert, Oriented X3 HEENT: Atraumatic Neck: Supple Lungs: Clear to Auscultation, Normal Air Movement Heart: Regular Rate, Normal S1, Normal S2 Abdomen: Normal Bowel Sounds, Soft Extremities: No Clubbing, No Edema Skin: No Rashes Results Lab Laboratory Tests 12/22/22 06:00 A/P-Cardiology Admission Diagnosis Chest pain Head trauma afib ETOH use Assessment/Plan Chest pain, nonspecific etiology, resembling angina. Troponin negative, EKG showing no acute ST changes. Intolerant to aggressive oral anticoagulation. I will start her on aspirin 81 mg daily Monitor troponin and planning to evaluate Lexiscan stress test. Head trauma with scalp laceration, no loss of consciousness reported Frequent falls Permanent atrial fibrillation with bradycardia. Baseline heart rate between 43 and 53. Oral anticoagulation discontinued on this admission d/t frequent falls. Increased risk of bleeding. Patient was seen by Dr. Dewey and he has visited with the patient and his family and they decided to withhold oral anti coagulation Alcohol abuse Supervisory-Addendum Brief Supervisory Addendum Participated in pt care: history, MDM, physical Personally performed: exam, history, MDM Care discussed with: APARNA Results interpretation: Verified all documentation Notes: Patient was seen and evaluated with Parish, examination performed, management plan was discussed, agree with the current scribed note, I made few changes to the note using Italic font Patient was seen at bedside, feeling better Reported episodes of chest pain this morning, no acute EKG changes Slight bump in troponin, I will repeat troponin in a.m. then we will consider evaluating a stress test Patient cannot tolerate aggressive anticoagulation, I am starting on aspirin due to the chest pain and the multiple risk factors for coronary artery disease PARISH SALGUERO Dec 22, 2022 12:34 MARINA HIDALGO MD Dec 22, 2022 14:13
[2022-12-22] MEDS: ASPIRIN enteric coated 81MG TABLET PO SCH (13:47)
[2022-12-22 15:21] VITALS: BP 146/71
[2022-12-22 19:53] VITALS: BP 133/77
[2022-12-22 23:59] VITALS: BP 131/68
[2022-12-23 03:58] VITALS: BP 138/78
[2022-12-23] MEDS: THIAMINE 100 MG (VITAMIN B-1) TAB PO SCH (05:52)
[2022-12-23 06:08] LABS: BASOPHILS % (AUTO) 0 % (0-10); EOSINOPHILS # (AUTO) 0.1 10^3/uL (0.0-0.3); EOSINOPHILS % (AUTO) 1 % (0-10); HEMATOCRIT 26 % (40-54); HEMOGLOBIN 9.6 g/dL (13.3-17.7); LYMPHOCYTES # (AUTO) 1.3 10^3/uL (1.0-4.0); LYMPHOCYTES % (AUTO) 19 % (12-44); MEAN CORPUSCULAR HEMOGLOBIN 33 pg (25-34); MEAN CORPUSCULAR HGB CONC 36 g/dL (32-36); MEAN CORPUSCULAR VOLUME 92 fL (80-99); MONOCYTES # (AUTO) 0.7 10^3/uL (0.0-1.0); MONOCYTES % (AUTO) 10 % (0-12); NEUTROPHILS # (AUTO) 4.7 10^3/uL (1.8-7.8); NEUTROPHILS % (AUTO) 68 % (42-75); PLATELET COUNT 180 10^3/uL (130-400); WHITE BLOOD COUNT 6.9 10^3/uL (4.3-11.0)
[2022-12-23 06:18] LABS: BUN/CREATININE RATIO 13; CALCIUM 8.3 MG/DL (8.5-10.1); CARBON DIOXIDE 22 MMOL/L (21-32); CHLORIDE 96 MMOL/L (98-107); CREATININE SERUM 0.55 MG/DL (0.60-1.30); GFR ESTIMATED 103; GLUCOSE 114 MG/DL (70-105); POTASSIUM 4.2 MMOL/L (3.6-5.0)
[2022-12-23 06:24] LABS: SODIUM 124 MMOL/L (135-145)
[2022-12-23] MEDS: POTASSIUM CHLORIDE 20 MEQ TABLET PO SCH (06:27)
--- NOTE | 2022-12-23 07:40 | Progress Note ---
Subjective Date Seen by a Provider: Dec 23, 2022 Time Seen by a Provider: 06:55 Subjective/Events-last exam patient rested overnight without chest pain. His daughter was again present this morning Libra. His daughter informed me he did walk some yesterday but very limited. No sitting in chair. Objective Exam Vital Signs Date Time Temp Pulse Resp B/P (MAP) Pulse Ox O2 Delivery O2 Flow Rate FiO2 12/23/22 03:58 36.5 62 18 138/78 (98) 94 Nasal Cannula 2.00 12/22/22 23:59 36.8 74 18 131/68 (89) 97 Nasal Cannula 2.00 12/22/22 20:04 98 Nasal Cannula 2.00 12/22/22 19:53 36.4 64 18 133/77 (95) 98 Nasal Cannula 2.00 12/22/22 15:21 36.1 53 16 146/71 (96) 99 Nasal Cannula 2.00 12/22/22 11:23 36.2 58 17 135/75 (95) 97 Nasal Cannula 2.00 12/22/22 10:15 96 Nasal Cannula 2.00 12/22/22 09:08 Nasal Cannula 2.00 I & O 12/23/22 06:59 Intake Total 2710 ml Output Total 1950 ml Balance 760 ml Capillary Refill : Less Than 3 Seconds General Appearance: No Apparent Distress Respiratory: Lungs Clear Cardiovascular: Irregularly Irregular (With rate controlled) Gastrointestinal: soft Extremity: Normal Capillary Refill Neurologic/Psychiatric: Alert, Oriented x3 Skin: Normal Color Results Lab Laboratory Tests 12/23/22 05:55: White Blood Count 6.9, Red Blood Count 2.88L, Hemoglobin 9.6L, Hematocrit 26L, Mean Corpuscular Volume 92, Mean Corpuscular Hemoglobin 33, Mean Corpuscular Hemoglobin Concent 36, Red Cell Distribution Width 12.1, Platelet Count 180, Mean Platelet Volume 9.0, Immature Granulocyte % (Auto) 1, Neutrophils (%) (Auto) 68, Lymphocytes (%) (Auto) 19, Monocytes (%) (Auto) 10, Eosinophils (%) (Auto) 1, Basophils (%) (Auto) 0, Neutrophils # (Auto) 4.7, Lymphocytes # (Auto) 1.3, Monocytes # (Auto) 0.7, Eosinophils # (Auto) 0.1, Basophils # (Auto) 0.0, Immature Granulocyte # (Auto) 0.1, Sodium Level 124*L, Potassium Level 4.2, Chloride Level 96L, Carbon Dioxide Level 22, Anion Gap 6, Blood Urea Nitrogen 7, Creatinine 0.55L, Estimat Glomerular Filtration Rate 103, BUN/Creatinine Ratio 13, Glucose Level 114H, Calcium Level 8.3L, Troponin I < 0.028, B-Type Natriuretic Peptide 352.7H Microbiology 12/16/22 MRSA Screen - Final, Complete MRSA not isolated Assessment/Plan Assessment/Plan Assess & Plan/Chief Complaint 1. Head trauma without loss of consciousness -he is in ICU with frequent neuro checks 2. Hyponatremia severe. This is chronic in nature -Normal saline replacement started in the emergency room on admission -He is monitored closely with multiple chemistries 12/21 sodium at all time inpatient stay at 124 3. Scalp lacerationcurrently with devika -Surgery has been consulted due to the trauma 12/20 -wound care involvement 4. Atrial fibrillation history of with rate control and on anticoagulation -He will stay on anticoagulation due to the atrial fibrillation and bradycardia 12/20 -anticoagulations are now held -[place] superintendent recommendations 5. Electrolyte disturbance with low potassium and low magnesium on admission -Frequent monitoring of electrolytes and replacement 6. Alcoholism -dietary services director consultation 7. Fall risk -Physical therapy for strengthening 12/20 - will have inpatient physical therapy evaluation 12/21 -Will discontinue the Quevedo catheter -Encourage ambulation and hopefully with the help of physical therapy he can be safely discharged to home tomorrow morning. -he did not qualify for inpatient rehabilitation 12/23 -continue to improve ambulation and physical therapy and occupational therapy are both working with him. 8. Bradycardia - will consult with cardiology 9. Chest pain -We will check with cardiology -Check EKG this morning along with troponin. -Check chest x-ray 12/23 -I appreciate the input from cardiology. -I informed patient as well as his daughter that stress test may be performed soon. Clinical Quality Measures Admission Status Admission Dx 1. Head trauma without loss of consciousness 2. Hyponatremia severe. This is chronic in nature 3. Scalp lacerationcurrently with devika 4. Atrial fibrillation history of with rate control and on anticoagulation 5. Electrolyte disturbance with low potassium and low magnesium on admission 6. Alcoholism MARINE MALONEY MD Dec 23, 2022 07:40
[2022-12-23 07:42] VITALS: BP 144/67
[2022-12-23] MEDS ORDERED: meTOprolol TARTRATE (IR) 50 MG TABLET PO SCH (09:00)
[2022-12-23] MEDS: SALMETEROL IH SCH (09:25)
[2022-12-23] MEDS: FLUTICASONE IH SCH (09:25)
--- NOTE | 2022-12-23 09:43 | Cardiology Progress Note ---
Subjective Date Seen by Provider: Dec 23, 2022 Time Seen by Provider: 08:12 Subjective/Events-last exam Patient sitting in bed, no new complaints. Denies any chest pain or dyspnea. Objective-Cardiology Exam Last Set of Vital Signs Vital Signs 12/23/22 15:40 Temp 36.2 Pulse 52 Resp 18 B/P (MAP) 157/75 (102) Pulse Ox 100 O2 Delivery Nasal Cannula O2 Flow Rate 2.00 I&O Intake and Output 12/23/22 00:00 Intake Total 2360 ml Output Total 2250 ml Balance 110 ml Intake Oral 2360 ml Output Urine Total 2250 ml # Bowel Movements 1 General: Alert, Oriented X3 HEENT: Atraumatic Neck: Supple Lungs: Clear to Auscultation, Normal Air Movement Heart: Regular Rate, Normal S1, Normal S2 Abdomen: Normal Bowel Sounds, Soft Extremities: No Clubbing, No Edema Skin: No Rashes Results Lab Laboratory Tests 12/23/22 05:55 A/P-Cardiology Admission Diagnosis Chest pain Head trauma afib ETOH use Assessment/Plan Chest pain, nonspecific etiology, resembling angina. Troponin negative, EKG showing no acute ST changes. Intolerant to aggressive oral anticoagulation. Started on ASA 81mg daily. Recommend stress test for further evaluation, can be done as outpatient. Head trauma with scalp laceration, no loss of consciousness reported Frequent falls Permanent atrial fibrillation with bradycardia. Baseline heart rate between 43 and 53. Oral anticoagulation discontinued on this admission d/t frequent falls. Increased risk of bleeding. Patient was seen by Dr. Dewey and he has visited with the patient and his family and they decided to withhold oral anticoagulation Alcohol abuse Ok for discharge from cardiology standpoint. Supervisory-Addendum Brief Supervisory Addendum Participated in pt care: history, MDM, physical Personally performed: exam, history, MDM Care discussed with: APARNA Results interpretation: Verified all documentation Notes: Patient was seen and evaluated with Parish, examination performed, management plan was discussed, agree with the current scribed note, I made few changes to the note using Italic font Patient was seen with his daughter this morning Has been feeling better Ready for discharge, we discussed the need for a stress test, patient requested to have it done as an outpatient No further episodes of chest pain were reported, cardiac enzymes continue to be negative. PARISH SALGUERO Dec 23, 2022 09:43 MARINA HIDALGO MD Dec 23, 2022 17:41
[2022-12-23] MEDS: amLODIPine 5 MG TABLET PO SCH (09:49)
[2022-12-23] MEDS: FOLIC ACID 1 MG TAB PO SCH (09:49)
[2022-12-23] MEDS: ASPIRIN enteric coated 81MG TABLET PO SCH (09:49)
[2022-12-23] MEDS: PANTOPRAZOLE INJECTION 40 MG VIAL IV SCH (09:50)
[2022-12-23] MEDS: PHENYTOIN EXT RELEASE 100 MG CAPSULE PO SCH (09:51)
--- NOTE | 2022-12-23 10:23 | Physical Therapy Daily Note ---
PT Daily Note-Current Subjective Patient agrees to PT. Pain Section J - Health Conditions 1. Rarely or not at all 2. Occasionally 3. Frequently 4. Almost constantly 8. Unable to answer Pain Effect on Sleep: 1 Pain Interference with Therapy: 1 Pain Interference w/Day-to-Day: 1 Transfers SCALE: Activities may be completed with or without assistive devices. 7-Bbyjkcvhyj-bhlcnol completes the activity by him/herself with no assistance from a helper. 5-Set-up or Clean-up Assistance-helper sets up or cleans up; patient completes activity. [place] assists only prior to or following the activity. 4-Supervision or Touching Assistance-helper provides verbal cues and/or touching/steadying and/or contact guard assistance as patient completes activity. Assistance may be provided throughout the activity or intermittently. 3-Partial/Moderate Assistance-helper does LESS THAN HALF the effort. [place] lifts, holds or supports trunk or limbs, but provides less than half the effort. 2-Substantial/Maximal Assistance-helper does MORE THAN HALF the effort. [place] lifts or holds trunk or limbs and provides more than half the effort. 8-Qirjkotze-nwbgkl does ALL the effort. Patient does none of the effort to complete the activity. Or, the assistance of 2 or more helpers is required for the patient to complete the activity. If activity was not attempted, code reason: 7-Patient Refused. 9-Not Applicable-not attempted and the patient did not perform the activity before the current illness, exacerbation or injury. 10-Not Attempted due to Environmental Limitations-(lack of equipment, weather restraints, etc.). 88-Not Attempted due to Medical Conditions or Safety Concerns. Lying to Sitting/Side of Bed(Q: 6 Sit to Stand (QC): 6 Chair/Wet-qa-Stnpi Xfer(QC): 6 Gait Training Distance: 500' Walk 10 feet (QC): 6 Walk 50 ft with 2 Turns(QC): 6 Walk 150 ft (QC): 6 Gait Assistive Device: FWW safe and functional with no deviation Assessment Patient tolerated ambulation and is up in recliner with needs met. Plan dismissal today to home per RN. PT Adult Remedial Education Instructor Goals [facility] Goals PT Adult Remedial Education Instructor Goals Time Frame: Dec 25, 2022 Roll Left & Right (QC): 6 Sit to Lying (QC): 6 Lying-Sitting on Side/Bed(QC): 6 Sit to Stand (QC): 6 Chair/Dvj-pq-Zzbfo Xfer(QC): 6 Toilet Transfer (QC): 6 Walk 10 feet (QC): 6 Walk 50ft with 2 Turns (QC): 6 Walk 150 ft (QC): 6 PT Plan Treatment/Plan Treatment Plan: Discontinue PT Treatment Plan: Bed Mobility, Education, Functional Activity Loraine, Functional Strength, Gait, Safety, Therapeutic Exercise, Transfers Treatment Duration: Dec 25, 2022 Frequency: 6 times per week Estimated Hrs Per Day: .25 hour per day Patient and/or Family Agrees t: Yes Time Time In: 1001 Time Out: 1011 DATE: Dec 23, 2022 Total Billed Treatment Time: 10 Total Billed Treatment 1 visit FA 10 min KRISTEN RODRIGUEZ PT Dec 23, 2022 10:23
--- NOTE | 2022-12-23 10:55 | Discharge Summary ---
Diagnosis/Chief Complaint Date of Admission Dec 16, 2022 at 00:06 Date of Discharge Reason Hospital Visit 77-year-old male was brought to emergency department during the evening of August 15, 2022 after sustaining a fall. Apparently patient had just stepped out of his truck and he reports to me losing his feet and falling. He was able to press life alert and have EMS arrived. He was brought to the emergency department. He sustained a laceration on the back of his head. He denies that there was any loss of consciousness. He is currently on anticoagulation for atrial fibrillation which has rate under control. He also has multiple skin tears and bruising of extremities. He was noted to have alcohol level of 46 in the emergency department Discharge Summary Hospital Course Labs Laboratory Tests 12/21/22 06:31: Red Blood Count 2.90L, Hemoglobin 9.6L, Hematocrit 27L, Sodium Level 125*L, Chloride Level 95L, Blood Urea Nitrogen 4L, Creatinine 0.54L, Calcium Level 8.3L , B-Type Natriuretic Peptide 483.0H 12/22/22 06:00: Red Blood Count 2.94L, Hemoglobin 9.8L, Hematocrit 27L, Sodium Level 126L, Chloride Level 96L, Creatinine 0.51L, Calcium Level 8.3L, B-Type Natriuretic Peptide 384.7H 12/23/22 05:55: Red Blood Count 2.88L, Hemoglobin 9.6L, Hematocrit 26L, Sodium Level 124*L, Chloride Level 96L, Creatinine 0.55L, Calcium Level 8.3L, B-Type Natriuretic Peptide 352.7H, Glucose Level 114H Procedures None. Discharge Physical Examination Allergies: Coded Allergies: metoprolol (Verified Allergy, Unknown, LOW HR , 11/16/22) ALL BETA BLOCKERS Vitals & I&Os Vital Signs Date Time Temp Pulse Resp B/P (MAP) Pulse Ox O2 Delivery O2 Flow Rate FiO2 12/23/22 07:42 36.0 50 18 144/67 (92) 96 Nasal Cannula 2.00 Discharge Home Medications Reviewed and agree with Discharge Medication list on patient's Discharge Instruction sheet Instructions to Patient/Family Please see electronic discharge instructions given to patient. MARINE MALONEY MD Dec 23, 2022 10:55
--- NOTE | 2022-12-23 11:01 | Discharge Inst-Simple/Standard ---
Discharge Inst-Standard Reconcile Patient Problems Problems Reviewed?: Yes Discharge Medications New, Converted or Re-Newed RX: Other Patient Instructions/Follow Up Plan of Care/Instructions/FU: Dr. Miller in [address] Maloney in 1 week Activity as Tolerated: Yes Discharge Diet: Cardiac Diet Return to The Hospital For: Worsening shortness of breath. Unexplained chest pain MARINE MALONEY MD Dec 23, 2022 11:01
[2022-12-23 11:36] VITALS: BP 138/71
[2022-12-23 15:40] VITALS: BP 157/75
== END 2022-12-23 16:20 | disposition home or self-care (01) | DRG 605 ==
LOC: EDUNIT# 20:30 → ER 20:31 → ICU 12-16 00:06 → 4TH 12-19 10:16
PROVIDERS: ADMIT Family Medicine; ATTEND Family Medicine
DX: S01.01XA Laceration without foreign body of scalp, initial encounter (principal); E87.1 Hypo-osmolality and hyponatremia; M48.54XA Collapsed vertebra, not elsewhere classified, thoracic region, initial encounter for fracture; V69.9XXA Occupant (driver) (passenger) of heavy transport vehicle injured in unspecified traffic accident, initial encounter; Y92.89 Other specified places as the place of occurrence of the external cause; Z79.01 Long term (current) use of anticoagulants; F10.20 Alcohol dependence, uncomplicated; Z23 Encounter for immunization; E78.00 Pure hypercholesterolemia, unspecified; I10 Essential (primary) hypertension; G40.909 Epilepsy, unspecified, not intractable, without status epilepticus; I48.0 Paroxysmal atrial fibrillation; J44.9 Chronic obstructive pulmonary disease, unspecified; R00.1 Bradycardia, unspecified; R07.9 Chest pain, unspecified
CPT/HCPCS: 12002; 36415; 36569; 70450; 70486; 71045; 71046; 71260; 72125; 72128; 72131; 72170; 74177; 76937; 80048; 80053; 80185; 80320; 81000; 83735; 83880; 84100; 84443; 84484; 85014; 85018; 85025; 85610; 85730; 87081; 90471; 90715; 93005; 93041; 94640; 94760

== ENCOUNTER 2022-12-25 14:41 | Inpatient (IN) | payer MEDICARE ==
[~2022-12-25] VITALS: Ht 183 cm; Wt 63.3 kg
[~2022-12-25 14:41] MED LIST changes: +IBUP-2473 PO; +POTA10CA84 PO; +TRM50T PO
--- NOTE | 2022-12-25 15:02 | ED General ---
General Chief Complaint: Dizziness/Syncope Stated Complaint: LIGHT HEADED/DIFFICULTY WALKING Nursing Triage Note: PT TO RM 7 PER W/C, PT HAS HAD FALL LAST PM HIT CHEEK ON NIGHT STAND. CO OF DIZZINESS. PT CO OF SEVERE WEAKNESS. PT WAS RELEASED FROM HOSPITAL ON TUESDAY. Source of Information: Patient Exam Limitations: No Limitations History of Present Illness Date Seen by Provider: Dec 25, 2022 Time Seen by Provider: 14:59 Initial Comments Patient is a 77-year-old male with a history of COPD, AFIB chronically on 2 L, epilepsy, hyponatremia, hypokalemia who presents to ED for lightheadedness, weakness and difficulty walking. Patient reports difficulty with walking for several days. This became worse today. Difficulty standing. Does use a cane. Patient fell last night hitting the nightstand on the face. Patient states he was going into his bed. No loss of consciousness or on blood thinners. Patient states he was discharged from our facility last for low potassium and sodium. Patient reports history of similar symptoms when his electrolytes are abnormally low. Denies of any current pain such as head pain, facial pain, neck pain, middle lower back pain. Denies of any unilateral weakness, sensory changes. No change in mental status according to family at bedside. Denies chest pain, cough, shortness of breath, abdominal pain, vomiting, diarrhea, headache, visual changes. Denies of any fever, chills, body aches, muscle cramping. Patient drink 1 mixed drink last night. Allergies and Home Medications Allergies Coded Allergies: metoprolol (Verified Allergy, Unknown, LOW HR , 11/16/22) ALL BETA BLOCKERS Patient Home Medication List Home Medication List Reviewed: Yes Albuterol Sulfate (Ventolin Hfa) 90 Mcg Hfa.aer.ad, 2 PUFF INH Q4H PRN for SHORTNESS OF BREATH, (Reported) Entered as Reported by: TILA VINSON on 09/20/22 1020 Amlodipine Besylate (Amlodipine Besylate) 10 Mg Tablet, 10 MG PO DAILY, (Reported) Entered as Reported by: TILA VINSON on 09/20/22 1020 Fluticasone/Salmeterol (Advair 250-50 Diskus) 250 Mcg-50 Mcg/Dose Blst.w.dev, 1 PUFF INH BID, (Reported) Entered as Reported by: TILA VINSON on 09/20/22 1020 Ibuprofen (Ibuprofen) 200 Mg Tablet, 800 MG PO Q8H PRN for PAIN-MILD (1-4), (Reported) Entered as Reported by: TILA VINSON on 12/16/22 1219 Losartan Potassium (Losartan Potassium) 100 Mg Tablet, 100 MG PO DAILY, (Reported) Entered as Reported by: ADA COOPER on 08/07/20 1109 [place]-3/Dha/Epa/Fish Oil (Fish Oil 1,200 mg Softgel) 1,200 Mg (144 Mg-216 Mg) Capsule, 1,200 MG PO DAILY, (Reported) Entered as Reported by: TILA VINSON on 09/20/22 1020 Phenytoin Sodium Extended (Dilantin) 100 Mg Capsule, 300 MG PO MO,FR @AM, (Reported) Entered as Reported by: ADA COOPER on 08/07/20 1109 Phenytoin Sodium Extended (Phenytoin Sodium Extended) 100 Mg Capsule, 200 MG PO HS, (Reported) Entered as Reported by: TILA VINSON on 09/20/22 1020 Phenytoin Sodium Extended (Phenytoin Sodium Extended) 100 Mg Capsule, 200 MG PO BRIGGS,TU,WE,TH,SA @AM, (Reported) Entered as Reported by: TILA VINSON on 09/20/22 1020 Potassium Chloride (Potassium Chloride) 10 Meq Capsule.er, 10 MEQ PO DAILY, (Reported) Entered as Reported by: TILA VINSON on 12/16/22 1219 Tramadol HCl (Tramadol HCl) 50 Mg Tablet, 50 MG PO Q6H PRN for PAIN-MODERATE (5- 7), (Reported) Entered as Reported by: Maureen Abarca on 12/16/22 1157 Discontinued Medications Hydrochlorothiazide (Hydrochlorothiazide) 12.5 Mg Tablet, 12.5 MG PO DAILY, (Reported) Discontinued Reason: No Longer Taking Entered as Reported by: Maureen Abarca on 12/16/22 1157 Last Action: Discontinued Rivaroxaban (Xarelto Tablet) 20 Mg Tablet, 20 MG PO DAILY, (Reported) Entered as Reported by: TILA VINSON on 11/16/22 1540 Review of Systems Review of Systems Constitutional: No chills EENTM: No blurred vision, No double vision, No eye pain, No dental problems Respiratory: No cough, No dyspnea on exertion Cardiovascular: No chest pain Gastrointestinal: No abdominal pain, No diarrhea, No nausea, No vomiting Genitourinary: No decreased output, No discharge, No dysuria Musculoskeletal: No back pain, No joint pain Skin: No change in color, No change in hair/nails Psychiatric/Neurological: Denies Headache, Denies Numbness; Other (Lightheadedness) All Other Systems Reviewed Negative Unless Noted: Yes Past Bfqbfhw-Ucazsm-Ddrbzr Hx Patient Social History Tobacco Use?: No Smoking Status: Former Smoker Substance use?: No Alcohol Use?: No Pt feels they are or have been: No Immunizations Up To Date First/Initial COVID19 Vaccinat: 07/24/20 Second COVID19 Vaccination Lino: 07/24/20 Third COVID19 Vaccination Date: 07/24/20 Seasonal Allergies Seasonal Allergies: No Past Medical History Surgery/Hospitalization HX: COPD, HTN, EPILEPSY, STENTS IN LEG. 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 GRACE) High Cholesterol, Hypertension, Peripheral Vascular Neurological: Yes (REPORTS NO SEIZURES FOR 30 YEARS) Seizure Disorder Genitourinary: No Gastrointestinal: No Musculoskeletal: No Endocrine: No (CHRONIC HYPONATREMIA) HEENT: No (WEARS READING GLASSES) Cancer: Yes (PROSTATE CANCER (INITIAL DX 2010)) Prostate Psychosocial: No Integumentary: No Blood Disorders: No Family Medical History SOCIAL HISTORY: -SMOKES 1 PPD -ETOH--DRINKS AT LEAST A 6 PACK/DAY -DRUGS--DENIES Physical Exam Vital Signs Vital Signs - First Documented 12/25/22 14:52 Temp 35.7 Pulse 56 Resp 16 B/P (MAP) 150/88 (108) Pulse Ox 100 O2 Delivery Nasal Cannula O2 Flow Rate 2.00 Capillary Refill : Less Than 3 Seconds Height, Weight, BMI Height: 6'0.00" Weight: 200lbs. oz. 90.956235lg; 21.10 BMI Method: General Appearance: No Apparent Distress, WD/WN Eyes: Bilateral Eye Normal Inspection, Bilateral Eye PERRL, Bilateral Eye EOMI HEENT: PERRL/EOMI, TMs Normal, Normal ENT Inspection, Pharynx Normal, Other (Contusion occipital scalp old.) Neck: Full Range of Motion, Normal Inspection, Non Tender, Supple Respiratory: Chest Non Tender, Lungs Clear, Normal Breath Sounds, No Accessory Muscle Use, No Respiratory Distress Cardiovascular: No Edema, No Gallop, No JVD, Bradycardia Gastrointestinal: Normal Bowel Sounds, No Organomegaly, No Pulsatile Mass Back: Normal Inspection, No CVA Tenderness Extremity: Normal Capillary Refill, Normal Inspection Neurologic/Psychiatric: Alert, Oriented x3, No Motor/Sensory Deficits, Normal Mood/Affect, furniture decals inspector II-XII Norm as Tested Skin: Normal Color, Warm/Dry Progress/Results/Core Measures Suspected Sepsis SIRS Temperature: Pulse: 56 Respiratory Rate: 16 Laboratory Tests 12/25/22 15:00: White Blood Count 6.3 Blood Pressure 150 /88 Mean: 108 Laboratory Tests 12/25/22 15:00: Platelet Count 212 12/25/22 15:40: Creatinine 0.52L, Total Bilirubin 0.4 Results/Orders Lab Results Laboratory Tests Test 12/25/22 15:00 12/25/22 15:40 12/25/22 16:32 Range/Units White Blood Count 6.3 4.3-11.0 10^3/uL Red Blood Count 3.56 L 4.30-5.52 10^6/uL Hemoglobin 11.7 #L 13.3-17.7 g/dL Hematocrit 34 L 40-54 % Mean Corpuscular Volume 97 80-99 fL Mean Corpuscular Hemoglobin 33 25-34 pg Mean Corpuscular Hemoglobin Concent 34 32-36 g/dL Red Cell Distribution Width 12.7 10.0-14.5 % Platelet Count 212 130-400 10^3/uL Mean Platelet Volume 9.4 9.0-12.2 fL Immature Granulocyte % (Auto) 1 % Neutrophils (%) (Auto) 67 42-75 % Lymphocytes (%) (Auto) 21 12-44 % Monocytes (%) (Auto) 10 0-12 % Eosinophils (%) (Auto) 1 0-10 % Basophils (%) (Auto) 0 0-10 % Neutrophils # (Auto) 4.3 1.8-7.8 10^3/uL Lymphocytes # (Auto) 1.3 1.0-4.0 10^3/uL Monocytes # (Auto) 0.6 0.0-1.0 10^3/uL Eosinophils # (Auto) 0.1 0.0-0.3 10^3/uL Basophils # (Auto) 0.0 0.0-0.1 10^3/uL Immature Granulocyte # (Auto) 0.1 0.0-0.1 10^3/uL Percent Immature Platelet Fraction 2.9 0.0-7.6 % Sodium Level 122 *L 135-145 MMOL/L Potassium Level 3.9 3.6-5.0 MMOL/L Chloride Level 93 L 98-107 MMOL/L Carbon Dioxide Level 20 L 21-32 MMOL/L Anion Gap 9 5-14 MMOL/L Blood Urea Nitrogen 6 L 7-18 MG/DL Creatinine 0.52 L 0.60-1.30 MG/DL Estimat Glomerular Filtration Rate 105 BUN/Creatinine Ratio 12 Glucose Level 84 70-105 MG/DL Calcium Level 8.3 L 8.5-10.1 MG/DL Corrected Calcium 8.9 8.5-10.1 MG/DL Magnesium Level 1.9 1.6-2.4 MG/DL Total Bilirubin 0.4 0.1-1.0 MG/DL Aspartate Amino Transf (AST/SGOT) 60 H 5-34 U/L Alanine Aminotransferase (ALT/SGPT) 79 H 0-55 U/L Alkaline Phosphatase 111 40-136 U/L Total Protein 5.5 L 6.4-8.2 GM/DL Albumin 3.3 3.2-4.5 GM/DL Serum Alcohol < 10 <10 MG/DL Urine Color YELLOW Urine Clarity CLEAR Urine pH 7.0 5-9 Urine Specific [place] 1.010 L 1.016-1.022 Urine Protein NEGATIVE NEGATIVE Urine Glucose (UA) NEGATIVE NEGATIVE Urine Ketones NEGATIVE NEGATIVE Urine Nitrite NEGATIVE NEGATIVE Urine Bilirubin NEGATIVE NEGATIVE Urine Urobilinogen 1.0 < = 1.0 MG/DL Urine Leukocyte Esterase NEGATIVE NEGATIVE Urine RBC (Auto) NEGATIVE NEGATIVE Urine RBC NONE /HPF Urine WBC NONE /HPF Urine Squamous Epithelial Cells NONE /HPF Urine Crystals NONE /LPF Urine Bacteria NEGATIVE /HPF Urine Casts NONE /LPF Urine Mucus NEGATIVE /LPF Urine Culture Indicated NO My Orders Orders - TYRONE BUSTAMANTE Cbc With Automated Diff (12/25/22 14:57) Comprehensive Metabolic Panel (12/25/22 14:57) Magnesium (12/25/22 14:57) Urinalysis (12/25/22 14:57) Ekg Tracing (12/25/22 14:57) Ct Head/Maxillofacial Wo (12/25/22 14:57) Alcohol (12/25/22 15:03) Ns Iv 1000 Ml (Ns Iv 1000 Ml) (12/25/22 16:09) Ed Admission (Communication) (12/25/22 16:57) Vital Signs/I&O 12/25/22 12/25/22 14:52 16:59 Temp 35.7 Pulse 56 49 Resp 16 16 B/P (MAP) 150/88 (108) 164/95 Pulse Ox 100 100 O2 Delivery Nasal Cannula Nasal Cannula O2 Flow Rate 2.00 2.00 2.00 Capillary Refill : Less Than 3 Seconds Blood Pressure Mean: 108 ECG Comment Sinus bradycardia with occasional supraventricular premature complexes, nonspecific T wave abnormality, 53 bpm, QRS duration 106 MS, QTc 395 MS Departure Communication (PCP) Reviewed previous ER visits, H&P, lab testing. Chronically on 2 L. History of COPD, bradycardia, A-fib. Not currently on anticoagulant. Stopped anticoagulant this month secondary to frequent falls. Patient fell yesterday evening hitting his face on the nightstand. No loss of consciousness. Increased weakness and fatigue today. Difficulty ambulating. Lives at home by himself. Does use a cane but having difficulty walking because his legs are weak. Patient has no unilateral sensory changes, facial droop, change in mental status. patient was recently discharged this past week with hyponatremia. Patient denies any chest pain, cough, shortness of breath, fever, chills or urinary symptoms. Not currently on sodium tablets. After reviewing multiple previous visits patient with a history of hyponatremia. States his normal baseline is 128. CT scan of the head and face was ordered due to the fall. No specific head pain or facial pain. . No cervical, thoracic or lumbar midline tenderness. No chest wall tenderness or abdominal tenderness. Vital signs stable chronic bradycardia. EKG, CBC, CMP, mag and urinalysis was ordered. CBC was grossly unremarkable. Hemoglobin 11.7. Chemistry showed a sodium of 122, chloride 93. Slight elevated liver enzymes chronically. Normal magnesium. Kidney function stable. Patient was started on a liter of fluid NS. Urinalysis was negative for infection. CT scan of the head and face was negative for acute fracture. It took 2-3 people to get patient off the wheelchair and into the bed. Concern patient's safety at home and his low sodium which is likely contributing to his symptoms. Patient was discussed with Dr. Rubio hospitalist who agreed to accept patient. Patient may need to be evaluated again for inpatient rehab. Patient and family agree with plan of action Impression Primary Impression: Hyponatremia Additional Impression: Leg weakness Disposition: ADMITTED INPATIENT Condition: Stable Admissions Decision to Admit Reason: Admit from ER (General) Decision to Admit/Date: Dec 25, 2022 Time/Decision to Admit Time: 16:45 Departure-Patient Inst. Referrals: MARINE MALONEY MD (PCP/Family) Primary Care Physician TYRONE BUSTAMANTE Dec 25, 2022 15:02
[2022-12-25 15:12] LABS: BASOPHILS % (AUTO) 0 % (0-10); HEMOGLOBIN 11.7 g/dL (13.3-17.7); NEUTROPHILS % (AUTO) 67 % (42-75)
[2022-12-25 15:14] LABS: EOSINOPHILS # (AUTO) 0.1 10^3/uL (0.0-0.3); EOSINOPHILS % (AUTO) 1 % (0-10); HEMATOCRIT 34 % (40-54); LYMPHOCYTES # (AUTO) 1.3 10^3/uL (1.0-4.0); LYMPHOCYTES % (AUTO) 21 % (12-44); MEAN CORPUSCULAR HEMOGLOBIN 33 pg (25-34); MEAN CORPUSCULAR HGB CONC 34 g/dL (32-36); MEAN CORPUSCULAR VOLUME 97 fL (80-99); MEAN PLATELET VOLUME 9.4 fL (9.0-12.2); MONOCYTES # (AUTO) 0.6 10^3/uL (0.0-1.0); MONOCYTES % (AUTO) 10 % (0-12); NEUTROPHILS # (AUTO) 4.3 10^3/uL (1.8-7.8); PLATELET COUNT 212 10^3/uL (130-400); WHITE BLOOD COUNT 6.3 10^3/uL (4.3-11.0)
[2022-12-25 15:59] LABS: ALBUMIN 3.3 GM/DL (3.2-4.5); CHLORIDE 93 MMOL/L (98-107); POTASSIUM 3.9 MMOL/L (3.6-5.0)
[2022-12-25 16:00] LABS: CALCIUM 8.3 MG/DL (8.5-10.1)
[2022-12-25 16:02] LABS: GLUCOSE 84 MG/DL (70-105); TOTAL PROTEIN 5.5 GM/DL (6.4-8.2)
[2022-12-25 16:03] LABS: BILIRUBIN,TOTAL 0.4 MG/DL (0.1-1.0); CARBON DIOXIDE 20 MMOL/L (21-32)
[2022-12-25 16:05] LABS: ALKALINE PHOSPHATASE 111 U/L (40-136); CREATININE SERUM 0.52 MG/DL (0.60-1.30); GFR ESTIMATED 105
[2022-12-25 16:06] LABS: BUN/CREATININE RATIO 12
[2022-12-25 16:08] LABS: ALANINE AMINOTRANSFERASE 79 U/L (0-55); MAGNESIUM 1.9 MG/DL (1.6-2.4)
[2022-12-25 16:09] LABS: SODIUM 122 MMOL/L (135-145)
[2022-12-25] MEDS ORDERED: NS IV 1000 ML 1,000 ML IV STA (16:09)
--- NOTE | 2022-12-25 16:35 | Diagnostic Imaging Report ---
PROCEDURE: CT head and maxillofacial without contrast. TECHNIQUE: Multiple contiguous axial images were obtained through the head and facial bones without the use of intravenous contrast. Auto Exposure Controls were utilized during the CT exam to meet ALARA standards for radiation dose reduction. INDICATION: Fall results in dizziness with head and facial injury. COMPARISON: Exam compared with the last CT head, face, and cervical which was done 10 days ago. FINDINGS: CT HEAD: There have been soft tissue devika placed at the site of improved swelling in the left posterior parieto-occipital convexity. Underlying calvarium is intact. No skull fracture. Right-sided mastoid air cell opacification and right middle ear opacification, unchanged from prior. There are carotid atherosclerotic vascular calcifications, chronic. There is background atrophy and white matter small vessel disease, chronic. No intracranial hemorrhage. No acute extra-axial fluid collection. CT FACIAL BONES: Nasal bones and bony nasal septum are intact. Maxillary and orbital weber are intact. Pterygoid plates are intact. Zygomatic arch is intact. No mandibular fracture. No hemo-sinus. No facial fracture identified. Nonspecific right-sided mastoid effusion and middle ear opacification, unchanged. IMPRESSION: Improvements in left posterior parietal scalp swelling. Stable right mastoid and middle ear opacification. Stable chronic atrophy. No intracerebral hemorrhage or change. Facial CT showed no facial fracture or hemo-sinus. No change. Dictated by: Dictated on workstation # [id number]
[2022-12-25 16:57] LABS: CLARITY,URINE CLEAR; COLOR,URINE YELLOW
[2022-12-25 16:58] LABS: BACTERIA,URINE NEGATIVE /HPF; BILIRUBIN,URINE NEGATIVE (NEGATIVE); GLUCOSE, URINE (UA) NEGATIVE (NEGATIVE); KETONES,URINE NEGATIVE (NEGATIVE); LEUKOCYTE ESTERASE ,URINE NEGATIVE (NEGATIVE); NITRITE,URINE NEGATIVE (NEGATIVE); PROTEIN,URINE NEGATIVE (NEGATIVE)
[2022-12-25] MEDS ORDERED: SENNA W/DOCUSATE TABLET PO PRN (17:45)
[2022-12-25] MEDS ORDERED: LORazepam 1 MG TABLET PO PRN (17:45)
[2022-12-25] MEDS ORDERED: diphenhydrAMINE INJ 50 MG/ML VIAL IVP PRN (17:45)
[2022-12-25] MEDS ORDERED: ACETAMINOPHEN 325 MG TABLET PO PRN (17:45)
[2022-12-25] MEDS ORDERED: diphenhydrAMINE 25 MG TABLET PO PRN (17:45)
[2022-12-25] MEDS ORDERED: BISACODYL 10 MG SUPPOSITORY PR PRN (17:45)
[2022-12-25] MEDS ORDERED: MELATONIN 3 MG TABLET PO PRN (17:45)
[2022-12-25] MEDS ORDERED: MILK OF MAGNESIA 400 MG/5 ML 30 ML UDC PO PRN (17:45)
[2022-12-25] MEDS ORDERED: HYDROmorphone INJECTION 2 MG/ML VIAL IV PRN (17:45)
[2022-12-25] MEDS ORDERED: LACTULOSE SYRUP 10GM/15ML 30ML UDC PO PRN (17:45)
[2022-12-25] MEDS ORDERED: ONDANSETRON 4 MG ORAL DISSOLVE TABLET SL PRN (17:45)
[2022-12-25] MEDS ORDERED: D5 1/2 NS 1,000 ML IV 1,000 ML IV PRN (17:45)
[2022-12-25] MEDS ORDERED: ONDANSETRON 4 MG ORAL DISSOLVE TABLET PO PRN (17:45)
[2022-12-25] MEDS ORDERED: CALCIUM CARBONATE 500 MG CHEW TABLET PO PRN (17:45)
[2022-12-25] MEDS ORDERED: ANTACID SUSPENSION 30 ML UDC PO PRN ×2 (17:45)
[2022-12-25] MEDS ORDERED: ONDANSETRON INJECTION 4 MG/2 ML (SDV) IV PRN ×2 (17:45)
[2022-12-25] MEDS ORDERED: 1/2 NS IV SOLUTION 1000 ML 1,000 ML IV PRN (17:45)
[2022-12-25] MEDS ORDERED: NS IV 1000 ML 1,000 ML ONE (18:00)
[2022-12-25] MEDS: NS IV 1000 ML 1,000 ML IV SCH (18:03)
[2022-12-25 19:24] VITALS: BP 122/70
[2022-12-25] MEDS ORDERED: RT-Ipratropium/Albuterol NEB 3 ML VIAL INH PRN (20:45)
[2022-12-25] MEDS: DOCUSATE SODIUM 100 MG CAPSULE PO SCH (21:16)
[2022-12-25] MEDS: SODIUM CHLORIDE 1 GM TABLET PO SCH (21:16)
[2022-12-25] MEDS: MAGNESIUM OXIDE 400 MG TABLET PO SCH (21:16)
[2022-12-25] MEDS: SENNOSIDES 8.6 MG TABLET PO SCH (21:16)
[2022-12-25] MEDS: ENOXAPARIN 40 MG/0.4 ML SYRINGE SC SCH (21:17)
[2022-12-26] VITALS: BP 151/83
[2022-12-26 04:00] VITALS: BP 150/93
[2022-12-26 04:54] LABS: BASOPHILS % (AUTO) 0 % (0-10); EOSINOPHILS # (AUTO) 0.1 10^3/uL (0.0-0.3); EOSINOPHILS % (AUTO) 1 % (0-10); HEMATOCRIT 26 % (40-54); HEMOGLOBIN 9.4 g/dL (13.3-17.7); LYMPHOCYTES # (AUTO) 1.3 10^3/uL (1.0-4.0); LYMPHOCYTES % (AUTO) 22 % (12-44); MEAN CORPUSCULAR HEMOGLOBIN 33 pg (25-34); MEAN CORPUSCULAR HGB CONC 36 g/dL (32-36); MEAN CORPUSCULAR VOLUME 93 fL (80-99); MEAN PLATELET VOLUME 9.1 fL (9.0-12.2); MONOCYTES # (AUTO) 0.5 10^3/uL (0.0-1.0); MONOCYTES % (AUTO) 8 % (0-12); NEUTROPHILS # (AUTO) 3.8 10^3/uL (1.8-7.8); NEUTROPHILS % (AUTO) 67 % (42-75); PLATELET COUNT 205 10^3/uL (130-400); WHITE BLOOD COUNT 5.7 10^3/uL (4.3-11.0)
[2022-12-26 05:07] LABS: ALBUMIN 3.3 GM/DL (3.2-4.5)
[2022-12-26 05:08] LABS: POTASSIUM 3.6 MMOL/L (3.6-5.0)
[2022-12-26 05:09] LABS: CALCIUM 8.3 MG/DL (8.5-10.1)
[2022-12-26 05:10] LABS: TOTAL PROTEIN 5.5 GM/DL (6.4-8.2)
[2022-12-26 05:12] LABS: BILIRUBIN,TOTAL 0.4 MG/DL (0.1-1.0)
[2022-12-26 05:14] LABS: CREATININE SERUM 0.51 MG/DL (0.60-1.30)
--- NOTE | 2022-12-26 06:18 | History & Physical-Hospitalist ---
History of Present Illness HPI/Chief Complaint Chief complaint: Severe hyponatremia with severe weakness HPI:This is a 77-year-old male with a past medical history of excessive alcohol use and chronic hyponatremia who presented to the ER with severe weakness. Apparently he was just discharged from the hospital for similar complaints and his usual sodium level is 127. I did place him on fluid restriction and his sodium level is 129. He reports that he feels fine and wants to go home but he is a two-person assist and will need PT and OT and family wants him to be admitted to inpatient rehab. It does not appear that he is willing to have any type of therapy but will have PT and OT assess him move him down to fourth floor and closely monitor. Source: patient Exam Limitations: no limitations Date Seen 12/26/22 Time Seen by a Provider: 11:00 Attending Physician Bernard Dan MD PCP Admitting Physician: Edita Rubio DO Attending Physician: Edita Rubio DO Referring Physician Date of Admission Dec 25, 2022 at 17:11 Home Medications & Allergies Home Medications Reviewed patient Home Medication Reconciliation performed by pharmacy medication reconciliations compliance field technician and/or nursing. Patients Allergies have been reviewed. Allergies Allergies Coded Allergies metoprolol (Verified Allergy, Unknown, LOW HR , 11/16/22) ALL BETA BLOCKERS Past Bwwkely-Temzbp-Uvatub Hx Patient Social History Marrital Status: Employed/Student: retired Tobacco Use?: Yes Tobacco type used: Cigarettes Smoking Status: Current Everyday Smoker Substance use?: No Substance frequency: Daily Alcohol Use?: Yes Alcohol type: Hard Liquor Alcohol Frequency: Couple times a week Pt feels they are or have been: No Immunizations Up To Date First/Initial COVID19 Vaccinat: 07/24/20 Second COVID19 Vaccination Lino: 07/24/20 Tetanus Booster (TDap): More Than 5 Years Seasonal Allergies Seasonal Allergies: No Current Status Advance Directives: Yes Communicates: Verbally Primary Language: Togolese Preferred Spoken Language: Togolese Is interpretation needed?: No Sensory deficits: Vision impairment Implanted or Applied Medical D: Stents Past Medical History Surgeries: Vascular Surgery COPD, Emphysema High Cholesterol, Hypertension, Peripheral Vascular Seizure Disorder Prostate Blood Disorders: No PMHx: (pt reports he cannot recall all, they should be in his chart) Epilepsy COPD Atrial fibrillation Family Medical History SOCIAL HISTORY: -SMOKES 1 PPD -ETOH--DRINKS AT LEAST A 6 PACK/DAY -DRUGS--DENIES Review of Systems Constitutional: see HPI, dizziness, malaise, weakness Physical Exam Physical Exam Vital Signs Vital Signs - First Documented 12/25/22 14:52 Temp 35.7 Pulse 56 Resp 16 B/P (MAP) 150/88 (108) Pulse Ox 100 O2 Delivery Nasal Cannula O2 Flow Rate 2.00 Capillary Refill : Less Than 3 Seconds Height, Weight, BMI Height: 6'0.00" Weight: 200lbs. oz. 90.566407kg; 20.90 BMI Method: General Appearance: No Apparent Distress, Chronically ill Eyes: Right Eye Normal Inspection, Right Eye PERRL HEENT: PERRL/EOMI, Normal ENT Inspection, Pharynx Normal, Moist Mucous Membranes Neck: Full Range of Motion, Normal Inspection, Non Tender Respiratory: Chest Non Tender, Lungs Clear, Normal Breath Sounds, No Accessory Muscle Use, No Respiratory Distress Cardiovascular: Regular Rate, Rhythm, No Edema, No Gallop, No JVD, No Murmur, Normal Peripheral Pulses Gastrointestinal: Normal Bowel Sounds, No Organomegaly, No Pulsatile Mass, Non Tender, Soft Back: Normal Inspection, No CVA Tenderness, No Vertebral Tenderness Extremity: Normal Capillary Refill, Normal Inspection, Normal Range of Motion, Non Tender, No Calf Tenderness, No Pedal Edema Neurologic/Psychiatric: Alert, Oriented x3, cloud architect II-XII Norm as Tested, Abnormal Gait, Depressed Affect, Motor Weakness (Generalized 3/5) Skin: Normal Color, Warm/Dry Lymphatic: No Adenopathy Results Results/Procedures Labs Laboratory Tests 12/25/22 15:00 12/25/22 15:40 12/26/22 04:24 Patient resulted labs reviewed. Assessment/Plan Admission Diagnosis Assessment: Severe hyponatremia Severe weakness unable to ambulate Falls Excessive alcohol use patient denies this Noncompliance Excessive water consumption at home Alcoholic hepatitis Anemia Seizure disorder Plan: CIWA Fluid restriction Hep-Lock IV fluid PT and OT Inpatient rehab eval Admission Status: Inpatient Order (span 2 midnights) Reason for Inpatient Admission: severe weakness with hyponatremia seizure disorder high risk for recurrent seizure EDITA RUBIO DO Dec 26, 2022 06:18
[2022-12-26] MEDS ORDERED: THIAMINE 100 MG (VITAMIN B-1) TAB PO SCH (07:00)
[2022-12-26] MEDS ORDERED: THERAPEUTIC MULTIVITAMIN W/MINERALS TABLET PO SCH (07:00)
[2022-12-26 08:00] VITALS: BP 163/88
[2022-12-26] MEDS: NS IV 1000 ML 1,000 ML IV SCH (08:29)
[2022-12-26] MEDS: SODIUM CHLORIDE 1 GM TABLET PO SCH ×3 (09:22→19:40)
[2022-12-26] MEDS: FOLIC ACID 1 MG TAB PO SCH (09:23)
[2022-12-26] MEDS: MAGNESIUM OXIDE 400 MG TABLET PO SCH ×2 (09:23→19:37)
[2022-12-26] MEDS: THIAMINE 100 MG (VITAMIN B-1) TAB PO SCH (09:23)
[2022-12-26] MEDS: THERAPEUTIC MULTIVITAMIN W/MINERALS TABLET PO SCH (09:23)
[2022-12-26] MEDS: DOCUSATE SODIUM 100 MG CAPSULE PO SCH ×2 (09:24→19:37)
[2022-12-26] MEDS: SENNOSIDES 8.6 MG TABLET PO SCH ×2 (09:24→19:37)
[2022-12-26] MEDS ORDERED: amLODIPine 10 MG TABLET PO NR (11:30)
[2022-12-26 12:00] VITALS: BP 167/79
[2022-12-26] MEDS ORDERED: RT-ALBUTEROL HFA 8.5 GM INHALER IH PRN (12:00)
[2022-12-26] MEDS: PHENYTOIN EXT RELEASE 100 MG CAPSULE PO SCH ×2 (12:20→19:37)
[2022-12-26] MEDS: ENOXAPARIN 40 MG/0.4 ML SYRINGE SC SCH (17:09)
[2022-12-26 19:26] VITALS: BP 132/67
[2022-12-26] MEDS: [UNRECOGNIZED DRUG - REMARK] IH SCH (19:41)
[2022-12-26] MEDS: oxyCODONE IMMEDIATE RELEASE 5 MG TABLET PO PRN (21:41)
[2022-12-27] VITALS (7 sets, daily range): BP systolic 126–184; BP diastolic 68–86
[2022-12-27] MEDS: oxyCODONE IMMEDIATE RELEASE 5 MG TABLET PO PRN (03:34)
[2022-12-27 06:22] LABS: BASOPHILS % (AUTO) 0 % (0-10); EOSINOPHILS % (AUTO) 1 % (0-10); HEMATOCRIT 27 % (40-54); HEMOGLOBIN 9.5 g/dL (13.3-17.7); LYMPHOCYTES # (AUTO) 1.2 10^3/uL (1.0-4.0); LYMPHOCYTES % (AUTO) 18 % (12-44); MEAN CORPUSCULAR HEMOGLOBIN 33 pg (25-34); MEAN CORPUSCULAR HGB CONC 35 g/dL (32-36); MEAN CORPUSCULAR VOLUME 95 fL (80-99); MEAN PLATELET VOLUME 8.8 fL (9.0-12.2); MONOCYTES # (AUTO) 0.6 10^3/uL (0.0-1.0); MONOCYTES % (AUTO) 9 % (0-12); NEUTROPHILS # (AUTO) 4.6 10^3/uL (1.8-7.8); NEUTROPHILS % (AUTO) 72 % (42-75); PLATELET COUNT 218 10^3/uL (130-400); WHITE BLOOD COUNT 6.4 10^3/uL (4.3-11.0)
[2022-12-27 06:35] LABS: ALBUMIN 3.5 GM/DL (3.2-4.5); POTASSIUM 3.5 MMOL/L (3.6-5.0)
[2022-12-27 06:37] LABS: CALCIUM 8.5 MG/DL (8.5-10.1)
[2022-12-27 06:38] LABS: TOTAL PROTEIN 5.8 GM/DL (6.4-8.2)
[2022-12-27 06:40] LABS: BILIRUBIN,TOTAL 0.4 MG/DL (0.1-1.0)
[2022-12-27 06:41] LABS: CREATININE SERUM 0.61 MG/DL (0.60-1.30)
[2022-12-27] MEDS: IBUPROFEN 200 MG TABLET PO PRN ×2 (07:48→19:44)
[2022-12-27] MEDS ORDERED: FLUTICASONE/VILANTEROL 100/25 MCG (7 DOSES) IH SCH (08:00)
--- NOTE | 2022-12-27 08:04 | Progress Note ---
Subjective Date Seen by a Provider: Dec 27, 2022 Time Seen by a Provider: 07:00 Subjective/Events-last exam patient resting comfortably in bed. He had questions about his fluid r estriction as well as physical therapy. Objective Exam Vital Signs Date Time Temp Pulse Resp B/P (MAP) Pulse Ox O2 Delivery O2 Flow Rate FiO2 12/27/22 04:10 36.7 61 17 168/86 (113) 98 Nasal Cannula 2.00 2.00 12/27/22 01:34 59 12/27/22 00:15 54 145/83 (103) 12/27/22 00:00 36.4 61 17 184/81 (115) 98 Nasal Cannula 2.00 2.00 12/26/22 21:16 Nasal Cannula 2.00 12/26/22 20:02 59 12/26/22 20:00 59 12/26/22 19:37 Nasal Cannula 2.00 12/26/22 19:26 36.3 71 17 132/67 (88) 97 Nasal Cannula 2.00 12/26/22 12:28 58 12/26/22 12:00 36.5 49 18 167/79 (108) 100 Nasal Cannula 2.00 12/26/22 09:00 Nasal Cannula 2.00 I & O 12/27/22 07:00 Intake Total 445 ml Output Total 750 ml Balance -305 ml Capillary Refill : Less Than 3 Seconds General Appearance: No Apparent Distress Neck: Full Range of Motion Respiratory: Lungs Clear Cardiovascular: Irregularly Irregular (With a rate of 54) Extremity: Normal Capillary Refill Neurologic/Psychiatric: Oriented x3 Results Lab Laboratory Tests 12/27/22 06:06: White Blood Count 6.4, Red Blood Count 2.88L, Hemoglobin 9.5L, Hematocrit 27L, Mean Corpuscular Volume 95, Mean Corpuscular Hemoglobin 33, Mean Corpuscular Hemoglobin Concent 35, Red Cell Distribution Width 13.0, Platelet Count 218, Mean Platelet Volume 8.8L, Immature Granulocyte % (Auto) 1, Neutrophils (%) (Auto) 72, Lymphocytes (%) (Auto) 18, Monocytes (%) (Auto) 9, Eosinophils (%) (Auto) 1, Basophils (%) (Auto) 0, Neutrophils # (Auto) 4.6, Lymphocytes # (Auto) 1.2, Monocytes # (Auto) 0.6, Eosinophils # (Auto) 0.0, Basophils # (Auto) 0.0, Immature Granulocyte # (Auto) 0.0, Sodium Level 134L, Potassium Level 3.5L, Chloride Level 103, Carbon Dioxide Level 24, Anion Gap 7, Blood Urea Nitrogen 6L , Creatinine 0.61, Estimat Glomerular Filtration Rate 100, BUN/Creatinine Ratio 10, Glucose Level 99, Calcium Level 8.5, Corrected Calcium 8.9, Total Bilirubin 0.4, Aspartate Amino Transf (AST/SGOT) 48H, Alanine Aminotransferase (ALT/SGPT) 80H, Alkaline Phosphatase 114, Total Protein 5.8L, Albumin 3.5 Assessment/Plan Assessment/Plan Assess & Plan/Chief Complaint 1. Hyponatremiasevere -patient currently on fluid restriction -Daily monitoring of electrolytes 2. Slurred speech -Check MRI with and without contrast. He also has a family history of MS 3. Frequent falls -He will be evaluated again for inpatient rehabilitation 4. Weakness -As per #3 5. History of excessive alcohol use 6. Anemia -anemia most likely due to chronic disease and hopefully as his health improves this will improve 7. History of seizure disorder -He is on phenytoin MARINE MALONEY MD Dec 27, 2022 08:04
[2022-12-27] MEDS: MAGNESIUM OXIDE 400 MG TABLET PO SCH ×2 (08:46→19:38)
[2022-12-27] MEDS: FOLIC ACID 1 MG TAB PO SCH (08:46)
[2022-12-27] MEDS: DOCUSATE SODIUM 100 MG CAPSULE PO SCH ×2 (08:46→19:38)
[2022-12-27] MEDS: SENNOSIDES 8.6 MG TABLET PO SCH ×2 (08:47→19:38)
[2022-12-27] MEDS: THIAMINE 100 MG (VITAMIN B-1) TAB PO SCH (08:47)
[2022-12-27] MEDS: POTASSIUM CHLORIDE 10 MEQ TABLET PO SCH (08:47)
[2022-12-27] MEDS: THERAPEUTIC MULTIVITAMIN W/MINERALS TABLET PO SCH (08:48)
[2022-12-27] MEDS: OMEGA 3 (FISH OIL) 1000 MG CAP PO SCH (08:48)
[2022-12-27] MEDS: amLODIPine 5 MG TABLET PO SCH (08:54)
[2022-12-27] MEDS: LOSARTAN 100 MG TABLET PO SCH (08:55)
[2022-12-27] MEDS: [UNRECOGNIZED DRUG - REMARK] IH SCH ×2 (09:00→19:42)
[2022-12-27] MEDS ORDERED: PHENYTOIN EXT RELEASE 100 MG CAPSULE PO SCH (09:00)
[2022-12-27] MEDS ORDERED: LOSARTAN 100 MG TABLET PO SCH (09:00)
[2022-12-27] MEDS ORDERED: ASPI-1238 PO (10:13)
[2022-12-27] MEDS: SODIUM CHLORIDE 1 GM TABLET PO SCH ×2 (10:18→19:38)
--- NOTE | 2022-12-27 12:00 | Physical Therapy Evaluation ---
PT Evaluation-General Medical Diagnosis Admission Date Dec 25, 2022 at 17:11 Medical Diagnosis: hyponatremia Onset Date: Dec 25, 2022 Therapy Diagnosis Therapy Diagnosis: debility Height/Weight Height (Feet): 6 Height (Inches): 0.00 Weight (Pounds): 200 Precautions Precautions/Isolations: Standard Precautions Referral Physician: Joanne Reason for Referral: Evaluation/Treatment Medical History Pertinent Medical History: Alcoholism, COPD, HTN, PVD, Smoking Current History ER secondary to fall and weakness Reviewed History: Yes Social History Home: Single Level Current Living Status: Alone Prior Prior Level of Function SCALE: Activities may be completed with or without assistive devices. 8-Aonsisonsx-lbftedt completes the activity by him/herself with no assistance from a helper. 5-Set-up or Clean-up Assistance-helper sets up or cleans up; patient completes activity. [place] assists only prior to or following the activity. 4-Supervision or Touching Assistance-helper provides verbal cues and/or touching/steadying and/or contact guard assistance as patient completes activity. Assistance may be provided throughout the activity or intermittently. 3-Partial/Moderate Assistance-helper does LESS THAN HALF the effort. [place] lifts, holds or supports trunk or limbs, but provides less than half the effort. 2-Substantial/Maximal Assistance-helper does MORE THAN HALF the effort. [place] lifts or holds trunk or limbs and provides more than half the effort. 5-Bghskrqqq-kfhuhj does ALL the effort. Patient does none of the effort to complete the activity. Or, the assistance of 2 or more helpers is required for the patient to complete the activity. If activity was not attempted, code reason: 7-Patient Refused. 9-Not Applicable-not attempted and the patient did not perform the activity before the current illness, exacerbation or injury. 10-Not Attempted due to Environmental Limitations-(lack of equipment, weather restraints, etc.). 88-Not Attempted due to Medical Conditions or Safety Concerns. Bed Mobility: 6 Transfers (B,C,W/C): 6 Gait: 6 Indoor Mobility (Ambulation): Independent Prior Devices Use: Other-see list below Prior Device Use: cane PT Evaluation-Current Subjective Patient reports "He's too tired to take care of himself and his daughters don't want him to do anything alone." Objective Patient Orientation: Normal For Age Attachments: Oxygen ROM/Strength ROM Lower Extremities bilateral LE WFL Strength Lower Extremities 3+/5 grossly bilateral LE all planes Integumentary/Posture Bowel Incontinence: No Bladder Incontinence: No Posture WFL Neuromuscular (Tone, Coordination, Reflexes) grossly intact Sensory Vision: Functional Hearing: Impaired Transfers Lying to Sitting/Side of Bed(Q: 6 Sit to Stand (QC): 4 Chair/Zuo-vh-Ehtbh Xfer(QC): 4 Gait Mode of Locomotion: Walk Anticipated Mode of Locomotion: Walk Walk 10 feet (QC): 4 Walk 50 ft with 2 Turns(QC): 4 Walk 150 ft (QC): 4 Distance: 280' Gait Assistive Device: FWW Comments/Gait Description slow, steady, functional gait sequence (patient reports he is unable to use FWW in home due to size of home/hallway/doorways, etc) Balance Sitting Static: Normal Sitting Dynamic: Normal Standing Static: Normal Standing Dynamic: Normal Assessment/Needs Patient will be seen short term by skilled PT to address functional strength and mobility to ensure safe return to home or care facility at maximum LOF. Rehab Potential: Fair PT [facility] Goals Independent Living Specialist Goals PT [facility] Goals Time Frame: Jan 08, 2023 Roll Left & Right (QC): 6 Sit to Lying (QC): 6 Lying-Sitting on Side/Bed(QC): 6 Sit to Stand (QC): 6 Chair/Wtk-il-Nstkp Xfer(QC): 6 Toilet Transfer (QC): 6 Walk 10 feet (QC): 6 Walk 50ft with 2 Turns (QC): 6 Walk 150 ft (QC): 6 PT Plan Problem List Problem List: Activity Tolerance, Functional Strength, Safety Treatment/Plan Treatment Plan: Continue Plan of Care Treatment Plan: Education, Functional Activity Loraine, Functional Strength, Gait, Safety, Therapeutic Exercise Treatment Duration: Jan 08, 2023 Frequency: 6 times per week Estimated Hrs Per Day: .25 hour per day Time Time In: 1040 Time Out: 1058 DATE: Dec 27, 2022 Total Billed Treatment Time: 18 Total Billed Treatment 1 visit EVMod 18 min KRISTEN RODRIGUEZ PT Dec 27, 2022 12:00
--- NOTE | 2022-12-27 12:53 | Occupational Therapy Eval ---
OT Evaluation-General/PLF Medical Diagnosis Admission Date Dec 25, 2022 at 17:11 Medical Diagnosis: hyponatremia Onset Date: Dec 25, 2022 Therapy Diagnosis Therapy Diagnosis: unsteady gait Height/Weight Height (Feet): 6 Height (Inches): 0.00 Weight (Pounds): 200 Precautions Precautions/Isolations: Standard Precautions Referral Physician: Joanne Munguia Reason: Evaluation/Treatment Medical History Pertinent Medical History: Alcoholism, COPD, HTN, PVD, Smoking Additional Medical History 77-year-old male with a past medical history of excessive alcohol use and chronic hyponatremia who presented to the ER with severe weakness. Apparently he was just discharged from the hospital for similar complaints and his usual sodium level is 127. Placed on fluid restriction and his sodium level is 129. He reports that he feels fine and wants to go home and will need PT and OT and family wants him to be admitted to inpatient rehab. Current History Patient reports he thought he could take care of himself but it was too hard Social History Home: Single Level Current Living Status: Alone ADL-Prior Level of Function SCALE: Activities may be completed with or without assistive devices. 3-Crpjkziale-rrtckos completes the activity by him/herself with no assistance from a helper. 5-Set-up or Clean-up Assistance-helper sets up or cleans up; patient completes activity. [place] assists only prior to or following the activity. 4-Supervision or Touching Assistance-helper provides verbal cues and/or touching/steadying and/or contact guard assistance as patient completes activity. Assistance may be provided throughout the activity or intermittently. 3-Partial/Moderate Assistance-helper does LESS THAN HALF the effort. [place] lifts, holds or supports trunk or limbs, but provides less than half the effort. 2-Substantial/Maximal Assistance-helper does MORE THAN HALF the effort. [place] lifts or holds trunk or limbs and provides more than half the effort. 5-Vteblottt-srgvki does ALL the effort. Patient does none of the effort to complete the activity. Or, the assistance of 2 or more helpers is required for the patient to complete the activity. If activity was not attempted, code reason: 7-Patient Refused. 9-Not Applicable-not attempted and the patient did not perform the activity before the current illness, exacerbation or injury. 10-Not Attempted due to Environmental Limitations-(lack of equipment, weather restraints, etc.). 88-Not Attempted due to Medical Conditions or Safety Concerns. ADL PLOF Comments Per patient report, he was not able to get out of a chair and 2 people had to help him, his daughter brought him to the ER.. He reports that he has made cold meals at home but not bathed or driven. Self Care: Independent Functional Cognition: Independent OT Current Status Subjective Agreeable to OT, feels he is better now and thinks he could go home Pain Comment: multiple bruises, patient is unaware of bruises. Mental Status/Objective Patient Orientation: Person, Place, Time Current Glasses/Contacts: Yes (does not want to wear them) Upper Extremity ROM BUE ROM WFLS Upper Extremity Coordination unsteady gait, BUE COORDINATION WFLS. Ties draw string on pants, ties shoes w/ extra time allowed Upper Extremity Strength 4/5 BUE grossly ADL-Treatment ADL-Current Laying in bed w/ t shirt, sweat pants and socks on. Eating (QC): 6 Oral Hygiene (QC): 5 Shower/Bathe Self (QC): 7 Upper Body Dressing (QC): 5 Lower Body Dressing (QC): 5 On/Off Footwear (QC): 5 (shoes handed to patient, patient unties and donns shoes and ties w/ assistance or VCs) Toileting Hygiene (QC): 7 (declines use of bathroom) Education OT Patient Education: Correct positioning, Modified ADL techniques, Progress toward Goal/Update tx plan, Purpose of tx/functional activities, Reviewed precautions, Rehab process, Safety issues, Transfer techniques, Use of adapted equipment Teaching Recipient: Patient Teaching Methods: Demonstration, Discussion Response to Teaching: Verbalize Understanding, Reinforcement Needed (poor safety awarenss) OT Secondary Market Manager Goals Long-Term Goals 1=Demonstrate adherence to instructed precautions during ADL tasks. 2=Patient will verbalize/demonstrate understanding of assistive devices/modifications for ADL. 3=Patient will improve strength/tolerance for activity to enable patient to perform ADL's. OT Education/Plan Problem List/Assessment Assessment: No Skilled OT Needs ID'd Discharge Recommendations Plan/Recommendations: Discontinue OT Treatment Plan/Plan of Care Patient would benefit from OT for education, treatment and training to promote independence in ADL's, mobility, safety and/or upper extremity function for ADL's. Plan of Care: OTHER (EVAL only, patient would benefit from PT skills for balance and safety) Treatment Duration: Dec 27, 2022 Frequency: 1 time per week Rehab Potential: Fair Time Start Time: 10:40 Stop Time: 10:56 DATE: Dec 27, 2022 Total Time Billed (hr/min): 16 Billed Treatment Time EVM 16 min MARILEE PAGAN OT Dec 27, 2022 12:53
[2022-12-27] MEDS: ENOXAPARIN 40 MG/0.4 ML SYRINGE SC SCH (18:37)
[2022-12-27] MEDS: PHENYTOIN EXT RELEASE 100 MG CAPSULE PO SCH (19:38)
[2022-12-28] VITALS (7 sets, daily range): BP systolic 120–172; BP diastolic 64–87
[2022-12-28 06:13] LABS: BASOPHILS % (AUTO) 0 % (0-10); EOSINOPHILS # (AUTO) 0.1 10^3/uL (0.0-0.3); EOSINOPHILS % (AUTO) 1 % (0-10); HEMATOCRIT 27 % (40-54); HEMOGLOBIN 9.5 g/dL (13.3-17.7); LYMPHOCYTES # (AUTO) 1.1 10^3/uL (1.0-4.0); LYMPHOCYTES % (AUTO) 18 % (12-44); MEAN CORPUSCULAR HEMOGLOBIN 33 pg (25-34); MEAN CORPUSCULAR HGB CONC 35 g/dL (32-36); MEAN CORPUSCULAR VOLUME 96 fL (80-99); MEAN PLATELET VOLUME 9.1 fL (9.0-12.2); MONOCYTES # (AUTO) 0.6 10^3/uL (0.0-1.0); MONOCYTES % (AUTO) 11 % (0-12); NEUTROPHILS # (AUTO) 4.2 10^3/uL (1.8-7.8); NEUTROPHILS % (AUTO) 70 % (42-75); PLATELET COUNT 210 10^3/uL (130-400); WHITE BLOOD COUNT 5.9 10^3/uL (4.3-11.0)
[2022-12-28 06:18] LABS: ALBUMIN 3.6 GM/DL (3.2-4.5); POTASSIUM 3.6 MMOL/L (3.6-5.0)
[2022-12-28 06:19] LABS: CALCIUM 8.6 MG/DL (8.5-10.1)
[2022-12-28 06:20] LABS: TOTAL PROTEIN 5.9 GM/DL (6.4-8.2)
[2022-12-28 06:22] LABS: BILIRUBIN,TOTAL 0.4 MG/DL (0.1-1.0)
[2022-12-28 06:24] LABS: CREATININE SERUM 0.58 MG/DL (0.60-1.30)
--- NOTE | 2022-12-28 07:28 | Progress Note ---
Subjective Date Seen by a Provider: Dec 28, 2022 Time Seen by a Provider: 06:50 Subjective/Events-last exam patient resting comfortably in bed this morning. He had questions about getting his MRI done. [place] still in place and today is day [address] on the posterior scalp. He has been on fluid restriction Objective Exam Vital Signs Date Time Temp Pulse Resp B/P (MAP) Pulse Ox O2 Delivery O2 Flow Rate FiO2 12/28/22 03:47 36.4 68 18 172/86 (114) 97 Nasal Cannula 2.50 2.50 12/28/22 01:00 63 12/28/22 00:08 36.1 61 18 149/78 (101) 97 Nasal Cannula 2.50 2.50 12/27/22 20:34 36.4 63 22 126/68 (87) 99 Nasal Cannula 2.50 12/27/22 19:35 Nasal Cannula 2.00 12/27/22 19:00 61 12/27/22 15:52 36.2 52 20 140/71 (94) 100 Nasal Cannula 2.50 12/27/22 13:12 56 12/27/22 11:31 36.4 60 14 145/77 (99) 94 Nasal Cannula 2.00 12/27/22 08:40 98 Nasal Cannula 2.00 12/27/22 08:00 Nasal Cannula 2.00 12/27/22 07:39 48 12/27/22 07:29 36.2 50 14 155/72 (99) 97 Room Air I & O 12/28/22 07:00 Intake Total 700 ml Balance 700 ml Capillary Refill : Less Than 3 Seconds General Appearance: No Apparent Distress HEENT: Other (Multiple devika noted on the posterior scalp) Neck: Full Range of Motion Respiratory: Lungs Clear Cardiovascular: Irregularly Irregular (With rate controlled) Skin: Normal Color Results Lab Laboratory Tests 12/28/22 05:45: White Blood Count 5.9, Red Blood Count 2.87L, Hemoglobin 9.5L, Hematocrit 27L, Mean Corpuscular Volume 96, Mean Corpuscular Hemoglobin 33, Mean Corpuscular Hemoglobin Concent 35, Red Cell Distribution Width 13.1, Platelet Count 210, Mean Platelet Volume 9.1, Immature Granulocyte % (Auto) 1, Neutrophils (%) (Auto) 70, Lymphocytes (%) (Auto) 18, Monocytes (%) (Auto) 11, Eosinophils (%) (Auto) 1, Basophils (%) (Auto) 0, Neutrophils # (Auto) 4.2, Lymphocytes # (Auto) 1.1, Monocytes # (Auto) 0.6, Eosinophils # (Auto) 0.1, Basophils # (Auto) 0.0, Immature Granulocyte # (Auto) 0.0, Sodium Level 134L, Potassium Level 3.6, Chloride Level 104, Carbon Dioxide Level 21, Anion Gap 9, Blood Urea Nitrogen 9, Creatinine 0.58L, Estimat Glomerular Filtration Rate 102, BUN/Creatinine Ratio 16, Glucose Level 102, Calcium Level 8.6, Corrected Calcium 8.9, Total Bilirubin 0.4, Aspartate Amino Transf (AST/SGOT) 68H, Alanine Aminotransferase (ALT/SGPT) 91H, Alkaline Phosphatase 116, Total Protein 5.9L, Albumin 3.6 Procedures all of the devika were removed except 3 in the center and 3 on the lower aspect of the laceration site. The 6 devika were left in place for stability as the wound continues to heal. Steri-Strips were placed. Assessment/Plan Assessment/Plan Assess & Plan/Chief Complaint 1. Hyponatremiasevere -patient currently on fluid restriction -Daily monitoring of electrolytes 12/28 -overall his sodium has improved with fluid restriction. 2. Slurred speech -Check MRI with and without contrast. He also has a family history of MS 12/28 -MRI could not be done with scalp devika in place. 3. Frequent falls -He will be evaluated again for inpatient rehabilitation 12/28 -patient was again denied admission to inpatient rehab. -We will check on [facility] for skilled services there. 4. Weakness -As per #3 5. History of excessive alcohol use 6. Anemia -anemia most likely due to chronic disease and hopefully as his health improves this will improve 7. History of seizure disorder -He is on phenytoin MARINE MALONEY MD Dec 28, 2022 07:28
[2022-12-28] MEDS: THERAPEUTIC MULTIVITAMIN W/MINERALS TABLET PO SCH (08:36)
[2022-12-28] MEDS: amLODIPine 5 MG TABLET PO SCH (08:37)
[2022-12-28] MEDS: MAGNESIUM OXIDE 400 MG TABLET PO SCH (08:37)
[2022-12-28] MEDS: POTASSIUM CHLORIDE 10 MEQ TABLET PO SCH (08:37)
[2022-12-28] MEDS: LOSARTAN 100 MG TABLET PO SCH (08:37)
[2022-12-28] MEDS: PHENYTOIN EXT RELEASE 100 MG CAPSULE PO SCH ×2 (08:37→20:44)
[2022-12-28] MEDS: DOCUSATE SODIUM 100 MG CAPSULE PO SCH ×2 (08:37→20:45)
[2022-12-28] MEDS: SENNOSIDES 8.6 MG TABLET PO SCH ×2 (08:37→20:45)
[2022-12-28] MEDS: OMEGA 3 (FISH OIL) 1000 MG CAP PO SCH (08:37)
[2022-12-28] MEDS: THIAMINE 100 MG (VITAMIN B-1) TAB PO SCH (08:37)
[2022-12-28] MEDS: FOLIC ACID 1 MG TAB PO SCH (08:37)
[2022-12-28] MEDS: SODIUM CHLORIDE 1 GM TABLET PO SCH ×2 (08:40→20:44)
[2022-12-28] MEDS: [UNRECOGNIZED DRUG - REMARK] IH SCH ×2 (08:47→20:48)
--- NOTE | 2022-12-28 11:02 | Physical Therapy Daily Note ---
PT Daily Note-Current Subjective Patient agrees to PT. Pain Section J - Health Conditions 1. Rarely or not at all 2. Occasionally 3. Frequently 4. Almost constantly 8. Unable to answer Pain Effect on Sleep: 1 Pain Interference with Therapy: 1 Pain Interference w/Day-to-Day: 1 Transfers SCALE: Activities may be completed with or without assistive devices. 6-Rfqudpzuiq-mygbmad completes the activity by him/herself with no assistance from a helper. 5-Set-up or Clean-up Assistance-helper sets up or cleans up; patient completes activity. [place] assists only prior to or following the activity. 4-Supervision or Touching Assistance-helper provides verbal cues and/or touching/steadying and/or contact guard assistance as patient completes activity. Assistance may be provided throughout the activity or intermittently. 3-Partial/Moderate Assistance-helper does LESS THAN HALF the effort. [place] lifts, holds or supports trunk or limbs, but provides less than half the effort. 2-Substantial/Maximal Assistance-helper does MORE THAN HALF the effort. [place] lifts or holds trunk or limbs and provides more than half the effort. 6-Rqntyupdf-crgxyv does ALL the effort. Patient does none of the effort to complete the activity. Or, the assistance of 2 or more helpers is required for the patient to complete the activity. If activity was not attempted, code reason: 7-Patient Refused. 9-Not Applicable-not attempted and the patient did not perform the activity before the current illness, exacerbation or injury. 10-Not Attempted due to Environmental Limitations-(lack of equipment, weather restraints, etc.). 88-Not Attempted due to Medical Conditions or Safety Concerns. Lying to Sitting/Side of Bed(Q: 6 Sit to Stand (QC): 6 Chair/Caw-ht-Gwlsr Xfer(QC): 6 Gait Training Distance: >500' Walk 10 feet (QC): 5 Walk 50 ft with 2 Turns(QC): 5 Walk 150 ft (QC): 5 Gait Assistive Device: FWW Assessment Patient currently at [facility] independent to independent with all gross motor skills safely and has been ambulating with nursing staff PRN. PT to see patient for 1 more session to determine POC. PT [facility] Goals Counseling [facility] Director Goals PT Counseling Center Director Goals Time Frame: Jan 08, 2023 Roll Left & Right (QC): 6 Sit to Lying (QC): 6 Lying-Sitting on Side/Bed(QC): 6 Sit to Stand (QC): 6 Chair/Dhc-di-Iymyt Xfer(QC): 6 Toilet Transfer (QC): 6 Walk 10 feet (QC): 6 Walk 50ft with 2 Turns (QC): 6 Walk 150 ft (QC): 6 PT Plan Treatment/Plan Treatment Plan: Continue Plan of Care Treatment Plan: Education, Functional Activity Loraine, Functional Strength, Gait, Safety, Therapeutic Exercise Treatment Duration: Jan 08, 2023 Frequency: 6 times per week Estimated Hrs Per Day: .25 hour per day Time Time In: 1010 Time Out: 1024 DATE: Dec 28, 2022 Total Billed Treatment Time: 14 Total Billed Treatment 1 visit FA 14 min KRISTEN RODRIGUEZ PT Dec 28, 2022 11:02
[2022-12-28] MEDS: IBUPROFEN 200 MG TABLET PO PRN (14:34)
[2022-12-28] MEDS: ENOXAPARIN 40 MG/0.4 ML SYRINGE SC SCH (18:16)
[2022-12-29] MEDS: oxyCODONE IMMEDIATE RELEASE 5 MG TABLET PO PRN ×2 (01:56→07:26)
[2022-12-29 03:59] VITALS: BP 158/64
[2022-12-29 06:11] LABS: BASOPHILS % (AUTO) 0 % (0-10); EOSINOPHILS % (AUTO) 1 % (0-10); HEMATOCRIT 28 % (40-54); HEMOGLOBIN 9.4 g/dL (13.3-17.7); LYMPHOCYTES # (AUTO) 1.2 10^3/uL (1.0-4.0); LYMPHOCYTES % (AUTO) 19 % (12-44); MEAN CORPUSCULAR HEMOGLOBIN 33 pg (25-34); MEAN CORPUSCULAR HGB CONC 34 g/dL (32-36); MEAN CORPUSCULAR VOLUME 95 fL (80-99); MEAN PLATELET VOLUME 8.9 fL (9.0-12.2); MONOCYTES # (AUTO) 0.6 10^3/uL (0.0-1.0); MONOCYTES % (AUTO) 10 % (0-12); NEUTROPHILS # (AUTO) 4.3 10^3/uL (1.8-7.8); NEUTROPHILS % (AUTO) 70 % (42-75); PLATELET COUNT 213 10^3/uL (130-400); WHITE BLOOD COUNT 6.1 10^3/uL (4.3-11.0)
[2022-12-29 06:28] LABS: ALBUMIN 3.4 GM/DL (3.2-4.5)
[2022-12-29 06:29] LABS: POTASSIUM 3.6 MMOL/L (3.6-5.0)
[2022-12-29 06:30] LABS: CALCIUM 8.5 MG/DL (8.5-10.1)
[2022-12-29 06:31] LABS: TOTAL PROTEIN 5.8 GM/DL (6.4-8.2)
[2022-12-29 06:33] LABS: BILIRUBIN,TOTAL 0.4 MG/DL (0.1-1.0)
[2022-12-29 06:35] LABS: CREATININE SERUM 0.56 MG/DL (0.60-1.30)
--- NOTE | 2022-12-29 07:18 | Progress Note ---
Subjective Date Seen by a Provider: Dec 29, 2022 Time Seen by a Provider: 06:50 Subjective/Events-last exam patient is in no acute distress this morning. He is comfortably resting and his daughter Libra is at side. He does complain some of his restrictive fluid intake. He has been doing well with regard to his sodium at fluid restriction. Objective Exam Vital Signs Date Time Temp Pulse Resp B/P (MAP) Pulse Ox O2 Delivery O2 Flow Rate FiO2 12/29/22 03:59 36.1 59 16 158/64 (95) 98 Room Air 2.50 2.50 12/29/22 01:00 70 12/28/22 23:55 36.1 66 16 145/73 (97) 98 Room Air 2.50 2.50 12/28/22 20:40 Room Air 2.50 12/28/22 20:00 36.5 62 16 137/73 (94) 98 2.50 12/28/22 19:00 66 12/28/22 18:28 95 21 12/28/22 16:16 36.3 62 18 165/87 (113) 95 Room Air 12/28/22 12:58 53 12/28/22 12:36 36.2 78 18 120/64 (82) 98 Nasal Cannula 2.50 12/28/22 08:13 36.0 62 18 151/70 (97) 99 Nasal Cannula 2.50 12/28/22 08:00 Nasal Cannula 2.50 12/28/22 07:31 60 I & O 12/29/22 07:00 Intake Total 650 ml Output Total 200 ml Balance 450 ml Capillary Refill : Less Than 3 Seconds General Appearance: No Apparent Distress HEENT: Other (Steri-Strips in place. Remaining 6 devika noted) Respiratory: Lungs Clear Cardiovascular: Irregularly Irregular (With rate controlled at 54) Gastrointestinal: soft Skin: Normal Color Results Lab Laboratory Tests 12/29/22 05:55: White Blood Count 6.1, Red Blood Count 2.89L, Hemoglobin 9.4L, Hematocrit 28L, Mean Corpuscular Volume 95, Mean Corpuscular Hemoglobin 33, Mean Corpuscular Hemoglobin Concent 34, Red Cell Distribution Width 13.3, Platelet Count 213, Mean Platelet Volume 8.9L, Immature Granulocyte % (Auto) 1, Neutrophils (%) (Auto) 70, Lymphocytes (%) (Auto) 19, Monocytes (%) (Auto) 10, Eosinophils (%) (Auto) 1, Basophils (%) (Auto) 0, Neutrophils # (Auto) 4.3, Lymphocytes # (Auto) 1.2, Monocytes # (Auto) 0.6, Eosinophils # (Auto) 0.0, Basophils # (Auto) 0.0, Immature Granulocyte # (Auto) 0.0, Sodium Level 134L, Potassium Level 3.6, Chloride Level 105, Carbon Dioxide Level 20L, Anion Gap 9, Blood Urea Nitrogen 12, Creatinine 0.56L, Estimat Glomerular Filtration Rate 103, BUN/Creatinine Ratio 21, Glucose Level 105, Calcium Level 8.5, Corrected Calcium 9.0, Total Bilirubin 0.4, Aspartate Amino Transf (AST/SGOT) 68H, Alanine Aminotransferase (ALT/SGPT) 94H, Alkaline Phosphatase 123, Total Protein 5.8L, Albumin 3.4 Assessment/Plan Assessment/Plan Assess & Plan/Chief Complaint 1. Hyponatremiasevere -patient currently on fluid restriction -Daily monitoring of electrolytes 12/28 -overall his sodium has improved with fluid restriction. 12/29 sodium 134 -We will allow him to have 1200 cc of fluid per day as well as water swab at bedside 2. Slurred speech -Check MRI with and without contrast. He also has a family history of MS 12/28 -MRI could not be done with scalp devika in place. 12/29 -final devika will be removed tomorrow morning. Hopefully he will be able to get his MRI of head at that point 3. Frequent falls -He will be evaluated again for inpatient rehabilitation 12/28 -patient was again denied admission to inpatient rehab. -We will check on [facility] for skilled services there. 4. Weakness -As per #3 12/29 -social service note noted. Patient will be going to be [facility] assisted living upon dismissal I suspect tomorrow or Tuesday. 5. History of excessive alcohol use 6. Anemia -anemia most likely due to chronic disease and hopefully as his health improves this will improve 7. History of seizure disorder -He is on phenytoin MARINE MALONEY MD Dec 29, 2022 07:18
[2022-12-29 07:44] VITALS: BP 172/92
[2022-12-29] MEDS: POTASSIUM CHLORIDE 10 MEQ TABLET PO SCH (09:27)
[2022-12-29] MEDS: THERAPEUTIC MULTIVITAMIN W/MINERALS TABLET PO SCH (09:27)
[2022-12-29] MEDS: FOLIC ACID 1 MG TAB PO SCH (09:27)
[2022-12-29] MEDS: LOSARTAN 100 MG TABLET PO SCH (09:27)
[2022-12-29] MEDS: OMEGA 3 (FISH OIL) 1000 MG CAP PO SCH (09:27)
[2022-12-29] MEDS: PHENYTOIN EXT RELEASE 100 MG CAPSULE PO SCH (09:27)
[2022-12-29] MEDS: amLODIPine 5 MG TABLET PO SCH (09:27)
[2022-12-29] MEDS: SENNOSIDES 8.6 MG TABLET PO SCH (09:27)
[2022-12-29] MEDS: DOCUSATE SODIUM 100 MG CAPSULE PO SCH (09:27)
[2022-12-29] MEDS: SODIUM CHLORIDE 1 GM TABLET PO SCH (09:28)
[2022-12-29] MEDS: [UNRECOGNIZED DRUG - REMARK] IH SCH (09:31)
[2022-12-29 11:36] VITALS: BP 153/69
[2022-12-29] MEDS ORDERED: ONDA4TAB11 PO (11:42)
[2022-12-29] MEDS ORDERED: DOCU100C37 PO (11:42)
--- NOTE | 2022-12-29 11:45 | Discharge Summary ---
Diagnosis/Chief Complaint Date of Admission Dec 25, 2022 at 17:11 Date of Discharge Discharge Date: Dec 29, 2022 Discharge Summary Hospital Course Labs Laboratory Tests 12/27/22 06:06: Red Blood Count 2.88L, Hemoglobin 9.5L, Hematocrit 27L, Mean Platelet Volume 8.8L, Sodium Level 134L, Potassium Level 3.5L, Blood Urea Nitrogen 6L, Aspartate Amino Transf (AST/SGOT) 48H, Alanine Aminotransferase (ALT/SGPT) 80H, Total Protein 5.8L 12/28/22 05:45: Red Blood Count 2.87L, Hemoglobin 9.5L, Hematocrit 27L, Sodium Level 134L, Aspartate Amino Transf (AST/SGOT) 68H, Alanine Aminotransferase (ALT/SGPT) 91H, Total Protein 5.9L, Creatinine 0.58L 12/29/22 05:55: Red Blood Count 2.89L, Hemoglobin 9.4L, Hematocrit 28L, Mean Platelet Volume 8.9L, Sodium Level 134L, Aspartate Amino Transf (AST/SGOT) 68H, Alanine Aminotransferase (ALT/SGPT) 94H, Total Protein 5.8L, Creatinine 0.56L, Carbon Dioxide Level 20L Procedures None. Discharge Physical Examination Allergies: Coded Allergies: metoprolol (Verified Allergy, Unknown, LOW HR , 11/16/22) ALL BETA BLOCKERS Vitals & I&Os Vital Signs Date Time Temp Pulse Resp B/P (MAP) Pulse Ox O2 Delivery O2 Flow Rate FiO2 12/29/22 11:36 36.3 56 18 153/69 (97) 93 Room Air 12/29/22 08:00 2.00 12/28/22 18:28 21 Discharge Home Medications Reviewed and agree with Discharge Medication list on patient's Discharge Instruction sheet Instructions to Patient/Family Please see electronic discharge instructions given to patient. MARINE MALONEY MD Dec 29, 2022 11:45
--- NOTE | 2022-12-29 11:45 | Discharge Inst-Skilled Nursing ---
Discharge Inst-Skilled NF Reconcile Patient Problems Problems Reviewed?: Yes Chief Complaint Chief complaint: Severe hyponatremia with severe weakness HPI:This is a 77-year-old male with a past medical history of excessive alcohol use and chronic hyponatremia who presented to the ER with severe weakness. Apparently he was just discharged from the hospital for similar complaints and his usual sodium level is 127. I did place him on fluid restriction and his sodium level is 129. He reports that he feels fine and wants to go home but he is a two-person assist and will need PT and OT and family wants him to be admitted to inpatient rehab. It does not appear that he is willing to have any type of therapy but will have PT and OT assess him move him down to fourth floor and closely monitor. Patient Instructions Patient Problems: Low sodium, head trauma s/p scalp laceration, frequent falls Consult/Follow Up/Orders Follow Up Appt.: Dr Maloney within 2 days Skilled NF Admit to: [facility] Certification ([facility]) I certify that SNF services are required to be given on an inpatient basis because of the above named patient's need for [facility] care on a continuing basis for the conditions(s) for which he/she was receiving inpatient hospital services prior to his/her transfer to the SNF. Long Term Facility Order: Resident Hall Director-Evaluate & Treat, Physical Therapy-Evaluate & Treat, Speech Language-Evaluate & Treat, Wound Care-Yoly l/Treat Oxygen Delivery Method: Nasal Cannula Oxygen Flow Rate L/min (Range): 2L Discharge Diet: Cardiac Diet (with 1200 fluid restrict for now) Daily Activity as Tolerated: Yes (with assistance) Resuscitation Status: Full Code New & Resume Previous Orders Other Instructions Rx sent to [facility] Marine Maloney Dec 29, 2022 11:42 MARINE MALONEY MD Dec 29, 2022 11:45
[2022-12-29] MEDS ORDERED: ENOXAPARIN 30 MG/0.3 ML SYRINGE SC SCH (18:00)
== END 2022-12-29 14:42 | DRG 641 ==
LOC: EDUNIT# 14:41 → ER 14:43 → CSD 17:11 → 4TH 12-26 15:41
PROVIDERS: ADMIT Internal Medicine; ATTEND Family Medicine
DX: E87.1 Hypo-osmolality and hyponatremia (principal); I48.20 Chronic atrial fibrillation, unspecified; G40.909 Epilepsy, unspecified, not intractable, without status epilepticus; I10 Essential (primary) hypertension; J43.9 Emphysema, unspecified; E78.00 Pure hypercholesterolemia, unspecified; F17.210 Nicotine dependence, cigarettes, uncomplicated; K70.10 Alcoholic hepatitis without ascites; Z91.199 Patient's noncompliance with other medical treatment and regimen due to unspecified reason; R47.81 Slurred speech; D63.8 Anemia in other chronic diseases classified elsewhere
CPT/HCPCS: 36415; 70450; 70486; 80053; 80185; 80320; 81000; 83735; 85025; 93005; 94760

== ENCOUNTER → 2023-01-10 | Outpatient (CLI) | payer MEDICARE ==
[~2023-01-10] MED LIST changes: +ASPI-1238 PO; +DOCU100C37 PO; +GADOTERATE 0.5 MMOL/ML (CLARISCAN) 15 ML VIAL IV ONE; +ONDA4TAB11 PO
--- NOTE | 2023-01-10 15:31 | Diagnostic Imaging Report ---
PROCEDURE: MR imaging of the brain with and without contrast. TECHNIQUE: Multiplanar, multisequence MR imaging of the brain was performed with and without contrast. INDICATION: Stroke. Poor mobility. Weakness. COMPARISON: CT head without contrast of 12/25/2022. FINDINGS: Moderate generalized parenchymal volume loss. [id number] nonspecific T2 hyperintensities in the supratentorial white matter, compatible with chronic small vessel ischemic change. 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 This corresponds to hyperdensity on the comparison CT exam. No abnormal intracranial enhancement. No restricted water diffusion to suggest acute infarction. No hemosiderin deposition or evidence of intracranial hemorrhage. Normal morphology including the major midline structures, sella, posterior fossa and cerebellopontine angle. Normal intracranial flow voids. No hydrocephalus or extra-axial fluid collections. The orbits are negative. Paranasal sinuses are clear. Right mastoid effusion. Normal bone marrow signal. IMPRESSION: 1. Age-appropriate MRI of the brain without and with IV contrast. No acute findings. 2. 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 3. Nonspecific right mastoid effusion. Dictated by: Dictated on workstation # [id number]
== END ==
LOC: RAD 13:25
PROVIDERS: ATTEND Family Medicine
DX: I63.9 Cerebral infarction, unspecified (principal); H74.8X1 Other specified disorders of right middle ear and mastoid
CPT/HCPCS: 70553

== ENCOUNTER → 2023-01-27 | Outpatient (CLI) | payer MEDICARE ==
[~2023-01-27] MED LIST changes: +CATHETER FLUSH 10 ML SYR IV PRN; -GADOTERATE 0.5 MMOL/ML (CLARISCAN) 15 ML VIAL IV ONE; +HOLD METFORMIN - RECEIVED CONTRAST 20 ML VIAL IV SCH; +IOHEXOL 350 MG/ML 100 ML (OMNIPAQUE 350) VIAL IV ONE; +NS 100 ML (IVPB) BAG IV ONE
--- NOTE | 2023-01-27 12:37 | Diagnostic Imaging Report ---
PROCEDURE: CT angiography of the head and CT angiography of the neck with and without contrast. TECHNIQUE: Contiguous noncontrast images were obtained from the skull base through the vertex. After intravenous contrast administration, helical CT angiography of the neck was performed. Source data was reformatted into 3D MIP projections. Delayed postcontrast acquisition was also obtained. Auto Exposure Controls were utilized during the CT exam to meet ALARA standards for radiation dose reduction. INDICATION: Carotid artery blockage. FINDINGS: Precontrast head CT does show some prominence to the ventricles and sulci consistent with cerebral volume loss. No sulcal effacement or midline shift is identified. No acute intra-axial or extra-axial hemorrhage is detected. Delayed postcontrast imaging through the brain is without evidence of abnormal enhancement. CT angiographic portion of the study does show a three-vessel branching pattern to the aortic arch. There is calcified plaque in the proximal brachiocephalic as well as proximal left common and left subclavian arteries. There is a large amount of calcified plaque in the distal common carotid arteries and carotid bifurcations. There is a high-grade stenosis of the proximal left internal carotid artery approximately 2 cm beyond the origin. The remainder of the left internal carotid artery is widely patent. The right internal carotid artery appears widely patent. There is heavy calcified plaque in the carotid siphons bilaterally, but no high-grade stenosis. The left vertebral artery is dominant. The right vertebral artery is very small and may have a termination at PICA. The basilar artery is widely patent. Right and left posterior cerebral arteries are widely patent. The M1 and M2 branches of middle cervical arteries are widely patent. Right and left anterior cerebral arteries are widely patent. No intracranial stenosis or large vessel occlusion is identified. 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 No other significant abnormality is detected. Dictated by: Dictated on workstation # [id number]
== END ==
LOC: RAD 10:53
PROVIDERS: ATTEND Physician Assistant
DX: I65.29 Occlusion and stenosis of unspecified carotid artery (principal)
CPT/HCPCS: 70496; 70498

== ENCOUNTER → 2023-02-03 | Outpatient (CLI) | payer MEDICARE ==
[~2023-02-03] MED LIST changes: -CATHETER FLUSH 10 ML SYR IV PRN; +CATHETER FLUSH 10 ML SYR IVP PRN; -HOLD METFORMIN - RECEIVED CONTRAST 20 ML VIAL IV SCH; -IOHEXOL 350 MG/ML 100 ML (OMNIPAQUE 350) VIAL IV ONE; -NS 100 ML (IVPB) BAG IV ONE; +REGADENOSON 0.4 MG/5 ML SYR IV ONE
[2023-02-03 08:44] VITALS: BP 165/84
[2023-02-03] MEDS: REGADENOSON 0.4 MG/5 ML SYR IV ONE ×2 (08:51→09:09)
--- NOTE | 2023-02-03 17:21 | Cardiology Stress Test Report ---
Stress Test Report Date of Procedure/Referring: Date of Procedure: Feb 03, 2023 PCP Marine Maloney MD Admitting Physician Admitting Physician: Attending Physician: Olga Alejo Pa-C Indications: a fib Baseline Heart Rate: 48 Baseline Blood Pressure: Blood Pressure Systolic: 165 Blood Pressure Diastolic: 84 Baseline Vitals Vital Signs Date Time Temp Pulse Resp B/P (MAP) Pulse Ox O2 Delivery O2 Flow Rate FiO2 02/03/23 08:44 47 165/84 (111) 98 Room Air Baseline EKG: Baseline EKG: a fib Summary After explaining the procedure to the patient, he signed a consent and then brought to the stress nuclear laboratory. Patient received 0.4 mg Lexiscan for stress test, ECG, heart rate and blood pressure were monitored continuously. Resting and stress dose of radio tracer were injected, imaging was acquired and reviewed in short axis, horizontal long axis and vertical long axis views. TID: 1.07 SSS: 7 SDS: 1 EF: 59 Patient tolerated Lexiscan well Baseline atrial fibrillation with bradycardia persisted during test Diaphragmatic attenuation with fixed defect involving the inferior apical segment with no significant ischemia or infarction on SPECT images Normal left ventricular size with normal contractility, ejection fraction 59%, gated images are unreliable due to underlying atrial fibrillation Copy Copies To 1: MARINE MALONEY MD, BASHAR J MD Feb 03, 2023 17:21
== END ==
LOC: CARD 07:52
PROVIDERS: ATTEND Physician Assistant
DX: I65.23 Occlusion and stenosis of bilateral carotid arteries (principal)
CPT/HCPCS: 78452; 93017; A9502